=== PATIENT | female | born 1945 | race Caucasian/White ===

== ENCOUNTER 2019-08-31 10:23 | Outpatient (CLI) | payer MEDICARE, MEDICAID, SELFPAY ==
--- NOTE | ~2019-08-31 | MR_ITS ---
EXAMINATION: MR cervical spine wo con DATE: 08/31/2019 12:36 INDICATION: Spinal cord compression presenting with numbness in the legs. TECHNIQUE: Magnetic resonance imaging (MRI) of the cervical spine was performed without intravenous c ontrast. Sequences included sagittal T2-weighted FSE, sagittal T2-weighted FS FSE, sagittal T1-weight ed FSE, axial MERGE and axial T2-weighted FSE. COMPARISON: None FINDINGS: Straightening of the normal cervical lordosis. 1 mm anterolisthesis C3 on C4, 2 mm retrolisthesis C5 on C6 and 1 mm anterolisthesis T2 and T3. Partially visualized levoscoliosis in the upper thoracic sp ine. Vertebral body heights are normal. Bone marrow signal intensity is normal. Moderate disc height loss with degenerative endplate changes at C5-C6 and C6-C7. Mild disc height loss at C3-C4 and C4-C5 . Moderate to severe right-sided predominant disc height loss at T2-T3 and T3-T4. Cord signal intensi ty is normal. Cervical soft tissues are unremarkable. The following disc levels are specifically disc ussed: C2-C3: Disc is mildly bulging. There is mild right and moderate left uncovertebral joint osteoarthrit is. There is moderate right and severe left facet joint osteoarthritis. There is mild left neural for aminal stenosis. There is minimal central canal stenosis. C3-C4: Disc is bulging. There is old right and moderate left uncovertebral joint osteoarthritis. Ther e is moderate right and severe left facet joint osteoarthritis. There is moderate to severe left and mild to moderate right neural foraminal stenosis. There is mild central canal stenosis with mild flat tening of the ventral surface of the cord. C4-C5: Disc is bulging with annular fissure. There is moderate right and moderate to severe left unco vertebral joint osteoarthritis. There is moderate right facet joint osteoarthritis. There appears be fusion at the left facet joint with prominent hypertrophic changes. There is mild right and mild to m oderate left neural foraminal stenosis. There is mild central canal stenosis with mild indentation of the ventral surface of the cord. C5-C6: Disc is bulging with annular fissure and central disc extrusion with disc material extending a couple millimeters caudal to the level of the superior endplate of C6. There is moderate right and m oderate to severe left uncovertebral joint osteoarthritis. There is moderate bilateral facet joint os teoarthritis. There is mild to moderate right and moderate left neural foraminal stenosis. There is m ild central canal stenosis measuring 8 mm AP at the mid sagittal plane and with intention of the vent ral surface of the cord. C6-C7: Disc is bulging. There is moderate right and severe left uncovertebral joint osteoarthritis. T here is mild to moderate right and severe left facet joint osteoarthritis. There is moderate left and minimal rightmild neural foraminal stenosis. There is mild central canal stenosis with subtle flatte srinivasan of the ventral surface of the cord. C7-T1: Disc is mildly bulging. There is mild left uncovertebral joint osteoarthritis. There is severe left and moderate to severe right facet joint osteoarthritis. There is mild left and minimal right n eural foraminal stenosis. There is no central canal stenosis. IMPRESSION: 1. Moderate to severe cervical spondylosis. No evident cord signal changes. Reviewed, dictated and finalized at location A.
--- NOTE | ~2019-08-31 | MR_ITS ---
EXAMINATION: MR thoracic spine wo con DATE: 08/31/2019 12:37 INDICATION: Spinal cord compression. TECHNIQUE: Magnetic resonance imaging (MRI) of the thoracic spine was performed without intravenous c ontrast. Sagittal localizer T1-weighted FSE of the cervicothoracic spine was obtained. Thoracic spine sequences included sagittal T2-weighted FSE, sagittal T1-weighted SE, Sagittal T2-weighted FS FSE, a nd axial T2-weighted FSE. COMPARISON: None FINDINGS: 25 degrees lumbar levoscoliosis measured between T3 and T6. 1 mm anterolisthesis T2 and T3 and T11 an d T12. 2 mm retrolisthesis T12 on L1.Vertebral body heights are normal.T1 and T2 hyperintense hemangi lizzy at T7. Mild fibrovascular degenerative endplate changes at a few levels.Severe right-sided predom inant disc height loss at T4-T5and T5 C6.Moderate disc height loss [id number], T12-L1 and L1-L2. Mild disc height loss throughout the remaining thoracic spine. There disc bulges and disc protrusions to s ome degree at every level in the thoracic spine result in multilevel minimal to mild central canal st enosis most prominent at T8-T9, T9-T10 and T12-L1. There is normal spinal cord signal. The conus term inates below the level of the caudal margin of the field of imaging which is at the level of L1-L2. T here is moderate neural foraminal stenosis on the right at T4-T5 and on the left at T1-T2. Mild neura l foraminal stenosis at multiple additional bilateral neural foramina. Paravertebral soft tissues are unremarkable. IMPRESSION: 1. 25 degrees mid thoracic levoscoliosis. 2. Moderate to severe thoracic spondylosis including multilevel minimal to mild central canal stenosi s. Reviewed, dictated and finalized at location A. IMPRESSION: 1. 25 degrees mid thoracic levoscoliosis. 2. Moderate to severe thoracic spondylosis including multilevel minimal to mild central canal stenosis.
== END 2019-08-31 10:24 | disposition home or self-care (01) ==
PROVIDERS: PCP Family Medicine; Visit Provider Psychiatry & Neurology Neurology
DX: G95.20 Unspecified cord compression (principal); M41.84 Other forms of scoliosis, thoracic region; M47.814 Spondylosis without myelopathy or radiculopathy, thoracic region; M48.04 Spinal stenosis, thoracic region; M47.812 Spondylosis without myelopathy or radiculopathy, cervical region
CPT/HCPCS: 72141; 72146

== ENCOUNTER 2020-06-04 08:34 | Outpatient (CLI) | payer MEDICARE, MEDICAID, SELFPAY ==
--- NOTE | ~2020-06-04 | MM_ITS ---
EXAMINATION: MM screening rashmi BI w braydon HISTORY: Screening TECHNIQUE: Craniocaudal and mediolateral oblique 3-D tomosynthesis images were obtained and synthetic 2-D images were generated. CAD analysis was submitted and interpreted. COMPARISON: Comparison to multiple prior studies sequentially, with oldest reviewed study dated 04/09. BREAST PARENCHYMAL COMPOSITION: There are scattered areas of fibroglandular density. FINDINGS: Stable surgical changes in the right breast. There is no evidence of suspicious mass, calci fication, or architectural distortion to suggest malignancy in either breast. There has been no suspi cious interval change. IMPRESSION: 1. No mammographic evidence of malignancy. 2. Recommend routine screening mammography in one year. BI-RADS Category 1: Negative Reviewed, dictated and finalized at location A. 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
== END 2020-06-04 08:35 | disposition home or self-care (01) ==
PROVIDERS: PCP Family Medicine; Visit Provider Family Medicine
DX: Z12.31 Encounter for screening mammogram for malignant neoplasm of breast (principal)
CPT/HCPCS: 77063; 77067

== ENCOUNTER 2020-08-23 15:23 | Outpatient (CLI) | payer MEDICARE, MEDICAID, SELFPAY ==
--- NOTE | ~2020-08-23 | XR_ITS ---
XR chest 2V DATE: 08/23/2020 16:06 INDICATION: Left anterior chest pain TECHNIQUE: PA and lateral views COMPARISON: 04/25/2018 two-view chest FINDINGS: Normal heart size. No hilar or mediastinal enlargement. No pulmonary infiltrate or consolid ation, pleural effusion or pulmonary vascular congestion or pneumothorax. Scoliosis and degenerative change of the thoracic and lumbar spine. IMPRESSION: No active cardiopulmonary disease Reviewed, dictated and finalized at location A.
== END 2020-08-23 15:24 | disposition home or self-care (01) ==
PROVIDERS: PCP Family Medicine; Visit Provider Family Medicine
DX: R07.89 Other chest pain (principal); M47.815 Spondylosis without myelopathy or radiculopathy, thoracolumbar region; M41.9 Scoliosis, unspecified
CPT/HCPCS: 71046

== ENCOUNTER → 2021-06-17 13:27 | Outpatient (CLI) | payer MEDICARE, SELFPAY ==
--- NOTE | ~2021-06-17 | XR_ITS ---
EXAMINATION: XR ribs BI 3V w CXR 2V INDICATION: Chest pain after fall TECHNIQUE: PA and lateral views of the chest and 3 views of the bilateral ribs were obtained. COMPARISON: 08/23/2020 FINDINGS: The lungs are free of acute opacities. There is no pleural effusion or pneumothorax. The ca rdiomediastinal silhouette is normal. There is moderate thoracic spondylosis. There is levocurvature of the upper thoracic spine. No displaced rib fracture is identified. Surgical changes are noted in t he right breast. IMPRESSION: 1. No acute cardiopulmonary abnormality or evidence of displaced rib fracture. Reviewed, dictated and finalized at location F. RESSOR STATION CHIEF ENGINEER
== END ==
PROVIDERS: PCP Nurse Practitioner Family; Visit Provider Nurse Practitioner Family
DX: S29.9XXA Unspecified injury of thorax, initial encounter (principal)
CPT/HCPCS: 71046; 71110

== ENCOUNTER 2021-06-20 07:21 | Outpatient (CLI) | payer MEDICARE, MEDICAID, SELFPAY ==
--- NOTE | ~2021-06-20 | US_ITS ---
EXAMINATION: US art doppler w je VILLARREAL EXAM DATE: 06/20/2021 08:17 INDICATION: R20.9 - Unspecified disturbances of skin sensation Abnormal sensations in legs. TECHNIQUE: Segmental pressures and plethysmographic and Doppler waveforms of the brachial and lower e xtremity arteries were obtained. Comparison is made to prior examination from 10/16/2017. FINDINGS: Right and left brachial artery pressures of 108 mm Hg and 118 mm Hg, respectively, are concordant (no rmal difference <= 30 mmHg). The right and left thigh-brachial pressure indices are 1.50, could not obtain, respectively (normal > 1.2). RIGHT LEG: The ankle-brachial index (AYLA) is 1.08 (normal >= 0.9-1). The great toe-brachial index (TBI) is 0.82 (normal >= 0.65). The lower extremity ratios, segmental pressure gradients as follows; Proximal superficial femoral artery:- 1.50 (177 mmHg). Distal superficial femoral artery: ----- 1.32 (156 mmHg). Popliteal: 1.19 (141 mmHg). Dorsalis pedis: 1.04 (123 mmHg). Posterior tibial: 1.08 (128 mmHg). (Normal gradients <= 20-30 mmHg between adjacent levels on the same leg or the same levels on the two legs). Arterial waveforms are biphasic through popliteal, monophas ic below. LEFT LEG: The ankle-brachial index (AYLA) is 1.16 (normal >= 0.9-1). The great toe-brachial index (TBI) is 1.11 (normal >= 0.65). The lower extremity ratios, segmental pressure gradients as follows; Proximal superficial femoral artery:- Could not obtain ( mmHg). Distal superficial femoral artery: ----- 1.54 (182 mmHg). Popliteal: 1.14 (135 mmHg). Dorsalis pedis: 1.09 (129 mmHg). Posterior tibial: 1.16 (137 mmHg). (Normal gradients <= 20-30 mmHg between adjacent levels on the same leg or the same levels on the two legs). Arterial waveforms are biphasic through superficial femoral , monophasic below. IMPRESSION: 1. Right ankle-brachial index 1.08, normal. 2. Left ankle-brachial index 1.16, normal. 3. Segmental pressures as above. Reviewed, dictated and finalized at location A. 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
== END 2021-06-20 07:22 | disposition home or self-care (01) ==
PROVIDERS: PCP Family Medicine; Visit Provider Nurse Practitioner Family
DX: R20.9 Unspecified disturbances of skin sensation (principal); I73.9 Peripheral vascular disease, unspecified
CPT/HCPCS: 93923

== ENCOUNTER 2022-04-14 09:49 | Outpatient (CLI) | payer MEDICARE, MEDICAID, SELFPAY ==
--- NOTE | ~2022-04-14 | MM_ITS ---
EXAMINATION: MM screening rashmi BI w braydon HISTORY: Screening mammogram TECHNIQUE: Craniocaudal and mediolateral oblique 3-D tomosynthesis images were obtained and synthetic 2-D images were generated. CAD analysis was submitted and interpreted. COMPARISON: 06/04/2020, 05/13/2019, 02/11/2018 bilateral screening mammogram examinations BREAST PARENCHYMAL COMPOSITION: There are scattered areas of fibroglandular density. FINDINGS: Multiple surgical clips are noted in the posterior lower mid right breast; and ribbon biops y marker in the upper outer quadrant of the right breast; history of prior benign open biopsy and greg ign needle biopsy of right breast. There is no evidence of suspicious mass, calcification, or archite ctural distortion to suggest malignancy in either breast. There has been no suspicious interval los head IMPRESSION: 1. No mammographic evidence of malignancy. 2. Recommend routine screening mammography in one year. BI-RADS Category 2: Benign finding(s). Reviewed, dictated and finalized at location A. CT OF [employer] ESTATE
== END 2022-04-14 09:50 | disposition home or self-care (01) ==
LOC: ANHIMG 09:51
PROVIDERS: PCP Family Medicine; Visit Provider Family Medicine
DX: Z12.31 Encounter for screening mammogram for malignant neoplasm of breast (principal)
CPT/HCPCS: 77063; 77067

== ENCOUNTER → 2022-06-05 09:05 | Outpatient (CLI) | payer MEDICARE, SELFPAY ==
--- NOTE | ~2022-06-05 | XR_ITS ---
Right foot Technique: AP and lateral views were obtained. Clinical History: Pain COMPARISON: 10/23/2012 Findings: No acute fracture or dislocation is seen. Osseous alignment is anatomic. Stable degenerativ e change along the dorsal margin of TMT joints noted. Soft tissues are unremarkable. Impression: Stable midfoot degenerative change, as detailed above. No fracture or dislocation. Reviewed, dictated and finalized at location . NATOR [employer]FORMS Impression: Stable midfoot degenerative change, as detailed above. No fracture or dislocation.
== END ==
PROVIDERS: PCP Family Medicine; Visit Provider Physician Assistant Medical
DX: M79.671 Pain in right foot (principal)
CPT/HCPCS: 73620

== ENCOUNTER → 2022-06-12 08:54 | Outpatient (CLI) | payer MEDICARE, SELFPAY ==
--- NOTE | ~2022-06-12 | XR_ITS ---
AP and lateral/oblique views of the mandible CLINICAL HISTORY: Jaw pain FINDINGS: No definite fracture or dislocation seen. Temporal mandibular joints are grossly unremarkab le. Soft tissues are unremarkable. IMPRESSION: No definite abnormality seen. Reviewed, dictated and finalized at [facility]. 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
--- NOTE | ~2022-06-12 | XR_ITS ---
Cervical Spine: AP, lateral, open-mouth views Clinical History: Pain Findings: There is reversal of the normal cervical lordosis. Minimal grade 1 anterolisthesis of C2 ov er C3 is noted. Minimal grade 1 anterolisthesis of C3 over C4 noted. Minimal grade 1 anterolisthesis of C4 over C5 noted. There is moderate degenerative disc change at C5-C6 and C6-C7. The intervertebra l disc spaces are well maintained. Pre-vertebral soft tissues are unremarkable. Impression: Minimal grade I anterolisthesis of C2 over C3, of C3 over C4, and of C4 over C5. Reversal normal cervical lordosis. Degenerative disc disease at the lower cervical spine, as detailed above. Reviewed, dictated and finalized at location M. [employer] Impression: Minimal grade I anterolisthesis of C2 over C3, of C3 over C4, and of C4 over C5 . Reversal normal cervical lordosis. Degenerative disc disease at the lower cervical spine, as detailed above.
== END ==
PROVIDERS: PCP Family Medicine; Visit Provider Nurse Practitioner Family
DX: M43.02 Spondylolysis, cervical region (principal); M43.12 Spondylolisthesis, cervical region; M53.82 Other specified dorsopathies, cervical region; M50.30 Other cervical disc degeneration, unspecified cervical region
CPT/HCPCS: 70110; 72040

== ENCOUNTER 2022-08-01 11:00 | Outpatient (RCR) | payer MEDICARE, MEDICAID, SELFPAY | END 2022-10-15 12:42 | disposition home or self-care (01) | LOC: ANHPT 11:00 | PROVIDERS: PCP Family Medicine; Visit Provider Nurse Practitioner Family | DX: M54.2 Cervicalgia (principal) | CPT/HCPCS: 99199 ==

== ENCOUNTER 2022-11-06 08:19 | Observation (INO) | payer MEDICARE, MEDICAID, SELFPAY ==
[2022-11-06] VITALS (54 sets, daily range): BP systolic 96–165; BP diastolic 52–97; PULSE 53–136; RESP 11–30; TEMP 36.4–37; O2SAT 94–100
--- NOTE | 2022-11-06 | ECHO_ITS ---
Patient Info Name: Laurie Nava Age: 77 years : 1945 Gender: Female Ht: 66 in Wt: 198 lbs BSA: 2.08 m2 HR: 117 bpm BP: 146 / 70 mmHg Technical Quality: Fair Exam Date: 11/06/2022 3:49 PM Exam Location: [facility] Pulmonary Exam Room: [place] [id number] Patient Status: Inpatient Admit Date: 11/06/2022 Staff Ordering Physician: Audrey Cain NP Leather Goods I Assembler: Jody Reeves RDCS Attending Provider: Anselmo Montgomery MD Referring Physician: Cody Bonilla MD; Exam Type: CA echo doppler color flow Study Info Indications - CHEST PAIN Complete two-dimensional, color flow and Doppler transthoracic echocardiogram is performed. Summary 1. Complete two-dimensional, color flow and Doppler transthoracic echocardiogram is performed. 2. Left ventricular chamber dimension is normal. 3. Left ventricular systolic function is normal, estimated at 60-65%. 4. The left ventricular diastolic function is grade I diastolic dysfunction. 5. E/e' 11 is mildly elevated. 6. There is mild tricuspid valve regurgitation. 7. No pulmonary hypertension, estimated pulmonary arterial systolic pressure is 32 mmHg. 8. There is trivial pericardial effusion. Left Ventricle E/e' 11 is mildly elevated. Left ventricular chamber dimension is normal. Left ventricular systolic function is normal, estimated at 60-65%. The left ventricular diastolic function is grade I diastolic dysfunction. Right Ventricle Right ventricular chamber dimension is normal. Right ventricular systolic function is normal. Left Atria Left atrial chamber dimension is normal. Right Atria Right atrial chamber dimension is normal. Aortic Valve The aortic valve is trileaflet. There is no aortic valve stenosis. There is no aortic valve regurgitation. Pulmonic Valve There is no pulmonic regurgitation. Mitral Valve There is no mitral valve stenosis. There is no mitral valve regurgitation. Tricuspid Valve There is mild tricuspid valve regurgitation. No pulmonary hypertension, estimated pulmonary arterial systolic pressure is 32 mmHg. Pericardium/Pleural There is trivial pericardial effusion. Inferior Vena Cava Normal inferior vena cava with >50% collapse upon inspiration consistent with normal right atrial pressure, 5 mmHg. Aorta The aortic root size at the sinus of Valsalva is normal. Left Ventricular Outflow Tract Name Value Normal LVOT 2D LVOT Diameter 2.0 cm LVOT Doppler LVOT Peak Gradient 4 mmHg LVOT Mean Gradient 2 mmHg LVOT VTI 24 cm LVOT VTI/AV VTI Ratio 0.9 LVOT Stroke Volume 73 ml LVOT CO 13.4 l/min LVOT CI 6.5 l/min/m2 Pulmonic Valve Name Value Normal PV Doppler PV Peak Gradient 1 mmHg Mitral Valve
--- NOTE | ~2022-11-06 | XR_ITS ---
EXAMINATION: XR chest 1V portable INDICATION: Chest pain TECHNIQUE: Portable AP chest at 0841 hours COMPARISON: 06/17/2021 FINDINGS: The lungs are free of acute opacities. No pleural effusion or pneumothorax. The cardiomedia stinal silhouette is normal. Surgical clips are noted in right breast. IMPRESSION: 1. No acute cardiopulmonary abnormality. Reviewed, dictated and finalized at location L.
--- NOTE | ~2022-11-06 | NM_ITS ---
EXAMINATION: NM heather stress w perfusion DATE: 11/07/2022 09:33 INDICATION: Chest pain. TECHNIQUE: Rest images were obtained following intravenous administration of 11 mCi Tc99m tetrofosmin (Myoview). The patient was infused intravenously with Lexiscan (regadenoson). Then, 35 mCi Tc99m tet rofosmin (Myoview) was administered intravenously, and stress images were obtained. Data was reconstr ucted into short axis and horizontal and vertical long axis SPECT images. Gated SPECT images were als o obtained. COMPARISON: Myocardial perfusion imaging 10/17/2013, CT abdomen and pelvis 04/22/2018 FINDINGS: There is a small, mild, fixed perfusion defect involving left ventricular apex consistent w ith infarct. There is no segmental wall motion abnormality. Left ventricular ejection fraction sruthi ures 61%. IMPRESSION: 1. 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 2. Normal left ventricular ejection fraction measuring 61%. Reviewed, dictated and finalized at location A.
--- NOTE | 2022-11-06 08:23 | ECG_ITS ---
Measurements Intervals [place] Rate: 56 P: 36 [place]: 199 QRS: -15 QRSD: 137 T: 28 QT: 428 QTc: 413 Interpretive Statements SINUS BRADYCARDIA WITH SINUS ARRHYTHMIA RIGHT BUNDLE BRANCH BLOCK [120+ ms QRS DURATION, UPRIGHT V1, 40+ ms S IN I/aVL/V4/V5/V6] BASELINE ARTIFACT PRESENT NO PREVIOUS ECG AVAILABLE FOR COMPARISON Electronically Signed On 11-06-2022 15:26:30 CDT by Farhat Johnson M.D.
--- NOTE | 2022-11-06 08:36 | PC.NURSE ---
EMS states pt's EKG showed a right bundle branch block which pt is unsure if she has a history.
[2022-11-06 08:56] LABS: Basophils Percent Auto 0.5 % (0.2-1.2); Eosinophils Absolute Auto 0.1 K/mm3 (0-0.3); Eosinophils Percent Auto 1.4 % (0-4.4); Hematocrit 41.7 % (37.0-47.0); Immature Granulocyte Absolute 0.02 K/mm3 (0.00-0.031); Immature Granulocyte Percent A 0.3 % (0-0.5); Lymphocytes Absolute Auto 1.61 K/mm3 (0.9-3.2); Lymphocytes Percent Auto 24.6 % (18.3-44.2); Mean Corpuscular HGB Conc 31.2 g/dl (32-36); Mean Corpuscular Hemoglobin 31.1 pg (26-34); Mean Corpuscular Volume 99.8 fl (80-100); Monocytes Absolute Auto 0.7 K/mm3 (0.1-0.6); Neutrophils Absolute Auto 4.1 K/mm3 (1.3-6.7); Neutrophils Percent Auto 62.2 % (45.5-73.1); Platelet Count Result 258 k/mm3 (150-375); Red Blood Count 4.18 M/mm3 (4.2-5.4); Red Cell Distribution Width 12.7 % (11.5-14.5); White Blood Count 6.5 K/mm3 (4.5-10.0)
[2022-11-06 09:05] LABS: Alanine Aminotransferase 18 U/L (6-35); Alkaline Phosphatase 70 U/L (38-126); Anion Gap 6 mmol/L (8-16); Aspartate Amino Transferase 26 U/L (14-36); Bilirubin,Total 0.6 mg/dL (0.2-1.3); Blood Urea Nitrogen 23 mg/dL (7-17); Calcium 9.7 mg/dL (8.4-10.2); Carbon Dioxide 22 mmol/L (22-30); Chloride 111 mmol/L (98-107); Estimated CRCL calculation 35 ml/min; Estimated Glomerular Filt Rate 37; Glucose 96 mg/dL (65-110); Lipase 154 U/L (23-300); Potassium 4.2 mmol/L (3.4-5.0); Sodium 139 mmol/L (137-145)
[2022-11-06 09:12] LABS: INR 0.9; Prothrombin Time 12.9 Seconds (11.1-14.7)
[2022-11-06 09:13] LABS: Partial Thromboplastin Time 32.1 SECONDS (22.3-36.8)
[2022-11-06 09:17] LABS: Troponin I < 0.012 ng/mL (0.000-0.034)
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
[2022-11-06 10:02] LABS: Appearance Urine Clear (Clear); Bilirubin Urine Negative (Negative); Blood Urine Negative (Negative); Color Urine Yellow (Yellow); Glucose Urine UA 3+ mg/dL (Negative); Ketones Urine Negative (Negative); Leukocyte Esterase Ur Negative LEU/UL (Negative); Nitrate Urine Negative (Negative); Protein Urine Negative (Negative); Specific Grav Ur 1.009 (1.001-1.035); Urobilinogen Urine 0.2 mg/dL (<2.0); pH Urine 6.5 (5.0-9.0)
[2022-11-06 10:32] LABS: Add Urine Microscopic? NO
[2022-11-06 11:59] LABS: Troponin I < 0.012 ng/mL (0.000-0.034)
--- NOTE | 2022-11-06 13:01 | PM.IMHP ---
H&P: HPI History of Present Illness Date/Time: 11/06/22 13:01 Chief Complaint: Chest pain Narrative: This is a 77-year-old female patient who has a history of chronic kidney disease. The patient stated that her chest pain started around 7:00 a.m. this morning. It started rather quickly in the midsternal region and radiated into the left side of her neck. She denied any nausea vomiting or diarrhea. No fever chills. The patient received around of nitro via EMS and she felt that the pain had resolved. The patient has been under a lot of stress lately. Her creatinine is 1.4 today it typically a baseline is anywhere from 1.2-1.38. EKG was read as sinus bradycardia with sinus arrhythmia. Right bundle-branch block. Chest x-ray was read as no acute cardiopulmonary abnormality. TROPONINS ARE NEGATIVE X2. The patient was given aspirin and a Tylenol for her headache. The patient is being admitted to observation status on the date of service of 11/06/2022. Review of Systems Review of Systems: All systems reviewed & are unremarkable except as noted in HPI and below Constitutional: Constitutional: Reports as per HPI and Reports no additional constitutional complaints Eyes: Eyes: Reports as per HPI and Reports no additional eye complaints ENT: Reports system reviewed and no additional complaints, except as documented and Reports Normal hearing present Cardiovascular: Cardiovascular: Reports no additional cardiovascular complaints Respiratory: Respiratory: Reports no additional respiratory complaints and Reports no additional respiratory complaints Gastrointestinal: Gastrointestinal: Reports as per HPI and Reports no additional gastrointestinal complaints Musculoskeletal: Musculoskeletal: Reports no additional musculoskeletal complaints Integumentary/Breasts: Skin/Breast: Reports system reviewed and no additional complaints, except as docu and Reports as per HPI Neurologic: Reports system reviewed and no additional complaints, except as documented, Reports as per HPI and Reports Normal hearing present Psychiatric: Psychiatric: Reports no additional psychiatric complaints and Reports as per HPI Endocrine: Endocrine: Reports no additional endocrine complaints Hematologic/Lymphatic: Hematologic/Lymphatic: Reports no additional hematologic/lymphatic complaints Allergic/Immunologic: Allergic/Immunologic: Reports no additional allergic/immunologic complaints [facility] Past Medical History Medical History (Updated 11/06/22 @ 16:42 by Audrey Cain NP) Acute bronchitis due to other specified organisms Acute follicular conjunctivitis of both eyes Acute non-recurrent maxillary sinusitis Acute pain of right knee Allergic rhinitis due to pollen Annual physical exam Arthralgia of left temporomandibular joint Arthritis of knee Atrial fibrillation Bilateral impacted cerumen Bipolar 1 disorder Bipolar 1 disorder, mixed Bloating symptom BMI 30.0-30.9,adult BMI 31.0-31.9,adult BMI 33.0-33.9,adult BMI 36.0-36.9,adult BMI greater than 30 Body mass index [BMI] 34.0-34.9, adult (11/24/17) Body mass index [BMI] 35.0-35.9, adult (10/09/17) Breast cancer screening Breast screening Candidiasis Candidiasis of skin Chest wall pain Chronic kidney disease, stage III (moderate) Colon cancer screening Conductive hearing loss of left ear with unrestricted hearing of right ear Constipation by delayed colonic transit Contusion of left foot, initial encounter Counseling for living will Dietary counseling and surveillance (12/29/17) Diverticulosis of colon (without mention of hemorrhage) Duodenal ulcer Ear pain Ear pain Elevated blood pressure reading without diagnosis of hypertension Excessive cerumen in left ear canal Extrapyramidal movement disorder Foot pain, left Gait abnormality HTN (hypertension) with goal to be determined Hypertensive kidney disease IFG (impaired fasting glucose) Insomnia disorder with non-sleep disorder mental comorbidity Li
[2022-11-06] MEDS: ACETAMINOPHEN 500 MG TABLET 1000 MG PO (13:18)
--- NOTE | 2022-11-06 13:34 | PC.NURSE ---
RN talked and gave an update to pt's son with the approval of pt.
[2022-11-06 15:01] LABS: Troponin I < 0.012 ng/mL (0.000-0.034)
--- NOTE | 2022-11-06 17:58 | PC.NURSE ---
This patient, Laurie Nava, was admitted to IMU Room 209-01. Patient/family oriented to hospital policies and general routines including ID bracelet, bed and alarms, visiting hours, pain management, procedures, bathroom and other care routines, personal items, smoking policy, room service/diet, and visiting hours. Information on how to activate the Rapid Response Team has been discussed. Patient/Family are encouraged to report perceived risks to care and to ask questions if they do not understand what they are told or what they should do.
[2022-11-06 18:34] LABS: Lithium 0.5 mmol/L (0.6-1.2)
[2022-11-06] MEDS: ACETAMINOPHEN 325 MG TABLET 650 MG PO (23:10)
[2022-11-06] MEDS: clonazePAM (*CRX) 0.5 MG TABLET PO (23:11)
[2022-11-06] MEDS: PROPRANOLOL HCL 20 MG TABLET PO (23:12)
[2022-11-06] MEDS: LITHIUM CARBONATE 150 MG CAPSULE PO (23:12)
[2022-11-07] VITALS (9 sets, daily range): BP systolic 113–130; BP diastolic 61–69; PULSE 56–80; RESP 18–20; TEMP 36.3–36.8; O2SAT 97–99
[2022-11-07 04:52] LABS: Basophils Percent Auto 0.4 % (0.2-1.2); Eosinophils Absolute Auto 0.1 K/mm3 (0-0.3); Eosinophils Percent Auto 1.3 % (0-4.4); Hematocrit 40.7 % (37.0-47.0); Hemoglobin 12.6 g/dL (12.0-15.0); Immature Granulocyte Absolute 0.01 K/mm3 (0.00-0.031); Immature Granulocyte Percent A 0.2 % (0-0.5); Lymphocytes Absolute Auto 1.44 K/mm3 (0.9-3.2); Lymphocytes Percent Auto 31.8 % (18.3-44.2); Mean Corpuscular Hemoglobin 30.5 pg (26-34); Mean Corpuscular Volume 98.5 fl (80-100); Mean Platelet Volume 9.9 fl (7.4-10.4); Monocytes Absolute Auto 0.6 K/mm3 (0.1-0.6); Neutrophils Absolute Auto 2.4 K/mm3 (1.3-6.7); Neutrophils Percent Auto 53.3 % (45.5-73.1); Platelet Count Result 221 k/mm3 (150-375); Red Blood Count 4.13 M/mm3 (4.2-5.4); Red Cell Distribution Width 12.3 % (11.5-14.5); White Blood Count 4.5 K/mm3 (4.5-10.0)
[2022-11-07 05:01] LABS: Lactic Acid Reflex 0.7 mmol/L (0.7-2.0)
[2022-11-07 05:02] LABS: Alanine Aminotransferase 16 U/L (6-35); Albumin Level 3.6 g/dL (3.5-5.1); Alkaline Phosphatase 58 U/L (38-126); Anion Gap 3 mmol/L (8-16); Aspartate Amino Transferase 25 U/L (14-36); Bilirubin,Total 0.7 mg/dL (0.2-1.3); Blood Urea Nitrogen 25 mg/dL (7-17); Calcium 9.8 mg/dL (8.4-10.2); Carbon Dioxide 28 mmol/L (22-30); Chloride 111 mmol/L (98-107); Estimated CRCL calculation 31 ml/min; Estimated Glomerular Filt Rate 31; Glucose 90 mg/dL (65-110); Magnesium 2.1 mg/dL (1.6-2.3); Potassium 4.1 mmol/L (3.4-5.0); Sodium 142 mmol/L (137-145)
[2022-11-07 05:31] LABS: Thyroid Stimulating Hormone Reflex 0.767 uIU/mL (0.465-4.68)
[2022-11-07] MEDS: PROPRANOLOL HCL 20 MG TABLET PO (07:34)
--- NOTE | 2022-11-07 07:45 | PC.NURSE ---
Pt to nuclear medicine for Lexiscan via wheelchair
--- NOTE | 2022-11-07 09:19 | PC.NURSE ---
Pt returned from nuclear medicine via wheel chair. No issues noted
[2022-11-07] MEDS: FLUTICASONE PROPIONATE 0.05% NA SPR 16 GM BTL (*BKC) 1 SPRAY NASAL (09:55)
[2022-11-07] MEDS: LITHIUM CARBONATE 150 MG CAPSULE PO (09:55)
[2022-11-07] MEDS: SERTRALINE HCL 25 MG TABLET PO (09:55)
[2022-11-07] MEDS: PANTOPRAZOLE 40 MG TABLET PO (09:55)
--- NOTE | 2022-11-07 10:39 | PHAR ---
HOME MED VERIFIED FARXIGA 10MG TABLET TAKE 1 TABLET DAILY
--- NOTE | 2022-11-07 11:41 | PM.CNCAR ---
Assessment and Plan Assessment and plan (1) Chest pain: Code(s): R07.9 - Chest pain, unspecified Status: Acute (2) Abnormal stress test: Code(s): R94.39 - Abnormal result of other cardiovascular function study Status: Acute Plan Patient has very atypical chest pain. Has substernal/neck tightness that comes on after swallowing pills, and her left anterior chest pain over her left breast is very easily reproducible. Troponins are negative. Lexiscan stress test done this morning shows small mild infarct involving LV apex. No reversible perfusion defects to suggest ischemia. No segmental wall motion abnormality. LVEF 61%. Echocardiogram done 11/06 shows LVEF 60-65%, no regional wall motion abnormalities noted, mild TR. Given this, would not pursue invasive cardiac cath at this time. Recommend medical management for symptoms of acid reflux and musculoskeletal chest pain. Recommend ASA and statin if no contraindications, continue beta umair. Patient to follow up with Cardiology as outpatient --- patient states she prefers to see a Elevators Inspector in [place] as that is where she lives. Okay for discharge from my standpoint. Recommendations/plan discussed with Hospitalist, Dr. Montgomery. History of Present Illness History of Present Illness Consult date/time: 11/07/22 11:41 Requesting physician: Anselmo Montgomery MD Consult reason: Other (Abnormal stress test) Reason For Visit: Chest Pain, EKG Changes Narrative: We are consulted for abnormal stress test. This is a 77-year-old female with CKD, tremors, bipolar disorder, GERD who presented on 11/06 for chest pain. Patient states she was sitting yesterday morning when she had sudden onset of substernal chest tightness that went into her neck. Given SL NTG with resolution of pain by EMS. Patient also reports brief sharp left anterior pain over her left breast. Echocardiogram done 11/06 shows LVEF 60-65%, no regional wall motion abnormalities noted, mild TR. EKG shows sinus bradycardia with RBBB. Lexiscan stress test done this morning shows small mild infarct involving LV apex. No reversible perfusion defects to suggest ischemia. No segmental wall motion abnormality. LVEF 61%. Patient states she got the same substernal/neck tightness this morning when she swallowed her pills. Troponins negative. Review of Systems Review of Systems: All systems reviewed & are unremarkable except as noted in HPI and below (HPI) [facility]LY [facility] Past Medical History Medical History (Updated 11/07/22 @ 11:48 by Farhat Johnson MD) Acute bronchitis due to other specified organisms Acute follicular conjunctivitis of both eyes Acute non-recurrent maxillary sinusitis Acute pain of right knee Allergic rhinitis due to pollen Annual physical exam Arthralgia of left temporomandibular joint Arthritis of knee Atrial fibrillation Bilateral impacted cerumen Bipolar 1 disorder Bipolar 1 disorder, mixed Bloating symptom BMI 30.0-30.9,adult BMI 31.0-31.9,adult BMI 33.0-33.9,adult BMI 36.0-36.9,adult BMI greater than 30 Body mass index [BMI] 34.0-34.9, adult (11/24/17) Body mass index [BMI] 35.0-35.9, adult (10/09/17) Breast cancer screening Breast screening Candidiasis Candidiasis of skin Chest wall pain Chronic kidney disease, stage III (moderate) Colon cancer screening Conductive hearing loss of left ear with unrestricted hearing of right ear Constipation by delayed colonic transit Contusion of left foot, initial encounter Counseling for living will Dietary counseling and surveillance (12/29/17) Diverticulosis of colon (without mention of hemorrhage) Duodenal ulcer Ear pain Ear pain Elevated blood pressure reading without diagnosis of hypertension Excessive cerumen in left ear canal Extrapyramidal movement disorder Foot pain, left Gait abnormality HTN (hypertension) with goal to be determined Hypertensive kidney disease IFG (impaired fasting glucose) Insomnia disorder with non-sleep disorder
--- NOTE | 2022-11-07 13:09 | EST_ITS ---
Patient Info Name: Laurie Nava Age: 77 years : 1945 Gender: Female Ht: 66 in Wt: 198 lbs BSA: 2.08 m2 HR: 53 bpm BP: 101 / 78 mmHg Heart Rhythm: Sinus Rhythm Exam Date: 11/07/2022 8:23 AM Exam Location: [facility] Stress Patient Status: Outpatient Admit Date: 11/06/2022 Staff Ordering Physician: Audrey Cain NP Attending Provider: Anselmo Montgomery MD Referring Physician: Cody Bonilla MD; Exercise Technologist: Hanna Fritz CT Exercise Physician: Eliud Cruz DO Exam Type: CA stress heather w NM Study Info Indications R07.89 - Other chest pain A regadenoson stress test was performed. Summary 1. 1. Negative lexiscan stress test for ischemic ST changes by ECG criteria. 2. 2. Stable hemodynamics throughout the test. 3. 3. Nuclear scan to follow and will be reported separately. Please correlate with it. 4. 4. Patient informed of the above results. Protocol: Lexiscan Stress ECG Details Stage: REST Duration (min): 2 min : 12 sec HR (bpm): 54 SBP (mmHg): 170 DBP (mmHg): 108 Stage: REST Duration (min): 8 min : 43 sec HR (bpm): 54 SBP (mmHg): 101 DBP (mmHg): 78 Stage: STAGE 1 Duration (min): 1 min : 0 sec HR (bpm): 72 SBP (mmHg): 122 DBP (mmHg): 63 Stage: RECOVERY Duration (min): 1 min : 0 sec HR (bpm): 81 SBP (mmHg): 122 DBP (mmHg): 63 Stage: RECOVERY Duration (min): 2 min : 0 sec HR (bpm): 73 SBP (mmHg): 122 DBP (mmHg): 63 Stage: RECOVERY Duration (min): 3 min : 0 sec HR (bpm): 70 SBP (mmHg): 122 DBP (mmHg): 63 Stage: RECOVERY Duration (min): 3 min : 33 sec HR (bpm): 70 SBP (mmHg): 123 DBP (mmHg): 91 Rest HR: 54 bpm Peak HR: 86 bpm Rest Sys BP: 101 mmHg Peak Sys BP: 123 mmHg Max Pred HR: 144 bpm % Max Pred HR: 60 % Target HR: 122 bpm Max RPP: 10,578 bpm*mmHg Termination Reason: Completed protocol Cardiac Symptoms: Shortness of breath Total Time: 1 min : 0 sec Rest Briscoe BP: 78 mmHg Peak Briscoe BP: 91 mmHg Total Dose: 0.4 mg Resting ECG Sinus rhythm, RBBB. Stress ECG No ST changes. Arrhythmias None. Report Signatures
--- NOTE | 2022-11-07 13:20 | PCCCNOTE ---
On 11/07/22, the student, [Ciera Moore], provided care and completed [facility] documentation on this patient. I have reviewed the student's documentation and agree with the findings.
--- NOTE | 2022-11-07 13:29 | PM.DS ---
DS: Admitting Diagnosis Discharge Date November 08, 2019 Admitting Diagnosis Chest pain DS: Discharge Diagnosis Discharge Diagnosis (1) Chest pain: Code(s): R07.9 - Chest pain, unspecified Status: Acute Assessment and Plan: Troponins are negative x2 so far. Patient denies any further discomfort. The patient does have a history of anxiety. I did order an echo test and nuclear med Lexiscan. The patient stated that she has had a cardiac catheterization in of stress test in the past and was found to be negative. Patient has no prior history of having any coronary artery disease. EKG was read as the followingSINUS BRADYCARDIA WITH SINUS ARRHYTHMIA RIGHT BUNDLE BRANCH BLOCK? [120+ ms QRS DURATION, UPRIGHT V1, 40+ ms S IN I/aVL/V4/V5/V6] BASELINE ARTIFACT PRESENT NO PREVIOUS ECG AVAILABLE FOR COMPARISON Electronically Signed On 11-06-2022 15:26:30 CDT by Farhat Johnson? Patient is pain-free at this time. The patient was given an aspirin in the emergency room. She will be NPO after midnight for nuclear med stress test. Her heart score is 5. (2) Essential tremor: Code(s): G25.0 - Essential tremor Status: Acute Assessment and Plan: Continue with her propanolol (3) Chronic kidney disease, stage 3b: Code(s): N18.32 - Chronic kidney disease, stage 3b Status: Acute Assessment and Plan: The patient is at her baseline. Her creatinine is 1.4 BUN is 23 her GFR is 37. Please continue to monitor. The patient is on Farxiga (4) Manic-depressive disorder: Code(s): F31.9 - Bipolar disorder, unspecified Status: Acute Assessment and Plan: She is on lithium so check her lithium levels. Continue with clonazepam (5) HTN (hypertension) with goal to be determined: Code(s): I10 - Essential (primary) hypertension Status: Acute Plan The patient is on Amiloride however this should be renally adjusted DS: Summary Hospital Course Hospital Course: Admitted for chest pain negative workup. Patient can be discharged. Follow up Cardiology as needed Time Spent with Patient Time attestation: Total time spent providing and/or coordinating discharge services: Exam Const: General: cooperative, healthy appearing, comfortable, no acute distress, well developed, awake, Physically active, average body habitus and well nourished Nutritional Appearance: average body habitus and well nourished Orientation/consciousness: oriented to person, oriented to place, oriented to time and patient oriented x3 Limitations: no limitations HENMT: Head: normal to inspection, No palpable skull fracture present, normocephalic and atraumatic Ears: hearing grossly normal bilaterally and external ears normal Face/Nose/Sinus: Normal external nose present and Normal nares present Eyes: General: appearance normal, both eyes and all related structures Alignment and Position: alignment normal Periorbital: periorbital findings normal Eyelids: eyelids normal Sclera: sclerae normal Pupils: Equal, round and reactive pupils present EOM: EOMs intact bilaterally Neck: Neck: normal visual inspection, full ROM, no lymphadenopathy, trachea midline and supple Chest: Chest palpation & inspection: normal inspection of the chest Resp: Effort & Inspection: normal respiratory effort Auscultation: clear to auscultation bilaterally Cardio: Palpation: normal PMI Rate: bradycardic Rhythm: regular rhythm Heart sounds: S1 normal heart sound present and S2 normal heart sound present Peripheral pulses: Peripheral pulses 2+ throughout GI: Inspection: normal to inspection Auscultation: normal bowel sounds Rectal Exam: deferred Back/Spine/Pelvis: Cervical Spine: cervical ROM normal Skin: General skin exam: normal color Lesions: no lesions Rashes: no rashes Trauma: no lacerations or abrasions Wounds: no wounds Hair: normal Nails: normal Neuro: General: oriented to person, oriented to place, oriented to time and
== END 2022-11-07 14:52 | disposition home or self-care (01) ==
LOC: ANHED 12:44 → ANHIMU 14:36
PROVIDERS: Emergency Medicine; Nurse Practitioner; Admitting Provider Chiropractor; Emergency Provider Physician Assistant; PCP Family Medicine; Referring Provider Hospitalist; Visit Provider Chiropractor
DX: R07.9 Chest pain, unspecified (principal); G25.0 Essential tremor; F31.9 Bipolar disorder, unspecified; I48.91 Unspecified atrial fibrillation; R14.0 Abdominal distension (gaseous); I12.9 Hypertensive chronic kidney disease with stage 1 through stage 4 chronic kidney disease, or unspecified chronic kidney disease; N18.32 Chronic kidney disease, stage 3b; R73.01 Impaired fasting glucose; G47.00 Insomnia, unspecified; E78.2 Mixed hyperlipidemia; E66.9 Obesity, unspecified; R00.1 Bradycardia, unspecified; R11.10 Vomiting, unspecified; I45.10 Unspecified right bundle-branch block; R94.39 Abnormal result of other cardiovascular function study; R94.31 Abnormal electrocardiogram [ECG] [EKG]; Z68.32 Body mass index [BMI] 32.0-32.9, adult; N32.81 Overactive bladder; Z63.79 Other stressful life events affecting family and household; Z82.49 Family history of ischemic heart disease and other diseases of the circulatory system; Z66 Do not resuscitate
CPT/HCPCS: 36415; 71045; 78452; 80053; 80178; 81003; 83605; 83690; 83735; 84443; 84484; 85025; 85610; 85730; 93005; 93017; 93306; 99285; A9270; A9502; G0378; J2785

== ENCOUNTER 2022-11-21 06:56 | Emergency (ER) | payer MEDICARE, MEDICAID, SELFPAY ==
--- NOTE | ~2022-11-21 | XR_ITS ---
EXAMINATION: XR chest 2V DATE: 11/21/2022 07:37 INDICATION: Chest pain. TECHNIQUE: Frontal and lateral views of the chest were obtained. COMPARISON: Chest single view 11/06/2022 FINDINGS: The chest demonstrates clear lungs without pneumonia, pleural effusion, or pneumothorax. Th e heart size is normal. There are surgical clips in the abdomen. IMPRESSION: 1. No acute cardiopulmonary disease. Reviewed, dictated and finalized at location A.
[2022-11-21 06:57] VITALS: BP 135/80; PULSE 72; RESP 20; TEMP 36.6; O2SAT 98
--- NOTE | 2022-11-21 07:00 | ECG_ITS ---
Measurements Intervals [place] Rate: 68 P: 53 NM: 188 QRS: -14 QRSD: 131 T: 22 QT: 396 QTc: 423 Interpretive Statements SINUS RHYTHM RIGHT BUNDLE BRANCH BLOCK ABNORMAL ECG COMPARED TO ECG 11/06/2022 08:24:17 NO SIGNIFICANT CHANGE Electronically Signed On 11-21-2022 13:28:30 CDT by Anselmo Gee M.D.
[2022-11-21 07:17] LABS: Basophils Percent Auto 0.7 % (0.2-1.2); Eosinophils Absolute Auto 0.1 K/mm3 (0-0.3); Eosinophils Percent Auto 2.3 % (0-4.4); Hemoglobin 13.1 g/dL (12.0-15.0); Immature Granulocyte Absolute 0.01 K/mm3 (0.00-0.031); Immature Granulocyte Percent A 0.2 % (0-0.5); Lymphocytes Absolute Auto 1.11 K/mm3 (0.9-3.2); Lymphocytes Percent Auto 25.2 % (18.3-44.2); Mean Corpuscular HGB Conc 31.2 g/dl (32-36); Mean Corpuscular Hemoglobin 31.3 pg (26-34); Mean Corpuscular Volume 100.2 fl (80-100); Mean Platelet Volume 9.6 fl (7.4-10.4); Monocytes Absolute Auto 0.6 K/mm3 (0.1-0.6); Monocytes Percent Auto 14.1 % (2.6-8.5); Neutrophils Absolute Auto 2.5 K/mm3 (1.3-6.7); Neutrophils Percent Auto 57.5 % (45.5-73.1); Platelet Count Result 232 k/mm3 (150-375); Red Blood Count 4.19 M/mm3 (4.2-5.4); Red Cell Distribution Width 12.7 % (11.5-14.5); White Blood Count 4.4 K/mm3 (4.5-10.0)
[2022-11-21 07:18] VITALS: BP 141/74; RESP 18; O2SAT 98
[2022-11-21 07:28] LABS: Alanine Aminotransferase 16 U/L (6-35); Albumin Level 3.8 g/dL (3.5-5.1); Alkaline Phosphatase 65 U/L (38-126); Anion Gap 4 mmol/L (8-16); Aspartate Amino Transferase 28 U/L (14-36); Bilirubin,Total 0.7 mg/dL (0.2-1.3); Blood Urea Nitrogen 25 mg/dL (7-17); Calcium 9.8 mg/dL (8.4-10.2); Carbon Dioxide 28 mmol/L (22-30); Chloride 111 mmol/L (98-107); Estimated CRCL calculation 34 ml/min; Estimated Glomerular Filt Rate 37; Glucose 92 mg/dL (65-110); Lipase 110 U/L (23-300); Potassium 4.1 mmol/L (3.4-5.0); Sodium 143 mmol/L (137-145)
[2022-11-21 07:30] LABS: INR 0.9
[2022-11-21 07:31] LABS: Partial Thromboplastin Time 29.9 SECONDS (22.3-36.8)
[2022-11-21 07:39] LABS: Troponin I < 0.012 ng/mL (0.000-0.034)
--- NOTE | 2022-11-21 08:17 | ED.GENADULT ---
HPI - General Adult General Chief complaint: Neck Pain/Injury Stated complaint: CP, neck pain Time Seen by Provider: 11/21/22 06:57 History of Present Illness HPI narrative: 77-year-old female presented the emergency department for evaluation of right-sided chest pain. Patient has no prior history of coronary disease. Patient states that this morning she had right-sided chest pain that lasted for about 1 to 5 minutes. Patient states this occurred while she was at rest. Patient states that she has been having almost daily chest pain that she indicates as epigastric. Related Data Home Medications Medication Instructions Recorded Confirmed lithium carbonate 150 mg capsule 150 mg PO BID 08/13/22 11/13/22 propranolol 20 mg tablet 20 mg PO BID 11/06/22 11/13/22 Allergies Allergy/AdvReac Type Severity Reaction Status Date / Time oxybutynin Allergy Unknown Unknown Verified 11/13/22 16:12 oxycodone Allergy Unknown RASH Verified 11/13/22 16:12 primidone Allergy Unknown Unknown Verified 11/13/22 16:12 Sulfa (Sulfonamide Allergy Unknown Unknown Verified 11/13/22 16:12 Antibiotics) Review of Systems Review of Systems: All systems reviewed & are unremarkable except as noted in HPI and below PMFSH Past Medical History Medical History (Updated 11/21/22 @ 11:14 by Arthur Layne MD) Acute bronchitis due to other specified organisms Acute follicular conjunctivitis of both eyes Acute non-recurrent maxillary sinusitis Acute pain of right knee Allergic rhinitis due to pollen Annual physical exam Arthralgia of left temporomandibular joint Arthritis of knee Atrial fibrillation Bilateral hand numbness Bilateral impacted cerumen Bipolar 1 disorder Bipolar 1 disorder, mixed Bloating symptom BMI 30.0-30.9,adult BMI 31.0-31.9,adult BMI 33.0-33.9,adult BMI 36.0-36.9,adult BMI greater than 30 Body mass index [BMI] 34.0-34.9, adult (11/24/17) Body mass index [BMI] 35.0-35.9, adult (10/09/17) Breast cancer screening Breast screening Candidiasis Candidiasis of skin Chest wall pain Chronic kidney disease, stage III (moderate) Colon cancer screening Conductive hearing loss of left ear with unrestricted hearing of right ear Constipation by delayed colonic transit Contusion of left foot, initial encounter Counseling for living will Dietary counseling and surveillance (12/29/17) Diverticulosis of colon (without mention of hemorrhage) Duodenal ulcer Ear pain Ear pain Elevated blood pressure reading without diagnosis of hypertension Excessive cerumen in left ear canal Extrapyramidal movement disorder Foot pain, left Gait abnormality HTN (hypertension) with goal to be determined Hypertensive kidney disease IFG (impaired fasting glucose) Insomnia disorder with non-sleep disorder mental comorbidity Lipid screening Long-term current use of lithium Low kidney function Mediastinal cyst Mixed hyperlipidemia Neuropathy OAB (overactive bladder) Obesity, unspecified Other obesity due to excess calories Pes planus of left foot Postmenopausal Primary osteoarthritis of left knee Ptosis Pulmonary nodule SOB (shortness of breath) Stage 2 chronic kidney disease Tremor of both hands Tremor, coarse Tremor, hereditary, benign Trochanteric bursitis of right hip Unilateral hearing loss Vaginitis, atrophic Weakness Surgical History Surgical History H/O dilation and curettage H/O foot surgery History of 2 sections History of Achilles tendon repair History of cardiac catheterization History of hand surgery History of hysterectomy History of left knee replacement History of tonsillectomy and adenoidectomy Family History Family History Mother Family history of kidney disease Patient's mother is Hypertension Family history of arthritis Father Family history of chronic obstructive pulmonary dis
[2022-11-21] MEDS: ACETAMINOPHEN 325 MG TABLET 650 MG PO (08:24)
[2022-11-21 08:26] VITALS: BP 128/62; PULSE 85; RESP 14; O2SAT 99
[2022-11-21] MEDS: CYCLOBENZAPRINE HCL 10 MG TABLET PO (08:26)
[2022-11-21 09:52] VITALS: BP 125/68; PULSE 66; RESP 14; O2SAT 96
[2022-11-21 10:50] LABS: Troponin I < 0.012 ng/mL (0.000-0.034)
[2022-11-21 11:13] VITALS: BP 135/69; PULSE 79; RESP 20; O2SAT 94
--- NOTE | 2022-11-21 11:31 | PC.NURSE ---
Spoke with Radames pt son and updated him on the pt. Radames also informed me that he will be getting
== END 2022-11-21 11:23 | disposition home or self-care (01) ==
PROVIDERS: Emergency Provider Emergency Medicine; PCP Family Medicine
DX: R07.89 Other chest pain (principal); M54.2 Cervicalgia; I48.91 Unspecified atrial fibrillation; I12.9 Hypertensive chronic kidney disease with stage 1 through stage 4 chronic kidney disease, or unspecified chronic kidney disease; N18.30 Chronic kidney disease, stage 3 unspecified; E78.2 Mixed hyperlipidemia; G62.9 Polyneuropathy, unspecified; N32.81 Overactive bladder; E66.09 Other obesity due to excess calories; Z68.32 Body mass index [BMI] 32.0-32.9, adult; M17.12 Unilateral primary osteoarthritis, left knee; F31.9 Bipolar disorder, unspecified; Z90.710 Acquired absence of both cervix and uterus; Z96.652 Presence of left artificial knee joint; I45.10 Unspecified right bundle-branch block
CPT/HCPCS: 36415; 71046; 80053; 83690; 84484; 85025; 85610; 85730; 93005; 99284; A9270

== ENCOUNTER 2022-11-25 08:56 | Outpatient (CLI) | payer MEDICARE, MEDICAID, SELFPAY ==
--- NOTE | 2022-11-25 11:00 | NEURO_ITS ---
Impression: Patient reports a history of numbness in both hands, right worse than left. # Moderate right Carpal Tunnel Syndrome. # Normal needle/EMG of the right upper extremity. # Patient declined testing of the left upper extremity. # Clinical correlation recommended. Nerve Conduction Studies Anti Sensory Summary Table Stim Site NR Peak (ms) P-T Amp (?V) Site1 Site2 Delta-P (ms) Dist (cm) Cuco (m/s) Right Median Anti Sensory (2-3nd Digit) Wrist 5.3 11.0 Wrist 2-3nd Digit 5.3 14.0 26 Wrist 5.0 21.7 Wrist 2-3nd Digit 5.3 14.0 26 Right Radial Anti Sensory (Base 1st Digit) Wrist 1.8 15.0 Wrist Base 1st Digit 1.8 0.0 Right Ulnar Anti Sensory (5th Digit) Wrist 2.7 22.7 Wrist 5th Digit 2.7 14.0 52 Motor Summary Table Stim Site NR Onset (ms) O-P Amp (mV) Site1 Site2 Delta-0 (ms) Dist (cm) Cuco (m/s) Right Median Motor (Abd Poll Brev) Wrist 5.2 3.4 Elbow Wrist 4.5 23.0 51 Elbow 9.7 3.0 Right Ulnar Motor (Abd Dig Minimi) Wrist 2.6 4.5 A Elbow Wrist 5.6 29.0 52 A Elbow 8.2 4.0 B Elbow Wrist 3.6 19.0 53 B Elbow 6.2 4.3 F Wave Studies NR F-Lat (ms) L-R F-Lat (ms) Right Median (Mrkrs) (Abd Poll Brev) 27.23 Right Ulnar (Mrkrs) (Abd Dig Min) 26.61 EMG Side Muscle Nerve Root Ins Act Fibs Amp Dur Recrt Comment Right 1stDorInt Ulnar C8-T1 Nml Nml Nml Nml Nml Right Ext Indicis Radial (Post Int) C7-8 Nml Nml Nml Nml Nml Right Ext Digitorum Radial (Post Int) C7-8 Nml Nml Nml Nml Nml Right BrachioRad Radial C5-6 Nml Nml Nml Nml Nml Right PronatorTeres Median C6-7 Nml Nml Nml Nml Nml Right Abd Poll Brev Median C8-T1 Nml Nml Nml Nml Nml MTDD
== END 2022-11-25 08:57 | disposition home or self-care (01) ==
LOC: ANHNEURO 08:58
PROVIDERS: PCP Family Medicine; Visit Provider Family Medicine
DX: G56.01 Carpal tunnel syndrome, right upper limb (principal)
CPT/HCPCS: 95886; 95909

== ENCOUNTER 2022-11-25 10:10 | Outpatient (CLI) | payer MEDICARE, MEDICAID, SELFPAY | END 2022-11-25 10:11 | disposition home or self-care (01) | LOC: ANHAUDIO 10:11 | PROVIDERS: PCP Family Medicine; Visit Provider Family Medicine | DX: H91.93 Unspecified hearing loss, bilateral (principal) | CPT/HCPCS: 92557; 92567; 95886; 95909 ==

== ENCOUNTER 2023-03-30 09:54 | Outpatient (CLI) | payer MEDICARE, MEDICAID, SELFPAY ==
--- NOTE | ~2023-03-30 | US_ITS ---
US renal BI 03/30/2023 10:45 Procedure: Realtime transabdominal ultrasound of the kidneys and bladder. Indication: Chronic kidney disease stage III B Comparison: Ultrasound dated 02/10/2015 Findings: Renal echotexture is normal bilaterally without hydronephrosis, contour deforming mass or r enal calculus. There are bilateral renal cysts, largest on the right measuring 2.6 cm and 1.8 cm on t he left. The right kidney measures 9.8 cm and left kidney measures 9.8 cm. Bladder within normal bowser its. Impression: 1: Bilateral renal cysts. Reviewed, dictated and finalized at location B. Impression: 1: Bilateral renal cysts.
== END 2023-03-30 09:55 | disposition home or self-care (01) ==
PROVIDERS: PCP Family Medicine; Visit Provider Internal Medicine Nephrology
DX: N18.32 Chronic kidney disease, stage 3b (principal); N28.1 Cyst of kidney, acquired
CPT/HCPCS: 76775

== ENCOUNTER 2023-09-17 16:09 | Emergency (ER) | payer MEDICARE, MEDICAID, SELFPAY ==
--- NOTE | ~2023-09-17 | XR_ITS ---
XR chest 2V 09/17/2023 17:02 Indication: Chest pain Procedure: 2 view chest Comparison: No prior studies for comparison. Findings: Heart size normal. No focal air space disease, pulmonary edema, pleural effusion or suspect ed pneumothorax. There are surgical changes in the right lower chest wall. There is lower thoracic an d lumbar lumbar spondylosis with accentuated kyphosis. Impression: 1: No acute cardiopulmonary disease. Reviewed, dictated and finalized at location A. Impression: 1: No acute cardiopulmonary disease.
--- NOTE | 2023-09-17 16:17 | ED.CHESTPAIN ---
HPI - Chest Pain General Chief Complaint: Chest Pain Stated Complaint: chest pain History of Present Illness HPI narrative: Patient is a 77-year-old female who presents ER with multiple complaints. First complaint is epigastric pain. Ongoing for last couple of weeks. Aching. Worse with pressing on it. Better with Mylanta. No dark black stools. No nausea or vomiting. No diarrhea. Patient also reports that was the she has been having some achy chest pain for 1 week. Thumb both sides of her chest and worse with palpation. Not describe any aggravating or alleviating factors. She has no change in the discomfort with exertion. Related Data Home Medications Medication Instructions Recorded Confirmed lithium carbonate 150 mg capsule 150 mg PO BID 08/13/22 09/17/23 Allergies Allergy/AdvReac Type Severity Reaction Status Date / Time oxybutynin Allergy Unknown Unknown Verified 09/17/23 14:02 oxycodone Allergy Unknown RASH Verified 09/17/23 14:02 primidone Allergy Unknown Unknown Verified 09/17/23 14:02 Sulfa (Sulfonamide Allergy Unknown Unknown Verified 09/17/23 14:02 Antibiotics) Review of Systems Review of Systems: All systems reviewed & are unremarkable except as noted in HPI and below Constitutional: Constitutional: Reports no additional constitutional complaints ENT: Reports system reviewed and no additional complaints, except as documented Cardiovascular: Cardiovascular: Reports chest pain, Denies rapid heart rate and Denies radiating jaw, neck or arm pain Respiratory: Respiratory: Reports no additional respiratory complaints Gastrointestinal: Gastrointestinal: Reports abdominal pain, Denies diarrhea, Denies nausea and Denies vomiting Genitourinary: Genitourinary: Reports no additional female genitourinary complaints [facility] Past Medical History Medical History (Updated 09/17/23 @ 17:59 by Vikash Krishnan MD) Abdominal pain Acute bronchitis due to other specified organisms Acute follicular conjunctivitis of both eyes Acute non-recurrent maxillary sinusitis Acute pain of right knee Allergic rhinitis due to pollen Annual physical exam Arthralgia of left temporomandibular joint Arthritis of knee Atrial fibrillation Bilateral hand numbness Bilateral impacted cerumen Bipolar 1 disorder Bipolar 1 disorder, mixed Bloating symptom BMI 30.0-30.9,adult BMI 31.0-31.9,adult BMI 33.0-33.9,adult BMI 36.0-36.9,adult BMI greater than 30 Body mass index [BMI] 34.0-34.9, adult (11/24/17) Body mass index [BMI] 35.0-35.9, adult (10/09/17) Breast cancer screening Breast screening Candidiasis Candidiasis of skin Chest pain at rest Chest wall pain Chronic kidney disease, stage III (moderate) Colon cancer screening Conductive hearing loss of left ear with unrestricted hearing of right ear Constipation by delayed colonic transit Contusion of left foot, initial encounter Counseling for living will Dietary counseling and surveillance (12/29/17) Diverticulosis of colon (without mention of hemorrhage) Dizziness Duodenal ulcer Ear pain Ear pain Elevated blood pressure reading without diagnosis of hypertension Excessive cerumen in left ear canal Extrapyramidal movement disorder Foot pain, left Gait abnormality HTN (hypertension) with goal to be determined Hypertensive kidney disease IFG (impaired fasting glucose) Insomnia disorder with non-sleep disorder mental comorbidity Lipid screening Long-term current use of lithium Low kidney function Mediastinal cyst Mixed hyperlipidemia Nausea Neuropathy OAB (overactive bladder) Obesity, unspecified Other obesity due to excess calories Pes planus of left foot Postmenopausal Primary osteoarthritis of left knee Ptosis Pulmonary nodule SOB (shortness of breath) Stage 2 chronic kidney disease Tremor of both hands Tremor, coarse Tremor, hereditary, benign Trochanteric bursitis of right hip Unilateral hearing loss Vaginitis, atrophic Weakness Surgical History Lee
[2023-09-17 16:23] VITALS: BP 149/91; PULSE 80; RESP 19; TEMP 36.6; O2SAT 99
[2023-09-17 16:52] LABS: Basophils Percent Auto 0.5 % (0.2-1.2); Eosinophils Absolute Auto 0.1 K/mm3 (0-0.3); Eosinophils Percent Auto 1.3 % (0-4.4); Hematocrit 42.9 % (37.0-47.0); Hemoglobin 13.1 g/dL (12.0-15.0); Immature Granulocyte Absolute 0.01 K/mm3 (0.00-0.031); Immature Granulocyte Percent A 0.2 % (0-0.5); Lymphocytes Absolute Auto 1.46 K/mm3 (0.9-3.2); Lymphocytes Percent Auto 23.5 % (18.3-44.2); Mean Corpuscular HGB Conc 30.5 g/dl (32-36); Mean Corpuscular Hemoglobin 30.5 pg (26-34); Mean Platelet Volume 9.9 fl (7.4-10.4); Monocytes Absolute Auto 0.7 K/mm3 (0.1-0.6); Monocytes Percent Auto 11.1 % (2.6-8.5); Neutrophils Absolute Auto 3.9 K/mm3 (1.3-6.7); Neutrophils Percent Auto 63.4 % (45.5-73.1); Platelet Count Result 232 k/mm3 (150-375); Red Blood Count 4.29 M/mm3 (4.2-5.4); Red Cell Distribution Width 12.8 % (11.5-14.5); White Blood Count 6.2 K/mm3 (4.5-10.0)
[2023-09-17 16:58] LABS: Appearance Urine Clear (Clear); Color Urine Light Yellow (Yellow)
[2023-09-17 16:59] LABS: Add Urine Microscopic? NO; Bilirubin Urine Negative (Negative); Blood Urine Negative (Negative); Glucose Urine UA 2+ mg/dL (Negative); Ketones Urine Negative (Negative); Leukocyte Esterase Ur Negative LEU/UL (Negative); Nitrate Urine Negative (Negative); Protein Urine Negative (Negative); Urobilinogen Urine 0.2 mg/dL (<2.0)
[2023-09-17 17:04] LABS: Prothrombin Time 13.3 Seconds (11.1-14.7)
[2023-09-17 17:07] LABS: Alanine Aminotransferase 13 U/L (6-35); Albumin Level 3.9 g/dL (3.5-5.1); Alkaline Phosphatase 77 U/L (38-126); Anion Gap 5 mmol/L (4-12); Aspartate Amino Transferase 23 U/L (14-36); Bilirubin,Total 0.6 mg/dL (0.2-1.3); Blood Urea Nitrogen 22 mg/dL (7-17); Calcium 9.8 mg/dL (8.4-10.2); Carbon Dioxide 26 mmol/L (22-30); Chloride 110 mmol/L (98-107); Estimated CRCL calculation 31 ml/min; Estimated Glomerular Filt Rate 34; Glucose 91 mg/dL (65-110); Lipase 141 U/L (23-300); Potassium 3.8 mmol/L (3.4-5.0); Sodium 141 mmol/L (137-145)
[2023-09-17 17:18] LABS: Troponin I < 0.012 ng/mL (0.000-0.034)
== END 2023-09-17 19:05 | disposition home or self-care (01) ==
PROVIDERS: Emergency Provider Emergency Medicine; PCP Family Medicine
DX: R10.13 Epigastric pain (principal); R07.89 Other chest pain; I48.91 Unspecified atrial fibrillation; I12.9 Hypertensive chronic kidney disease with stage 1 through stage 4 chronic kidney disease, or unspecified chronic kidney disease; N18.30 Chronic kidney disease, stage 3 unspecified; E78.2 Mixed hyperlipidemia; E66.09 Other obesity due to excess calories; Z68.28 Body mass index [BMI] 28.0-28.9, adult; N32.81 Overactive bladder; G62.9 Polyneuropathy, unspecified; M17.12 Unilateral primary osteoarthritis, left knee; Z96.652 Presence of left artificial knee joint; Z90.710 Acquired absence of both cervix and uterus
CPT/HCPCS: 36415; 71046; 80053; 81003; 83690; 84484; 85025; 85610; 85730; 99284

== ENCOUNTER 2023-11-01 11:43 | Emergency (ER) | payer MEDICARE, MEDICAID, SELFPAY ==
--- NOTE | ~2023-11-01 | XR_ITS ---
EXAMINATION: XR chest 2V DATE: 11/01/2023 12:20 INDICATION: Chest pain. Shortness of breath. TECHNIQUE: Frontal and lateral views of the chest were obtained. COMPARISON: Chest 2 views 09/17/2023 FINDINGS: There is no pneumonia, pleural effusion, or pneumothorax. The heart size is normal. There a re surgical clips in right breast. IMPRESSION: 1. No acute cardiopulmonary disease. Reviewed, dictated and finalized at location E.
[2023-11-01 11:48] VITALS: BP 153/78; PULSE 88; RESP 13; TEMP 36.6; O2SAT 99
[2023-11-01 11:54] VITALS: PULSE 82
--- NOTE | 2023-11-01 11:55 | ECG_ITS ---
SEE SCANNED COPY FOR CONFIRMED REPORT MTDD
[2023-11-01 12:03] LABS: Basophils Percent Auto 0.2 % (0.2-1.2); Eosinophils Percent Auto 0.8 % (0-4.4); Hematocrit 43.4 % (37.0-47.0); Hemoglobin 13.6 g/dL (12.0-15.0); Immature Granulocyte Absolute 0.01 K/mm3 (0.00-0.031); Immature Granulocyte Percent A 0.2 % (0-0.5); Lymphocytes Absolute Auto 1.59 K/mm3 (0.9-3.2); Lymphocytes Percent Auto 31.2 % (18.3-44.2); Mean Corpuscular HGB Conc 31.3 g/dl (32-36); Mean Corpuscular Hemoglobin 30.6 pg (26-34); Mean Corpuscular Volume 97.7 fl (80-100); Mean Platelet Volume 9.9 fl (7.4-10.4); Monocytes Absolute Auto 0.6 K/mm3 (0.1-0.6); Neutrophils Absolute Auto 2.9 K/mm3 (1.3-6.7); Neutrophils Percent Auto 56.6 % (45.5-73.1); Platelet Count Result 210 k/mm3 (150-375); Red Blood Count 4.44 M/mm3 (4.2-5.4); Red Cell Distribution Width 12.7 % (11.5-14.5); White Blood Count 5.1 K/mm3 (4.5-10.0)
[2023-11-01 12:13] LABS: Alanine Aminotransferase 13 U/L (6-35); Alkaline Phosphatase 77 U/L (38-126); Anion Gap 5 mmol/L (4-12); Aspartate Amino Transferase 29 U/L (14-36); Bilirubin,Total 0.7 mg/dL (0.2-1.3); Blood Urea Nitrogen 26 mg/dL (7-17); Carbon Dioxide 24 mmol/L (22-30); Chloride 111 mmol/L (98-107); Estimated CRCL calculation 27 ml/min; Estimated Glomerular Filt Rate 29; Glucose 89 mg/dL (65-110); Lipase 141 U/L (23-300); Potassium 4.1 mmol/L (3.4-5.0); Sodium 140 mmol/L (137-145)
[2023-11-01 12:15] LABS: INR 0.9; Partial Thromboplastin Time 33.2 Seconds (22.3-36.8); Prothrombin Time 12.8 Seconds (11.1-14.7)
[2023-11-01 12:25] LABS: Troponin I < 0.012 ng/mL (0.000-0.034)
[2023-11-01 13:53] VITALS: BP 125/85; PULSE 79; RESP 19; O2SAT 98
--- NOTE | 2023-11-01 13:58 | ED.CHESTPAIN ---
HPI - Chest Pain General Chief Complaint: Chest Pain Stated Complaint: CP Time Seen by Provider: 11/01/23 12:42 History of Present Illness HPI narrative: Patient is a 78-year-old female who presents to the emergency department this afternoon complaining of chest pain that has been ongoing for the past 3 months. Patient states that she has been seen in our facility in the past for similar symptoms. Patient denies any history of heart attacks in the past, admits to a history of a left bundle-branch block. Patient states that the pain is sometimes in the middle of her chest sometimes in the right upper side of her chest and sometimes in the left side of her chest. She is going denying any active chest pain at this time. Patient also denies any nausea or vomiting, and abdominal, any recent URI symptoms and denies any fevers or chills. No additional symptoms or concerns at this time. Related Data Home Medications Medication Instructions Recorded Confirmed calcium carbonate 800 mg PO DAILY 10/20/23 10/20/23 lithium carbonate 150 mg capsule 150 mg PO DAILY 10/20/23 10/20/23 Allergies Allergy/AdvReac Type Severity Reaction Status Date / Time oxybutynin Allergy Unknown Unknown Verified 10/20/23 13:09 oxycodone Allergy Unknown RASH Verified 10/20/23 13:09 primidone Allergy Unknown Unknown Verified 10/20/23 13:09 Sulfa (Sulfonamide Allergy Unknown Unknown Verified 10/20/23 13:09 Antibiotics) Review of Systems Review of Systems: All systems are reviewed and are negative unless stated otherwise in the HPI. [facility] Past Medical History Medical History Abdominal pain Abnormal stress test Acute bronchitis due to other specified organisms Acute follicular conjunctivitis of both eyes Acute non-recurrent maxillary sinusitis Acute pain of right knee Allergic rhinitis due to pollen Annual physical exam Arthralgia of left temporomandibular joint Arthritis of knee Atrial fibrillation Bilateral hand numbness Bilateral impacted cerumen Bipolar 1 disorder Bipolar 1 disorder, mixed Bloating symptom BMI 30.0-30.9,adult BMI 36.0-36.9,adult Body mass index [BMI] 34.0-34.9, adult (11/24/17) Body mass index [BMI] 35.0-35.9, adult (10/09/17) Breast cancer screening Breast screening Candidiasis Candidiasis of skin Chest pain at rest Chest wall pain Chronic kidney disease, stage III (moderate) Colon cancer screening Conductive hearing loss of left ear with unrestricted hearing of right ear Constipation by delayed colonic transit Contusion of left foot, initial encounter Counseling for living will Dietary counseling and surveillance (12/29/17) Diverticulosis of colon (without mention of hemorrhage) Dizziness Duodenal ulcer Ear pain Ear pain Elevated blood pressure reading without diagnosis of hypertension Excessive cerumen in left ear canal 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 Foot pain, left Gait abnormality Hearing loss HTN (hypertension) with goal to be determined Hypertensive kidney disease IFG (impaired fasting glucose) Insomnia disorder with non-sleep disorder mental comorbidity Lipid screening Long-term current use of lithium Low kidney function Mediastinal cyst Mixed hyperlipidemia Nausea Neuropathy Nonspecific abnormal electrocardiogram (ECG) OAB (overactive bladder) Obesity, unspecified Other obesity due to excess calories Pes planus of left foot Postmenopausal Primary osteoarthritis of left knee Ptosis Pulmonary nodule SOB (shortness of breath) Stage 2 chronic kidney disease Tremor of both hands Tremor, coarse Tremor, hereditary, benign Trochanteric bursitis of right hip Unilateral hearing loss Vaginitis, atrophic Weakness Surgical History Surgical History H/O dilation and curettage H/O foot surgery History of 2 sections History of Achilles tendon repair History of cardiac c
[2023-11-01 15:35] VITALS: PULSE 77; RESP 20; O2SAT 98
[2023-11-01 15:56] LABS: Troponin I < 0.012 ng/mL (0.000-0.034)
== END 2023-11-01 16:13 | disposition home or self-care (01) ==
PROVIDERS: Emergency Provider Emergency Medicine; PCP Family Medicine
DX: R07.89 Other chest pain (principal); I48.91 Unspecified atrial fibrillation; F31.9 Bipolar disorder, unspecified; I12.9 Hypertensive chronic kidney disease with stage 1 through stage 4 chronic kidney disease, or unspecified chronic kidney disease; N18.30 Chronic kidney disease, stage 3 unspecified
CPT/HCPCS: 36415; 71046; 80053; 83690; 84484; 85025; 85610; 85730; 93005; 99284

== ENCOUNTER 2024-07-29 06:04 | Observation (INO) | payer MEDICARE, SELFPAY ==
[2024-07-29] VITALS (11 sets, daily range): BP systolic 115–151; BP diastolic 59–99; PULSE 63–92; RESP 13–28; TEMP 36.2–36.7; O2SAT 95–100; BMI 25.9
--- NOTE | ~2024-07-29 | XR_ITS ---
Portable chest x-ray Comparison: 11/01/2023 Clinical History: Chest pain Findings: Lungs are clear, without focal consolidation or pleural effusion. Cardiomediastinal silho uette is stable. Bones and soft tissues are unremarkable. Impression: Clear lungs. Reviewed, dictated and finalized at [facility]. TEAM MEMBER Impression: Clear lungs.
--- NOTE | ~2024-07-29 | NM_ITS ---
EXAMINATION: NM heather stress w perfusion DATE: 07/29/2024 16:18 INDICATION: Chest pain. TECHNIQUE: Rest images were obtained following intravenous administration of 9.97 mCi Tc99m tetrofosm in (Myoview). The patient was infused intravenously with Lexiscan (regadenoson). Then, 30 mCi Tc99m t etrofosmin (Myoview) was administered intravenously, and stress images were obtained. Data was recons tructed into short axis and horizontal and vertical long axis SPECT images. Gated SPECT images were a lso obtained. COMPARISON: Myocardial perfusion imaging 11/07/22 FINDINGS: There is no definite reversible or fixed perfusion abnormality to suggest ischemia or infar ction. There is no segmental wall motion abnormality. Left ventricular ejection fraction measures > 70%. IMPRESSION: 1. No definite ischemia or infarct. 2. Normal left ventricular ejection fraction measuring >70%. Reviewed, dictated and finalized at location A. TY PERSON
--- NOTE | ~2024-07-29 | XR_ITS ---
EXAMINATION: XR_CERV2-3V_CR DATE: 07/30/2024 14:22 INDICATION: Neck pain. TECHNIQUE: 3 views of cervical spine were obtained. COMPARISON: Cervical spine radiographs 06/12/2022 FINDINGS: There is 24 degrees dextroscoliosis of cervicothoracic spine. There is mild kyphosis of cer vical spine. Vertebral body heights are normal. There is 2 mm retrolisthesis of C5 on C6. There is mo derately decreased disc height at C3-C4 and C4-C5 and severely decreased disc height at C5-C6 and C6- C7. There is multilevel facet joint osteoarthritis, severe on the left at C2-C3 and C3-C4 and C7-T1. There is mild central canal stenosis at C3-C4, C4-C5, C5-C6, and C6-C7. IMPRESSION: 1. Severe cervical spondylosis. 2. Cervical kyphosis and cervicothoracic dextroscoliosis. Reviewed, dictated and finalized at location A. QUALITY TECHNICIAN
--- NOTE | 2024-07-29 06:24 | ECG_ITS ---
Test Date: 2024-07-29 06:24:11 Measurements Intervals [place] Rate: 67 P: 63 OH: 191 QRS: 1 QRSD: 125 T: 43 QT: 385 QTc: 406 Interpretive Statements SINUS RHYTHM POSSIBLE LEFT ATRIAL ENLARGEMENT RIGHT BUNDLE BRANCH BLOCK BASELINE ARTIFACT- I, II, III, AVR, AVL, AVF, V1-V2 ABNORMAL ECG No previous ECG available for comparison Electronically Signed On 07-29-2024 08:08:15 WARP DRAWER by Eliud Cruz D.O.
[2024-07-29 06:35] LABS: Basophils Percent Auto 0.5 % (0.2-1.2); Eosinophils Absolute Auto 0.1 K/mm3 (0-0.3); Eosinophils Percent Auto 1.4 % (0-4.4); Hematocrit 39.4 % (37.0-47.0); Hemoglobin 12.2 g/dL (12.0-15.0); Immature Granulocyte Absolute 0.01 K/mm3 (0.00-0.031); Immature Granulocyte Percent A 0.2 % (0-0.5); Lymphocytes Absolute Auto 1.28 K/mm3 (0.9-3.2); Lymphocytes Percent Auto 30.9 % (18.3-44.2); Mean Corpuscular Hemoglobin 30.7 pg (26-34); Mean Corpuscular Volume 99.2 fl (80-100); Monocytes Absolute Auto 0.5 K/mm3 (0.1-0.6); Monocytes Percent Auto 12.1 % (2.6-8.5); Neutrophils Absolute Auto 2.3 K/mm3 (1.3-6.7); Neutrophils Percent Auto 54.9 % (45.5-73.1); Platelet Count Result 196 k/mm3 (150-375); Red Blood Count 3.97 M/mm3 (4.2-5.4); Red Cell Distribution Width 12.6 % (11.5-14.5); White Blood Count 4.1 K/mm3 (4.5-10.0)
[2024-07-29 06:39] LABS: Alanine Aminotransferase 14 U/L (6-35); Albumin Level 3.3 g/dL (3.5-5.1); Alkaline Phosphatase 59 U/L (38-126); Anion Gap 7 mmol/L (4-12); Aspartate Amino Transferase 24 U/L (14-36); Bilirubin,Total 0.9 mg/dL (0.2-1.3); Blood Urea Nitrogen 27 mg/dL (7-17); Calcium 9.9 mg/dL (8.4-10.2); Carbon Dioxide 25 mmol/L (22-30); Chloride 108 mmol/L (98-107); Estimated CRCL calculation 30 ml/min; Estimated Glomerular Filt Rate 38; Glucose 91 mg/dL (65-110); Lipase 153 U/L (23-300); Potassium 4.3 mmol/L (3.4-5.0); Sodium 140 mmol/L (137-145)
[2024-07-29 06:40] LABS: Prothrombin Time 13.4 Seconds (11.1-14.7)
[2024-07-29 06:51] LABS: Troponin I < 0.012 ng/mL (0.000-0.034)
--- OUTSIDE RECORDS SUMMARY | 2024-07-29 07:18 | XMS_ITS ---
Author Organization [facility] Address [address] [place] [address] Care Team Providers Care Practicing Dermatologist Name Role Phone Kathie Ruiz Primary Care Provider Social History Sex Assigned At : Social History Observation Description Sex Assigned At Female Encounters Encounter Location Date Provider Diagnosis [address] [facility] [address] 07/28/2024 Kathie Ruiz Plan Of Treatment No Information Progress Notes * Laurie SAEZDOB:1945 (78 yo F)Acc No.[id number]:07/28/2024 UNLOCKED PROGRESS NOTE Patient: Liz Laurie QUINTERO :1945 A ge:78 Y S ex:Female Address:[address], [place], [address] * * Date:
--- OUTSIDE RECORDS SUMMARY | 2024-07-29 07:19 | XMS_ITS ---
Author Organization [facility] Address [address] [place] [address] Care Team Providers Care Newspaper Clipper Name Role Phone Kathie Ruiz Primary Care Provider Results Component Value Reference Range Notes CMP 14 Comprehensive Metabol ic Panel* (Not yet reviewed by provider) Interpretation: Performing Lab:[facility] [place], [address] [facility], Phone - [phone], Director - PhDDennis Notes/Report: Glucose 82 70-99 mg/dL BUN 24 8-27 mg/dL Creatinine 1.31 0.57-1.00 mg/dL eGFR 42 >59 mL/min/1.73 BUN/Creatinine Ratio 18 12-28 Sodium 142 134-144 mmol/L Potassium 4.5 3.5-5.2 mmol/L Chloride 108 96-106 mmol/L Carbon Dioxide, Total 21 20-29 mmol/L Calcium 10.2 8.7-10.3 mg/dL Protein, Total 6.9 6.0-8.5 g/dL Albumin 4.2 3.8-4.8 g/dL Globulin, Total 2.7 1.5-4.5 g/dL Bilirubin, Total 0.3 0.0-1.2 mg/dL Alkaline Phosphatase 75 44-121 IU/L AST (SGOT) 20 0-40 IU/L ALT (SGPT) 10 0-32 IU/L [place] (Eskalith(R)), Serum (Not yet reviewed by provider) Interpretation: Performing Lab:[facility] [place], [address] [facility], [place], Phone - [phone], Director - PhDDennis Notes/Report: [place] (Eskalith(R)), Serum 0.2 0.5-1.2 mmol /L A concentration of 0.5-0.8 mmol/L is advised for long-term use; concentrations of up to 1.2 mmol/L may be necessary during acute treatment. Detection Limit = 0.1 <0.1 indicates None Detected CBC With Differential/Platel et* (Not yet reviewed by provider) Interpretation: Performing Lab:[facility] [place], [address] [facility], [place], Phone - [phone], Director - Anna Notes/Report: WBC 3.8 3.4-10.8 x10E3/uL RBC 4.22 3.77-5.28 x10E6/uL Hemoglobin 12.9 11.1-15.9 g/dL Hematocrit 38.9 34.0-46.6 % MCV 92 79-97 fL MCH 30.6 26.6-33.0 pg MCHC 33.2 31.5-35.7 g/dL RDW 11.8 11.7-15.4 % Platelets 247 150-450 x10E3/uL Neutrophils 43 Not Estab. % Lymphs 38 Not Estab. % Monocytes 13 Not Estab. % Eos 1 Not Estab. % Basos 1 Not Estab. % Neutrophils (Absolute) 1.6 1.4-7.0 x10E3/uL Lymphs (Absolute) 1.4 0.7-3.1 x10E3/uL Monocytes(Absolute) 0.5 0.1-0.9 x10E3/uL Eos (Absolute) 0.1 0.0-0.4 x10E3/uL Baso (Absolute) 0.0 0.0-0.2 x10E3/uL Immature Granulocytes 4 Not Estab. % Immature Grans (Abs) 0.2 0.0-0.1 x10E3/uL (An elevated percentage of Immature Granulocytes has not been found to be clinically significant as a sole clinical predictor of disease. Does NOT include bands or blast cells. associated physiological leukocytosis may also show increased immature granulocytes without clinical significance.) REASON FOR VISIT dosage Social History Sex Assigned At : Social History Observation Description Sex Assigned At Female Encounters Encounter Location Date Provider Diagnosis [address] [place] [address] 07/20/2024 Arif Habib Bipolar 1 disorder F31.9 Assessments Encounter Date Diagnosis (ICD Code) Assessment Notes Treatment Notes Treatment Clinical Notes Section Notes 07/20/2024 Bipolar 1 disorder (ICD-10 - F31.9) Plan Of Treatment Pending Test Test Name Order Date CBC With Differential/Platelet* 07/20/19 25 [place] (Eskalith(R)), Serum 07/20/2024 CMP 14 Comprehensive Metabolic Panel* Progress Notes * NADJALaurieDOB:1945 (78 yo F)Acc No.[id number]:07/20/2024 Patient: Laurie FLORES :1945 A ge:78 Y S ex:Female Address:[facility] [place], [address] Subjective: * Chief Complaints: * D red cliff * Medical History: * Surgical History: * Hospitalization/Major Diagno stic Procedure: * Medications: Objective: * Vitals: * Physical Examination: Assessment: * Assessment: 1. B ipolar 1 disorder - F31.9 Plan: * Treatment: * Procedure Codes: * true * Date: Generated for Caroline garner/Rama/eTyuriysmitting on: 0 07/29/2024 07:19 AM ENVELOPE STUFFER
--- OUTSIDE RECORDS SUMMARY | 2024-07-29 07:19 | XMS_ITS | Continuity of Care Document ---
Author Organization [facility] Address [address] [facility] [address] [place] [address] Insurance Providers Payer Plan Claims Address Claims Phone Policy Number Group Number Relation Employer Guarantor Name Guarantor Guarantor Address Guarantor Phone [employer] [address], [place] [address] Coverag [id number] Self Yanethreen Elijah 1945 [address] [address], [place] [id number] [employer] [address], [place] [address] [id number] Self Yanethreen Elijah [address], [place] [address] [employer] are [address], [place] [phone] Self Yanethreen Elijah 1945 [facility] [address] [place] [address] Problems Condition ICD9 code ICD10 code SNOMED code Start Date End Date S tatus Epigastric pain R10.13 Working Encounter for fitting and adjustment of hearing aid Z46.1 Working Personal history of urinary (tract) infections Z87.440 Working Pain, unspecified R52 Workin g Flat foot [pes planus] (acquired), left foot M21.42 Wor [place] Chronic kidney disease, unspecified N18.9 Working Type 2 diabetes mellitus without complications E11.9 Wor [place] Encounter for screening for lipoid disorders Z13.220 Work ing Other chronic pain G89.29 Worki ng Acute pharyngitis, unspecified J02.9 Other muscle spasm M62.838 Other bursitis of hip, unspecified hip M70.70 Generalized anxiety disorder F41.1 Results No Results Allergies, adverse reactions, alerts No known allergies and adverse reactions Medications No administered medications reported Vital Signs No vital signs reported Social History No smoking Hx information available
--- OUTSIDE RECORDS SUMMARY | 2024-07-29 07:19 | XMS_ITS ---
Author Organization [facility] Address [address] [place] [address] Care Team Providers Care Record Changer Name Role Phone Kathie Ruiz Primary Care Provider REASON FOR VISIT labs Social History Sex Assigned At : Social History Observation Description Sex Assigned At Female Encounters Encounter Location Date Provider Diagnosis [address] [place] [address] 07/28/2024 Arichelita Ruiz Plan Of Treatment No Information Progress Notes * Laurie SAEZDOB:1945 (78 yo F)Acc No.[id number]:07/28/2024 Patient: Liz Laurie QUINTERO Provider: Kristen Ruiz :1945 A ge:78 Y S ex:Female Date:07/28/2024 [facility] Subjective: * Chief Complaints: * 1 . Labs. * Medical History: Objective: * Vitals: Assessment: Plan: * Treatment: * * NEER OF SYSTEM DEVELOPMENT Sign off status: Completed true * Provider: Kristen rif Habib Date: 07/28/2024 Generated for Caroline garner/Rama/Lee Ann on: 07/29/2024 07:18 AM ENGINEER OF SYSTEM DEVELOPMENT
--- OUTSIDE RECORDS SUMMARY | 2024-07-29 07:19 | XMS_ITS | Clinical Summary ---
Author Organization [facility] Address [address] [address] Phone Care Team Providers Care Hand Ii Tube Bender Name Role Phone Jose Yen MD Primary Care Provider [phone] Allergies Active Allergy Reactions Criticality Noted Date Comments Sulfa Antibiotics Rash Low 08/28/2021 Medications Medication Sig Dispensed Refills Start Date End Date Status clonazePAM (KlonoPIN) 0.5 MG tablet TAKE 1 TABLET BY MOUTH EVERY DAY AT BEDTIME AND 1/2 TABLET BY MOUTH TWICE A DAY NEEDED 07/23/2021 Active lithium 150 MG capsule TAKE 1 CAPSULE BY MOUTH IN THE MORNING AND TAKE 2 CAPSULES AT BEDTIME 08/13/2021 Active propranolol (INDERAL) 20 MG tablet TAKE 1 TABLET BY MOUTH EVERY 12 HOURS. IF NO BENEFITS, MAY INCREASE TO 20MG 3X DAILY 08/11/2021 Active tiZANidine (ZANAFLEX) 4 MG tablet TAKE 1 TABLET BY MOUTH EVERY DAY AT BEDTIME NEEDED FOR MUSCLE SPASMS 08/08/2021 Active fluticasone (FLONASE) 50 MCG/ACT nasal spray ADMINISTER 1 SPRAY INTO EACH NOSTRIL ONCE DAILY 12/06/2021 Active sertraline (ZOLOFT) 25 MG tablet TAKE 1 TABLET BY MOUTH EVERY DAY FOR 30 DAYS 02/18/2022 Active aMILoride (MIDAMOR) 5 MG tablet Take 0.5 tablets (2.5 mg total) by mouth 1 (one) time each day 15 tablet 11 02/24/2022 Active Active Problems Problem Noted Date Diagnosed Date Bipolar I disorder 02/24/2022 Chronic kidney disease stage 3B 12/26/2021 Immunizations Name Administration Dates Next Due Influenza TIV (IM) 07/09/2021 Family History Medical History Relation Comments Kidney disease Neg Hx Social History Tobacco Use Types Packs/Day Years Used Date Smoking Tobacco: Never Smokeless Tobacco: Never Alcohol Use Standard Drinks/Week Comments Yes 0 (1 standard drink = 0.6 oz pur e alcohol) Sex and Gender Information Value Date Recorded Sex Assigned at Not on file Gender Identity Not on file Sexual Orientation Not on file Last Filed Vital Signs Vital Sign Reading Time Taken Comments Blood Pressure 122/70 08/28/2021 10:12 AM CDT Pulse 72 08/28/2021 10:12 AM CDT Temperature 36.7 C (98 F) 08/28/2021 10:12 AM CDT Respiratory Rate - - Oxygen Saturation - - Inhaled Oxygen Concentration - - Weight 87.5 kg (193 lb) 08/28/2021 10:12 AM CDT Height 170.2 cm (5' 7 ) 08/28/2021 10:12 AM CDT Body Mass Index 30.23 08/28/2021 10:12 AM CDT Plan of Treatment Health Maintenance Due Date Last Done Comments Pneumococcal PPSV23/PCV13 65 + Years / Low and Medium Risk (1 of 4 - PCV) 10/19/2011 Influenza Vaccine (#1) 2024 07/09/2021 Care Teams Hand Ii Tube Bender Relationship Specialty Start Date End Date oJse Yen MD [address] [place] [address] PCP - General Family Medicine 07/23/21
--- OUTSIDE RECORDS SUMMARY | 2024-07-29 07:20 | XMS_ITS | Patient Health Record ---
Author Organization [facility] Address [address] [place] [address] Care Team Providers Care Can Cleaner Name Role Phone SaraArtischelita Primary Care Provider Solo Bolanos Unavailable [phone] Allergies Allergen (clinical drug ingredient) Drug/Non Drug Allergy documented on EMR Reaction Allergy Type Onset Date Status lamotrigine Lamotrigine Muscle Spasms Drug Allergy Active Substance with sulfonamide structure and antibacterial mechanism of action (substance) Sulfa Antibiotics Unknown Drug Allergy Active Results Component Value Reference Range Notes CBC With Differential/Platel et* (Not yet reviewed by provider) Interpretation: Performing Lab:[facility] [place], [address] [facility], [place], Phone - [phone], Director - Anna Notes/Report: WBC 3.8 3.4-10.8 [...] show increased immature granulocytes without clinical significance.) [place] (Eskalith(R)), Serum (Not yet reviewed by provider) Interpretation: Performing Lab:[facility] [place], [address] [facility], Phone - [phone], Director - [facility] Notes/Report: [place] (Eskalith(R)), Serum 0.2 0.5-1.2 mmol /L A concentration of 0.5-0.8 mmol/L is advised for long-term use; concentrations of up to 1.2 mmol/L may be necessary during acute treatment. Detection Limit = 0.1 <0.1 indicates None Detected CMP 14 Comprehensive Metabol ic Panel* (Not yet reviewed by provider) Interpretation: Performing Lab:[facility] [place], [address] [facility], [place], Phone - [phone], [facility] Notes/Report: Glucose 82 70-99 mg/dL BUN 24 [...] 0-40 IU/L ALT (SGPT) 10 0-32 IU/L Reason For Referral No Information Medications Medication SIG (Take, Route, Frequency, Duration) Notes Start Date End Date Status [place] Carbonate 150 MG 1 capsule Orall y once a day for 30 days Active clonazePAM 0.5 MG 1 tablet Orally twic e a day for 30 days F41.9 06/17/2024 Active Escitalopram Oxalate 5 MG 1 tablet Orall y Once a day for 30 day(s) 04/05/2024 Not-Taking Pantoprazole Sodium Active Farxiga Active Sertraline HCl 25 MG 1 tablet Orally Onc e a day Not-Taking Meloxicam 7.5 MG 1 tablet Orally Once a day Not-Taking Propranolol HCl 20 MG 1 tablet Orally tw o times per day Not-Taking Social History Tobacco Use: Social History Observation Description Date Details (start date - stop date) Never Smoker NA - NA Sex Assigned At : Social History Observation Description Sex Assigned At Female Dont use, Tobacco Use/Smoking Question Answer Notes Are you a nonsmoker Tobacco Control (Standard) Question Answer Notes Tobacco use: Nonsmoker Problems Problem Type SNOMED Code ICD Code Onset Dates Problem Status W/U Status Risk Notes Problem Bipolar 1 disorder (153788782) Bipolar 1 disorder (F31.9) Active confirmed Vital Signs Heart Rate 86 /min 09/08/2023 Respiratory Rate 16 /min 09/08/2023 Blood pressure diastolic 76 mm Hg 09/08/2023 Oximetry 98 % 09/08/2023 Height 64 in 09/08/2023 Blood pressure systolic 118 mm Hg 09/08/2023 Weight 180.8 lbs 09/08/2023 BMI 31.03 kg/m2 09/08/2023 Encounters Encounter Location Date Provider Diagnosis [address] [place] [address] 08/04/2023 Arif Habib Bipolar 1 disorder F31.[address] [place] [address] 09/08/2023 Arif Habib Nutritional counseling Z71.3 and Bipolar 1 disorder F31.[address] [place] [address] 12/01/2023 Arif Habib Bipolar 1 disorder F31.[address] [place] [address] 01/01/2024 Arif Habib Bipolar 1 disorder F31.9 [facility] [address] [place] [address] 01/29/2024 Arif Habib Bipolar 1 disorder F31.9 [facility] [address] [place] [address] 04/26/2024 Arif Habib Bipolar 1 disorder F31.9 [facility] [address] [facility] [place] [address] 06/17/2024 Arif Habib Bipolar 1 disorder F31.[address] [place] [address] 07/28/2024 Arif Habib [address] [place] [address] 07/28/2024 Arif Habib [address] [place] [address] 09/14/2023 Arif Habib [address] [place] [address] 10/14/2023 Arif Habib [address] [place] [address] 12/01/2023 Arif Habib [address] [place] [address] 12/11/2023 Arif Habib [address] [place] [address] 12/14/2023 Arif Habib [address] [place] [address] 01/05/2024 Arif Habib [address] [place] [address] 01/11/2024 Arif Habib [address] [place] [address] 04/04/2024 Arif Habib [address] [place] [address] 04/15/2024 Arif Habib [address] [place] [address] 06/15/2024 Arif Habib [address] [place] [address] [facility] [address] [address] 06/17/2024 Solo Bolanos Encounter for screening mammogram for breast cancer Z12.[address] [place] [address] [facility] B[facility] 1 disorder F31.9 Assessments Encounter Date Diagnosis (ICD Code) Assessment Notes Treatment Notes Treatment Clinical Notes Section Notes 09/08/2023 Nutritional counseling (ICD-10 - Z71.3) 08/04/2023 Bipolar 1 disorder (ICD-10 - F31.9) risk & benefits discussed. Li level is 0.6 after dose was lowered. Still has low GFR & high Cr Continue [place] 150 mg BID. Li level was 0.6 in 05/2022. Continue Klonopin 0.5 mg BID which she took for many years. Li leval is 1.1 on 02/20/22. 0.8 on 12/13/21. Will consider replacing [place] which she took for probably over 30 years. Side effects discussed. She already stopped Zoloft 25 mgdue to side effects. C [place] level was 0.5 on 04/21/23 01/01/2024 Bipolar 1 disorder (ICD-10 - F31.9) risk & benefits discussed. Still has low GFR & high Cr Stop [place] 150 mg daily .Continue Klonopin 0.5 mg BID which she took for many years.Side effects discussed. increase Lamictal 25 mg twice daily. Kidney doctor checks her labs. 07/20/2024 Bipolar 1 disorder (ICD-10 - F31.9) 06/17/2024 Bipolar 1 disorder (ICD-10 - F31.9) risk & benefits discussed. She already stopped Lexapro due to shakes. Continue Klonopin 0.5 mg twice daily and [place] 150 mg daily. Side effects discussed. pt wants to continue [place] because this is the only medicine which helped. . 06/17/2024 Encounter for screening mammogram for breast cancer (ICD-10 - Z12.31) Patient Educated with: Mammogram - About this test.pdf (Mammogram - About this test.pdf) 04/26/2024 Bipolar 1 disorder (ICD-10 - F31.9) risk & benefits discussed. Stop already stopped Lexapro due to shakes. Continue Klonopin 0.5 mg twice daily and [place] 150 mg daily. Side effects discussed. pt wants to continue [place] because this is the only medicine which helped. . 01/29/2024 Bipolar 1 disorder (ICD-10 - F31.9) risk & benefits discussed. Stop already stopped Lamictal. Continue Klonopin 0.5 mg bedtime . 12/01/2023 Bipolar 1 disorder (ICD-10 - F31.9) risk & benefits discussed. Li level is 0.6 after dose was lowered. Still has low GFR & high Cr Continue [place] 150 mg daily now( she already lowered it few weeks ago). Li level was 0.6 in 05/2022. Continue Klonopin 0.5 mg BID which she took for many years. Li leval is 1.1 on 02/20/22. 0.8 on 12/13/21. Will consider replacing [place] which she took for probably over 30 years. Side effects discussed. [place] level was 0.5 on 04/21/23. Add Lamictal 25 mg daily. Will try to stop [place] to 150mg daily .Kidney doctor checks her labs. 09/08/2023 Bipolar 1 disorder (ICD-10 - F31.9) risk & benefits discussed. Li level is 0.6 after dose was lowered. Still has low GFR & high Cr Continue [place] 150 mg BID. Li level was 0.6 in 05/2022. Continue Klonopin 0.5 mg BID which she took for many years. Li leval is 1.1 on 02/20/22. 0.8 on 12/13/21. Will consider replacing [place] which she took for probably over 30 years. Side effects discussed. [place] level was 0.5 on 04/21/23. Add Lamictal 25 mg daily. Lower [place] to 150mg daily after one week if she tolerates. Kidney doctor checks her labs. Plan Of Treatment Pending Test Test Name Order Date CBC With Differential/Platelet* 07/20/19 25 [place] (Eskalith(R)), Serum 07/20/2024 CMP 14 Comprehensive Metabolic Panel* Future Test Test Name Order Date Mammogram Breast - Bilateral Screening with ABUS, diagnostic mammogram/ultrasound, and/or biopsy as clinically indicated 06/24/2024 Insurance Providers Payer Name Payer Address Payer Phone Subscriber Number Group Number Insured Name Patient Relationship to Insured Coverage Start Date Coverage End Date [employer] [address] [place] [address] [id number] Laurie Nava Self - patient is the insured 2 2 [employer] Claims Department [address] [place] [address] [id number] Laurie Nava Self - patient is the insured 3 3 Medical (General) History Medical History History ICD Code Kidney disease Bipolar disorder Surgical History Surgery Date(Month/Year) Bilateral hand surgeries for arthritis Ankle surgery Hysterectomy Caesarean section cataracts 12/2023 Hospitalization History Reason Date(Month/Year)
--- NOTE | 2024-07-29 09:08 | ECG_ITS ---
Test Date: 2024-07-29 09:18:31 Measurements Intervals [place] Rate: 62 P: 25 HI: 168 QRS: -10 QRSD: 148 T: 37 QT: 405 QTc: 414 Interpretive Statements SINUS RHYTHM RIGHT BUNDLE BRANCH BLOCK MINIMAL Q WAVES- LAT/HIGH LAT LEADS ABNORMAL ECG Compared to ECG 07/29/2024 06:24:11 NO SIGNIFICANT CHANGE Electronically Signed On 07-29-2024 09:42:11 [employer] by Eliud Cruz D.O.
[2024-07-29 09:42] LABS: Troponin I < 0.012 ng/mL (0.000-0.034)
--- NOTE | 2024-07-29 10:34 | ED_ITS ---
HPI - Chest Pain General Chief Complaint: Chest Pain Stated Complaint: chest pain for 3 months Time Seen by Provider: 07/29/24 07:06 History of Present Illness HPI narrative: Patient is a 78-year-old female who presents ER with left-sided chest pain. Intermittent over last few months. Came back last night. Sharp and aching over the left chest and is having it radiated into her neck into her head. She was short of breath last night. Unsure if he has an exertional component. She sees Dr. Johnson. No fevers or chills or sweats. Related Data Home Medications ?Medication ?Instructions ?Recorded ?Confirmed ?Last Taken ?Type clonazepam 0.5 mg tablet 0.5 mg PO QHS 03/29/24 06/17/24 Unknown History lithium carbonate 150 mg capsule mg PO 06/29/24 06/29/24 Unknown History Allergies Allergy/AdvReac Type Severity Reaction Status Date / Time oxybutynin Allergy Unknown Unknown Verified 07/29/24 06:15 oxycodone Allergy Unknown RASH Verified 07/29/24 06:15 primidone Allergy Unknown Unknown Verified 07/29/24 06:15 Sulfa (Sulfonamide Allergy Unknown Unknown Verified 07/29/24 06:15 Antibiotics) lamotrigine AdvReac Severe Shakiness Verified 07/29/24 06:15 pantoprazole AdvReac Intermediate Other Verified 07/29/24 06:15 Review of Systems 2 Review of Systems: All systems reviewed & are unremarkable except as noted in HPI and below Constitutional: Constitutional: Reports no additional constitutional complaints Cardiovascular: Cardiovascular: Reports no additional cardiovascular complaints Respiratory: Respiratory: Reports no additional respiratory complaints [facility] Past Medical History Medical History (Updated 07/29/24 @ 17:56 by Vikash Krishnan MD) HTN (hypertension) Diminished pulses in lower extremity Carpal tunnel syndrome of right wrist Sensation of feeling cold Essential tremor Spasm of cervical paraspinous muscle Hip bursitis Dermatochalasis of both eyelids TMJ (temporomandibular joint disorder) Pharyngitis Candidal intertrigo Melissa infection, oral GERD (gastroesophageal reflux disease) Screening for lipid disorders BMI 30.0-30.9,adult Dizziness Chest pain at rest Bilateral hand numbness Abnormal stress test Nonspecific abnormal electrocardiogram (ECG) Hearing loss Flat feet Breast cancer screening Allergic rhinitis due to pollen Annual physical exam Candidiasis of skin Chronic kidney disease, stage III (moderate) Colon cancer screening Conductive hearing loss of left ear with unrestricted hearing of right ear Constipation by delayed colonic transit Diverticulosis of colon (without mention of hemorrhage) Duodenal ulcer Extrapyramidal movement disorder Hypertensive kidney disease Insomnia disorder with non-sleep disorder mental comorbidity Mediastinal cyst Mixed hyperlipidemia Neuropathy OAB (overactive bladder) Pes planus of left foot Postmenopausal Primary osteoarthritis of left knee Pulmonary nodule Tremor, coarse Tremor, hereditary, benign Unilateral hearing loss Vaginitis, atrophic Ptosis Bipolar 1 disorder Gait abnormality Long-term current use of lithium Tremor of both hands Surgical History Surgical History H/O dilation and curettage History of cardiac catheterization H/O foot surgery History of hand surgery History of Achilles tendon repair History of tonsillectomy and adenoidectomy History of hysterectomy History of left knee replacement History of 2 sections Family History Family History Mother Family history of kidney disease Patient's mother is Hypertension Family history of arthritis Father Family history of chronic obstructive pulmonary disease Patient's father is Family history of tuberculosis Hypertension Family history of diabetes mellitus in first degree relative Family history of heart disease in male family member before age 55 Sibling Obesity Other Diabetes mellitus Social History Social History Social History: She lives with her son in a 1 bedroom apartment . She is . 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 She also worked at [employer] in the [employer] room. She has had 4 children and one has . code status :DNI Smoking status: Never smoker Second hand tobacco smoke exposure: Yes Alcohol intake: current Drinks per week: 1 Substance use: never Substance use type: does not use Do You Feel Safe in your Home?: Yes Lack of Transportation: No Lack of Food: Never True Current Housing: I Have Housing Concerned About Future Housing: No Difficulty Paying Gas/Electric Bills: No Difficulty Paying for Meds: No Currently Unemployed: No Education: Associate Degree Difficulty w/ Childcare or Family Care: YES Living arrangements: with family Additional living arrangements comments: son lives with her and he makes her nervous. 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 HEAD: Normocephalic, atraumatic. ENT: Mucous membranes moist. CHEST: Clear to auscultation. No respiratory distress. HEART: Regular rate and rhythm. Normal peripheral pulses. ABDOMEN: Soft, nontender, nondistended. EXTREMITIES: Normal range of motion. No edema. SKIN: Warm, dry, no rash. NEURO: Alert and oriented x3. PSYCH: Normal mood and affect. Course Course Emergency Course: Initial troponin negative but story concerning especially given that chest pain improved with nitro. Admit to hospitalist service will try to do a stress test today. Vital Signs Vital signs: Vital Signs Temperature 98.1 F 07/29/24 06:05 Pulse Rate 65 07/29/24 06:05 Respiratory Rate 13 07/29/24 06:05 Blood Pressure 136/80 07/29/24 06:05 Pulse Oximetry 100 07/29/24 06:05 Oxygen Delivery Room Air 07/29/24 06:05 Temperature 98.1 F 07/29/24 06:05 Pulse Rate 71 07/29/24 16:22 Respiratory Rate 21 H 07/29/24 16:22 Blood Pressure 142/88 H 07/29/24 16:22 Pulse Oximetry 100 07/29/24 16:22 Oxygen Delivery Room Air 07/29/24 06:16 MDM - Chest Pain Lab Data 07/29/24 06:23 07/29/24 06:23 Labs: Lab Results 07/29/24 07/29/24 Range/Units 06:23 09:13 WBC 4.1 L (4.5-10.0) K/mm3 RBC 3.97 L (4.2-5.4) M/mm3 Hgb 12.2 (12.0-15.0) g/dL Hct 39.4 (37.0-47.0) % MCV 99.2 (80-100) fl MCH 30.7 (26-34) pg MCHC 31.0 L (32-36) g/dl RDW 12.6 (11.5-14.5) % Plt Count 196 (150-375) k/mm3 MPV 10.0 (7.4-10.4) fl Immature Gran % (Auto) 0.2 (0-0.5) % Neut % (Auto) 54.9 (45.5-73.1) % Lymph % (Auto) 30.9 (18.3-44.2) % Shelby % (Auto) 12.1 H (2.6-8.5) % Eos % (Auto) 1.4 (0-4.4) % Baso % (Auto) 0.5 (0.2-1.2) % Lymph # (Auto) 1.28 (0.9-3.2) K/mm3 Shelby # (Auto) 0.5 (0.1-0.6) K/mm3 Eos # (Auto) 0.1 (0-0.3) K/mm3 Baso # (Auto) 0.0 (0.0-0.1) K/mm3 Abs Immat Gran (auto) 0.01 (0.00-0.031) K/mm3 Absolute Neuts (auto) 2.3 (1.3-6.7) K/mm3 Absolute Nucleated RBC 0.000 (0.0-0.012) K/mm3 Nucleated RBC % 0.0 (0.0-0.2) % PT 13.4 (11.1-14.7) Seconds INR 1.0 APTT 31.0 (22.3-36.8) Seconds Sodium 140 (137-145) mmol/L Potassium 4.3 (3.4-5.0) mmol/L Chloride 108 H (98-107) mmol/L Carbon Dioxide 25 (22-30) mmol/L Anion Gap 7 (4-12) mmol/L BUN 27 H (7-17) mg/dL Creatinine 1.34 H (0.7-1.0) mg/dL Estim Creat Clear Calc 30 ml/min Estimated GFR 38 L (59 - ) Glucose 91 (65-110) mg/dL Calcium 9.9 (8.4-10.2) mg/dL Total Bilirubin 0.9 (0.2-1.3) mg/dL AST 24 (14-36) U/L ALT 14 (6-35) U/L Alkaline Phosphatase 59 (38-126) U/L Troponin I < 0.012 < 0.012 (0.000-0.034) ng/mL Total Protein 7.0 (6.3-8.2) g/dL Albumin 3.3 L (3.5-5.1) g/dL Lipase 153 (23-300) U/L Imaging Data Radiologist's impression: ITS Impressions Chest X-Ray 07/29/24 06:35 Impression: Clear lungs. ECG Data EKG #1: ECG completion date: 07/29/24 ECG completion time: 09:18 EKG Interpretation: normal rate (62), sinus rhythm, non-specific ST changes, normal QRS, RBBB (incomplete) and normal QT Discharge Plan Discharge Clinical Impression: Chest pain Qualifiers: Chest pain type: unspecified Qualified Code(s): R07.9 - Chest pain, unspecified Patient Disposition: Still a Patient Condition: Stable Quality HEART score for chest pain patients History: moderately suspicious ECG: normal Age: > or = to 65 years Risk factors: 1 or 2 risk factors Troponin: < or = to 1x normal limit Heart score: 4
--- NOTE | 2024-07-29 11:58 | EST_ITS ---
Patient Info Name: Laurie Nava Age: 78 years : 1945 Gender: Female Ht: 66 in Wt: 168 lbs BSA: 1.90 m2 HR: 65 bpm BP: 206 / 91 mmHg Exam Date: 07/29/2024 3:06 PM Exam Location: Echo Lab Patient Status: Inpatient Admit Date: 07/29/2024 Staff Ordering Physician: Vikash Krishnan MD Attending Provider: Jack Regalado MD Exercise Technologist: Elsy Charles RDCS Nurse: Martha Marion APN Exam Type: CA stress heather w NM Study Info A regadenoson stress test was performed. Summary 1. No abnormal ST/T wave changes diagnostic of ischemia with Lexiscan. 2. Please correlate with nuclear medicine images, reported separately. 3. Stress test supervised by Martha Marion NP. Stress test interpreted by Farhat Johnson MD. Protocol: Lexiscan Stress ECG Details Stage: REST Duration (min): 4 min : 3 sec HR (bpm): 66 SBP (mmHg): 206 DBP (mmHg): 91 Stage: REST Duration (min): 15 min : 50 sec HR (bpm): 80 SBP (mmHg): 194 DBP (mmHg): 99 Stage: STAGE 1 Duration (min): 1 min : 0 sec HR (bpm): 101 SBP (mmHg): 227 DBP (mmHg): 85 Stage: RECOVERY Duration (min): 1 min : 0 sec HR (bpm): 104 SBP (mmHg): 227 DBP (mmHg): 85 Stage: RECOVERY Duration (min): 2 min : 0 sec HR (bpm): 100 SBP (mmHg): 227 DBP (mmHg): 85 Stage: RECOVERY Duration (min): 3 min : 0 sec HR (bpm): 102 SBP (mmHg): 227 DBP (mmHg): 85 Stage: RECOVERY Duration (min): 4 min : 0 sec HR (bpm): 100 SBP (mmHg): 123 DBP (mmHg): 82 Stage: RECOVERY Duration (min): 4 min : 11 sec HR (bpm): 104 SBP (mmHg): 123 DBP (mmHg): 82 Rest HR: 80 bpm Peak HR: 107 bpm Rest Sys BP: 194 mmHg Peak Sys BP: 227 mmHg Max Pred HR: 143 bpm % Max Pred HR: 75 % Target HR: 122 bpm Max RPP: 24,289 bpm*mmHg Total Time: 1 min : 0 sec Rest Briscoe BP: 99 mmHg Peak Briscoe BP: 85 mmHg Total Dose: 0.4 mg Resting ECG Sinus rhythm. Right bundle branch block. Stress ECG No abnormal ST/T wave changes diagnostic of ischemia with Lexiscan. Arrhythmias None. Report Signatures
[2024-07-29 12:51] LABS: Troponin I < 0.012 ng/mL (0.000-0.034)
--- NOTE | 2024-07-29 13:09 | PM.IMHP ---
H&P: HPI History of Present Illness Date/Time: 07/29/24 13:09 Chief Complaint: Chest Pain Narrative: 78 y/o F presents here with chest pain with PMH of essential tremor, hypertension, CKD, hyperlipidemia, and bipolar 1. The patient presents here from home via EMS for further evaluation of left sided chest pain. She reports the pain has been intermittent for the past month. She further describes the chest pain as dull, intermittently sharp, nonradiating, intermittent, estimates the episodes will last for around 1 minute, no aggravating or alleviating factors. Chest pain is accompanied by very mild shortness of breath. Denies nausea, vomiting, diaphoresis, or palpitations. She does report concurrent left-sided neck pain, however this began 2 months ago. She describes this pain as a deep ache, intermittent radiation to the top of her head, and progressive. Her while in route to the hospital, EMS administered 0.4 mg of sublingual nitro and 324 mg of aspirin which keep the patient temporary/complete relief. Pain did return but was less strong . The patient does not follow regularly with a survey field technician. She reports that she had a murmur as a child but no longer present. Initial VS at presentation: 98.1? F, HR 65, R 13, 136/80, and 100% on RA. ED workup showed: WBC 4.1, no anemia, normal coags, creatinine 1.34 and GFR 38 (previously 1.34 and GFR 41 on 05/28/2024), and troponin negative x3. Initial EKG showed sinus rhythm, rate 67, possible left atrial enlargement, right bundle branch block, baseline artifact. Repeat EKG showed no significant changes. CXR showed clear lungs. Review of Systems Review of Systems: All systems reviewed & are unremarkable except as noted in HPI and below [facility] Past Medical History Medical History (Updated 07/29/24 @ 17:56 by Vikash Krishnan MD) HTN (hypertension) Diminished pulses in lower extremity Carpal tunnel syndrome of right wrist Sensation of feeling cold Essential tremor Spasm of cervical paraspinous muscle Hip bursitis Dermatochalasis of both eyelids TMJ (temporomandibular joint disorder) Pharyngitis Candidal intertrigo Melissa infection, oral GERD (gastroesophageal reflux disease) Screening for lipid disorders BMI 30.0-30.9,adult Dizziness Chest pain at rest Bilateral hand numbness Abnormal stress test Nonspecific abnormal electrocardiogram (ECG) Hearing loss Flat feet Breast cancer screening Allergic rhinitis due to pollen Annual physical exam Candidiasis of skin Chronic kidney disease, stage III (moderate) Colon cancer screening Conductive hearing loss of left ear with unrestricted hearing of right ear Constipation by delayed colonic transit Diverticulosis of colon (without mention of hemorrhage) Duodenal ulcer Extrapyramidal movement disorder Hypertensive kidney disease Insomnia disorder with non-sleep disorder mental comorbidity Mediastinal cyst Mixed hyperlipidemia Neuropathy OAB (overactive bladder) Pes planus of left foot Postmenopausal Primary osteoarthritis of left knee Pulmonary nodule Tremor, coarse Tremor, hereditary, benign Unilateral hearing loss Vaginitis, atrophic Ptosis Bipolar 1 disorder Gait abnormality Long-term current use of lithium Tremor of both hands Surgical History Surgical History H/O dilation and curettage History of cardiac catheterization H/O foot surgery History of hand surgery History of Achilles tendon repair History of tonsillectomy and adenoidectomy History of hysterectomy History of left knee replacement History of 2 sections Family History Family History Mother Family history of kidney disease Patient's mother is Hypertension Family history of arthritis Father Family history of chronic obstructive pulmonary disease Patient's father is Family history of tuberculosis Hypertension Family history of diabetes mellitus in first degree relative Family history of heart disease in male family member before age 55 Sibling Obesity Other Diabetes mellitus Social History Social History Social History: She lives with her son in a 1 bedroom apartment . She is . She is retired from being an [employer] . She also worked at [email or web address] in the [employer] room. She has had 4 children and one has . code status :DNI Smoking status: Never smoker Second hand tobacco smoke exposure: Yes Alcohol intake: current Drinks per week: 1 Substance use: never Substance use type: does not use Do You Feel Safe in your Home?: Yes Lack of Transportation: No Lack of Food: Never True Current Housing: I Have Housing Concerned About Future Housing: No Difficulty Paying Gas/Electric Bills: No Difficulty Paying for Meds: No Currently Unemployed: No Education: Associate Degree Difficulty w/ Childcare or Family Care: YES Living arrangements: with family Additional living arrangements comments: son lives with her and he makes her nervous. 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 Gender identity (if verbalized by the patient): Female Sexual Orientation (if Verbalized by the Patient): Straight or Heterosexual Spiritual care concerns: No Agree to blood products: Yes Meds Home Medications and Allergies Home Medications ?Medication ?Instructions ?Recorded ?Confirmed ?Type clonazepam 0.5 mg tablet 0.5 mg PO QHS 03/29/24 07/29/24 History lithium carbonate 150 mg capsule 150 mg PO DAILY 06/29/24 07/29/24 History calcium 300 mg chewable tablet 300 mg PO DAILY 07/29/24 07/29/24 History dapagliflozin propanediol 10 mg 10 mg PO DAILY 07/29/24 07/29/24 History tablet (Farxiga) diclofenac sodium 1 % topical gel 4 g topical QID PRN muscle pain 07/29/24 07/29/24 History loperamide 2 mg capsule 2 mg PO QID PRN loose stool 07/29/24 07/29/24 History pravastatin 20 mg tablet 20 mg PO DAILY 07/29/24 07/29/24 History Allergies Allergy/AdvReac Type Severity Reaction Status Date / Time oxybutynin Allergy Unknown Unknown Verified 07/29/24 18:09 oxycodone Allergy Unknown RASH Verified 07/29/24 18:09 primidone Allergy Unknown shaking Verified 07/29/24 18:09 Sulfa (Sulfonamide Allergy Unknown Rash Verified 07/29/24 18:09 Antibiotics) lamotrigine AdvReac Severe Shakiness Verified 07/29/24 18:09 pantoprazole AdvReac Intermediate Other Verified 07/29/24 18:09 Vital Signs Vital Signs - 24 hr 07/29/24 06:05 07/29/24 06:16 Temperature 98.1 F Pulse Rate 65 Respiratory Rate 13 Blood Pressure 136/80 Pulse Oximetry 100 100 Oxygen Delivery Room Air Room Air Exam Const: General: comfortable and no acute distress Other: , female, nontoxic appearing HENMT: Face/Nose/Sinus: Normal nares present Mouth: Yes moist mucous membranes Eyes: General: appearance normal, both eyes and all related structures Sclera: sclerae normal Pupils: Equal, round and reactive pupils present EOM: EOMs intact bilaterally Neck: Other: Tenderness to the left trapezius muscle. No C-spine tenderness. Resp: Effort & Inspection: normal respiratory effort Auscultation: clear to auscultation bilaterally Cardio: Rate: regular rate Rhythm: regular rhythm Other: +faint murmur GI: Other: Abdomen soft, nondistended, nontender. Skin: General skin exam: normal color and no rashes or lesions noted Wounds: no wounds Neuro: Speech: normal speech Motor exam (neuro): 5/5 motor strength present throughout Sensory Exam: normal sensation Other: A&O x4 Extrem: General: normal to inspection Psych: Mental Status: mental status grossly normal Affect: normal affect Other: Good insight and judgment, pleasant H&P: Results Labs Labs: Short CBC 07/29/24 Range/Units 06:23 WBC 4.1 L (4.5-10.0) K/mm3 Hgb 12.2 (12.0-15.0) g/dL Hct 39.4 (37.0-47.0) % Plt Count 196 (150-375) k/mm3 BMP 07/29/24 06:23 Sodium 140 Potassium 4.3 Chloride 108 H Carbon Dioxide 25 BUN 27 H Creatinine 1.34 H Glucose 91 Calcium 9.9 Cardiac Enzymes 07/29/24 07/29/24 07/29/24 Range/Units 06:23 09:13 12:06 Troponin I < 0.012 < 0.012 < 0.012 (0.000-0.034) ng/mL Liver Function 07/29/24 Range/Units 06:23 Total Bilirubin 0.9 (0.2-1.3) mg/dL AST 24 (14-36) U/L ALT 14 (6-35) U/L Alkaline Phosphatase 59 (38-126) U/L Albumin 3.3 L (3.5-5.1) g/dL Assessment and Plan Assessment and plan (1) Chest pain: Qualifiers: Chest pain type: unspecified Qualified Code(s): R07.9 - Chest pain, unspecified Code(s): R07.9 - Chest pain, unspecified Status: Acute Assessment and Plan: - EKG, initial: Sinus rhythm, possible left atrial enlargement, right bundle branch block, baseline artifact. - EKG, repeat (1): Sinus rhythm, right bundle branch block, minimal Q-waves (lateral/high lateral). When compared to EKG done earlier today, there are no significant changes. - CXR: Clear lungs - Troponin: <0.012 x3 - ASA 324 given by EMS, SL nitro PRN - continue pravastatin - check stress test will hold on Cardiology consultation until stress test results - echo, previous (11/2022): Normal systolic function, estimated EF 60 65%, grade 1 diastolic dysfunction. No pulmonary hypertension. See report for full details. - stress test, previous (11/2022): 1. 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 2. Normal left ventricular ejection fraction measuring 61%. - telemetry monitoring (2) Chronic kidney disease, stage 3b: Code(s): N18.32 - Chronic kidney disease, stage 3b Status: Acute Assessment and Plan: - creatinine 1.34 and GFR 38, previously 1.34 and GFR 41 on 05/28/2024 - trend renal function - trend electrolytes, correct as needed (3) Bipolar 1 disorder: Code(s): F31.9 - Bipolar disorder, unspecified Status: Acute Assessment and Plan: - continue home medications: Viola 150 daily (4) HTN (hypertension): Qualifiers: Hypertension type: secondary to other renal disorders Qualified Code(s): I15.1 - Hypertension secondary to other renal disorders Code(s): I10 - Essential (primary) hypertension Status: Chronic Assessment and Plan: - chronic, currently 151/84 - not currently on home medications - monitor Plan Patient reporting 2 months of left-sided neck pain with radiation to the top of her head. Tenderness on exam to left trapezius muscle. Will order K pad. Diet: NPO -> heart healthy GI Prophylaxis: Not currently indicated DVT Prophylaxis: Lovenox SQ Lines: Peripheral Code Status: Full code Quality VTE Prophylaxis VTE prophylaxis: pharmacologic ordered Hospitalist [facility] Advance Care Plan I have confirmed that the patient's Advanced Care Plan is present, code status is documented, or surrogate decision maker is listed in patient medical record.: Yes Medication Reconciliation I have utilized all available resources to obtain, update and review the patients current medications (includes all prescriptions, OTC, herbals, cannabis, and nutritional supplements).: Yes
--- OUTSIDE RECORDS SUMMARY | 2024-07-29 14:37 | XMS_ITS | Continuity of Care Document ---
Author Organization Shivani Santamaria l - Main Address [address] [facility] [address] [place] [address] Insurance Providers Payer Plan Claims Address Claims Phone Policy Number Group Number Relation Employer Guarantor Name Guarantor Guarantor Address Guarantor Phone [employer] H[employer] [address], [place] [address] Coverag [id number] Self Yanethreen Elijah 1945 [facility] [address], [place] [id number] [employer] [address], [place] [address] [id number] Self Yanethreen Elijah 1945 [facility] [address], [place] [address] [employer] are [address], [place] [id number] Self Yanethreen Elijah 1945 [facility] [place] [place] [address] Problems Condition ICD9 code ICD10 code SNOMED code Start Date End Date S tatus Epigastric pain R10.13 Working Encounter for fitting and adjustment of hearing aid Z46.1 Working Personal history of urinary (tract) infections Z87.440 Working Pain, unspecified R52 Workin g Flat foot [pes planus] (acquired), left foot M21.42 Wor blum Chronic kidney disease, unspecified N18.9 Working Type 2 diabetes mellitus without complications E11.9 Wor blum Encounter for screening for lipoid disorders Z13.220 [...]
--- OUTSIDE RECORDS SUMMARY | 2024-07-29 14:37 | XMS_ITS | Clinical Summary ---
Author Organization [facility] Monica mercado Address [address], [place] [address] Phone Care Team Providers Care Rug Cleaner Name Role Phone Jose Yen MD Primary Care Provider [phone] Allergies Active Allergy Reactions Criticality Noted Date [...] Influenza Vaccine (#1) 2024 07/09/2021 Care Teams Rug Cleaner Relationship Specialty Start Date End Date Jose Yen MD [address] [place] [address] PCP - General Family Medicine 07/23/21
--- NOTE | 2024-07-29 14:40 | PC.NURSE ---
Patient remains off unit
--- NOTE | 2024-07-29 15:55 | PC.NURSE ---
Patient remains off unit
--- NOTE | 2024-07-29 16:19 | PC.NURSE ---
Patient returned from [place]
--- NOTE | 2024-07-29 17:00 | ADMGEN ---
This patient, Laurie Nava, was admitted to Medical Room 348-01. Patient/family oriented to hospital policies and general routines including ID bracelet, bed and alarms, visiting hours, pain management, procedures, bathroom and other care routines, personal items, smoking policy, room service/diet, and visiting hours. Information on how to activate the Rapid Response Team has been discussed. Patient/Family are encouraged to report perceived risks to care and to ask questions if they do not understand what they are told or what they should do.
[2024-07-29] MEDS: ACETAMINOPHEN 325 MG TABLET 650 MG PO (21:36)
[2024-07-29] MEDS: clonazePAM (*CRX) 0.5 MG TABLET PO (21:36)
[2024-07-30] VITALS: PULSE 87
[2024-07-30 04:00] VITALS: PULSE 56
[2024-07-30 05:06] VITALS: BP 127/76; PULSE 66; RESP 16; TEMP 36.6; O2SAT 99
[2024-07-30 06:41] LABS: Basophils Percent Auto 0.6 % (0.2-1.2); Eosinophils Absolute Auto 0.1 K/mm3 (0-0.3); Eosinophils Percent Auto 1.7 % (0-4.4); Hematocrit 40.3 % (37.0-47.0); Hemoglobin 12.6 g/dL (12.0-15.0); Immature Granulocyte Absolute 0.01 K/mm3 (0.00-0.031); Immature Granulocyte Percent A 0.3 % (0-0.5); Lymphocytes Percent Auto 30.3 % (18.3-44.2); Mean Corpuscular HGB Conc 31.3 g/dl (32-36); Mean Corpuscular Hemoglobin 30.6 pg (26-34); Mean Corpuscular Volume 97.8 fl (80-100); Mean Platelet Volume 9.5 fl (7.4-10.4); Monocytes Absolute Auto 0.4 K/mm3 (0.1-0.6); Monocytes Percent Auto 12.1 % (2.6-8.5); Platelet Count Result 189 k/mm3 (150-375); Red Blood Count 4.12 M/mm3 (4.2-5.4); Red Cell Distribution Width 12.5 % (11.5-14.5); White Blood Count 3.6 K/mm3 (4.5-10.0)
[2024-07-30 07:02] LABS: Anion Gap 6 mmol/L (4-12); Blood Urea Nitrogen 21 mg/dL (7-17); Carbon Dioxide 25 mmol/L (22-30); Chloride 109 mmol/L (98-107); Estimated CRCL calculation 31 ml/min; Estimated Glomerular Filt Rate 41; Glucose 89 mg/dL (65-110); Potassium 4.3 mmol/L (3.4-5.0); Sodium 140 mmol/L (137-145)
[2024-07-30] MEDS: ENOXAPARIN 30 MG/0.3 ML SYRINGE SUB-Q (08:56)
[2024-07-30] MEDS: LITHIUM CARBONATE 150 MG CAPSULE PO (08:56)
[2024-07-30] MEDS: CALCIUM CARBONATE (OSCAL) 250 MG TABLET PO (08:56)
[2024-07-30] MEDS: PRAVASTATIN SODIUM 20 MG TABLET PO (08:56)
[2024-07-30] MEDS: EMPAGLIFLOZIN 25 MG TABLET BY MOUTH (08:56)
[2024-07-30 09:00] VITALS: PULSE 74; O2SAT 99
[2024-07-30 12:00] VITALS: PULSE 85
--- NOTE | 2024-07-30 12:44 | P.DS_ITS ---
DS: Admitting Diagnosis Discharge Date 07/30/2024 Admitting Diagnosis Chest pain DS: Discharge Diagnosis Discharge Diagnosis (1) Chest pain: Qualifiers: Chest pain type: unspecified Qualified Code(s): R07.9 - Chest pain, unspecified Code(s): R07.9 - Chest pain, unspecified Status: Acute (2) Chronic kidney disease, stage 3b: Code(s): N18.32 - Chronic kidney disease, stage 3b Status: Acute (3) Bipolar 1 disorder: Code(s): F31.9 - Bipolar disorder, unspecified Status: Acute (4) HTN (hypertension): Qualifiers: Hypertension type: secondary to other renal disorders Qualified Code(s): I15.1 - Hypertension secondary to other renal disorders Code(s): I10 - Essential (primary) hypertension Status: Chronic DS: Summary Hospital Course Hospital Course: This is a 78-year-old female who presents to the ED with left-sided chest pain. This has been intermittent over the last few months. It has been sharp and achy over left chest and radiated to her neck. She still sore in her neck area however the chest pain has resolved. She sees Dr. Johnson as an outpatient basis. Describes the chest pain is a dull intermittently sharp nonradiating lasting about a minute no aggravating or relieving factors. Reported no shortness of breath associated. Left-sided neck pain concurrently began 2 months ago. In route to the hospital she received 0.4 mg sublingual nitro and 324 mg aspirin. In the ED her vitals were stable. ED workup showed normal WBC at 4.1 no anemia normal coags creatinine was 1.34 similar to previous levels troponin x3 was negative. EKG showed sinus rhythm with nonspecific ST-T changes. Repeat EKG showed no significant changes. Compared EKG in the past looked similar. Chest x-ray was clear. Patient ruled out of acute coronary syndrome. Stress test was performed which came back normal. Her chest pain has resolved. For her neck pain cervical x-ray was performed which showed chronic finding with cervical spondylosis. She will follow-up with her fisher trammel net as an outpatient basis for continued evaluation as an outpatient basis. Time Spent with Patient Time attestation: Total time spent providing and/or coordinating discharge services: 35 minutes Exam Narrative: GENERAL: Well-appearing, well-nourished, and in no acute distress. HEAD: Normocephalic, atraumatic. ENT: Mucous membranes moist. CHEST: Clear to auscultation. No respiratory distress. HEART: Regular rate and rhythm. Normal peripheral pulses. ABDOMEN: Soft, nontender, nondistended. EXTREMITIES: Normal range of motion. No edema. SKIN: Warm, dry, no rash. NEURO: Alert and oriented x3. PSYCH: Normal mood and affect. DS: Data Data Completed and Pending Labs on day of discharge: Labs from last 24 hours 07/30/24 07/29/24 06:34 12:06 WBC 3.6 L RBC 4.12 L Hgb 12.6 Hct 40.3 MCV 97.8 MCH 30.6 MCHC 31.3 L RDW 12.5 Plt Count 189 MPV 9.5 Immature Gran % (Auto) 0.3 Neut % (Auto) 55.0 Lymph % (Auto) 30.3 Glasscock % (Auto) 12.1 H Eos % (Auto) 1.7 Baso % (Auto) 0.6 Lymph # (Auto) 1.10 [place]cock # (Auto) 0.4 Eos # (Auto) 0.1 Baso # (Auto) 0.0 Abs Immat Gran (auto) 0.01 Absolute Neuts (auto) 2.0 Absolute Nucleated RBC 0.000 Nucleated RBC % 0.0 Sodium 140 Potassium 4.3 Chloride 109 H Carbon Dioxide 25 Anion Gap 6 BUN 21 H Creatinine 1.27 H Estim Creat Clear Calc 31 Estimated GFR 41 L Glucose 89 Calcium 10.0 Troponin I < 0.012 Imaging Radiologist's impression: ITS Impressions Chest X-Ray 07/29/24 06:35 Impression: Clear lungs. Lexiscan Stress Test 07/29/24 16:20 IMPRESSION: 1. No definite ischemia or infarct. 2. Normal left ventricular ejection fraction measuring >70%. Discharge Plan Discharge Attending physician on discharge: Be Sparks Discharging Clinician: Be Sparks Anticipated Discharge Date/Time: 07/30/24 12:50 Patient Disposition: Home, Self-Care Activity: as tolerated Diet: heart healthy Patient Instructions: Antibiotic Form Patient Language: Bruneian Stand Alone Forms: General Discharge Information Follow-up/Referrals: Farhat Johnson MD [Physician] - 2 Weeks Schueler,Jose F., MD [Primary Care Provider] - 1 Week Discharge Medications: Continued clonazepam 0.5 mg tablet 0.5 mg PO QHS Rx Instructions: administer 30 minutes before bedtime lithium carbonate 150 mg capsule 150 mg PO DAILY dapagliflozin propanediol [Farxiga] 10 mg tablet 10 mg PO DAILY calcium 300 mg tablet,chewable 300 mg PO DAILY loperamide 2 mg capsule 2 mg PO QID PRN (Reason: loose stool) pravastatin 20 mg tablet 20 mg PO DAILY diclofenac sodium 1 % gel 4 g topical QID PRN (Reason: muscle pain) Rx Instructions: apply to neck, low back and right hip Date of admission: 07/29/24 11:57 Primary Care Provider: Jose Yen Admitting Provider: Jack Regalado Attending physician on admission: Jack Regalado Condition: Stable
[2024-07-30 14:00] VITALS: BP 118/70; PULSE 83; RESP 16; TEMP 36.2; O2SAT 97
== END 2024-07-30 16:53 | disposition home or self-care (01) ==
LOC: ANHED 07:16 → ANH3MED 17:56
PROVIDERS: Emergency Medicine; Student in an Organized Health Care Education/Training Program; Admitting Provider General Practice; Emergency Provider Emergency Medicine; PCP Family Medicine; Visit Provider Internal Medicine
DX: R07.9 Chest pain, unspecified (principal); I12.9 Hypertensive chronic kidney disease with stage 1 through stage 4 chronic kidney disease, or unspecified chronic kidney disease; N18.32 Chronic kidney disease, stage 3b; I15.1 Hypertension secondary to other renal disorders; G25.0 Essential tremor; F31.9 Bipolar disorder, unspecified; E78.2 Mixed hyperlipidemia; Z66 Do not resuscitate; Z79.84 Long term (current) use of oral hypoglycemic drugs; Z79.899 Other long term (current) drug therapy
CPT/HCPCS: 36415; 71045; 72040; 78452; 80048; 80053; 83690; 84484; 85025; 85610; 85730; 93005; 93017; 96372; 99285; A9270; A9502; G0378; J1650; J2785

== ENCOUNTER 2024-10-28 13:54 | Emergency (ER) | payer MEDICARE, SELFPAY ==
--- NOTE | ~2024-10-28 | CT_ITS ---
EXAMINATION: CT brain wo con DATE: 10/28/2024 15:28 INDICATION: Fall with head injury TECHNIQUE: Computed tomography (CT) of the head was performed without intravenous contrast. Sagittal and coronal reconstructions were performed. The mA was adjusted according to patient size. Iterative reconstruction technique was employed. The dose-length product was 605.33 mGy-cm. COMPARISON: head CT dated and brain MR dated 04/21/2014 FINDINGS: No fracture. No acute intracranial hemorrhage, acute infarction or abnormal extra axial fluid collect ion. Symmetric prominence of the sulci consistent with mild age-appropriate diffuse cerebral volume l oss. Ventricles are normal and symmetric. No mass/mass effect. Changes of bilateral intraocular lens replacement. The orbits, paranasal sinuses and mastoid air cells are normal. IMPRESSION: 1. Normal aging brain. No acute intracranial process. Reviewed, dictated and finalized at location A.
--- NOTE | ~2024-10-28 | XR_ITS ---
XR chest 2V Ordering provider: Vikash Krishnan MD History: 79 years Female with . fall . Comparison: July 29, 2024 FINDINGS: MEDIASTINUM: The cardiac silhouette is not enlarged. LUNGS: No infiltrates, effusions or pneumothorax. OTHER: No free air under the diaphragm. Healing fractures in the right eighth, ninth and 10th ribs. Degenerative the spine. IMPRESSION: No acute cardiopulmonary pathology. Reviewed, dictated and finalized at location A.
[2024-10-28 14:08] VITALS: BP 113/79; PULSE 55; RESP 18; TEMP 36.8; O2SAT 99
--- OUTSIDE RECORDS SUMMARY | 2024-10-28 14:09 | XMS_ITS | CONTINUITY OF CARE DOCUMENT ---
Author Name christi, christi Address Unknown Organization [facility] Address [address] [place] [address] Phone [phone] Care Team Providers Care Conductor And Engineer Name Role Phone Josue Lafleur MD Unavailable KERVIN JOSEPH, POOL F Unavailable KERVIN JOSEPH POOL F Unavailable [phone] PROBLEMS Condition Status Date Provider Notes Cardiology examination active Herman Pink MD Chest pain-type to be determined active Zee Pink MD Abnormal nuclear stress test active Herman alejandro MD ENCOUNTERS Date Type Provider Location Encounter Diag nosis - In-person encounter Office Visit Herman Pink MD [place] [facility] Cardiology examinationChest pain-type to be determinedAbnormal nuclear stress test VITAL SIGNS Date Observation Value Provider Body Mass Index (Ratio) 31.15 kg/m2 Brittaney Pink MD blood pressure, diastolic 77 mm[Hg] Mirian kramerLogshemar blood pressure, systolic 130 mm[Hg] Bhavana Hagan blood pressure, diastolic 77 mm[Hg] St fabian De Souza blood pressure, systolic 130 mm[Hg] Faiza De Souza oxygen saturation, oximetry 97 % Teressa De Souza pulse rate 71 /min Teressa De Souza respiratory rate E&M 18 /min Teressa Coffman haritha weight E&M 193 [lb_av] Teressa De Souza height E&M 66 [in_i] Teressa De Souza ALLERGIES Allergy Name Onset Date Reaction Criticality Status SULFA High Criticality active RESULTS Date Observation Value Provider Reference Range Interpretation Location 8 prothrombin time (patient) 10.3 s [facility] 9.1-12.0 8 international normalized ratio (INR) 1.0 [facility] 0.9-1.2 8 basophil count, absolute 0.0 x10E3/uL [facility] 0.0-0.2 8 Eosinophil Absolute Count 0.1 X10E3/UL [facility] 0.0-0.4 8 monocyte count, blood, automated 0.5 X10E3/UL [facility] 0.1-0.9 8 lymphocyte count, blood, automated 1.6 X10E3/UL [facility] 0.7-3.1 8 Absolute Neutrophils 2.5 X10E3/UL [facility] 1.4-7.0 8 basophils as percent of blood leukocytes 1 % [facility] Not Estab. 8 eosinophils as percent of blood leukocytes 2 % [facility] Not Estab. 8 monocytes as percent of blood leukocytes 11 % [facility] Not Estab. 8 lymphocytes as percent of blood leukocytes 34 % [facility] Not Estab. 8 neutrophils as percent of blood leukocytes 52 % [facility] Not Estab. 8 platelet count 244 X10E3/UL [facility] 052-577 2384/09/0 8 red blood cell distribution width 11.7 % [facility] 11.7-15.4 8 mean corpuscular hemoglobin concentration, RBC 31.9 G/DL [facility] 31.5-35.7 8 mean corpuscular hemoglobin, RBC 30.4 pg [facility] 26.6-33.0 8 mean corpuscular volume, RBC 95 fL [facility] 79-97 8 hematocrit, blood 42.3 % [facility] 34.0-46.6 8 hemoglobin, blood 13.5 g/dL [facility] 11.1-15.9 8 erythrocyte (RBC) count 4.44 X10E6/UL [facility] 3.77-5.28 8 leukocyte count, blood 4.8 X10E3/UL [facility] 3.4-10.8 8 lipoprotein, beta, serum, point, quantitative, calculated 120 mg/dL [facility] 0-99 High 8 HDL cholesterol, serum 61 mg/dL [facility] >39 8 triglyceride, serum, random 106 mg/dL [facility] 0-149 8 cholesterol, serum 200 mg/dL [facility] 100-199 High 7 calcium, serum 10.3 mg/dL [facility] 8.7-10.3 7 carbon dioxide, venous blood 23 mmol/L [facility] 20-29 7 chloride, serum 110 mmol/L [facility] 96-106 High 7 potassium, serum 4.9 mmol/L [facility] 3.5-5.2 7 sodium, serum 144 mmol/L [facility] 957-531 2762/09/0 7 urea nitrogen/creatinin e ratio, serum 14 [facility] 12-28 7 creatinine, serum 1.40 mg/dL [facility] 0.57-1.00 High 7 urea nitrogen, blood 19 mg/dL [facility] 8-27 7 blood glucose, random 85 mg/dL [facility] 70-99 HISTORY OF MEDICATION USE Medication Status Instructions Dates Provider Indications Com ments Farxiga 10 mg tablet active Teressa De Souza pantoprazole 40 mg tablet,delayed release (DR/EC) active Teressa De Souza clonazepam 0.5 mg tablet active Teressa De Souza propranolol 20 mg tablet active Teressa De Souza lithium carbonate 150 mg capsule active Teressa De Souza SOCIAL HISTORY Date Observation Value Provider passive cigarette smoke exposure no Teressa De Souza chewing tobacco use Never Teressa Zabala smoking status Never smoker Teressa De Souza INSURANCE PROVIDERS Payer name Policy type / Coverage type Brenna red constitution party ID AETNA MEDICARE [facility] [id number] ADVANCE DIRECTIVES Name Date DISCUSSED - NO DECISION MADE TREATMENT PLAN Date Name Performer [id number],C,will do a car diac cath Herman Pink MD [id number],C,will do a car diac cath Herman Pink MD Cardiology:will do a cardiac cat h Herman Pink MD Cardiology:will do a cardiac cat h Herman Pink MD Date Name PROTHROMBIN TIME WIT H INR LIPID PANEL CBC (INCLUDES DIFF/P LT) BASIC METABOLIC PANE L W/EGFR HISTORY OF PROCEDURES Procedure Date Procedure Name Provider Procedure Notes S tatus EKG Herman Pink MD completed
--- OUTSIDE RECORDS SUMMARY | 2024-10-28 14:09 | XMS_ITS ---
Author Organization [facility] Address [address] [place] [address] Care Team Providers Care Senior It Project Manager Name Role Phone Michelle Cadet Primary Care Provider [phone] Kathie Ruiz Unavailable [phone] REASON FOR VISIT [facility]; discharge Social History Sex Assigned At : Social History Observation Description Sex Assigned At Female Encounters Encounter Location Date Provider Diagnosis [address] [place] [address] 2024 Kathie Ruiz Plan Of Treatment Next Appt Details Provider Name:Michelle Cadet , 11/07/2024 02:00:00 PM, [address] [place] [address], [place], [address], Progress Notes * Laurie SAEZDOB:1945 (79 yo F)Acc No.[id number] UNLOCKED PROGRESS NOTE Patient: Liz Laurie QUINTERO Provider: Kristen Ruiz :1945 A ge:79 Y S ex:Female Date:2024 [facility] Pcp:Michelle Cadet Subjective: * Chief Complaints: * 1 . [facility]; discharge. * Medical History: Objective: * Vitals: Assessment: Plan: * Treatment: * * Electronic signature of Kathie Ruiz MD, [id number] on 10/28/2024 at 02:09 PM CDT Sign off status: Pending * Provider: Kristen Ruiz Date: 0 2024 Generated for Printi ng/Faxing/Lee Ann on: 0 10/28/2024 02:09 PM CDT
--- OUTSIDE RECORDS SUMMARY | 2024-10-28 14:09 | XMS_ITS | Patient Health Record ---
Author Organization [facility] Address [address] [place] [address] Care Team Providers Care Cardiac Exercise Physiologist Name Role Phone HelioMichelle Primary Care Provider Kathie Ruiz Unavailable [phone] Solo Bolanos Unavailable [phone] Oleg Erwin Unavailable [phone] Allergies Allergen (clinical drug ingredient) Drug/Non Drug Allergy documented on EMR Reaction Allergy Type Onset Date Status lamotrigine Lamotrigine Muscle Spasms Drug Allergy Active Substance with sulfonamide structure and antibacterial mechanism of action (substance) Sulfa Antibiotics Unknown Drug Allergy Active Results Component Value Reference Range Notes CBC With Differential/Platel et* Reviewed date:07/29/2024 03:10:28 PM Interpretation: Performing Lab:[facility], [address] [facility], Phone - [phone], Director - Anna Notes/Report: WBC 3.8 3.4-10.8 [...] show increased immature granulocytes without clinical significance.) Mont Alto (Eskalith(R)), Serum Reviewed date:07/29/2024 03:09:39 PM Interpretation: Performing Lab:[facility] [address] [facility], Phone - [phone], Director - [facility] Notes/Report: [place] (Eskalith(R)), Serum 0.2 0.5-1.2 mmol /L A concentration of 0.5-0.8 mmol/L is advised for long-term use; concentrations of up to 1.2 mmol/L may be necessary during acute treatment. Detection Limit = 0.1 <0.1 indicates None Detected CMP 14 Comprehensive Metabol ic Panel* Reviewed date:07/29/2024 03:10:07 PM Interpretation: Performing Lab:[facility] [address] [facility], Phone - [phone], [facility] Notes/Report: Glucose 82 70-99 mg/dL [...] Duration) Notes Start Date End Date Status busPIRone HCl 5 MG TAKE 1 TABLET BY CECELIA TH TWICE A DAY FOR 30 DAYS for 90 Not-Taking [place] Carbonate 150 MG 1 capsule Orall y once a day for 30 days Not-Taking Primidone 50 MG 1.5 tablet Orally tw ice a day for 30 days Active Meloxicam 7.5 MG 1 tablet Orally Once a day Not-Taking LaMICtal 25 MG 2 tablet Orally twic e a day for 30 days Active Sertraline HCl 25 MG 1 tablet Orally Onc e a day Not-Taking Propranolol HCl 20 MG TAKE 1 TABLET BY M OUTH TWICE A DAY FOR 30 DAYS for 90 Not-Taking clonazePAM 0.5 MG 1 tablet Orally bedtime F41.9 Active Escitalopram Oxalate 5 MG 1 tablet Orall y Once a day for 30 day(s) 04/05/2024 Not-Taking Farxiga Active Pantoprazole Sodium Active Lexapro 10 MG 1 tablet Orally Once a day Active Social History Tobacco Use: Social History Observation [...] Status Risk Notes Problem Bipolar 1 disorder (577339833) Bipolar 1 disorder (F31.9) Active confirmed Problem MARILYN (generalized anxiety disorder) (F41.1) Active confirmed Encounters Encounter Location Date Provider Diagnosis [address] [address] 12/01/2023 Arif Habib Bipolar 1 disorder F31.[address] [address] 01/01/2024 Arif Habib Bipolar 1 disorder F31.[address] [address] 01/29/2024 Arif Habib Bipolar 1 disorder F31.[address] [place] [address] 04/26/2024 Arif Habib Bipolar 1 disorder F31.[address] [place] [address] 06/17/2024 Arif Habib Bipolar 1 disorder F31.[address] [place] [address] 07/28/2024 Arif Habib [address] [place] [address] 09/20/2024 Michelle Cadet Bipolar 1 disorder F31.9 ; MARILYN (generalized anxiety disorder) F41.1 and Tremor of both hands R25.[address] [place] [address] 2024 Michelle Cadet MARILYN (generalized anxiety disorder) F41.1 ; Bipolar 1 disorder F31.9 and Tremor of both hands R25.[address] [place] [address] 12/01/2023 Arif Habib [address] [place] [address] 12/11/2023 Arif Habib [address] [place] [address] 12/14/2023 Arif Habib [address] [place] [address] 01/05/2024 Arif Habib [address] [place] [address] 01/11/2024 Arif Habib [address] [place] [address] 04/04/2024 Arif Habib [address] [place] [address] 04/15/2024 Arif Habib [address] [place] [address] 06/15/2024 Arichelita Sebastianvelma [address] [place] [address] 06/17/2024 Arichelita Ruiz [address] [place] [address] 06/17/2024 Solo Salasner Encounter for screening mammogram for breast cancer Z12.[address] [place] [address] 07/20/2024 Kathie Ruiz Bipolar 1 disorder F31.[address] [place] [address] 07/28/2024 Artischelita Sara [facility] [address] [place] [address] 08/30/2024 Michelle Cadet [address] [address] 10/04/2024 Michelle Cadet [facility] [address] [place] [address] 10/05/2024 Michelle Cadet [address] [address] 10/24/2024 Michelle Cadet Assessments Encounter Date Diagnosis (ICD Code) Assessment Notes Treatment Notes Treatment Clinical Notes Section Notes 12/01/2023 Bipolar 1 disorder (ICD-10 - F31.9) risk & benefits discussed. Li level is 0.6 after dose was lowered. Still has low GFR & high Cr Continue Mont Alto 150 mg daily now( she already lowered it few weeks ago). Li level was 0.6 in 05/2022. Continue Klonopin 0.5 mg BID which she took for many years. Li leval is 1.1 on 02/20/22. 0.8 on 12/13/21. Will consider replacing Mont Alto which she took for probably over 30 years. Side effects discussed. Mont Alto level was 0.5 on 04/21/23. Add Lamictal 25 mg daily. Will try to stop Mont Alto to 150mg daily .Kidney doctor checks her labs. 01/01/2024 Bipolar 1 disorder (ICD-10 - F31.9) risk & benefits discussed. Still has low GFR & high Cr Stop Mont [place] 150 mg daily .Continue Klonopin 0.5 mg BID which she took for many years.Side effects discussed. increase Lamictal 25 mg twice daily. Kidney doctor checks her labs. 01/29/2024 Bipolar 1 disorder (ICD-10 - F31.9) risk & benefits discussed. Stop already stopped Lamictal. Continue Klonopin 0.5 mg bedtime . 04/26/2024 Bipolar 1 disorder (ICD-10 - F31.9) risk & benefits discussed. Stop already stopped Lexapro due to shakes. Continue Klonopin 0.5 mg twice daily and Mont Alto 150 mg daily. Side effects discussed. pt wants to continue Mont Alto because this is the only medicine which helped. . 06/17/2024 Encounter for screening mammogram for breast cancer (ICD-10 - Z12.31) Patient Educated with: Mammogram - About this test.pdf (Mammogram - About this test.pdf) 06/17/2024 Bipolar 1 disorder (ICD-10 - F31.9) risk & benefits discussed. She already stopped Lexapro due to shakes. Continue Klonopin 0.5 mg twice daily and Mont Alto 150 mg daily. Side effects discussed. pt wants to continue Mont Alto because this is the only medicine which helped. . 07/20/2024 Bipolar 1 disorder (ICD-10 - F31.9) 09/20/2024 Bipolar 1 disorder (ICD-10 - F31.9) risk & benefits discussed. Continue Klonopin 0.5 mg at bedtime and Mont [place] 150 mg daily. Side effects discussed. pt wants to continue Mont Alto because this is the only medicine which helped. Discussed starting BuSpar and Propranolol, patient agreeable. Discussed side effects and action. 09/20/2024 MARILYN (generalized anxiety disorder) (ICD-10 - F41.1) 2024 Bipolar 1 disorder (ICD-10 - F31.9) Discussed side effects and action. 2024 MARILYN (generalized anxiety disorder) (ICD-10 - F41.1) 2024 Tremor of both hands (ICD-10 - R25.1) 09/20/2024 Tremor of both hands (ICD-10 - R25.1) Plan Of Treatment Future Test Test Name Order Date Mammogram Breast - Bilateral Screening with ABUS, diagnostic mammogram/ultrasound, and/or biopsy as clinically indicated 06/24/2024 Next Appt Details Provider Name:Michelle Cadet , 11/07/2024 02:00:00 PM, [address] [facility] [address], [place], [address], Insurance Providers Payer Name Payer Address Payer Phone Subscriber Number Group Number Insured Name Patient Relationship to Insured Coverage Start Date Coverage End Date [employer] Medicare [address] [place] [address] [id number] Laurie Nava Self - patient is the insured 2 2 [facility] Claims Department [address] [place] [address] [phone] [id number] Laurie Nava Self - patient is the insured 3 3 Medical (General) History Medical History History ICD Code Kidney disease Bipolar disorder Surgical History Surgery Date(Month/Year) Bilateral hand surgeries for arthritis Ankle surgery Hysterectomy Caesarean section cataracts 12/2023 Hospitalization History Reason Date(Month/Year)
--- OUTSIDE RECORDS SUMMARY | 2024-10-28 14:09 | XMS_ITS | Clinical Summary ---
Author Organization [facility] Address [address] [place] [address] Phone Care Team Providers Care Fishing Rod Trimmer Name Role Phone Jose Yen MD Primary Care Provider [phone] Allergies Active Allergy Reactions Criticality Noted Date Comments Sulfa Antibiotics Rash Low 08/28/2021 Medications clonazePAM (KlonoPIN) 0.5 MG tablet TAKE 1 TABLET BY MOUTH EVERY DAY AT BEDTIME AND 1/2 TABLET BY MOUTH TWICE A DAY NEEDED 2 Active lithium 150 MG capsule TAKE 1 CAPSULE BY MOUTH IN THE MORNING AND TAKE 2 CAPSULES AT BEDTIME 2 Active propranolol (INDERAL) 20 MG tablet TAKE 1 TABLET BY MOUTH EVERY 12 HOURS. IF NO BENEFITS, MAY INCREASE TO 20MG 3X DAILY 2 Active tiZANidine (ZANAFLEX) 4 MG tablet TAKE 1 TABLET BY MOUTH EVERY DAY AT BEDTIME NEEDED FOR MUSCLE SPASMS 2 Active fluticasone (FLONASE) 50 MCG/ACT nasal spray ADMINISTER 1 SPRAY INTO EACH NOSTRIL ONCE DAILY 2 Active sertraline (ZOLOFT) 25 MG tablet TAKE 1 TABLET BY MOUTH EVERY DAY FOR 30 DAYS 2 Active aMILoride (MIDAMOR) 5 MG tablet Take 0.5 tablets (2.5 mg total) by mouth 1 (one) time each day 15 tablet 11 2 Active Active Problems Problem Noted Date Diagnosed Date Bipolar I disorder 02/24/2022 Chronic kidney disease stage 3B 12/26/2021 Immunizations Immunization Administration Dates Next Due Influenza TIV (IM) 07/09/2021 Family History Medical History Relation Comments Kidney disease Neg Hx Social History Tobacco Use Types Packs/Day Years Used Date Smoking Tobacco: Never Smokeless Tobacco: Never Alcohol Use Standard Drinks/Week Comments Yes 0 (1 standard drink = 0.6 oz pur e alcohol) Comments Unknown Sex and Gender Information Value Date Recorded Sex Assigned at Not on file Legal Sex Female 9:29 AM MST Gender Identity Not on file Sexual Orientation [...] Medium Risk (1 of 4 - PCV) 1996 Influenza Vaccine (Season Ended) 2025 07/09/19 22 Insurance [employer] MEDICARE ADVANTAGE Care Teams Fishing Rod Trimmer Relationship Specialty Start Date End Date Jose Yen MD [address] [place] [address] PCP - General Family Medicine 07/23/21
[2024-10-28 15:51] VITALS: BP 115/65; PULSE 55; RESP 18; O2SAT 100
[2024-10-28 15:56] LABS: Basophils Percent Auto 0.3 % (0.2-1.2); Eosinophils Percent Auto 0.5 % (0-4.4); Immature Granulocyte Absolute 0.02 K/mm3 (0.00-0.031); Immature Granulocyte Percent A 0.3 % (0-0.5); Lymphocytes Absolute Auto 1.29 K/mm3 (0.9-3.2); Lymphocytes Percent Auto 22.2 % (18.3-44.2); Mean Corpuscular HGB Conc 30.8 g/dl (32-36); Mean Corpuscular Hemoglobin 30.9 pg (26-34); Mean Corpuscular Volume 100.5 fl (80-100); Mean Platelet Volume 9.6 fl (7.4-10.4); Monocytes Absolute Auto 0.6 K/mm3 (0.1-0.6); Monocytes Percent Auto 10.5 % (2.6-8.5); Neutrophils Absolute Auto 3.8 K/mm3 (1.3-6.7); Neutrophils Percent Auto 66.2 % (45.5-73.1); Platelet Count Result 248 k/mm3 (150-375); Red Blood Count 3.88 M/mm3 (4.2-5.4); Red Cell Distribution Width 12.9 % (11.5-14.5); White Blood Count 5.8 K/mm3 (4.5-10.0)
[2024-10-28 16:06] LABS: Ethanol < 10 mg/dL (<10)
[2024-10-28 16:07] LABS: Alanine Aminotransferase 16 U/L (6-35); Albumin Level 3.7 g/dL (3.5-5.1); Alkaline Phosphatase 78 U/L (38-126); Anion Gap 4 mmol/L (4-12); Aspartate Amino Transferase 24 U/L (14-36); Bilirubin,Total 0.5 mg/dL (0.2-1.3); Blood Urea Nitrogen 16 mg/dL (7-17); Calcium 9.4 mg/dL (8.4-10.2); Carbon Dioxide 28 mmol/L (22-30); Chloride 106 mmol/L (98-107); Estimated CRCL calculation 26 ml/min; Estimated Glomerular Filt Rate 39; Glucose 87 mg/dL (65-110); Sodium 138 mmol/L (137-145)
[2024-10-28 16:21] LABS: Add Urine Microscopic? YES; Appearance Urine Clear (Clear); Bacteria Urine Rare /hpf; Bilirubin Urine Negative (Negative); Blood Urine Negative (Negative); Color Urine Yellow (Yellow); Glucose Urine UA Negative (Negative); Ketones Urine Negative (Negative); Leukocyte Esterase Ur 1+ LEU/UL (Negative); Nitrate Urine Negative (Negative); Non Pathogenic Casts 0-2; Protein Urine Negative (Negative); RBC Urine 0-2 /hpf (0-2); Specific Grav Ur 1.007 (1.001-1.035); Squamous Epithelial Cell Urine Few /hpf (Few); Urobilinogen Urine 0.2 mg/dL (<2.0); pH Urine 6.5 (5.0-9.0)
[2024-10-28 16:31] LABS: Influenza A QL RT-PCR Negative (Negative); Influenza B QL RT-PCR Negative (Negative); RSV RNA, RT-PCR Negative (Negative); SARS-CoV-2 RNA PCR Negative (Negative)
[2024-10-28 16:33] LABS: Amphetamine Screen Urine Negative (Negative); Barbiturate Screen Urine Positive (Negative); Benzodiazepines Screen Urine Negative (Negative); Cannabinoid Screen Urine Negative (Negative); Cocaine Screen Urine Negative (Negative); Methadone Screen Urine Negative (Negative); Opiate Screen Urine Negative (Negative); Phencyclidine Screen Urine Negative (Negative)
[2024-10-28 16:38] LABS: Thyroid Stimulating Hormone Reflex 0.235 uIU/mL (0.465-4.68)
[2024-10-28 17:14] LABS: Free T4 Free Thyroxine Reflex 1.42 ng/dL (0.78-2.19)
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
[2024-10-28] MEDS: hydrOXYzine pamoate 25 MG CAPSULE PO (20:23)
--- NOTE | 2024-10-28 20:28 | PC.NURSE ---
Pt ok with calling son, Anselmo, to arrange transport. Son called back to state that her granddaughter will be coming to pick her up in approx 30 min.
== END 2024-10-28 20:53 | disposition home or self-care (01) ==
PROVIDERS: Emergency Provider Emergency Medicine; PCP Family Medicine
DX: F41.9 Anxiety disorder, unspecified (principal); W18.30XA Fall on same level, unspecified, initial encounter; N18.30 Chronic kidney disease, stage 3 unspecified; I12.9 Hypertensive chronic kidney disease with stage 1 through stage 4 chronic kidney disease, or unspecified chronic kidney disease; E78.2 Mixed hyperlipidemia; F31.9 Bipolar disorder, unspecified; Z11.59 Encounter for screening for other viral diseases
CPT/HCPCS: 36415; 70450; 71046; 80053; 80307; 81001; 82077; 84439; 84443; 84480; 85025; 87086; 87637; 99284; A9270

== ENCOUNTER 2024-12-16 03:44 | Emergency (ER) | payer MEDICARE, SELFPAY ==
--- NOTE | ~2024-12-16 | XR_ITS ---
Portable chest x-ray Comparison: 10/28/2024 Clinical History: Chest pain Findings: Lungs are clear, without focal consolidation or pleural effusion. Cardiomediastinal silho uette is stable. Bones and soft tissues are unremarkable. Impression: Clear lungs. Reviewed, dictated and finalized at location . Impression: Clear lungs.
[2024-12-16 03:44] VITALS: BP 128/80; PULSE 81; RESP 22; O2SAT 99
--- NOTE | 2024-12-16 03:49 | ECG_ITS ---
Test Date: 2024-12-16 03:49:50 Measurements Intervals [place] Rate: 79 P: 71 SC: 182 QRS: 7 QRSD: 117 T: 58 QT: 372 QTc: 429 Interpretive Statements SINUS RHYTHM INCOMPLETE RIGHT BUNDLE BRANCH BLOCK [90+ ms QRS DURATION, TERMINAL R IN V1/V2, 40+ ms S IN I/aVL/V4/V5/V6] POSSIBLE LATERAL MYOCARDIAL INFARCTION , OF INDETERMINATE AGE [30 ms Q WAVE IN I/aVL/V5/V6] old inferior mi? Electronically Signed On 12-16-2024 07:07:15 CDT by Zeeshan Kimball M.D.
[2024-12-16 03:59] VITALS: PULSE 80
[2024-12-16 04:01] LABS: Hematocrit 37.8 % (37.0-47.0); Hemoglobin 11.9 g/dL (12.0-15.0); Immature Granulocyte Percent A 0.2 % (0-0.5); Lymphocytes Absolute Auto 1.45 K/mm3 (0.9-3.2); Mean Corpuscular HGB Conc 31.5 g/dl (32-36); Mean Corpuscular Hemoglobin 31.0 pg (26-34); Mean Corpuscular Volume 98.4 fl (80-100); Nucleated Red Blood Cells Absolute Auto 0.000 K/mm3 (0.0-0.012); Nucleated Red Blood Cells Perc 0.0 % (0.0-0.2); Platelet Count Result 208 k/mm3 (150-375); Red Blood Count 3.84 M/mm3 (4.2-5.4); White Blood Count 4.2 K/mm3 (4.5-10.0)
[2024-12-16 04:19] LABS: Alanine Aminotransferase 15 U/L (6-35); Albumin Level 3.6 g/dL (3.5-5.1); Alkaline Phosphatase 63 U/L (38-126); Anion Gap 4 mmol/L (4-12); Aspartate Amino Transferase 28 U/L (14-36); Bilirubin,Total 0.3 mg/dL (0.2-1.3); Blood Urea Nitrogen 17 mg/dL (7-17); Calcium 9.6 mg/dL (8.4-10.2); Carbon Dioxide 24 mmol/L (22-30); Chloride 114 mmol/L (98-107); Estimated CRCL calculation 29 ml/min; Estimated Glomerular Filt Rate 39; Glucose 100 mg/dL (65-110); INR 1.0; Lipase 107 U/L (23-300); Magnesium 2.1 mg/dL (1.6-2.3); Partial Thromboplastin Time 31.1 Seconds (22.3-36.8); Potassium 4.3 mmol/L (3.4-5.0); Prothrombin Time 13.1 Seconds (11.1-14.7); Sodium 142 mmol/L (137-145); Total Protein 6.5 g/dL (6.3-8.2)
[2024-12-16 04:26] LABS: Troponin I 0.012 ng/mL (0.000-0.034)
[2024-12-16 04:31] LABS: Add Urine Microscopic? YES; Appearance Urine Clear (Clear); Glucose Urine UA 2+ mg/dL (Negative); Leukocyte Esterase Ur Trace LEU/UL (Negative); Nitrate Urine Negative (Negative); Non Pathogenic Casts 0-2; Specific Grav Ur 1.008 (1.001-1.035)
--- OUTSIDE RECORDS SUMMARY | 2024-12-16 04:33 | XMS_ITS | Patient Health Record ---
Author Organization [facility] Address [address] [place] [address] Care Team Providers Care Water Quality Analyst Name Role Phone HelioMichelle Primary Care Provider Kathie Ruiz Unavailable [phone] Solo Bolanos Unavailable [phone] Oleg Erwin Unavailable [phone] Allergies Allergen (clinical drug ingredient) Drug/Non Drug Allergy documented on EMR Reaction Allergy Type Onset Date Status lamotrigine Lamotrigine Muscle Spasms Drug Allergy Active Substance with sulfonamide structure and antibacterial mechanism of action (substance) Sulfa Antibiotics Unknown Drug Allergy Active Results Component Value Reference Range Notes CBC With Differential/Platel et* Reviewed date:07/29/2024 03:10:28 PM Interpretation: Performing Lab:[facility], [address] [facility], Phone - [phone], Director - Anna Notes/Report: WBC 3.8 3.4-10.8 [...] show increased immature granulocytes without clinical significance.) Lindsborg (Eskalith(R)), Serum Reviewed date:07/29/2024 03:09:39 PM Interpretation: Performing Lab:[facility] [address] [facility], Phone - [phone], Director - [facility] Notes/Report: Lindsborg (Eskalith(R)), Serum 0.2 0.5-1.2 mmol /L A concentration of 0.5-0.8 mmol/L is advised for long-term use; concentrations of up to 1.2 mmol/L may be necessary during acute treatment. Detection Limit = 0.1 <0.1 indicates None Detected CMP 14 Comprehensive Metabol ic Panel* Reviewed date:07/29/2024 03:10:07 PM Interpretation: Performing Lab:[facility] [address] [facility], Phone - [phone], [facility] Notes/Report: Glucose 82 70-99 mg/dL BUN 24 [...] Duration) Notes Start Date End Date Status Carie Active Lindsborg Carbonate 150 MG 1 capsule Orall y once a day; Duration: 30 days Not-Takin g Pantoprazole Sodium Active Lexapro 10 MG 1 tablet Orally Once a day Active clonazePAM 0.5 MG 1 tablet Orally bedtime F41.9 Active Sertraline HCl 25 MG 1 tablet Orally Onc e a day Not-Taking LaMICtal 25 MG 2 tablet Orally twic e a day; Duration: 30 days Active Primidone 50 MG 1.5 tablet Orally tw ice a day; Duration: 30 days Active Propranolol HCl 20 MG TAKE 1 TABLET [...] a day; Duration: 30 day(s) 04/05/2024 Not-Taking Social History Tobacco Use: Social History [...] Status Risk Notes Problem Bipolar 1 disorder (555368409) Bipolar 1 disorder (F31.9) Active confirmed Problem MARILYN (generalized anxiety disorder) (F41.1) Active confirmed Encounters Encounter Location Date Provider Diagnosis [address] [address] 01/01/2024 Arif Habib Bipolar 1 disorder F31.[address] [place] [address] 01/29/2024 Arif Habib Bipolar 1 disorder F31.[address] [place] [address] 04/26/2024 Arif Habib Bipolar 1 disorder F31.[address] [place] [id number] 06/17/2024 Arif Habib Bipolar 1 disorder F31.[address] [place] [id number] 07/28/2024 Arif Habib [address] [place] [id number] 09/20/2024 Michelle Cadet Bipolar 1 disorder F31.9 ; MARILYN (generalized anxiety disorder) F41.1 and Tremor of both hands R25.[address] [place] [id number] 2024 Michelle Cadet MARILYN (generalized anxiety disorder) F41.1 ; Bipolar 1 disorder F31.9 and Tremor of both hands R25.[address] [address] 01/05/2024 Arif Habib [address] [place] [id number] 01/11/2024 Arif Habib [address] [place] [id number] 04/04/2024 Arif Habib [address] [place] [id number] 04/15/2024 Arif Habib [address] [place] [id number] 06/15/2024 Arif Habib [address] [place] [id number] 06/17/2024 Arif Habib [address] [place] [id number] 06/17/2024 Solo Bolanos Encounter for screening mammogram for breast cancer Z12.[address] [place] [id number] 07/20/2024 Arif Habib Bipolar 1 disorder F31.[address] [facility] [place] [address] 07/28/2024 Kathie Ruiz [facility] [address] [place] [id number] 08/30/2024 Michelle Cadet [facility] [address] [place] [address] 10/04/2024 Michelle Cadet [facility] [address] [place] [address] 10/05/2024 Michelle Cadet [facility] [address] [place] [address] 10/24/2024 Michelle Cadet [address] [place] [facility] [place] [id number] 11/07/2024 Michelle Cadet [address] [facility] [place] [address] 12/13/2024 Michelle Cadet Assessments Encounter Date Diagnosis (ICD Code) Assessment Notes Treatment Notes Treatment Clinical Notes Section Notes 04/26/2024 Bipolar 1 disorder (ICD-10 - F31.9) risk & benefits discussed. Stop already stopped Lexapro due to shakes. Continue Klonopin 0.5 mg twice daily and Lindsborg 150 mg daily. Side effects discussed. pt wants to continue Lindsborg because this is the only medicine which helped. . 09/20/2024 Bipolar 1 disorder (ICD-10 - F31.9) risk & benefits discussed. Continue Klonopin 0.5 mg at bedtime and Lindsborg 150 mg daily. Side effects discussed. pt wants to continue Lindsborg because this is the only medicine which helped. Discussed starting BuSpar and Propranolol, patient agreeable. Discussed side effects and action. 09/20/2024 MARILYN (generalized anxiety disorder) (ICD-10 - F41.1) 07/20/2024 Bipolar 1 disorder (ICD-10 - F31.9) 06/17/2024 Bipolar 1 disorder (ICD-10 - F31.9) risk & benefits discussed. She already stopped Lexapro due to shakes. Continue Klonopin 0.5 mg twice daily and Lindsborg 150 mg daily. Side effects discussed. pt wants to continue Lindsborg because this is the only medicine which helped. . 01/29/2024 Bipolar 1 disorder (ICD-10 - F31.9) risk & benefits discussed. Stop already stopped Lamictal. Continue Klonopin 0.5 mg bedtime . 01/01/2024 Bipolar 1 disorder (ICD-10 - F31.9) risk & benefits discussed. Still has low GFR & high Cr Stop Lindsborg 150 mg daily .Continue Klonopin 0.5 mg BID which she took for many years.Side effects discussed. increase Lamictal 25 mg twice daily. Kidney doctor checks her labs. 2024 Bipolar 1 disorder (ICD-10 - F31.9) Discussed side effects and action. 2024 MARILYN (generalized anxiety disorder) (ICD-10 - F41.1) 06/17/2024 Encounter for screening mammogram for breast cancer (ICD-10 - Z12.31) Patient Educated with: Mammogram - About this test.pdf (Mammogram - About this test.pdf) 2024 Tremor of both hands (ICD-10 - R25.1) 09/20/2024 Tremor of both hands (ICD-10 - R25.1) Plan Of Treatment Future Test Test Name Order Date Mammogram Breast - Bilateral Screening with ABUS, diagnostic mammogram/ultrasound, and/or biopsy as clinically indicated 06/24/2024 Next Appt Details Provider Name:Michelle Cadet , 12/26/2024 03:00:00 PM, [address] [facility], [place], [address], Insurance Providers Payer Name Payer Address Payer Phone Subscriber Number Group Number Insured Name Patient Relationship to Insured Coverage Start Date Coverage End Date [employer] Medicare [address] [place] [address] [id number] Laurie Nava Self - patient is the insured 2 2 [facility] Attn Claims Department [address] [place] [address] [id number] Laurie Nava Self - patient is the insured 3 3 MEDICAID [address] [place] [address] [id number] Laurie Nava Self - patient is the insured 4 Medical (General) History Medical History History ICD Code Kidney disease Bipolar disorder Surgical History Surgery Date(Month/Year) Bilateral hand surgeries for arthritis Ankle surgery Hysterectomy Caesarean section cataracts 12/2023 Hospitalization History Reason Date(Month/Year)
--- OUTSIDE RECORDS SUMMARY | 2024-12-16 04:33 | XMS_ITS ---
Author Organization [facility] Address [address] [place] [address] Care Team Providers Care Government Program Manager Name Role Phone Mihcelle Cadet Primary Care Provider [phone] REASON FOR VISIT Discharge [facility] Social History Sex Assigned At : Social History Observation Description Sex Assigned At Female Encounters Encounter Location Date Provider Diagnosis [address] [place] [address] 12/05/2024 Michelle Cadet Plan Of Treatment Next Appt Details Provider Name:Michelle Cadet , 12/26/2024 03:00:00 PM, [address] [place] [address], [place], [address], Progress Notes * Laurie SAEZDOB:1945 (79 yo F)Acc No.[id number]:12/05/2024 UNLOCKED PROGRESS NOTE Patient: Laurie FLORES Provider: SHER Gomez :1945 A ge:79 Y S ex:Female Date:12/05/2024 [facility] Subjective: * Chief Complaints: * 1 . Discharge [facility]. * Medical History: Objective: * Vitals: Assessment: Plan: * Treatment: * * Electronic signature of Megan Cadet on 12/16/2024 at 04:33 AM CDT Sign off status: Pending * Provider: SHER Gomez Date: 12/05/2024 Generated for Caroline garner/Rama/eTransmitting on: 12/16/2024 04:33 AM CDT
--- OUTSIDE RECORDS SUMMARY | 2024-12-16 04:33 | XMS_ITS ---
Author Organization [facility] Address [address] [place] [address] Care Team Providers Care Solar Energy System Installer Helper Name Role Phone Michelle Cadet Primary Care Provider REASON FOR VISIT hosp fu from [facility] Social History Sex Assigned At : Social History Observation Description Sex Assigned At Female Encounters Encounter Location Date Provider Diagnosis [address] [place] [address] 12/13/2024 Michelle Cadet Plan Of Treatment Next Appt Details Provider Name:Michelle Cadet , 12/26/2024 03:00:00 PM, [address] [place] [address], [place], [address], Progress Notes * Laurie SAEZDOB:1945 (79 yo F)Acc No.[id number]:12/13/2024 UNLOCKED PROGRESS NOTE Patient: Laurie FLORES Provider: SHER Gomez :1945 A ge:79 Y S ex:Female Date:12/13/2024 [facility] Subjective: * Chief Complaints: * 1 . hosp fu from [facility]. * Medical History: Objective: * Vitals: Assessment: Plan: * Treatment: * * Electronic signature of Megan Cadet on 12/16/2024 at 04:33 AM CDT Sign off status: Pending * Provider: SHER Gomez Date: 0 12/13/2024 Generated for Caroline garner/Rama/eTyuriysmitting on: 0 12/16/2024 04:33 AM CDT
--- OUTSIDE RECORDS SUMMARY | 2024-12-16 04:34 | XMS_ITS ---
Author Organization [facility] Address [address] [place] [address] Care Team Providers Care Gas Plant Operator Name Role Phone Michelle Cadet Primary Care Provider REASON FOR VISIT [facility] hospital follow up Social History Sex Assigned At : Social History Observation Description Sex Assigned At Female Encounters Encounter Location Date Provider Diagnosis [address] [facility] [place] [address] 12/12/2024 Michelle Cadet Plan Of Treatment Next Appt Details Provider Name:Michelle Cadet , 12/26/2024 03:00:00 PM, [address] [place] [address], [place], [address], Progress Notes * Laurie SAEZDOB:1945 (79 yo F)Acc No.[id number]:12/12/2024 UNLOCKED PROGRESS NOTE Patient: Laurie FLORES Provider: SHER Gomez :1945 A ge:79 Y S ex:Female Date:12/12/2024 [facility] Subjective: * Chief Complaints: * 1 . [facility] hospital follow up. * Medical History: Objective: * Vitals: Assessment: Plan: * Treatment: * * Electronic signature of Megan Cadet on 12/16/2024 at 04:33 AM CDT Sign off status: Pending * Provider: SHER Gomez Date: 0 12/12/2024 Generated for Caroline garner/Rama/eTyuriysmitting on: 12/16/2024 04:33 AM CDT
--- OUTSIDE RECORDS SUMMARY | 2024-12-16 04:34 | XMS_ITS | Referral Summary ---
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]; Stage 3a chronic kidney disease (HCC) [N18.31]; Essential tremor [G25.0]; Hyperlipidemia, unspecified hyperlipidemia type [E78.5]; Major depressive disorder, recurrent severe without psychotic features (HCC) Discharge Disposition: Discharge to home or self care 11/14/2024 9:27 AM CDT Anesthesia Event [address] [phone] Da Rosario MD 11/11/2024 8:20 AM CDT Anesthesia Event [address] [phone] Jason Crawford MD 11/09/2024 10:55 AM CDT Anesthesia Event [address] [phone] Jordyn Rodríguez MD 11/07/2024 9:03 AM CDT Anesthesia Event [facility] [address] [place] [phone] Diego Bergman MD Morrison, Lauren Michele, NP 11/04/2024 8:52 AM CDT Anesthesia Event [address] [phone] Anthony Elizalde III, MD PhD 10/05/2024 5:22 PM CDT - 10/05/2024 11:59 PM CDT Hospital Encounter [facility] [id number] [place] [id number] Emergency, Room R Discharge Disposition: Discharge to home or self care 09/30/2024 1:22 PM CDT - 10/05/2024 12:17 AM CDT Emergency [facility] [address] [place] [address] Deny Diaz MD Gutierrez, Gerardo, MD Koyejo, MD Swathi Paez, Angi Vogt, MD Aparicio, Tj Arce, DO Severe episode of recurrent major depressive disorder, without psychotic features (HCC) (Primary Dx) Discharge Disposition: Discharge to psych hospital or psych unit from Last 3 Months Allergies Active Allergy Reactions Criticality Noted Date Comments Lamotrigine Other (See comments) 11/06/2024 Muscle spasms Sulfa (Sulfonamide Antibiotics) Rash,Unknown High 08/28/2021 Medications Farxiga 10 mg tabletIndicatio ns:type 2 diabetes mellitus Take 1 tablet (10 mg total) by mouth daily 0 Active propranoloL (INDERAL) 20 mg tabletIndicatio ns:Essential Tremor Take 1 tablet (20 mg total) by mouth 2 (two) times a day 0 Active pravastatin (PRAVACHOL) 20 mg tabletIndicatio ns:hyperlipidem ia Take 1 tablet (20 mg total) by mouth daily 5 Active acetaminophen (TYLENOL) 500 mg tabletIndicatio ns:Pain Take 1 tablet (500 mg total) by mouth every 6 (six) hours as needed for pain Active fluvoxaMINE (LUVOX) 100 mg tabletIndicatio ns:depression Take 1 tablet (100 mg total) by mouth nightly 30 tablet 5 12/19/19 25 Active traZODone (DESYREL) 100 mg tabletIndicatio ns:insomnia associated with depression Take 1 tablet (100 mg total) by mouth nightly 30 tablet 5 12/19/19 25 Active haloperidoL (HALDOL) 2 mg tabletIndicatio ns:Hypomania Take 1 tablet (2 mg total) by mouth nightly 30 tablet 5 12/19/19 25 Active lithium 150 mg capsule Take 1 capsule (150 mg total) by mouth nightly 0 11/19/19 25 Discontinu ed(Stop Taking at Discharge) clonazePAM (KlonoPIN) 0.5 mg tablet Take 1 tablet (0.5 mg total) by mouth nightly 11/19/19 25 Discontinu ed(Stop Taking at Discharge) busPIRone (BUSPAR) 5 mg tablet Take 1 tablet (5 mg total) by mouth 2 (two) times a day 5 11/19/19 Discontinu ed(Stop Taking at Discharge) Active Problems Problem Noted Date Diagnosed Date Major depressive disorder, r ecurrent severe without psychotic features 11/04/2024 Constipation 11/04/2024 Assessment & Plan (11/08/2024 9:34 AM CDT): Large bowel movement /2. - Sched daily miralax - Senna daily Stage 3a chronic kidney disease 11/02/2024 Assessment & Plan (11/02/2024 3:14 AM CDT): History of CKD III. Cr 1.32 on admission. Baseline appears to be 1.3 per chart review. Plan - No acute management - Avoid nephrotoxic agents Essential tremor 11/01/2024 Assessment & Plan (11/13/2024 8:53 AM CDT): Chronic history of low frequency, high amplitude, resting tremor. Prescribed propranolol 20 mg BID at home. Currently is far worse than normal, patient reports that it has been worsening over the course of the last month likely in a relationship to her worsening anxiety. Because it is impairing her ability to feed herself, OT consulted. 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 Still refusing ECT and is working on coordinating with family about discharge. Does not meet criteria for involuntary commitment. - Fluvoxamine 100mg pm - schedule trazodone 100 mg for sleep - haldol 2 mg qhs - ECT rescheduled Mediastinal mass 02/24/2013 Resolved Problems Problem Noted Date Diagnosed Date Resolved Date Hyperthyroidism 11/02/2024 11/03/2024 Assessment & Plan (11/02/2024 10:27 AM CDT): Noted to have decreased TSH (0.28). Can be worked up in the outpatient setting. Other specified anxiety disorder 11/02/2024 11/03/2024 Assessment & Plan (11/02/2024 10:30 AM CDT): Patient had substantial anxiety, previously prescribed 0.5 mg of Klonopin each night. Patient has been taking 1 mg each night, and has been having intermittent falls and substantial confusion related to utilizing this medication. Given low dose, do not believe that patient going to discontinuation syndrome. We will discontinue at this time. -Discontinue home Klonopin Suicidal ideation 11/01/2024 11/02/2024 Routine health maintenance 11/01/2024 0 11/02/2024 Assessment & Plan (11/01/2024 9:43 PM CDT): During hospitalization, routine health labs were obtained as outlined below. Plan - F/u metabolic labs: A1c and Lipid panel - F/u public health labs: HIV, RPR, HepB, HepC Hyperlipidemia 11/01/2024 11/02/2024 Assessment & Plan (11/01/2024 9:00 PM CDT): No lipid panel in our records. Taking pravastatin 20 mg nightly at home. Plan - F/u lipid panel - Continue home pravastatin 20 mg nightly Obesity with body mass index 30 or greater 09/20/2015 11/01/2024 Adiposity 11/08/2013 11/01/2024 Overview (09/11/2016): Obesity Fatigue 11/08/2013 11/01/2024 Overview (09/11/2016): Fatigue Chest pain 11/08/2013 11/01/2024 Overview (09/11/2016): Chest pain Abnormal cardiovascular stress test 11/08/2013 11/01/2024 Overview (09/11/2016): Abnormal stress test Standard chest x-ray abnormal 02/18/2013 11/01/2024 Immunizations Immunization Administration Dates Next Due Influenza, Quadrivalent, Hig h Dose, Preservative Free, Intrr 03/16/2022,06/27/2021 Influenza, Trivalent, IM (MDV) 07/09/2021 Influenza, Unspecified 01/18/2014,03/27/2012 Pneumococcal Conjugate Pcv20 08/29/2021 ZOSTER LIVE 11/12/2017 ZOSTER Recombinant 10/29/2017,08/02/2017 Social History Tobacco Use Types Packs/Day Years Used Date Smoking Tobacco: Never Tobacco Cessation:Counseling Given: Not Answered [facility] Utilities Answer Date Recorded In the past 12 months has [employer] [place], [employer], oil, or water [employer] threatened to shut off services in your home? No 11/02/2024 Humiliation, Afraid, Rape, and Kick questionnair e Answer Date Recorded Within the last year, have y ou been afraid of your partner or ex-partner? No 11/02/2024 Within the last year, have y ou been humiliated or emotionally abused in other ways by your partner or ex-partner? No Within the last year, have y ou been kicked, hit, slapped, or otherwise physically hurt by your partner or ex-partner? No 11/02/2024 Within the last year, have y ou been raped or forced to have any kind of sexual activity by your partner or ex-partner? No 11/02/2024 Social Connection and Isolat ion Panel [NHANES] Answer Date Recorded In a typical week, how many times do you talk on the phone with family, friends, or neighbors? More than three times a week 11/02/2024 How often do you get togethe r with friends or relatives? More than three times a week 11/02/2024 How often do you attend [facility] or mormonism services? More than 4 times per year 11/02/2024 Do you belong to any clubs o r organizations such as religious groups, unions, fraternal or athletic groups, or school groups? Yes 11/02/2024 How often do you attend meet ings of the clubs or organizations you belong to? More than 4 times per year 11/02/2024 Are you , , di vorced, , never , or living with a partner? 11/02/2024 AUDIT-C Answer Date Recorded Q1: How often do you have a drink containing alcohol? Never 11/02/2024 Q2: How many drinks containi ng alcohol do you have on a typical day when you are drinking? Patient does not drink Q3: How often do you have si x or more drinks on one occasion? Never 11/02/2024 Overall Financial Resource Strain (CARDIA) Answe r Date Recorded How hard is it for you to pa y for the very basics like food, housing, medical care, and heating? Not hard at all 11/02/2024 [facility] - Occupational Stress Questionnaire Answer Date Recorded Do you feel stress - tense, restless, nervous, or anxious, or unable to sleep at night because your mind is troubled all the time - these days? Very much 11/02/2024 Exercise Vital Sign Answer Date Recorde d On average, how many days pe r week do you engage in moderate to strenuous exercise (like a brisk walk)? 2 days 11/02/2024 On average, how many minutes do you engage in exercise at this level? 20 min 11/02/2024 Hunger Vital Sign Answer Date Recorded Within the past 12 months, y ou worried that your food would run out before you got the money to buy more. Never true 11/03/19 25 Within the past 12 months, t he food you bought just didn't last and you didn't have money to get more. Never true 11/02/2024 PRAPARE - Transportation Answer Date Re corded In the past 12 months, has l ack of transportation kept you from medical appointments or from getting medications? No 10/07 In the past 12 months, has l ack of transportation kept you from meetings, work, or from getting things needed for daily living? No 11/02/2024 Housing Stability Vital Sign Answer Derek e Recorded In the last 12 months, was t here a time when you were not able to pay the mortgage or rent on time? No 11/02/2024 In the past 12 months, how m any times have you moved where you were living? 0 11/02/2024 At any time in the past 12 m [facility], were you homeless or living in a detention (including now)? No 11/02/2024 Personal Safety Answer Date Recorded Have you ever been in or are you currently in a harmful physical or emotional relationship or is someone making you feel afraid or unsafe? Denies 11/01/2024 Comments No Sex and Gender Information Value Date Recorded Sex Assigned at Not on file Legal Sex Female 12:09 AM [employer] Gender Identity Not on file Sexual Orientation Not on file Last Filed Vital Signs Vital Sign Reading Time Taken Comments Blood Pressure 118/55 11/18/2024 8:05 AM CDT Pulse 56 11/18/2024 8:20 AM CDT Temperature 36.5 C (97.7 F) 11/18/2024 8:05 AM CDT Respiratory Rate 18 11/18/2024 8:05 AM CDT Oxygen Saturation 96% 11/18/2024 8:05 AM CDT Inhaled Oxygen Concentration - - Weight 68.5 kg (151 lb 0.2 oz) 11/02/2024 10:49 AM CDT Height 167.6 cm (5' 5.98) 11/02/2024 10:49 AM C DT Body Mass Index 24.39 11/02/2024 10:49 AM CDT Plan of Treatment Not on file Procedures Procedure Name Priority Date/Time Associated Diagnosis Comments POCT GLUCOSE DEVICE Routine 11/02/2024 8 :09 PM CDT POCT GLUCOSE DEVICE Routine 11/02/2024 8 :15 AM CDT HEMOGLOBIN A1C Routine 11/01/2024 10:53 PM CDT LIPID PANEL Routine 11/01/2024 10:53 PM CDT HEPATITIS C ANTIBODY Routine 11/01/2024 10:53 PM CDT HEPATITIS B SURFACE ANTIGEN Routine 11/01/2024 10:53 PM CDT HIV 1/2 ANTIBODY PLUS P24 ANTIGEN Routine 11/01/2024 10:53 PM CDT RPR Routine 11/01/2024 10:53 PM CDT LITHIUM LEVEL STAT 11/01/2024 5:40 PM CDT URINALYSIS, MICROSCOPIC ONLY STAT 11/01/2024 3:25 PM CDT URINALYSIS AND REFLEX TO MICROSCOPIC STAT 11/01/2024 3:25 PM CDT DRUGS OF ABUSE SCREEN, URINE WITHOUT CONFIRMATION STAT 11/01/2024 3:25 PM CDT T3, FREE STAT 11/01/2024 1:26 PM CDT EGFR STAT 11/01/2024 1:26 PM CDT T4, FREE STAT 11/01/2024 1:26 PM CDT DIFFERENTIAL AUTO STAT 11/01/2024 1:2 6 PM CDT ETHANOL STAT 11/01/2024 1:26 PM CDT THYROID FUNCTION CASCADE STAT 11/01/2024 1:26 PM CDT COMPREHENSIVE METABOLIC PANEL STAT 11/01/2024 1:26 PM CDT CBC WITH AUTO DIFFERENTIAL STAT 11/01/2024 1:26 PM CDT TN CRITICAL CARE ILL/INJURED PATIENT INIT 30-74 MIN Routine 11/01/2024 1:20 PM CDT XR ABDOMEN AP 1 VIEW ED 10/03/2024 11:15 AM CDT ECG 12-LEAD Routine 10/01/2024 7:02 AM CDT URINALYSIS, MICROSCOPIC ONLY STAT 10/01/2024 3:15 AM CDT DRUGS OF ABUSE SCREEN, URINE WITHOUT CONFIRMATION STAT 10/01/2024 3:15 AM CDT URINALYSIS AND REFLEX TO MICROSCOPIC AND CULTURE STAT 10/01/2024 3:15 AM CDT ETHANOL Routine 09/30/2024 9:56 PM CDT ACETAMINOPHEN LEVEL STAT 09/30/2024 9 :56 PM CDT SALICYLATE LEVEL STAT 09/30/2024 9:56 PM CDT T4, FREE Add-On 09/30/2024 9:56 PM CDT TSH Add-On 09/30/2024 9:56 PM CDT LITHIUM LEVEL Add-On 09/30/2024 9:56 PM CDT COVID-19 CORONAVIRUS RNA STAT 09/30/2024 9:56 PM CDT TROPONIN T HIGH-SENSITIVITY 6-HOUR Timed 09/30/2024 8:40 PM CDT XR CHEST PA LATERAL 2 VIEWS ED 09/30/2024 2:54 PM CDT EGFR STAT 09/30/2024 2:42 PM CDT DIFFERENTIAL AUTO STAT 09/30/2024 2:4 2 PM CDT TROPONIN T HIGH-SENSITIVITY SERIES (BASELINE, 2HR, 4HR, 6HR) STAT 09/30/2024 2:42 PM CDT COMPREHENSIVE METABOLIC PANEL STAT 09/30/2024 2:42 PM CDT CBC WITH AUTO DIFFERENTIAL STAT 09/30/2024 2:42 PM CDT ECG 12-LEAD STAT 09/30/2024 1:40 PM CDT from Last 3 Months Results * POCT glucose (11/02/2024 8:09 PM CDT) Glucose, POC 134 70 - 199 mg/dL Blood 11/02/2024 8:09 PM CDT 11/02/2024 8:09 PM CDT us Anselmo Turner MD LAB POCT ORDERABLES - DEVIC E Final Result [facility] Department [place] [address] * POCT glucose (11/02/2024 8:15 AM CDT) Glucose, POC 91 70 - 199 mg/dL Blood 11/02/2024 8:15 AM CDT 11/02/2024 8:15 AM CDT Sarthak Todd MD LAB POCT ORDERABLES - DE VICE Final Result Performing Organization Address [facility] Co de Phone Number [facility] [place] [address] * HIV 1/2 Antibody plus p24 Antigen Blood (11/01/2024 10:53 PM CDT) Pathologist [facility] HIV 1/2 ab + p24 ag Nonreactive Nonreactive Comment:Nonreactive for HIV- 1 antigen and HIV-1/HIV-2 antibodies. No laboratory evidence of HIV infection. If acute HIV infection is suspected, consider testing for HIV-1 RNA. Current interpretive data was last revised on 22. Blood 11/01/2024 10:5 3 PM CDT 11/01/2024 11:30 PM CDT Sarthak Todd MD LAB MICROBIOLOGY - GENER AL ORDERABLES Final Result Performing Organization Address [facility] Co de Phone Number [facility] [place] [address] * Hepatitis C antibody Blood (11/01/2024 10:53 PM CDT) Pathologist [facility] Hep C Ab Nonreactive Nonreactive Comment:Antibodies to HCV no t detected. Does NOT exclude the possibility of recent exposure to HCV. Current interpretive data was last revised on 22 Blood 11/01/2024 10:5 3 PM CDT 11/01/2024 11:30 PM CDT Sarthak Todd MD LAB MICROBIOLOGY - GENER AL ORDERABLES Final Result Performing Organization Address City/[facility]/ZIP Co de Phone Number [facility] [place] [address] * RPR Blood (11/01/2024 10:53 PM CDT) Pathologist [facility] RPR Nonreactive Nonreactive Blood 11/01/2024 10:5 3 PM CDT 11/01/2024 11:30 PM CDT Sarthak Todd MD LAB MICROBIOLOGY - GENER AL ORDERABLES Final Result Performing Organization Address [facility] de Phone Number [facility] [place] [address] * Hepatitis B Surface Antigen Blood (11/01/2024 10:53 PM CDT) [facility] HepBsAg Nonreactive Nonreactive Blood 11/01/2024 10:5 3 PM CDT 11/01/2024 11:30 PM CDT Sarthak Todd MD LAB MICROBIOLOGY - GENER AL ORDERABLES Final Result Performing Organization Address [facility] de Phone Number [facility] Department [place] [address] * Hemoglobin A1c (11/01/2024 10:53 PM CDT) [facility] Hgb A1C 5.2 4.0 - 5.6 % Estimated Average Glucose 103 mg/dL [facility] Comment: The ADA recommends reporting an estimated Average Glucose (eAG) with all Hemoglobin A1c results using the equation derived from a study of 507 normal and diabetic adults. Minority populations were underrepresented and children were not included. (Diabetes Care 2020; 43(S1): S66-S76). The eAG is not equivalent to a fasting glucose. Blood 11/01/2024 10:5 3 PM CDT 11/01/2024 11:30 PM CDT Sarthak Todd MD LAB BLOOD ORDERABLES Fin al Result Performing Organization Address [facility]/ZIP Co de Phone Number [facility] [place] [address] * Lipid panel (11/01/2024 10:53 PM CDT) Cholesterol 184 30 - 199 mg/dL Comment: Interpretive Data Ages < or = 19 years Acceptable: <170 mg/dL Borderline high: 170-199 mg/dL High: >or= 200 mg/dL Ages > or = 20 years Desirable: <200 mg/dL Borderline high: 200-239 mg/dL High: >or= 240 mg/dL Literature References: 1. Expert Panel on Integrated Guidelines for Cardiovascular Health and Risk Reduction in Children and Adolescents. Pediatrics 2011;128:S213 2. NCEP Expert Panel. Circulation 2004;110:227 Current Interpretive Data was last revised on 2018. Triglycerides 88 <=149 mg/dL [facility] Comment: Interpretive Data Ages < or = 9 years Acceptable: <75 mg/dL Borderline high: 75-99 mg/dL High: >or= 100 mg/dL Ages 10 to 20 years Acceptable: <90 mg/dL Borderline high: 90-129 mg/dL High: >or= 130 mg/dL Ages > or = 20 years Desirable: <150 mg/dL Borderline high: 150-199 mg/dL High: 200-499 mg/dL Very high: >or= 499 mg/dL Literature References: 1. Expert Panel on Integrated Guidelines for Cardiovascular Health and Risk Reduction in Children and Adolescents. Pediatrics 2011;128:S213 2. NCEP Expert Panel. Circulation 2004;110:227 Current Interpretive Data was last revised on 2018. HDL 72 >=40 mg/dL [facility] Comment: Interpretive Data Ages < or = 19 years Acceptable: >45 mg/dL Borderline low: 40-45 mg/dL Low: <40 mg/dL Ages > or = 20 years Desirable: >or= 60 mg/dL Low: <40 mg/dL Literature References: 1. Expert Panel on Integrated Guidelines for Cardiovascular Health and Risk Reduction in Children and Adolescents. Pediatrics 2011;128:S213 2. NCEP Expert Panel. Circulation 2004;110:227 Current Interpretive Data was last revised on 2018. LDL, calculated 96 <=129 mg/dL [facility] Comment: Interpretive Data Ages < or = 19 years Acceptable: <110 mg/dL Borderline high: 110-129 mg/dL High: >or= 130 mg/dL Ages > or = 20 years Optimal: <100 mg/dL Near optimal: 100-129 mg/dL Borderline high: 130-159 mg/dL High: >160 mg/dL Calculated using the Alex LDL-C estimating equation. This equation was implemented on 2024. Prior to this date LDL-C was estimated using the Friedewald equation. Literature References: 1. Expert Panel on Integrated Guidelines for Cardiovascular Health and Risk Reduction in Children and Adolescents. Pediatrics 2011;128:S213 2. NCEP Expert Panel. Circulation 2004;110:227 3. Alex Herman et al. GALE Cardiol. 2020 October 06;5(5):540-548. doi: 10.1001/jamacardio.2020.0013 Current Interpretive Data was last revised on 2024. Non-HDL Cholesterol 112 mg/dL [facility] Comment: Interpretive Data Ages < or = 19 years Acceptable: <120 mg/dL Borderline high: 120-144 mg/dL High: >145 mg/dL Ages > or = 20 years When triglycerides are >200 mg/dL, Non-HDL cholesterol is a secondary target of therapy with treatment goals that are 30 mg/dL greater than the LDL cholesterol target. Literature References: 1. Expert Panel on Integrated Guidelines for Cardiovascular Health and Risk Reduction in Children and Adolescents. Pediatrics 2011;128:S213 2. NCEP Expert Panel. Circulation 2004;110:227 Current Interpretive Data was last revised on 2018. Chol/HDL ratio [address] [facility] Blood 11/01/2024 10:5 3 PM CDT 11/01/2024 11:30 PM CDT us Sarthak Todd MD LAB BLOOD ORDERABLES Fin al Result [facility] Department [place] [address] * (ABNORMAL) [place] level (11/01/2024 5:40 PM CDT) [place] <0.1(L) 0.6 - 1.2 mmol/L Blood 11/01/2024 5:40 PM CDT 11/01/2024 6:04 PM CDT us Uche Garza NP LAB BLOOD ORDERABLES Final Resul t Performing Organization Address [facility]/ZIP Co de Phone Number [facility] [place] [address] * (ABNORMAL) Urinalysis reflex to microscopic (11/01/2024 3:25 PM CDT) Color, ur Straw Yellow Clarity, ur Clear Clear [facility] Specific gravity, ur 1.007 1.003 - 1.[address] [facility] pH, urine 6.[address] [facility] Comment: Interpretive Data U rine pH is affected by diet, medications, systemic acid-base disturbances, and renal tubular function. pH may affect urinary stone formation. For example, urine pH below 6.0 may help reduce the tendency for calcium phosphate stones and pH greater than 6.0 may reduce the tendency for uric acid stone formation. Source: [facility] [employer] Current Interpretive Data was last revised on 2017 Protein, ur ql Negative Negative [facility] Glucose, ur ql Negative Negative [facility] Ketones, ur Negative Negative [facility] Bilirubin, ur Negative Negative [facility] Blood, ur Negative Negative [facility] Urobilinogen, ur <2.0 <2.0 mg/dL [facility] Nitrite, ur Negative Negative [facility] Leukocyte esterase, ur 1+(A) Negative [facility] UA reflex comment Reflex to microscopic UA will be performed. [facility] Urine 11/01/2024 3:25 PM CDT 11/01/2024 3:35 PM CDT us Sarthak Todd MD LAB URINE ORDERABLES Fin al Result [facility] Department [place] [address] * (ABNORMAL) Drugs of Abuse Screen, Urine without Confirmation (11/01/2024 3:25 PM CDT) [facility] Amphetamine, ur Not Detected CutOff 500ng/mL Comment: Interpretive Data - Amphetamines: Samples containing greater than 500 ng/mL d-methamphetamine or other cross-reacting amphetamine compounds are reported as positive. Amphetamine immunoassays are subject to significant false positive rates due to cross-reactivity of non-amphetamine drugs. Confirmatory testing required for definitive results. Current Interpretive Data was last reviewed 2023. Barbiturates, ur Screen Positive, presumptive (A) CutOff 200ng/mL [facility] Comment: Interpretive Data - Barbiturates: Samples containing greater than 200 ng/mL secobarbital or other cross-reacting barbiturate compounds are reported as positive. False positive and false negative results are possible. Confirmatory testing required for definitive results. Current Interpretive Data was last reviewed 2023. Benzodiazepines, ur Not Detected CutOff 100ng/mL [facility] Comment: Interpretive Data - Benzodiazepines: Samples containing greater than 100 ng/mL nordiazepam or other cross-reacting compounds are reported as positive. False positive and false negative results are possible. Confirmatory testing required for definitive results. Current Interpretive Data was last reviewed 2023. Cannabinoids, ur Not Detected CutOff 50 ng/mL [facility] Comment: Interpretive Data - Cannabinoids: Samples containing greater than 50 ng/mL delta-9 THC -COOH or other cross- reacting compounds are reported as positive. False positive and false negative results are possible. Confirmatory testing required for definitive results. Current Interpretive Data was last reviewed 2023. Cocaine, ur Not Detected CutOff 150ng/mL [facility] Comment: Interpretive Data - Cocaine: Samples containing greater than 150 ng/mL benzoylecgonine or other cross- reacting compounds are reported as positive. False positive and false negative results are possible. Confirmatory testing required for definitive results. Current Interpretive Data was last reviewed 2023. Fentanyl, Ur Not Detected CutOff 5 ng/mL [facility] Comment: Interpretive Data - Fentanyl: Samples containing greater than 5 ng/mL norfentanyl, fentanyl, or other cross-reacting fentanyl compounds are reported as positive. False positive and false negative results are possible. Confirmatory testing required for definitive results. Current Interpretive Data was last reviewed 2023. Methadone, ur Not Detected CutOff 300ng/mL [facility] Comment: Interpretive Data - Methadone: Samples containing greater than 300 ng/mL d,l-methadone or other cross-reacting compounds are reported as positive. False positive and false negative results are possible. Confirmatory testing required for definitive results. Current Interpretive Data was last reviewed 2023. Opiates, ur Not Detected CutOff 300ng/mL [facility] Comment: Interpretive Data - Opiates: Samples containing greater than 300 ng/mL morphine or other cross-reacting compounds are reported as positive. False positive and false negative results are possible. Confirmatory testing required for definitive results. Current Interpretive Data was last reviewed 2023. Oxycodone, ur Not Detected CutOff 100ng/mL [facility] Comment: Interpretive Data - Oxycodone: Samples containing greater than 100 ng/mL oxycodone or other cross-reacting compounds are reported as positive. False positive and false negative results are possible. Confirmatory testing required for definitive results. Current Interpretive Data was last reviewed 2023. Phencyclidine, ur Not Detected CutOff 25 ng/mL [facility] Comment: Interpretive Data - Phencyclidine: Samples containing greater than 25 ng/mL phencyclidine or other cross-reacting compounds are reported as positive. False positive and false negative results are possible. Confirmatory testing required for definitive results. Current Interpretive Data was last reviewed 2023. Urine Creatinine 35 mg/dL [facility] Comment: Interpretive Data Urine Creatinine: < 10 mg/dL is extremely dilute = or > 10 but < 20 mg/dL is dilute = or > 20 mg/dL is normal Current Interpretive Data was last revised on 2017. Urine 11/01/2024 3:25 PM CDT 11/01/2024 3:44 PM CDT Narrative [facility] - 11/01/2024 4:40 PM CDT Drug of Abuse screening is performed by immunoassay for medical purposes only. This is not to be used for Pain Management purposes. Sarthak Todd MD LAB URINE ORDERABLES Fin al Result [facility] [place] [address] * (ABNORMAL) Urinalysis, microscopic only (11/01/2024 3:25 PM CDT) WBC, ur 0-5 0 - 5 /HPF RBC, ur 0-2 0 - 2 /HPF [facility] Epithelial cells, squamous, ur 1-5 0 - 5 /HPF [facility] Bacteria, ur Trace(A) [facility] Mucous, ur Present(A) [facility] Hyaline casts, ur 1-5 0 - 10 /LPF [facility] Urine 11/01/2024 3:25 PM CDT 11/01/2024 3:35 PM CDT Sarthak Todd MD LAB URINE ORDERABLES Fin al Result Performing Organization Address [facility] de Phone Number [facility] [place] [address] * (ABNORMAL) eGFR (11/01/2024 1:26 PM CDT) eGFR 41(L) >=60 mL/min/1. 73 m2 Comment: Interpretive Data Reference Interval Normal >/= 90 mL/min/1.73m2 Mildly decreased* 60 - 89 mL/min/1.73m2 Mildly to moderately decreased 45 - 59 mL/min/1.73m2 Moderately to severely decreased 30 - 44 mL/min/1.73m2 Severely decreased 15 - 29 mL/min/1.73m2 Kidney Failure < 15 mL/min/1.73m2 *Relative to young adult level Estimated glomerular filtration rate is determined by the 2020 CKD-EPI equation recommended by the National Kid[employer] (A Unifying Approach to GFR Estimation: Recommendations of the NKF-ASK Task Force on Reassessing the Inclusion of Race in Diagnosing Kidney Disease, JASN 2020). The CKD-EPI equation should not be used for patients with unstable renal function and has not been validated in children and those over 70. Current interpretive data was last reviewed 2021. Blood 11/01/2024 1:26 PM CDT 11/01/2024 1:54 PM CDT us Sarthak Todd MD LAB BLOOD ORDERABLES Fin al Result [facility] [place] [address] * Differential, auto (11/01/2024 1:26 PM CDT) Pathologist [facility] Neutrophil abs 2.62 1.50 - 6.50 K/cumm Imm gran abs 0.02 0.00 - 0.10 K/cumm [facility] Lymphocyte abs 1.20 0.80 - 3.30 K/cumm [facility] Monocyte abs 0.70 0.20 - 0.80 K/cumm [facility] Eosinophil abs 0.02 0.00 - 0.50 K/cumm [facility] Basophil abs 0.02 0.00 - 0.10 K/cumm [facility] Neutrophil pct 57.3 % [facility] Comment: Interpretive Data Percent cell count reference ranges are not reported, since discordance with absolute values may lead to misinterpretation of CBC data. Current Interpretive Data was last revised on 2017. Imm gran pct 0.4 % [facility] Comment: Interpretive Data Percent cell count reference ranges are not reported, since discordance with absolute values may lead to misinterpretation of CBC data. Current Interpretive Data was last revised on 2017. Lymphocyte pct 26.2 % [facility] Comment: Interpretive Data Percent cell count reference ranges are not reported, since discordance with absolute values may lead to misinterpretation of CBC data. Current Interpretive Data was last revised on 2017. Monocyte pct 15.3 % [facility] Comment: Interpretive Data Percent cell count reference ranges are not reported, since discordance with absolute values may lead to misinterpretation of CBC data. Current Interpretive Data was last revised on 2017. Eosinophil pct 0.4 % [facility] Comment: Interpretive Data Percent cell count reference ranges are not reported, since discordance with absolute values may lead to misinterpretation of CBC data. Current Interpretive Data was last revised on 2017. Basophil pct 0.4 % [facility] Comment: Interpretive Data Percent cell count reference ranges are not reported, since discordance with absolute values may lead to misinterpretation of CBC data. Current Interpretive Data was last revised on 2017. Blood 11/01/2024 1:26 PM CDT 11/01/2024 1:54 PM CDT Sarthak Todd MD LAB BLOOD ORDERABLES Fin al Result Performing Organization Address [facility] de Phone Number [facility] Department [place] [address] * (ABNORMAL) Thyroid Function [place] (11/01/2024 1:26 PM CDT) [facility] TSH 0.28(L) 0.30 - 4.20 mcIUnit/mL Blood 11/01/2024 1:26 PM CDT 11/01/2024 1:54 PM CDT Sarthak Todd MD LAB BLOOD ORDERABLES Fin al Result Performing Organization Address [facility] de Phone Number [facility] Department [place] [address] * (ABNORMAL) CBC with auto differential (11/01/2024 1:26 PM CDT) [facility] WBC 4.58 3.80 - 9.90 K/cumm Hgb 12.5 11.9 - 15.5 g/dL [facility] Hct 39.2 35.6 - 45.5 % [facility] Plt 268 150 - 400 K/cumm [facility] MPV 9.8 9.1 - 12.[address] [facility] RBC 4.05 3.90 - 5.20 M/cumm [facility] MCV 96.8(H) 81.3 - 96.[address] [facility] MCH 30.9 27.1 - 33.[address] [facility] MCHC 31.9(L) 32.3 - 35.7 g/dL [facility] RDW CV 13.1 11.1 - 14.9 % [facility] RDW SD 46.6 35.7 - 48.[address] [facility] NRBC abs 0.00 0.00 - 0.01 K/cumm [facility] Blood Venous blood specimen / Unknown 11/01/2024 1:26 PM CDT 11/01/2024 1:54 PM CDT Sarthak Todd MD LAB BLOOD ORDERABLES Fin al Result [facility] [place] [address] * T3, free (11/01/2024 1:26 PM CDT) Free T3 2.2 2.0 - 4.4 pg/mL Blood 11/01/2024 1:26 PM CDT 11/01/2024 1:54 PM CDT Narrative [facility] - 11/01/2024 3:45 PM CDT This test was reflexed from a Free T4 result. Uche Garza NP LAB BLOOD ORDERABLES Final Resul t Performing Organization Address City/[facility]/ZIP Co de Phone Number [facility] [place] [employer] [place] [address] * T4, free (11/01/2024 1:26 PM CDT) Free T4 1.22 0.90 - 1.70 ng/dL Blood 11/01/2024 1:26 PM CDT 11/01/2024 1:54 PM CDT Narrative [facility] - 11/01/2024 2:57 PM CDT This test was reflexed from a TSH result. Sarthak Todd MD LAB BLOOD ORDERABLES Fin al Result Performing Organization Address [facility] Co de Phone Number [facility] [place] [address] * Ethanol (11/01/2024 1:26 PM CDT) Ethanol <10 <=10 mg/dL Comment: Interpretive Data Legal limit of intoxication > or = 80 mg/dL Levels > or = 400 mg/dL are potentially TOXIC. Current interpretive data was last revised on 2018. Blood 11/01/2024 1:26 PM CDT 11/01/2024 1:54 PM CDT Sarthak Todd MD LAB BLOOD ORDERABLES Fin al Result Performing Organization Address [facility] de Phone Number [facility] [place] [address] * (ABNORMAL) Comprehensive metabolic panel (11/01/2024 1:26 PM CDT) Pathologist [facility] Sodium 141 135 - 145 mmol/L Potassium, pl 4.4 3.3 - 4.9 mmol/L [facility] Chloride 108 97 - 110 mmol/L [facility] CO2 25 22 - 32 mmol/L [facility] Anion gap 8 2 - 15 mmol/L [facility] BUN 18 6 - 25 mg/dL [facility] Creatinine 1.32(H) 0.60 - 1.10 mg/dL [facility] Glucose 86 70 - 199 mg/dL [facility] Comment: Interpretive Data Fasting glucose >/= 126 mg/dl is diagnostic for diabetes. Fasting is defined as no caloric intake for at least 8 hours. Fasting glucose between 100 mg/dl to 125 mg/dl is diagnostic of prediabetes. In a patient with classic symptoms of hyperglycemia or hyperglycemic crisis, a random glucose >/= 200 mg/dl is diagnostic for diabetes. In the absence of unequivocal hyperglycemia, results should be confirmed by repeat testing. The classification and Diagnosis of Diabetes Diabetes Care 202; 46: S19-S40. Current interpretive data was last revised 2022. Calcium 9.8 8.5 - 10.3 mg/dL [facility] Bilirubin, total 0.2 0.1 - 1.2 mg/dL [facility] Protein, pl 6.9 6.5 - 8.5 g/dL [facility] Albumin 3.8 3.5 - 5.0 g/dL [facility] Alk phos 77 40 - 130 Units/L [facility] ALT 15 7 - 45 Units/L [facility] AST 23 10 - 45 Units/L [facility] Blood 11/01/2024 1:26 PM CDT 11/01/2024 1:54 PM CDT us Sarthak Todd MD LAB BLOOD ORDERABLES [facility] al Result [facility] [place] [address] * [place] CRITICAL CARE ILL/INJURED PATIENT INIT 30-74 MIN (11/01/2024 1:20 PM CDT) Narrative Uche Garza NP - 11/01/2024 1:20 PM CDT Uche Garza NP 11/01/2024 4:56 PM Critical Care Performed by: Uche Garza NP Authorized by: Bonifacio Hudson MD Critical care provider statement: As reflected in the history, physical exam, orders, notes, and/or MDM, I was personally present while the patient was critically ill and provided critical care services for 35 minutes, excluding time involved in separately billable procedures. Critical care was necessary to treat or prevent imminent or life-threatening deterioration of the following condition(s): suicidal/homicidal ideation Critical care was time spent by me providing the following: psychological evaluation with medical clearance I provided emergent necessary critical care medicine services to this patient. I ordered and reviewed test results and/or imaging studies. I spent time discussing the management of this critically ill patient with consultants and the medical staff. I spent time discussing the management and therapeutic options for this critically ill patient with the patient themselves or with the appropriate designated surrogate decision-maker. I spent time documenting in the medical record. us Bonifacio Hudson MD IN CLINIC/BEDSIDE ORDERABLES Final Result * XR Abdomen Ap 1 Vw (10/03/2024 11:15 AM CDT) Anatomical Region Laterality Modality Body, Abdomen N/A Computed Radiogr aphy 10/03/2024 11:2 4 AM CDT Impressions 10/03/2024 11:24 AM CDT Large stool burden consistent with constipation. Nonobstructive bowel gas pattern. 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 Mild bilateral sacroiliac joint arthrosis. Electronically signed by: Kvng Chery II, D.O. Narrative 10/03/2024 11:24 AM CDT EXAMINATION: XR ABDOMEN AP 1 VIEW DATE: 10/03/2024 11:05 AM HISTORY: Constipation. COMPARISON: 10/03/2024. Procedure Note Kvng Chery II, DO - 10/03/2024 EXAMINATION: XR ABDOMEN AP 1 VIEW DATE: 10/03/2024 11:05 AM HISTORY: Constipation. COMPARISON: 10/03/2024. IMPRESSION: Large stool burden consistent with constipation. Nonobstructive bowel gas pattern. 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 Mild bilateral sacroiliac joint arthrosis. Electronically signed by: Kvng Chery II, D.O. Deny Diaz MD IMG XR PROCEDURES Final Result * (ABNORMAL) Urinalysis reflex to microscopic and culture Urine (10/01/2024 3:15 AM CDT) Color, ur Yellow Yellow Clarity, ur Clear Clear [facility] Specific gravity, ur 1.008 1.003 - 1.030 [facility] pH, urine 6.5 [facility] Comment: Interpretive Data U rine pH is affected by diet, medications, systemic acid-base disturbances, and renal tubular function. pH may affect urinary stone formation. For example, urine pH below 6.0 may help reduce the tendency for calcium phosphate stones and pH greater than 6.0 may reduce the tendency for uric acid stone formation. Source: [employer] Current Interpretive Data was last revised on 2017 Protein, ur ql Negative Negative [facility] Glucose, ur ql Negative Negative [facility] Ketones, ur Negative Negative [facility] Bilirubin, ur Negative Negative [facility] Blood, ur Negative Negative [facility] Urobilinogen, ur 2.0(A) <2.0 mg/dL [facility] Nitrite, ur Negative Negative [facility] Leukocyte esterase, ur 3+(A) Negative [facility] UA reflex comment Reflex to microscopic UA will be performed. [facility] Urine 10/01/2024 3:15 AM CDT 10/01/2024 3:33 AM CDT us Deny Diaz MD LAB MICROBIOLOGY - GENER AL ORDERABLES Final Result [facility] [id number] [place] [address] * Drugs of Abuse Screen, Urine without Confirmation (10/01/2024 3:15 AM CDT) Amphetamine, ur Not Detected CutOff 500ng/mL Comment: Interpretive Data - Amphetamines: Samples containing greater than 500 ng/mL d-methamphetamine or other cross-reacting amphetamine compounds are reported as positive. Amphetamine immunoassays are subject to significant false positive rates due to cross-reactivity of non-amphetamine drugs. Confirmatory testing required for definitive results. Current Interpretive Data was last reviewed 2023. Barbiturates, ur Not Detected CutOff 200ng/mL [facility] Comment: Interpretive Data - Barbiturates: Samples containing greater than 200 ng/mL secobarbital or other cross-reacting barbiturate compounds are reported as positive. False positive and false negative results are possible. Confirmatory testing required for definitive results. Current Interpretive Data was last reviewed 2023. Benzodiazepines, ur Not Detected CutOff 100ng/mL [facility] Comment: Interpretive Data - Benzodiazepines: Samples containing greater than 100 ng/mL nordiazepam or other cross-reacting compounds are reported as positive. False positive and false negative results are possible. Confirmatory testing required for definitive results. Current Interpretive Data was last reviewed 2023. Cannabinoids, ur Not Detected CutOff 50 ng/mL [facility] Comment: Interpretive Data - Cannabinoids: Samples containing greater than 50 ng/mL delta-9 THC -COOH or other cross- reacting compounds are reported as positive. False positive and false negative results are possible. Confirmatory testing required for definitive results. Current Interpretive Data was last reviewed 2023. Cocaine, ur Not Detected CutOff 150ng/mL [facility] Comment: Interpretive Data - Cocaine: Samples containing greater than 150 ng/mL benzoylecgonine or other cross- reacting compounds are reported as positive. False positive and false negative results are possible. Confirmatory testing required for definitive results. Current Interpretive Data was last reviewed 2023. Fentanyl, Ur Not Detected CutOff 5 ng/mL [facility] Comment: Interpretive Data - Fentanyl: Samples containing greater than 5 ng/mL norfentanyl, fentanyl, or other cross-reacting fentanyl compounds are reported as positive. False positive and false negative results are possible. Confirmatory testing required for definitive results. Current Interpretive Data was last reviewed 2023. Methadone, ur Not Detected CutOff 300ng/mL [facility] Comment: Interpretive Data - Methadone: Samples containing greater than 300 ng/mL d,l-methadone or other cross-reacting compounds are reported as positive. False positive and false negative results are possible. Confirmatory testing required for definitive results. Current Interpretive Data was last reviewed 2023. Opiates, ur Not Detected CutOff 300ng/mL [facility] Comment: Interpretive Data - Opiates: Samples containing greater than 300 ng/mL morphine or other cross-reacting compounds are reported as positive. False positive and false negative results are possible. Confirmatory testing required for definitive results. Current Interpretive Data was last reviewed 2023. Oxycodone, ur Not Detected CutOff 100ng/mL [facility] Comment: Interpretive Data - Oxycodone: Samples containing greater than 100 ng/mL oxycodone or other cross-reacting compounds are reported as positive. False positive and false negative results are possible. Confirmatory testing required for definitive results. Current Interpretive Data was last reviewed 2023. Phencyclidine, ur Not Detected CutOff 25 ng/mL [facility] Comment: Interpretive Data - Phencyclidine: Samples containing greater than 25 ng/mL phencyclidine or other cross-reacting compounds are reported as positive. False positive and false negative results are possible. Confirmatory testing required for definitive results. Current Interpretive Data was last reviewed 2023. Urine Creatinine 43 mg/dL [facility] Comment: Interpretive Data Urine Creatinine: < 10 mg/dL is extremely dilute = or > 10 but < 20 mg/dL is dilute = or > 20 mg/dL is normal Current Interpretive Data was last revised on 2017. Urine 10/01/2024 3:15 AM CDT 10/01/2024 3:33 AM CDT Narrative [facility] - 10/01/2024 4:24 AM CDT Drug of Abuse screening is performed by immunoassay for medical purposes only. This is not to be used for Pain Management purposes. Deny Diaz MD LAB URINE ORDERABLES Fin al Result Performing Organization Address [facility] Co de Phone Number [facility] [id number] [facility] [place] [address] * Urinalysis, microscopic only (10/01/2024 3:15 AM CDT) WBC, ur 0-5 0 - 5 /HPF RBC, ur 0-2 0 - 2 /HPF [facility] Epithelial cells, squamous, ur 1-5 0 - 5 /HPF [facility] Culture Reflex Comment Reflex conditions for urine culture (WBC >10) not met. [facility] Urine 10/01/2024 3:15 AM CDT 10/01/2024 3:33 AM CDT Deny Diaz MD LAB URINE ORDERABLES Fin al Result Performing Organization Address [facility] Co de Phone Number [facility] [id number] [address] [facility] [place] [address] * COVID-19 Coronavirus RNA Nasopharyngeal (09/30/2024 9:56 PM CDT) COVID-19 RNA Negative Negative Nasopharyngeal 09/30/2024 9: 56 PM CDT 09/30/2024 10:00 PM CDT Narrative [facility] - 09/30/2024 10:45 PM CDT Is the patient experiencing any symptoms consistent with COVID (eg. Fever, cough, shortness of breath)?->No What is the reason for testing?->Screening prior to Behavioral health admission Interpretive data Testing performed by [facility]. This test is performed using the [employer] Xpert Xpress CoV-2 plus assay. This is a real-time RT-PCR test intended for the qualitative detection of nucleic acid from the SARS-CoV-2. This assay has been cleared by the [place] [employer] Food and Drug administration. The performance characteristics have been verified by the [facility]. Results must be considered in the clinical context, and a negative result does not rule out infection. Interpretive data last revised 2023. Interpretive data Testing performed by [facility]. This test is performed using the [employer] Xpert Xpress CoV-2 plus assay. This is a real-time RT-PCR test intended for the qualitative detection of nucleic acid from the SARS-CoV-2. This assay has been cleared by the [employer] [place] Food and Drug administration. The performance characteristics have been verified by the [facility]. Results must be considered in the clinical context, and a negative result does not rule out infection. Interpretive data last revised 2023. Deny Diaz MD LAB MICROBIOLOGY - GENER AL ORDERABLES Final Result Performing Organization Address [facility] Co de Phone Number [facility] [id number] [place] [address] CH * TSH (09/30/2024 9:56 PM CDT) Thyroid Stimulating Hormone 0.46 0.30 - 4.20 mcIUnit/mL Blood 09/30/2024 9:56 PM CDT 09/30/2024 10:01 PM CDT Deny Diaz MD LAB BLOOD ORDERABLES Fin al Result Performing Organization Address [facility] Co de Phone Number [facility] [address] [address] [place] [address] * T4, free (09/30/2024 9:56 PM CDT) Free T4 1.59 0.90 - 1.70 ng/dL Blood 09/30/2024 9:56 PM CDT 09/30/2024 10:01 PM CDT Deny Diaz MD LAB BLOOD ORDERABLES Fin al Result Performing Organization Address [facility] [facility] Co de Phone Number KATHRINE [id number] [facility] [place] [employer] [place] [address] * Ethanol (09/30/2024 9:56 PM CDT) Ethanol <10 <=10 mg/dL Comment: Interpretive Data Legal limit of intoxication > or = 80 mg/dL Levels > or = 400 mg/dL are potentially TOXIC. Current interpretive data was last revised on 2018. Blood 09/30/2024 9:56 PM CDT 10/01/2024 4:44 AM CDT Dillan Bell MD LAB BLOOD ORDERABLES Final Result Performing Organization Address [facility] de Phone Number KATHRINE [id number] [address] [facility] [place] [address] * Acetaminophen level (09/30/2024 9:56 PM CDT) Pathologist [facility] Acetaminophen <5 <=5 mcg/mL Comment: Interpretive Data Significant hepatic injury may occur and treatment with n-acetyl cysteine is generally recommended if the acetaminophen level exceeds: 150 mcg/mL at 4 hours after ingestion 75 mcg/mL at 8 hours after ingestion 38 mcg/mL at 12 hours after ingestion 19 mcg/mL at 16 hours after ingestion Consult toxicology or poison control ([phone]) for unknown ingestion time. Current interpretive data was last revised 2023. Blood 09/30/2024 9:56 PM CDT 09/30/2024 10:01 PM CDT Deny Diaz MD LAB BLOOD ORDERABLES Fin al Result Performing Organization Address [facility] Co de Phone Number KATHRINE LIM[place] [phone] [place] [address] * Salicylate level (09/30/2024 9:56 PM CDT) Salicylate <0.3 <=0.3 mg/dL Comment: Interpretive Data Toxic: 30 mg/dL or greater. Current interpretive data was last revised 2023. Blood 09/30/2024 9:56 PM CDT 09/30/2024 10:01 PM CDT Deny iDaz MD LAB BLOOD ORDERABLES Fin al Result Performing Organization Address [facility] Co de Phone Number KATHRINE [place] [address] [place] [address] * (ABNORMAL) [place] level (09/30/2024 9:56 PM CDT) [place] 0.4(L) 0.6 - 1.2 mmol/L Comment:Testing performed by : [facility], [address] [place]., [address] Blood 09/30/2024 9:56 PM CDT 10/01/2024 6:04 PM CDT Deny Diaz MD LAB BLOOD ORDERABLES Fin al Result Performing Organization Address [facility] Co de Phone Number KATHRINE LIM[place] [phone] [place] [address] * (ABNORMAL) Troponin T high-sensitivity 6-hour (09/30/2024 8:40 PM CDT) Trop T hs 17(H) <=14 ng/L Comment: Interpretive Data For further hscTnT resources including the diagnostic algorithm and an aid in interpretation, copy and paste this link: https://nrl.testcatalog.org/show/hsTrop Current Interpretive Data last revised 2020. Trop T hs delta -2 ng/L KATHRINE CH Trop T hs interp Insignificant KAHTRINE LIMA Blood 09/30/2024 8:40 PM CDT 09/30/2024 8:44 PM CDT Stephane Anne DIRECTOR INSURANCE LAB BLOOD ORDERABLES Kalli l Result KATHRINE [place] [address] [place] [address] * XR Chest PA Lateral 2 Views (09/30/2024 2:54 PM CDT) Anatomical Region Laterality Modality Body, Chest N/A Computed Radiogr aphy 09/30/2024 3:05 PM CDT Impressions 09/30/2024 3:05 PM CDT No pneumothorax or pleural effusion. Cardiac mediastinal silhouette within normal limits. No consolidation. No acute osseous abnormality. Postsurgical changes in the upper abdomen. Electronically signed by: Kvng Chery II, D.O. Narrative 09/30/2024 3:05 PM CDT EXAMINATION: XR CHEST PA LATERAL 2 VIEWS DATE: 09/30/2024 2:35 PM INDICATION: Chest pain COMPARISON: None. Procedure Note Kvng Chery II, DO - 09/30/2024 EXAMINATION: XR CHEST PA LATERAL 2 VIEWS DATE: 09/30/2024 2:35 PM INDICATION: Chest pain COMPARISON: None. IMPRESSION: No pneumothorax or pleural effusion. Cardiac mediastinal silhouette within normal limits. No consolidation. No acute osseous abnormality. Postsurgical changes in the upper abdomen. Electronically signed by: Kvng Chery II, D.O. Deny Diaz MD IMG XR PROCEDURES Final Result * (ABNORMAL) Troponin T high-sensitivity series (baseline, 2hr, 4hr, 6hr) (09/30/2024 2:42 PM CDT) Trop T hs 19(H) <=14 ng/L Comment: Interpretive Data For further hscTnT resources including the diagnostic algorithm and an aid in interpretation, copy and paste this link: https://nrl.testcatalog.org/show/hsTrop Current Interpretive Data last revised 2020. Blood 09/30/2024 2:42 PM CDT 09/30/2024 2:42 PM CDT Deny Diaz MD LAB BLOOD ORDERABLES Dereck cornel Result - Final Performing Organization Address City/[facility]/ZIP Co de Phone Number KATHRINE CLARENCE [address] [place] [place] [address] * (ABNORMAL) eGFR (09/30/2024 2:42 PM CDT) eGFR 42(L) >=60 mL/min/1. 73 m2 Comment: Interpretive Data Reference Interval Normal >/= 90 mL/min/1.73m2 Mildly decreased* 60 - 89 mL/min/1.73m2 Mildly to moderately decreased 45 - 59 mL/min/1.73m2 Moderately to severely decreased 30 - 44 mL/min/1.73m2 Severely decreased 15 - 29 mL/min/1.73m2 Kidney Failure < 15 mL/min/1.73m2 *Relative to young adult level Estimated glomerular filtration rate is determined by the 2020 CKD-EPI equation recommended by the National Kidney [employer] (A Unifying Approach to GFR Estimation: Recommendations of the NKF-ASK Task Force on Reassessing the Inclusion of Race in Diagnosing Kidney Disease, JASN 2020). The CKD-EPI equation should not be used for patients with unstable renal function and has not been validated in children and those over 70. Current interpretive data was last reviewed 2021. Blood 09/30/2024 2:42 PM CDT 09/30/2024 2:42 PM CDT Deny Diaz MD LAB BLOOD ORDERABLES Fin al Result Performing Organization Address City/[facility]/ZIP Co de Phone Number RAPHAELBRITNEY LIMA [address] [place] [address] * Differential, auto (09/30/2024 2:42 PM CDT) Neutrophil abs 3.08 1.50 - 6.50 K/cumm Imm gran abs 0.03 0.00 - 0.10 K/cumm CERNER [facility] Lymphocyte abs 1.34 0.80 - 3.30 K/cumm [facility] Monocyte abs 0.62 0.20 - 0.80 K/cumm [facility] Eosinophil abs 0.04 0.00 - 0.50 K/cumm [facility] Basophil abs 0.03 0.00 - 0.10 K/cumm CERNER Neutrophil pct 59.8 % [facility]ERNER CH Comment: Interpretive Data Percent cell count reference ranges are not reported, since discordance with absolute values may lead to misinterpretation of CBC data. Current Interpretive Data was last revised on 2017. Imm gran pct 0.6 % CERNER Comment: Interpretive Data Percent cell count reference ranges are not reported, since discordance with absolute values may lead to misinterpretation of CBC data. Current Interpretive Data was last revised on 2017. Lymphocyte pct 26.1 % CERNER Comment: Interpretive Data Percent cell count reference ranges are not reported, since discordance with absolute values may lead to misinterpretation of CBC data. Current Interpretive Data was last revised on 2017. Monocyte pct 12.1 % CERNER Comment: Interpretive Data Percent cell count reference ranges are not reported, since discordance with absolute values may lead to misinterpretation of CBC data. Current Interpretive Data was last revised on 2017. Eosinophil pct 0.8 % CERNER Comment: Interpretive Data Percent cell count reference ranges are not reported, since discordance with absolute values may lead to misinterpretation of CBC data. Current Interpretive Data was last revised on 2017. Basophil pct 0.6 % CERNER Comment: Interpretive Data Percent cell count reference ranges are not reported, since discordance with absolute values may lead to misinterpretation of CBC data. Current Interpretive Data was last revised on 2017. Blood 09/30/2024 2:42 PM CDT 09/30/2024 2:42 PM CDT us Deny Diaz MD LAB BLOOD ORDERABLES Fin al Result Performing Organization Address City/[facility]/ZIP Co de Phone Number KATHRINE LIM[place] [address] [place] [address] * (ABNORMAL) CBC with auto differential (09/30/2024 2:42 PM CDT) WBC 5.14 3.80 - 9.90 K/cumm Hgb 12.8 11.9 - 15.5 g/dL [facility]ER [facility] Hct 41.8 35.6 - 45.5 % [facility] Plt 268 150 - 400 K/cumm [facility] MPV 11.1 9.1 - 12.3 fL [facility]ER [facility] RBC 4.19 3.90 - 5.20 M/cumm [facility] MCV 99.8(H) 81.3 - 96.4 fL [facility] MCH 30.5 27.1 - 33.3 pg [facility] MCHC 30.6(L) 32.3 - 35.7 g/dL [facility] RDW CV 12.8 11.1 - 14.9 % [facility] RDW SD 47.3 35.7 - 48.1 fL [facility]ER [facility] NRBC abs 0.00 0.00 - 0.01 K/cumm [facility]ER [facility] Blood Venous blood specimen / Unknown 09/30/2024 2:42 PM CDT 09/30/2024 2:42 PM CDT us Deny Diaz MD LAB BLOOD ORDERABLES Fin al Result Performing Organization Address City/[facility]/ZIP Co de Phone Number KATHRINE [place] [address] Department of [employer] [place], [place] [id number] * (ABNORMAL) Comprehensive metabolic panel (09/30/2024 2:42 PM CDT) Pathologist [facility] Sodium 142 135 - 145 mmol/L Potassium, pl 4.6 3.3 - 4.9 mmol/L [facility] Chloride 110 97 - 110 mmol/L [facility] CO2 24 22 - 32 mmol/L [facility] Anion gap 8 2 - 15 mmol/L [facility] BUN 20 6 - 25 mg/dL [facility]ER [facility] Creatinine 1.31(H) 0.60 - 1.10 mg/dL [facility] Glucose 88 70 - 199 mg/dL [facility]ER CH Comment: Interpretive Data Fasting glucose >/= 126 mg/dl is diagnostic for diabetes. Fasting is defined as no caloric intake for at least 8 hours. Fasting glucose between 100 mg/dl to 125 mg/dl is diagnostic of prediabetes. In a patient with classic symptoms of hyperglycemia or hyperglycemic crisis, a random glucose >/= 200 mg/dl is diagnostic for diabetes. In the absence of unequivocal hyperglycemia, results should be confirmed by repeat testing. The classification and Diagnosis of Diabetes Diabetes Care 2021; 46: S19-S40. Current interpretive data was last revised 2022. Calcium 10.0 8.5 - 10.3 mg/dL CERNER [facility] Bilirubin, total 0.6 0.1 - 1.2 mg/dL [facility] Protein, pl 6.7 6.5 - 8.5 g/dL [facility] Albumin 3.7 3.5 - 5.0 g/dL [facility] Alk phos 64 40 - 130 Units/L [facility] ALT 10 7 - 45 Units/L [facility] AST 22 10 - 45 Units/L [facility]ER [facility] Blood 09/30/2024 2:42 PM CDT 09/30/2024 2:42 PM CDT us Deny Diaz MD LAB BLOOD ORDERABLES Fin al Result [facility] [address] [place] [address] * ECG 12 lead (09/30/2024 1:40 PM CDT) 09/30/2024 1:40 PM CDT Narrative [facility] - 09/30/2024 6:48 PM CDT Vent Rate: 57 bpm RR Interval: 1037 msec TN Interval: 170 msec QRS Duration: 129 msec QT Interval: 383 msec QTC Interval: 378 msec P-R-T [place]: 89 - -29 - 62 degrees IMPRESSION: SINUS BRADYCARDIA RIGHT BUNDLE BRANCH BLOCK [120+ ms QRS DURATION, UPRIGHT V1, 40+ ms S IN I/aVL/V4/V5/V6] PROBABLE LATERAL MYOCARDIAL INFARCTION , OF INDETERMINATE AGE [35 ms Q WAVE IN I/aVL/V5/V6] ABNORMAL ECG INTERPRETATION BASED ON A DEFAULT AGE OF 40 YEARS Electronically Signed By: Dr. Zeeshan Kimball [facility] us Deny Diaz MD ECG ORDERABLES Final Re sult [facility] from Last 3 Months Insurance [facility] MEDICARE [facility] MEDICARE [facility] [place] [address] [employer] MEDICARE GOLD Advance Directives For more information, please contact: [phone] * Full Code (Latest Code Status on File) Date Activated Date Inactivated Comments 11/16/2024 5:26 AM 11/16/2024 8:12 AM * Full Code Date Activated Date Inactivated Comments 11/14/2024 5:28 AM 11/16/2024 5:26 AM * Full Code Date Activated Date Inactivated Comments 11/11/2024 5:21 AM 11/14/2024 5:28 AM * Full Code Date Activated Date Inactivated Comments 11/09/2024 5:12 AM 11/11/2024 5:21 AM * Full Code Date Activated Date Inactivated Comments 11/07/2024 5:12 AM 11/09/2024 5:12 AM Care Teams Stock Control Clerk Relationship Specialty Start Date End Date Jose Yen MD PCP - General Family Medicine 10/15/21
--- OUTSIDE RECORDS SUMMARY | 2024-12-16 04:34 | XMS_ITS | Clinical Summary ---
Author Organization [facility] Address [address] [place] [id number] Care Team Providers Care Autism Tutor Name Role Phone Jose Yen MD Primary Care Provider Allergies Active Allergy Reactions Criticality Noted Date [...] by mouth nightly 30 tablet 5 12/19/19 Active haloperidoL (HALDOL) 2 mg tabletIndicatio ns:Hypomania Take 1 tablet (2 mg total) by mouth nightly 30 tablet 5 12/19/19 Active lithium 150 mg capsule Take 1 capsule (150 mg total) by mouth nightly 0 11/19/19 Discontinu ed(Stop Taking at Discharge) clonazePAM (KlonoPIN) 0.5 mg tablet Take 1 tablet (0.5 mg total) by mouth nightly 11/19/19 Discontinu ed(Stop Taking at Discharge) busPIRone (BUSPAR) 5 mg tablet Take 1 tablet (5 mg total) by mouth 2 (two) times a day 11/19/19 Discontinu ed(Stop Taking at Discharge) Active Problems Problem Noted Date Diagnosed Date Major depressive disorder, r ecurrent severe without psychotic features 11/04/2024 Constipation 11/04/2024 Assessment & Plan (11/08/2024 9:34 AM CDT): Large bowel movement 11/07. - Sched daily miralax - Senna daily [...] test Standard chest x-ray abnormal 02/18/2013 11/01/2024 Encounters Date Type Department Care Team Description 11/14/2024 9:27 AM CDT Anesthesia Event [address] [phone] aD Rosario MD 11/11/2024 8:20 AM CDT Anesthesia Event [address] [phone] Jason Crawford MD 11/09/2024 10:55 AM CDT Anesthesia Event [address] [address] Jordyn Rodríguez MD 11/07/2024 9:03 AM CDT Anesthesia Event [address] [phone] Diego Bergman MD Morrison, Lauren Michele, NP 11/04/2024 8:52 AM CDT Anesthesia Event [address] [address] Anthony Elizalde III, MD PhD 11/01/2024 1:06 PM CDT - 11/18/2024 1:10 PM CDT Hospital Encounter [facility] [address] [place] [address] Sarthak Todd MD Jarvis, MD Vida Ochoa, MD Keven Oakley, Michelle Brink MD Suicidal ideation (Primary Dx); Severe episode of recurrent major depressive disorder, 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]; Stage 3a chronic kidney disease (HCC) [N18.31]; Essential tremor [G25.0]; Hyperlipidemia, unspecified hyperlipidemia type [E78.5]; Major depressive disorder, recurrent severe without psychotic features (HCC) Discharge Disposition: Discharge to home or self care 10/05/2024 5:22 PM CDT - 10/05/2024 11:59 PM CDT Hospital Encounter [facility] [address] [place] [address] Emergency, Room R Discharge Disposition: Discharge to home or self care 09/30/2024 1:22 PM CDT - 10/05/2024 12:17 AM CDT Emergency [facility] Emergency Department [address] [place] [address] Deny Diaz MD Gutierrez, MD Mandy Grimaldo, MD Swathi Paez, MD Markus Peralta, Tj Arce, DO Severe episode of recurrent major depressive disorder, without psychotic features (HCC) (Primary Dx) Discharge Disposition: Discharge to psych hospital or psych unit from Last 3 Months Immunizations Immunization Administration Dates Next Due Influenza, Quadrivalent, Hig h Dose, Preservative Free, Intrr 03/16/2022,06/27/2021 Influenza, Trivalent, IM (MDV) 07/09/2021 Influenza, Unspecified 01/18/2014,03/27/2012 Pneumococcal Conjugate Pcv20 08/29/2021 ZOSTER LIVE 11/12/2017 ZOSTER Recombinant 10/29/2017,08/02/2017 Surgical History Surgery Date Site/Laterality Comments SECTION KNEE SURGERY Left HAND TENDON SURGERY Right HAND SURGERY Left FOOT TENDON SURGERY Left Medical History Medical History Date Comments Arrhythmia Heart murmur Anxiety and depression Hyperthyroidism 11/02/2024 Other specified anxiety disorder 11/02/2024 Family History Medical History Relation Name Comments Diabetes Father Diabetes Mellit us - (Added by TW Conv) Peripheral vascular disease Father Peripheral Vascular Disease - (Added by TW Conv) Alzheimer's disease Mother Alzheime r's disease; Diabetes Other Diabetes Mellit us - (Added by TW Conv) Relation Name Status Comments Father Mother Other Social History Tobacco Use Types Packs/Day Years Used Date Smoking Tobacco: Never Tobacco Cessation:Counseling Given: Not Answered [facility] Utilities Answer Date Recorded In the past 12 months has e [place], [employer], [employer], or water [email or web address] threatened to shut off services in your [...] week 11/02/2024 How often do you attend chur or yarsani services? More than 4 times per year 11/02/2024 Do you belong to any clubs o r organizations such as sikh groups, unions, fraternal or athletic groups, or [...] and heating? Not hard at all 11/02/2024 [facility] - Occupational Stress Questionnaire Answer Date Recorded [...] any time in the past 12 m [facility], were you homeless or living in a penitentiary (including now)? No 11/02/2024 Personal Safety Answer Date Recorded Have you ever been in or are you currently in a harmful physical or emotional relationship or is someone making you feel afraid or unsafe? 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 Gender Identity Not on file Sexual Orientation Not on file Obstetrics History Last Filed Vital Signs Vital Sign Reading [...] 11/02/2024 10:49 AM CDT Plan of Treatment Health Maintenance Due Date Last Done Comments Depression Screening 1945 Osteoporosis Screening-Bone Density Scan 1945 DTaP/Tdap/Td Vaccine (1 - Tdap) 1957 Hepatitis B Screening 1964 Well Visit 65+ 10/19/2011 Covid-19 Vaccine (2023-2 5 season) 2024 04/30/2021, 08/29/2020, 08/01/2020 Influenza Vaccine (#1) 2025 , 07/09/2021, 06/27/2021, Additional history exists Fall Risk Assessment 11/18/2025 11/18/2024 Zoster Vaccine Completed 11/12/2017, 10/07, 08/02/2017 Pneumococcal vaccine 65+ Completed 08/29/2021 Hepatitis C Screening Completed 11/01/2024 Procedures Procedure Name Priority Date/Time Associated Diagnosis [...] AUTO DIFFERENTIAL STAT 11/01/2024 1:26 PM CDT DE CRITICAL CARE ILL/INJURED PATIENT INIT 30-74 MIN [...] 8:09 PM CDT 11/02/2024 8:09 PM CDT Anselmo Turner MD LAB POCT ORDERABLES - DEVIC E Final Result [facility] Department [place] [address] * POCT glucose (11/02/2024 8:15 AM CDT) Glucose, POC 91 70 - 199 mg/dL Blood 11/02/2024 8:15 AM CDT 11/02/2024 8:15 AM CDT us Sarthak Todd MD LAB POCT ORDERABLES - DE VICE Final Result [facility] Department [place] [address] * HIV 1/2 Antibody plus p24 Antigen Blood (11/01/2024 10:53 PM CDT) HIV 1/2 ab + p24 ag Nonreactive [...] AL ORDERABLES Final Result Performing Organization Address City/[facility] Co de Phone Number [facility] [place] [address] * Hepatitis C antibody Blood (11/01/2024 10:53 PM CDT) Pathologist [facility] Hep C Ab Nonreactive Nonreactive Comment:Antibodies to HCV no t detected. Does NOT exclude the possibility of recent exposure to HCV. Current interpretive data was last revised on 22 Blood 11/01/2024 10:5 3 PM CDT 11/01/2024 11:30 PM CDT Sarthak Todd MD LAB MICROBIOLOGY - GENER AL ORDERABLES Final Result Performing Organization Address [facility] Co de Phone Number [facility] [place] [address] * RPR Blood (11/01/2024 10:53 PM CDT) Pathologist [facility] RPR Nonreactive Nonreactive Blood 11/01/2024 10:5 3 PM CDT 11/01/2024 11:30 PM CDT Sarthak Todd MD LAB MICROBIOLOGY - GENER AL ORDERABLES Final Result Performing Organization Address City/[facility] Co de Phone Number [facility] [place] [address] * Hepatitis B Surface Antigen Blood (11/01/2024 10:53 PM CDT) HepBsAg Nonreactive Nonreactive Blood 11/01/2024 10:5 3 PM CDT 11/01/2024 11:30 PM CDT Result [facility] Sarthak Todd MD LAB MICROBIOLOGY - GENER AL ORDERABLES Final Result Performing Organization Address [facility] [place] [address] * Hemoglobin A1c (11/01/2024 10:53 PM CDT) Pathologist [facility] Hgb A1C 5.2 4.0 - 5.6 % Estimated Average Glucose 103 mg/dL [facility] Comment: The ADA recommends reporting an estimated Average Glucose (eAG) with all Hemoglobin A1c results using the equation derived from a study of 507 normal and diabetic adults. Minority populations were underrepresented and children were not included. (Diabetes Care 2020; 43(S1): S66-S76). The eAG is not equivalent to a fasting glucose. Blood 11/01/2024 10:5 3 PM CDT 11/01/2024 11:30 PM CDT Result [facility] Sarthak Todd MD LAB BLOOD ORDERABLES Fin al Result Performing Organization Address [facility] [place] [address] * Lipid panel (11/01/2024 10:53 PM CDT) Pathologist [facility] Cholesterol 184 30 - 199 mg/dL Comment: [...] revised on 2018. Triglycerides 88 <=149 mg/dL [facility] Comment: Interpretive Data Ages < or = [...] revised on 2018. HDL 72 >=40 mg/dL [facility] Comment: Interpretive Data Ages < or = [...] LDL, calculated 96 <=129 mg/dL [facility] Comment: Interpretive Data Ages < or = [...] 2024. Non-HDL Cholesterol 112 mg/dL [facility] Comment: Interpretive Data Ages < or = [...] on 2018. Chol/HDL ratio 3 [facility] Blood 11/01/2024 10:5 3 PM CDT 11/01/2024 11:30 PM CDT Sarthak Todd MD LAB BLOOD ORDERABLES Fin al Result Performing Organization Address City/[facility]/ZIP Co de Phone Number [facility] Department [place] [address] * (ABNORMAL) Lynn level (11/01/2024 5:40 PM CDT) Lynn <0.1(L) 0.6 - 1.2 mmol/L Blood 11/01/2024 5:40 PM CDT 11/01/2024 6:04 PM CDT us Uche Garza NP LAB BLOOD ORDERABLES Final Resul t Performing Organization Address City/[facility] Co de Phone Number [facility] Department [place] [address] * (ABNORMAL) Urinalysis reflex to microscopic (11/01/2024 3:25 PM CDT) Color, ur Straw Yellow Clarity, ur Clear Clear [facility] Specific gravity, ur 1.007 1.003 - 1.030 [facility] pH, urine 6.5 [facility] Comment: Interpretive Data U rine pH is affected by diet, medications, systemic acid-base disturbances, and renal tubular function. pH may affect urinary stone formation. For example, urine pH below 6.0 may help reduce the tendency for calcium phosphate stones and pH greater than 6.0 may reduce the tendency for uric acid stone formation. Source: [facility] Current Interpretive Data was last revised on 2017 Protein, ur ql Negative Negative [facility] Glucose, ur ql Negative Negative [facility] Ketones, ur Negative Negative [facility] Bilirubin, ur Negative Negative [facility] Blood, ur Negative Negative [facility] Urobilinogen, ur <2.0 <2.0 mg/dL [facility] Nitrite, ur Negative Negative [facility] Leukocyte esterase, ur 1+(A) Negative [facility] UA reflex comment Reflex to microscopic UA will be performed. [facility] Urine 11/01/2024 3:25 PM CDT 11/01/2024 3:35 PM CDT us Sarthak Todd MD LAB URINE ORDERABLES Fin al Result [facility] Department [place] [address] * (ABNORMAL) Drugs of Abuse Screen, Urine without Confirmation (11/01/2024 3:25 PM CDT) Amphetamine, ur Not Detected CutOff 500ng/mL [...] ur Screen Positive, presumptive (A) CutOff 200ng/mL [facility] Comment: Interpretive Data - Barbiturates: Samples containing greater than 200 ng/mL secobarbital or other cross-reacting barbiturate compounds are reported as positive. False positive and false negative results are possible. Confirmatory testing required for definitive results. Current Interpretive Data was last reviewed 2023. Benzodiazepines, ur Not Detected CutOff 100ng/mL [facility] Comment: Interpretive Data - Benzodiazepines: Samples containing greater than 100 ng/mL nordiazepam or other cross-reacting compounds are reported as positive. False positive and false negative results are possible. Confirmatory testing required for definitive results. Current Interpretive Data was last reviewed 2023. Cannabinoids, ur Not Detected CutOff 50 ng/mL [facility] Comment: Interpretive Data - Cannabinoids: Samples containing greater than 50 ng/mL delta-9 THC -COOH or other cross- reacting compounds are reported as positive. False positive and false negative results are possible. Confirmatory testing required for definitive results. Current Interpretive Data was last reviewed 2023. Cocaine, ur Not Detected CutOff 150ng/mL [facility] Comment: Interpretive Data - Cocaine: Samples containing greater than 150 ng/mL benzoylecgonine or other cross- reacting compounds are reported as positive. False positive and false negative results are possible. Confirmatory testing required for definitive results. Current Interpretive Data was last reviewed 2023. Fentanyl, Ur Not Detected CutOff 5 ng/mL [facility] Comment: Interpretive Data - Fentanyl: Samples containing greater than 5 ng/mL norfentanyl, fentanyl, or other cross-reacting fentanyl compounds are reported as positive. False positive and false negative results are possible. Confirmatory testing required for definitive results. Current Interpretive Data was last reviewed 2023. Methadone, ur Not Detected CutOff 300ng/mL [facility] Comment: Interpretive Data - Methadone: Samples containing greater than 300 ng/mL d,l-methadone or other cross-reacting compounds are reported as positive. False positive and false negative results are possible. Confirmatory testing required for definitive results. Current Interpretive Data was last reviewed 2023. Opiates, ur Not Detected CutOff 300ng/mL [facility] Comment: Interpretive Data - Opiates: Samples containing greater than 300 ng/mL morphine or other cross-reacting compounds are reported as positive. False positive and false negative results are possible. Confirmatory testing required for definitive results. Current Interpretive Data was last reviewed 2023. Oxycodone, ur Not Detected CutOff 100ng/mL [facility] Comment: Interpretive Data - Oxycodone: Samples containing greater than 100 ng/mL oxycodone or other cross-reacting compounds are reported as positive. False positive and false negative results are possible. Confirmatory testing required for definitive results. Current Interpretive Data was last reviewed 2023. Phencyclidine, ur Not Detected CutOff 25 ng/mL [facility] Comment: Interpretive Data - Phencyclidine: Samples containing greater than 25 ng/mL phencyclidine or other cross-reacting compounds are reported as positive. False positive and false negative results are possible. Confirmatory testing required for definitive results. Current Interpretive Data was last reviewed 2023. Urine Creatinine 35 mg/dL [facility] Comment: Interpretive Data Urine Creatinine: < 10 mg/dL is extremely dilute = or > 10 but < 20 mg/dL is dilute = or > 20 mg/dL is normal Current Interpretive Data was last revised on 2017. Urine 11/01/2024 3:25 PM CDT 11/01/2024 3:44 PM CDT Narrative [facility] - 11/01/2024 4:40 PM CDT Drug of Abuse screening is performed by immunoassay for medical purposes only. This is not to be used for Pain Management purposes. Sarthak Todd MD LAB URINE ORDERABLES [facility] al Result [facility] Department [place] [address] * (ABNORMAL) Urinalysis, microscopic only (11/01/2024 3:25 PM CDT) WBC, ur 0-5 0 - 5 /HPF RBC, ur 0-2 0 - 2 /HPF [facility] Epithelial cells, squamous, ur 1-5 0 - 5 /HPF [facility] Bacteria, ur Trace(A) [facility] Mucous, ur Present(A) [facility] Hyaline casts, ur 1-5 0 - 10 /LPF [facility] Urine 11/01/2024 3:25 PM CDT 11/01/2024 3:35 PM CDT Sarthak Todd MD LAB URINE ORDERABLES Fin al Result Performing Organization Address [facility] de Phone Number [facility] Department [place] [address] * (ABNORMAL) eGFR (11/01/2024 1:26 PM CDT) [...] ORDERABLES Fin al Result Performing Organization Address City/[facility]/ZIP Co de Phone Number [facility] Department [place] [address] * Differential, auto (11/01/2024 1:26 PM CDT) Pathologist [facility] Neutrophil abs 2.62 1.50 - 6.50 K/cumm Imm gran abs 0.02 0.00 - 0.10 K/cumm [facility] Lymphocyte abs 1.20 0.80 - 3.30 K/cumm [facility] Monocyte abs 0.70 0.20 - 0.80 K/cumm [facility] Eosinophil abs 0.02 0.00 - 0.50 K/cumm [facility] Basophil abs 0.02 0.00 - 0.10 K/cumm [facility] Neutrophil pct 57.3 % [facility] Comment: Interpretive Data Percent cell count reference ranges are not reported, since discordance with absolute values may lead to misinterpretation of CBC data. Current Interpretive Data was last revised on 2017. Imm gran pct 0.4 % [facility] Comment: Interpretive Data Percent cell count reference ranges are not reported, since discordance with absolute values may lead to misinterpretation of CBC data. Current Interpretive Data was last revised on 2017. Lymphocyte pct 26.2 % [facility] Comment: Interpretive Data Percent cell count reference ranges are not reported, since discordance with absolute values may lead to misinterpretation of CBC data. Current Interpretive Data was last revised on 2017. Monocyte pct 15.3 % [facility] Comment: Interpretive Data Percent cell count reference ranges are not reported, since discordance with absolute values may lead to misinterpretation of CBC data. Current Interpretive Data was last revised on 2017. Eosinophil pct 0.4 % [facility] Comment: Interpretive Data Percent cell count reference ranges are not reported, since discordance with absolute values may lead to misinterpretation of CBC data. Current Interpretive Data was last revised on 2017. Basophil pct 0.4 % [facility] Comment: Interpretive Data Percent cell count reference ranges are not reported, since discordance with absolute values may lead to misinterpretation of CBC data. Current Interpretive Data was last revised on 2017. Blood 11/01/2024 1:26 PM CDT 11/01/2024 1:54 PM CDT us Sarthak Todd MD LAB BLOOD ORDERABLES Fin al Result [facility] Department [place] [address] * (ABNORMAL) Thyroid Function [place] (11/01/2024 1:26 PM CDT) [facility] TSH 0.28(L) 0.30 - 4.20 mcIUnit/mL Blood 11/01/2024 1:26 PM CDT 11/01/2024 1:54 PM CDT Sarthak Todd MD LAB BLOOD ORDERABLES Fin al Result Performing Organization Address City/[facility] Co de Phone Number [facility] Department [place] [address] * (ABNORMAL) CBC with auto differential (11/01/2024 1:26 PM CDT) [facility] WBC 4.58 3.80 - 9.90 K/cumm Hgb 12.5 11.9 - 15.5 g/dL [facility] Hct 39.2 35.6 - 45.5 % [facility] Plt 268 150 - 400 K/cumm [facility] MPV 9.8 9.1 - 12.3 fL [facility] RBC 4.05 3.90 - 5.20 M/cumm [facility] MCV 96.8(H) 81.3 - 96.4 fL [facility] MCH 30.9 27.1 - 33.3 pg [facility] MCHC 31.9(L) 32.3 - 35.7 g/dL [facility] RDW CV 13.1 11.1 - 14.9 % [facility] RDW SD 46.6 35.7 - 48.1 fL [facility] NRBC abs 0.00 0.00 - 0.01 K/cumm [facility] Blood Venous blood specimen / Unknown 11/01/2024 1:26 PM CDT 11/01/2024 1:54 PM CDT Sarthak Todd MD LAB BLOOD ORDERABLES Fin al Result Performing Organization Address City/[facility]/ZIP Co de Phone Number [facility] Department [place] [address] * T3, free (11/01/2024 1:26 PM CDT) Free T3 2.2 2.0 - 4.4 pg/mL Blood 11/01/2024 1:26 PM CDT 11/01/2024 1:54 PM CDT Narrative [facility] 11/01/2024 3:45 PM CDT This test was reflexed from a Free T4 result. Uche Garza NP LAB BLOOD ORDERABLES Final Resul t Performing Organization Address [facility]/[place] [address] * T4, free (11/01/2024 1:26 PM CDT) Pathologist [facility] Free T4 1.22 0.90 - 1.70 ng/dL Blood 11/01/2024 1:26 PM CDT 11/01/2024 1:54 PM CDT Narrative [facility] - 11/01/2024 2:57 PM CDT This test was reflexed from a TSH result. Sarthak Todd MD LAB BLOOD ORDERABLES Fin al Result Performing Organization Address [facility]/ZIP Co de Phone Number [facility] [place] [address] * Ethanol (11/01/2024 1:26 PM CDT) Ethanol <10 <=10 mg/dL Comment: Interpretive Data Legal limit of intoxication > or = 80 mg/dL Levels > or = 400 mg/dL are potentially TOXIC. Current interpretive data was last revised on 2018. Blood 11/01/2024 1:26 PM CDT 11/01/2024 1:54 PM CDT Sarthak Todd MD LAB BLOOD ORDERABLES Fin al Result Performing Organization Address City/[facility] Co de Phone Number [facility] [place] [address] * (ABNORMAL) Comprehensive metabolic panel (11/01/2024 1:26 PM CDT) Sodium 141 135 - 145 mmol/L Potassium, pl 4.4 3.3 - 4.9 mmol/L [facility] Chloride 108 97 - 110 mmol/L [facility] CO2 25 22 - 32 mmol/L [facility] Anion gap 8 2 - 15 mmol/L [facility] BUN 18 6 - 25 mg/dL [facility] Creatinine 1.32(H) 0.60 - 1.10 mg/dL [facility] Glucose 86 70 - 199 mg/dL [facility] Comment: Interpretive Data Fasting glucose >/= 126 [...] Calcium 9.8 8.5 - 10.3 mg/dL [facility] Bilirubin, total 0.2 0.1 - 1.2 mg/dL [facility] Protein, pl 6.9 6.5 - 8.5 g/dL [facility] Albumin 3.8 3.5 - 5.0 g/dL [facility] Alk phos 77 40 - 130 Units/L [facility] ALT 15 7 - 45 Units/L [facility] AST 23 10 - 45 Units/L [facility] Blood 11/01/2024 1:26 PM CDT 11/01/2024 1:54 PM CDT Sarthak Todd MD LAB BLOOD ORDERABLES Fin al Result [facility] [place] [address] * DE CRITICAL CARE ILL/INJURED PATIENT INIT 30-74 MIN [...] COMPARISON: 10/03/2024. Procedure Note Kvng Chery II, - 10/03/2024 EXAMINATION: XR ABDOMEN AP 1 VIEW DATE: 10/03/2024 11:05 AM HISTORY: Constipation. COMPARISON: 10/03/2024. IMPRESSION: Large stool burden consistent with constipation. Nonobstructive bowel gas pattern. 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 Mild bilateral sacroiliac joint arthrosis. Electronically signed by: Kvng Chery II, D.O. us Deny Diaz MD IMG XR PROCEDURES Final [...] tendency for uric acid stone formation. Source: [employer] Current Interpretive Data was last revised on [...] to microscopic UA will be performed. [facility] Urine 10/01/2024 3:15 AM CDT 10/01/2024 3:33 AM CDT us Deny Diaz MD LAB MICROBIOLOGY - GENER AL ORDERABLES Final Result KAT[facility]INE [id number] [facility] Department [place] [address] * Drugs of Abuse Screen, Urine without [...] 2023. Barbiturates, ur Not Detected CutOff 200ng/mL [facility] Comment: Interpretive Data - Barbiturates: Samples containing greater than 200 ng/mL secobarbital or other cross-reacting barbiturate compounds are reported as positive. False positive and false negative results are possible. Confirmatory testing required for definitive results. Current Interpretive Data was last reviewed 2023. Benzodiazepines, ur Not Detected CutOff 100ng/mL [facility] Comment: Interpretive Data - Benzodiazepines: Samples containing greater than 100 ng/mL nordiazepam or other cross-reacting compounds are reported as positive. False positive and false negative results are possible. Confirmatory testing required for definitive results. Current Interpretive Data was last reviewed 2023. Cannabinoids, ur Not Detected CutOff 50 ng/mL KAT[facility]INE Comment: Interpretive Data - Cannabinoids: Samples containing greater than 50 ng/mL delta-9 THC -COOH or other cross- reacting compounds are reported as positive. False positive and false negative results are possible. Confirmatory testing required for definitive results. Current Interpretive Data was last reviewed 2023. Cocaine, ur Not Detected CutOff 150ng/mL K[facility]INE Comment: Interpretive Data - Cocaine: Samples containing greater than 150 ng/mL benzoylecgonine or other cross- reacting compounds are reported as positive. False positive and false negative results are possible. Confirmatory testing required for definitive results. Current Interpretive Data was last reviewed 2023. Fentanyl, Ur Not Detected CutOff 5 ng/mL [facility] Comment: Interpretive Data - Fentanyl: Samples containing greater than 5 ng/mL norfentanyl, fentanyl, or other cross-reacting fentanyl compounds are reported as positive. False positive and false negative results are possible. Confirmatory testing required for definitive results. Current Interpretive Data was last reviewed 2023. Methadone, ur Not Detected CutOff 300ng/mL [facility] Comment: Interpretive Data - Methadone: Samples containing greater than 300 ng/mL d,l-methadone or other cross-reacting compounds are reported as positive. False positive and false negative results are possible. Confirmatory testing required for definitive results. Current Interpretive Data was last reviewed 2023. Opiates, ur Not Detected CutOff 300ng/mL [facility] Comment: Interpretive Data - Opiates: Samples containing greater than 300 ng/mL morphine or other cross-reacting compounds are reported as positive. False positive and false negative results are possible. Confirmatory testing required for definitive results. Current Interpretive Data was last reviewed 2023. Oxycodone, ur Not Detected CutOff 100ng/mL [facility] Comment: Interpretive Data - Oxycodone: Samples containing greater than 100 ng/mL oxycodone or other cross-reacting compounds are reported as positive. False positive and false negative results are possible. Confirmatory testing required for definitive results. Current Interpretive Data was last reviewed 2023. Phencyclidine, ur Not Detected CutOff 25 ng/mL [facility] Comment: Interpretive Data - Phencyclidine: Samples containing greater than 25 ng/mL phencyclidine or other cross-reacting compounds are reported as positive. False positive and false negative results are possible. Confirmatory testing required for definitive results. Current Interpretive Data was last reviewed 2023. Urine Creatinine 43 mg/dL [facility] Comment: Interpretive Data Urine Creatinine: < 10 mg/dL is extremely dilute = or > 10 but < 20 mg/dL is dilute = or > 20 mg/dL is normal Current Interpretive Data was last revised on 2017. Urine 10/01/2024 3:15 AM CDT 10/01/2024 3:33 AM CDT Narrative [facility] - 10/01/2024 4:24 AM CDT Drug of Abuse screening is performed by immunoassay for medical purposes only. This is not to be used for Pain Management purposes. Deny Diaz MD LAB URINE ORDERABLES Fin al Result Performing Organization Address [facility] Co de Phone Number [facility] [address] [place] [address] * Urinalysis, microscopic only (10/01/2024 3:15 AM CDT) WBC, ur 0-5 0 - 5 /HPF RBC, ur 0-2 0 - 2 /HPF [facility] Epithelial cells, squamous, ur 1-5 0 - 5 /HPF [facility] Culture Reflex Comment Reflex conditions for urine culture (WBC >10) not met. [facility] Urine 10/01/2024 3:15 AM CDT 10/01/2024 3:33 AM CDT Deny Diaz MD LAB URINE ORDERABLES Fin al Result Performing Organization Address [facility] de Phone Number [facility] [address] Department [place] [address] * COVID-19 Coronavirus RNA Nasopharyngeal (09/30/2024 9:56 PM CDT) COVID-19 RNA Negative Negative CH Nasopharyngeal 09/30/2024 9: 56 PM CDT 09/30/2024 10:00 PM CDT [facility]arrative [facility] 09/30/[facility] 10:45 PM CDT Is the patient experiencing any symptoms consistent with COVID (eg. Fever, cough, shortness of breath)?->No What is the reason for testing?->Screening prior to Behavioral health admission Interpretive data Testing performed by [facility]. This test is performed using the Afraxis Xpert Xpress CoV-2 plus assay. This is a real-time RT-PCR test intended for the qualitative detection of nucleic acid from the SARS-CoV-2. This assay has been cleared by the [place] Food and Drug administration. The performance characteristics have been verified by the [facility]. Results must be considered in the clinical context, and a negative result does not rule out infection. Interpretive data last revised 2023. Interpretive data Testing performed by [facility]. This test is performed using the Afraxis Xpert Xpress CoV-2 plus assay. This is a real-time RT-PCR test intended for the qualitative detection of nucleic acid from the SARS-CoV-2. This assay has been cleared by the [place] Food and Drug administration. The performance characteristics have been verified by the [facility]. Results must be considered in the clinical context, and a negative result does not rule out infection. Interpretive data last revised 2023. Deny Diaz MD LAB MICROBIOLOGY - GENER AL ORDERABLES Final Result Performing Organization Address [facility] Co de Phone Number KATHRINE [address] [place] [address] CH * TSH (09/30/2024 9:56 PM CDT) Thyroid Stimulating Hormone 0.46 0.30 - 4.20 mcIUnit/mL Blood 09/30/2024 9:56 PM CDT 09/30/2024 10:01 PM CDT Deny Diaz MD LAB BLOOD ORDERABLES Fin al Result Performing Organization Address [facility] de Phone Number KATHRINE [address] [place] [address] * T4, free (09/30/2024 9:56 PM CDT) Pathologist [facility] Free T4 1.59 0.90 - 1.70 ng/dL Blood 09/30/2024 9:56 PM CDT 09/30/2024 10:01 PM CDT Deny Diaz MD LAB BLOOD ORDERABLES Fin al Result Performing Organization Address [facility] Co de Phone Number KATHRINE [address] Department [place] [address] * Ethanol (09/30/2024 9:56 PM CDT) Ethanol <10 <=10 mg/dL Comment: Interpretive Data Legal limit of intoxication > or = 80 mg/dL Levels > or = 400 mg/dL are potentially TOXIC. Current interpretive data was last revised on 2018. Blood 09/30/2024 9:56 PM CDT 10/01/2024 4:44 AM CDT Dillan Bell MD LAB BLOOD ORDERABLES Final Result Performing Organization Address [facility] [place] [address] [address] [facility] [place] [address] * Acetaminophen level (09/30/2024 9:56 PM CDT) Acetaminophen <5 <=5 mcg/mL Comment: Interpretive Data Significant hepatic injury may occur and treatment with n-acetyl cysteine is generally recommended if the acetaminophen level exceeds: 150 mcg/mL at 4 hours after ingestion 75 mcg/mL at 8 hours after ingestion 38 mcg/mL at 12 hours after ingestion 19 mcg/mL at 16 hours after ingestion Consult toxicology or poison control ([phone]) for unknown ingestion time. Current interpretive data was last revised 2023. Blood 09/30/2024 9:56 PM CDT 09/30/2024 10:01 PM CDT Deny Diaz MD LAB BLOOD ORDERABLES Fin al Result Performing Organization Address [facility] [place] [address] [address] [facility] [place] [address] * Salicylate level (09/30/2024 9:56 PM CDT) Salicylate <0.3 <=0.3 mg/dL Comment: Interpretive Data Toxic: 30 mg/dL or greater. Current interpretive data was last revised 2023. Blood 09/30/2024 9:56 PM CDT 09/30/2024 10:01 PM CDT Deny Diaz MD LAB BLOOD ORDERABLES Fin al Result Performing Organization Address [facility]/ZIP Co de Phone Number KATHRINE [place] [address] Department [place] [address] * (ABNORMAL) Lynn level (09/30/2024 9:56 PM CDT) Lynn 0.4(L) 0.6 - 1.2 mmol/L Comment:Testing performed by : [facility], [address], [place]., [address] Blood 09/30/2024 9:56 PM CDT 10/01/2024 6:04 PM CDT us Deny Diaz MD LAB BLOOD ORDERABLES Fin al Result Performing Organization Address [facility] Co de Phone Number KATHRINE [place] [address] [address] Department [place] [address] * (ABNORMAL) Troponin T high-sensitivity 6-hour (09/30/2024 8:40 PM CDT) Trop T hs 17(H) <=14 ng/L Comment: Interpretive Data For further hscTnT resources including the diagnostic algorithm and an aid in interpretation, copy and paste this link: https://nrl.testcatalog.org/show/hsTrop Current Interpretive Data last revised 2020. Trop T hs delta -2 ng/L [facility] Trop T hs interp Insignificant [facility] Blood 09/30/2024 8:40 PM CDT 09/30/2024 8:44 PM CDT us Stephane Anne NP LAB BLOOD ORDERABLES Kalli l Result Performing Organization Address [facility]/ZIP Co de Phone Number [facility]HRINE [place] [address] Department [place] [address] * XR Chest PA Lateral 2 Views [...] BLOOD ORDERABLES Dereck cornel Result - Final KATHRINE [address] [place] [address] * (ABNORMAL) eGFR (09/30/2024 2:42 PM CDT) Pathologist [facility] eGFR 42(L) >=60 mL/min/1. 73 m2 Comment: [...] MD LAB BLOOD ORDERABLES Fin al Result [facility] [address] Department [place] [address] * Differential, auto (09/30/2024 2:42 PM CDT) Pathologist [facility] Neutrophil abs 3.08 1.50 - 6.50 K/cumm Imm gran abs 0.03 0.00 - 0.10 K/cumm [facility] Lymphocyte abs 1.34 0.80 - 3.30 K/cumm [facility] Monocyte abs 0.62 0.20 - 0.80 K/cumm [facility] Eosinophil abs 0.04 0.00 - 0.50 K/cumm [facility] Basophil abs 0.03 0.00 - 0.10 K/cumm [facility] Neutrophil pct 59.8 % [facility] Comment: Interpretive Data Percent cell count reference [...] MD LAB BLOOD ORDERABLES Fin al Result [facility] [address] Department [place] [address] * (ABNORMAL) CBC with auto differential (09/30/2024 2:42 PM CDT) WBC 5.14 3.80 - 9.90 K/cumm Hgb 12.8 11.9 - 15.5 g/dL [facility] Hct 41.8 35.6 - 45.5 % [facility] Plt 268 150 - 400 K/cumm [facility] MPV 11.1 9.1 - 12.3 fL [facility] RBC 4.19 3.90 - 5.20 M/cumm [facility] MCV 99.8(H) 81.3 - 96.4 fL [facility] MCH 30.5 27.1 - 33.3 pg [facility] MCHC 30.6(L) 32.3 - 35.7 g/dL [facility] RDW CV 12.8 11.1 - 14.9 % [facility] RDW SD 47.3 35.7 - 48.1 fL [facility] NRBC abs 0.00 0.00 - 0.01 K/cumm [facility] Blood Venous blood specimen / Unknown 09/30/2024 2:42 PM CDT 09/30/2024 2:42 PM CDT us Deny Diaz MD LAB BLOOD ORDERABLES Fin al Result [facility] [address] Department [place] [address] * (ABNORMAL) Comprehensive metabolic panel (09/30/2024 2:42 PM CDT) Sodium 142 135 - 145 mmol/L Potassium, pl 4.6 3.3 - 4.9 mmol/L [facility] Chloride 110 97 - 110 mmol/L [facility] CO2 24 22 - 32 mmol/L [facility] Anion gap 8 2 - 15 mmol/L [facility] BUN 20 6 - 25 mg/dL [facility] Creatinine 1.31(H) 0.60 - 1.10 mg/dL [facility] Glucose 88 70 - 199 mg/dL [facility] Comment: Interpretive Data Fasting glucose >/= 126 [...] ORDERABLES Fin al Result Performing Organization Address [facility] Co de Phone Number [facility] [address] Department [place] [address] * ECG 12 lead (09/30/2024 1:40 PM CDT) 09/30/2024 1:40 PM CDT Narrative [facility] - 09/30/2024 6:48 PM CDT Vent Rate: 57 bpm RR Interval: 1037 msec DE Interval: 170 msec QRS Duration: 129 msec QT Interval: 383 msec QTC Interval: 378 msec P-R-T [place]: 89 - -29 - 62 degrees IMPRESSION: SINUS BRADYCARDIA RIGHT BUNDLE BRANCH BLOCK [120+ ms QRS DURATION, UPRIGHT V1, 40+ ms S IN I/aVL/V4/V5/V6] PROBABLE LATERAL MYOCARDIAL INFARCTION , OF INDETERMINATE AGE [35 ms Q WAVE IN I/aVL/V5/V6] ABNORMAL ECG INTERPRETATION BASED ON A DEFAULT AGE OF 40 YEARS Electronically Signed By: Dr. Zeeshan Kimball [facility] Deny Diaz MD ECG ORDERABLES Final Re sult [facility] [employer]works [facility] from Last [address] [place] [address] T MEDICARE [facility] T MEDICARE [facility] MEDICARE [facility] Advance Directives For more information, please contact: [phone] * Full Code (Latest Code Status on [...] 5:12 AM 11/09/2024 5:12 AM Care Teams Autism Tutor Relationship Specialty Start Date End Date Jose Yen MD PCP - General Family Medicine 10/15/21
--- OUTSIDE RECORDS SUMMARY | 2024-12-16 04:34 | XMS_ITS | Clinical Summary ---
Author Organization [facility] Address [address] [place] [address] Phone Care Team Providers Care Machine Brusher Name Role Phone Jose Yen MD Primary Care Provider [phone] Allergies Active Allergy Reactions Criticality Noted Date [...] 10:12 AM CDT Height 170.2 cm (5' 7) 08/28/2021 10:12 AM CDT Body Mass Index 30.23 08/28/2021 10:12 AM CDT Plan of Treatment Health Maintenance Due Date Last Done Comments Pneumococcal PPSV23/PCV13 65 + Years / Low and Medium Risk (1 of 2 - PCV) 1996 Influenza Vaccine (#1) 2025 07/09/2021 Insurance [employer] MEDICARE ADVANTAGE Care Teams Machine Brusher Relationship Specialty Start Date End Date Jose Yen MD [address] [place] [address] PCP - General Family Medicine 07/23/21
--- NOTE | 2024-12-16 05:07 | ED_ITS ---
HPI - Chest Pain General Chief Complaint: Chest Pain Stated Complaint: CP/SOB X 30 MIN History of Present Illness HPI narrative: Patient is a 79-year-old female who presents to the emergency department this morning complaining chest pressure that woke her up from sleep. Patient states that throughout the night she woke up few times to go use the restroom in the last time that she woke up she felt hot and felt some pressure in her chest and some shortness of breath. Denies any sharp chest pain. EMS did administer a full dose oral chewable aspirin prior to arrival and 1 sublingual nitro. Patient states that her symptoms have significantly improved since being in the emergency department. Currently denies any active chest pain. Denies any nausea vomiting or abdominal pain, any recent illness, fevers or chills. Related Data Home Medications ?Medication ?Instructions ?Recorded ?Confirmed ?Last Taken ?Type pravastatin 20 mg tablet 20 mg PO DAILY 07/29/24 10/20/24 07/28/24 History cyanocobalamin (vitamin B-12) mcg PO 10/20/24 10/20/24 Unknown History 1,000 mcg tablet escitalopram oxalate 10 mg tablet mg PO 10/20/24 10/20/24 Unknown History lamotrigine 25 mg tablet mg PO 10/20/24 10/20/24 Unknown History lumateperone 10.5 mg capsule mg PO 10/20/24 10/20/24 Unknown History (Caplyta) primidone 50 mg tablet mg PO 10/20/24 10/20/24 Unknown History propranolol 20 mg tablet mg PO 10/20/24 10/20/24 Unknown History buspirone 5 mg tablet mg PO BID 12/05/24 Unknown History docusate sodium 100 mg capsule mg PO 12/05/24 Unknown History fluvoxamine 100 mg tablet mg PO DAILY 12/05/24 Unknown History Allergies Allergy/AdvReac Type Severity Reaction Status Date / Time oxybutynin Allergy Unknown Unknown Verified 12/16/24 03:52 oxycodone Allergy Unknown RASH Verified 12/16/24 03:52 Sulfa (Sulfonamide Allergy Unknown Rash Verified 12/16/24 03:52 Antibiotics) lamotrigine AdvReac Severe Shakiness Verified 12/16/24 03:52 pantoprazole AdvReac Intermediate Other Verified 12/16/24 03:52 primidone AdvReac Unknown shaking Verified 12/16/24 03:52 Review of Systems 2 Review of Systems: All systems are reviewed and are negative unless stated otherwise in the HPI. [facility] Past Medical History Medical History Blocked tear duct Essential tremor HTN (hypertension) Diminished pulses in lower extremity Carpal tunnel syndrome of right wrist Sensation of feeling cold Spasm of cervical paraspinous muscle Hip bursitis Dermatochalasis of both eyelids TMJ (temporomandibular joint disorder) Pharyngitis Candidal intertrigo Melissa infection, oral GERD (gastroesophageal reflux disease) Screening for lipid disorders BMI 30.0-30.9,adult Dizziness Chest pain at rest Bilateral hand numbness Abnormal stress test Nonspecific abnormal electrocardiogram (ECG) Hearing loss Flat feet Breast cancer screening Allergic rhinitis due to pollen Annual physical exam Candidiasis of skin Chronic kidney disease, stage III (moderate) Colon cancer screening Conductive hearing loss of left ear with unrestricted hearing of right ear Constipation by delayed colonic transit Diverticulosis of colon (without mention of hemorrhage) Duodenal ulcer Extrapyramidal movement disorder Hypertensive kidney disease Insomnia disorder with non-sleep disorder mental comorbidity Mediastinal cyst Mixed hyperlipidemia Neuropathy OAB (overactive bladder) Pes planus of left foot Postmenopausal Primary osteoarthritis of left knee Pulmonary nodule Tremor, coarse Tremor, hereditary, benign Unilateral hearing loss Vaginitis, atrophic Ptosis Bipolar 1 disorder Gait abnormality Long-term current use of lithium Tremor of both hands Surgical History Surgical History H/O dilation and curettage History of cardiac catheterization H/O foot surgery History of hand surgery History of Achilles tendon repair History of tonsillectomy and adenoidectomy History of hysterectomy History of left knee replacement History of 2 sections Family History Family History Mother Family history of kidney disease Patient's mother is Hypertension Family history of arthritis Father Family history of chronic obstructive pulmonary disease Patient's father is Family history of tuberculosis Hypertension Family history of diabetes mellitus in first degree relative Family history of heart disease in male family member before age 55 Sibling Obesity Other Diabetes mellitus Social History Social History Social History: She lives with her son in a 1 bedroom apartment . She is . 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 She also worked at [employer] in the [place] room. She has had 4 children and one has . code status :DNI Smoking status: Never smoker Second hand tobacco smoke exposure: Yes Alcohol intake: current Drinks per week: 1 Substance use: never Substance use type: does not use Do You Feel Safe in your Home?: Yes Lack of Transportation: No Lack of Food: Never True Current Housing: I Have Housing Concerned About Future Housing: No Difficulty Paying Gas/Electric Bills: No Difficulty Paying for Meds: No Currently Unemployed: No Education: Associate Degree Difficulty w/ Childcare or Family Care: YES Living arrangements: with family Additional living arrangements comments: son lives with her and he makes her nervous. 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 HEENT: PERRL, no rhinorrhea, no post nasal drip, oropharynx clear. Neck: Trachea midline, no JVD, no lymphadenopathy. Cardiovascular: Regular rate and rhythm, no murmurs, rubs or gallops, no peripheral edema. Respiratory: Clear to auscultation bilaterally, no tachypnea, no wheezing, no rhonchi, no rubs, no respiratory distress. Abdomen: Soft, nontender, nondistended, no rebound, no guarding, no peritoneal signs. Musculoskeletal: No joint swelling or deformity, normal muscle tone. Skin: No rashes or petechia, no signs of infection. Psychiatric: Alert and oriented, normal behavior and judgment for situation. Neurological: Alert and oriented to person, place, and time. Follows all commands. No focal deficits, speech is clear and fluent. Course Vital Signs Vital signs: Vital Signs Pulse Rate 81 12/16/24 03:44 Respiratory Rate 22 H 12/16/24 03:44 Blood Pressure 128/80 12/16/24 03:44 Pulse Oximetry 99 12/16/24 03:44 Oxygen Delivery Room Air 12/16/24 03:44 Pulse Rate 80 12/16/24 03:59 Respiratory Rate 22 H 12/16/24 03:44 Blood Pressure 128/80 12/16/24 03:44 Pulse Oximetry 99 12/16/24 03:44 Oxygen Delivery Room Air 12/16/24 03:44 MDM - Chest Pain MDM Narrative Medical decision making narrative: The patient was evaluated by myself in the emergency department. History is obtained from patient who is an independent historian and physical exam was performed. External medical records were reviewed at this time. IV was established and pertinent tests were ordered. EKG was obtained which revealed sinus rhythm rate of 79 beats per minute, no evidence of acute ischemia. EKG was independently interpreted by me and is currently pending official cardiology read. Laboratory results obtained revealing no acute process. Baseline troponin negative. Three are troponin negative. Imaging studies obtained included CXR which was independently interpreted by me revealing no acute cardiopulmonary process, which is pending final radiology interpretation. Differential diagnosis considerations include anxiety, acute stress reaction, acute coronary syndrome, infectious process such as pneumonia, acute viral syndrome, dehydration, electrolyte derangements. Comorbidities impacting this visit include history of severe anxiety. I have evaluated and discussed social determinants of health with the patient that could potentially impact subsequent diagnosis and treatment plans. On repeat assessment of the patient, reevaluation revealed that the patient is doing well and is in no acute distress. Patient symptoms have improved since she arrived to our emergency department. Repeat vital signs were all reviewed and noted to be stable. Differential diagnosis and treatment plan were discussed with the patient at bedside. Patient agrees with discussion and after shared medical decision making agrees with discharge. All questions were answered to the patient's satisfaction. Patient will follow up with her PCP in 3-5 days. Patient was provided with strict return precautions and instructed to return to the emergency department if any new or worsening symptoms develop. The patient was discharged in stable condition. Lab Data 12/16/24 03:56 12/16/24 03:56 Labs: Lab Results 12/16/24 12/16/24 12/16/24 Range/Units 03:56 04:18 06:39 WBC 4.2 L (4.5-10.0) K/mm3 RBC 3.84 L (4.2-5.4) M/mm3 Hgb 11.9 L (12.0-15.0) g/dL Hct 37.8 (37.0-47.0) % MCV 98.4 (80-100) fl MCH 31.0 (26-34) pg MCHC 31.5 L (32-36) g/dl RDW 12.5 (11.5-14.5) % Plt Count 208 (150-375) k/mm3 MPV 9.6 (7.4-10.4) fl Immature Gran % (Auto) 0.2 (0-0.5) % Neut % (Auto) 49.5 (45.5-73.1) % Lymph % (Auto) 34.6 (18.3-44.2) % [place] % (Auto) 13.6 H (2.6-8.5) % Eos % (Auto) 1.4 (0-4.4) % Baso % (Auto) 0.7 (0.2-1.2) % Lymph # (Auto) 1.45 (0.9-3.2) K/mm3 [place] # (Auto) 0.6 (0.1-0.6) K/mm3 Eos # (Auto) 0.1 (0-0.3) K/mm3 Baso # (Auto) 0.0 (0.0-0.1) K/mm3 Abs Immat Gran (auto) 0.01 (0.00-0.031) K/mm3 Absolute Neuts (auto) 2.1 (1.3-6.7) K/mm3 Absolute Nucleated RBC 0.000 (0.0-0.012) K/mm3 Nucleated RBC % 0.0 (0.0-0.2) % PT 13.1 (11.1-14.7) Seconds INR 1.0 APTT 31.1 (22.3-36.8) Seconds Sodium 142 (137-145) mmol/L Potassium 4.3 (3.4-5.0) mmol/L Chloride 114 H (98-107) mmol/L Carbon Dioxide 24 (22-30) mmol/L Anion Gap 4 (4-12) mmol/L BUN 17 (7-17) mg/dL Creatinine 1.33 H (0.7-1.0) mg/dL Estim Creat Clear Calc 29 ml/min Estimated GFR 39 L (59 - ) Glucose 100 (65-110) mg/dL Calcium 9.6 (8.4-10.2) mg/dL Magnesium 2.1 (1.6-2.3) mg/dL Total Bilirubin 0.3 (0.2-1.3) mg/dL AST 28 (14-36) U/L ALT 15 (6-35) U/L Alkaline Phosphatase 63 (38-126) U/L Troponin I 0.012 < 0.012 (0.000-0.034) ng/mL Total Protein 6.5 (6.3-8.2) g/dL Albumin 3.6 (3.5-5.1) g/dL Lipase 107 (23-300) U/L Urine Color Yellow (Yellow) Urine Appearance Clear (Clear) Urine pH 7.0 (5.0-9.0) Ur Specific [place] 1.008 (1.001-1.035) Urine Protein Negative (Negative) mg/dL Urine Glucose (UA) 2+ H (Negative) mg/dL Urine Ketones Negative (Negative) mg/dL Ur Blood (Man) Negative (Negative) Urine Nitrate Negative (Negative) Urine Bilirubin Negative (Negative) Urine Urobilinogen 0.2 (<2.0) mg/dL Leukocyte Esterase Rfl Trace H (Negative) NIGEL/UL Urine RBC 0-2 (0-2) /hpf Urine WBC 0-5 (0-3) /hpf Ur Squamous Epith Cells None seen (Few) /hpf Urine Bacteria None seen /hpf Urine Casts 0-2 Discharge Plan Discharge Clinical Impression: Chest pain Qualifiers: Chest pain type: unspecified Qualified Code(s): R07.9 - Chest pain, unspecified Patient Disposition: Still a Patient Condition: Improved Additional Instructions: Please follow-up with your family doctor within the next 3-5 days. Return to the emergency department if any new or worsening symptoms develop. Patient Language: Scottish Prescriptions: No Action fluvoxamine 100 mg tablet PO DAILY buspirone 5 mg tablet PO BID docusate sodium 100 mg capsule PO cyanocobalamin (vitamin B-12) 1,000 mcg tablet PO Caplyta 10.5 mg capsule PO propranolol 20 mg tablet PO primidone 50 mg tablet PO lamotrigine 25 mg tablet PO escitalopram oxalate 10 mg tablet PO cholecalciferol (vitamin D3) 1,250 mcg (50,000 unit) capsule 1,250 mcg PO WEEKLY Qty: 8 0RF pravastatin 20 mg tablet 20 mg PO DAILY hydroxyzine HCl 25 mg tablet 12.5 mg PO TID Qty: 10 0RF clonazepam 0.5 mg tablet 0.5 mg PO ONCE PRN (Reason: anxiety) Qty: 30 0RF Follow-up/Referrals: Jose Yen MD [Primary Care Provider] - 3 Days Time of Disposition: 07:11
--- NOTE | 2024-12-16 06:39 | ECG_ITS ---
Test Date: 2024-12-16 06:44:42 Measurements Intervals [place] Rate: 79 P: 63 [place]: 187 QRS: -17 QRSD: 137 T: 37 QT: 379 QTc: 435 Interpretive Statements SINUS RHYTHM RIGHT BUNDLE BRANCH BLOCK [120+ ms QRS DURATION, UPRIGHT V1, 40+ ms S IN I/aVL/V4/V5/V6] Electronically Signed On 12-16-2024 07:06:17 CDT by Zeeshan Kimball M.D.
[2024-12-16 07:09] LABS: Troponin I < 0.012 ng/mL (0.000-0.034)
[2024-12-16 07:48] VITALS: BP 136/75; PULSE 92; RESP 18; O2SAT 98
== END 2024-12-16 07:50 | disposition home or self-care (01) ==
PROVIDERS: Emergency Provider Emergency Medicine; PCP Family Medicine
DX: R07.89 Other chest pain (principal); I12.9 Hypertensive chronic kidney disease with stage 1 through stage 4 chronic kidney disease, or unspecified chronic kidney disease; N18.30 Chronic kidney disease, stage 3 unspecified; E78.2 Mixed hyperlipidemia; G62.9 Polyneuropathy, unspecified; N32.81 Overactive bladder; M17.12 Unilateral primary osteoarthritis, left knee; K21.9 Gastro-esophageal reflux disease without esophagitis; F31.9 Bipolar disorder, unspecified; Z90.710 Acquired absence of both cervix and uterus; Z96.652 Presence of left artificial knee joint; Z77.22 Contact with and (suspected) exposure to environmental tobacco smoke (acute) (chronic); Z79.899 Other long term (current) drug therapy; I45.10 Unspecified right bundle-branch block
CPT/HCPCS: 36415; 71045; 80053; 81001; 83690; 83735; 84484; 85025; 85610; 85730; 93005; 99284

== ENCOUNTER 2025-04-03 13:47 | Emergency (ER) | payer MEDICARE, SELFPAY ==
--- OUTSIDE RECORDS SUMMARY | 2024-10-18 06:20 | XMS_ITS ---
Author Organization [facility] Address [address] [place] [address] Care Team Providers Care Antique Furniture Reproducer Name Role Phone Michelle Cadet Primary Care Provider [phone] Kathie Ruiz Unavailable [phone] REASON FOR VISIT [facility]; discharge Social History Sex Assigned At : Social History Observation Description Sex Assigned At Female Encounters Encounter Location Date Provider Diagnosis [address] [place] [address] 2024 Kathie Ruiz Plan Of Treatment No Information Progress Notes * Laurie SAEZDOB:1945 (79 yo F)Acc No.[id number] UNLOCKED PROGRESS NOTE Patient: Yaneth FLORESpat Provider: Kristen Ruiz :1945 A ge:79 Y S ex:Female Date:2024 [facility] Pcp:Michelle Cadet Subjective: * Chief Complaints: * 1 . [facility]; discharge. * Medical History: Objective: * Vitals: Assessment: Plan: * Treatment: * * Electronic signature of Kathie Ruiz MD, [id number] on 04/03/2025 at 03:23 PM CDT Sign off status: Pending * Provider: Kristen Ruiz Date: 0 2024 Generated for Printi ng/Faxing/eTransmitting on: 1 03:23 PM CDT
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
--- OUTSIDE RECORDS SUMMARY | 2024-12-05 09:00 | XMS_ITS ---
Author Organization [facility] Address [address] [place] [address] Care Team Providers Care Roof Cement And Paint Maker Helper Name Role Phone Michelle Cadet Primary Care Provider REASON FOR VISIT Discharge [facility] Social History Sex Assigned At : Social History Observation Description Sex Assigned At Female Encounters Encounter Location Date Provider Diagnosis [address] [place] [address] 12/05/2024 Michelle Cadet Plan Of Treatment No Information Progress Notes * Laurie SAEZDOB:1945 (79 yo F)Acc No.[id number]:12/05/2024 UNLOCKED PROGRESS NOTE Patient: Yaneth FLORESpat Provider: SHER Gomez :1945 A ge:79 Y S ex:Female Date:12/05/2024 Address[facility] Subjective: * Chief Complaints: * 1 . Discharge [facility]. * Medical History: Objective: * Vitals: Assessment: Plan: * Treatment: * * Electronic signature of Megan Cadet on 04/03/2025 at 03:23 PM CDT Sign off status: Pending * Provider: SHER Gomez Date: 0 12/05/2024 Generated for Caroline garner/Rama/eTransmitting on: 1 03:23 PM CDT
--- OUTSIDE RECORDS SUMMARY | 2024-12-12 10:20 | XMS_ITS ---
Author Organization [facility] Address [address] [place] [address] Care Team Providers Care Lockstitch Pocket Setter Name Role Phone Michelle Cadet Primary Care Provider REASON FOR VISIT [facility] hospital follow up Social History Sex Assigned At : Social History Observation Description Sex Assigned At Female Encounters Encounter Location Date Provider Diagnosis [address] [place] [address] 12/12/2024 Michelle Cadet Plan Of Treatment No Information Progress Notes * Laurie SAEZDOB:1945 (79 yo F)Acc No.[id number]:12/12/2024 UNLOCKED PROGRESS NOTE Patient: Liz QUINTERO Laurie Provider: SHER Gomez :1945 A ge:79 Y S ex:Female Date:12/12/2024 [facility] Subjective: * Chief Complaints: * [address] [facility] hospital follow up. * Medical History: Objective: * Vitals: Assessment: Plan: * Treatment: * * Electronic signature of Megan Cadet on 04/03/2025 at 03:23 PM CDT Sign off status: Pending * Provider: SHER Gomez Date: 0 12/12/2024 Generated for Caroline garner/Rama/eTyuriysmitting on: 1 03:23 PM CDT
--- OUTSIDE RECORDS SUMMARY | 2024-12-13 06:20 | XMS_ITS ---
Author Organization [facility] Address [address] [place] [address] Care Team Providers Care Agate Setter Name Role Phone Michelle Cadet Primary Care Provider REASON FOR VISIT hosp fu from [facility] Social History Sex Assigned At : Social History Observation Description Sex Assigned At Female Encounters Encounter Location Date Provider Diagnosis [address] [place] [address] 12/13/2024 Michelle Cadet Plan Of Treatment No Information Progress Notes * Laurie SAEZDOB:1945 (79 yo F)Acc No.[id number]:12/13/2024 UNLOCKED PROGRESS NOTE Patient: Liz QUINTERO Laurie Provider: SHER Gomez :1945 A ge:79 Y S ex:Female Date:12/13/2024 [facility] Subjective: * Chief Complaints: * 1 . hosp fu from [facility]. * Medical History: Objective: * Vitals: Assessment: Plan: * Treatment: * * Electronic signature of Megan Cadet on 04/03/2025 at 03:24 PM CDT Sign off status: Pending * Provider: SHER Gomez Date: 0 12/13/2024 Generated for Caroline garner/Rama/eTransmitting on: 1 03:24 PM CDT
--- OUTSIDE RECORDS SUMMARY | 2025-02-07 05:20 | XMS_ITS ---
Author Organization [facility] Address [address] [place] [address] Care Team Providers Care Soils Engineer Name Role Phone Michelle Cadet Primary Care Provider REASON FOR VISIT hospital followup from [facility] Medications Medication SIG (Take, Route, Frequency, Duration) Notes Start Date End Date Status Primidone 50 MG 1.5 tablet Orally tw ice a day; Duration: 30 days Active Sertraline HCl 25 MG 1 tablet Orally Onc e a day Not-Taking clonazePAM 0.5 MG TAKE 1 TABLET BY CECELIA TH EVERY DAY AT BEDTIME DO NOT GIVE IS SBP <100 AND/OR DBP<60, NOTIFY PROVIDER FOR INSTRUCTIONS; Duration: 30 01/10/2025 Active LaMICtal 25 MG 2 tablet Orally twic e a day; Duration: 30 days Active Lexapro 10 MG 1 tablet Orally Once a day Active Meloxicam 7.5 MG 1 tablet Orally Once a day Not-Taking busPIRone HCl 5 MG TAKE 1 TABLET BY CECELIA TH TWICE A DAY FOR 30 DAYS; Duration: 90 Not-Taking Pantoprazole Sodium Active Escitalopram Oxalate 5 MG 1 tablet Orall y Once a day; Duration: 30 day(s) 04/05/2024 Not-Taking Propranolol HCl 20 MG TAKE 1 TABLET BY M OUT TWICE A DAY FOR 30 DAYS; Duration: 90 Not-Taking Farxiga Active Social History Sex Assigned At : Social History Observation Description Sex Assigned At Female Encounters Encounter Location Date Provider Diagnosis [address] [address] 02/07/2025 Michelle Cadet Plan Of Treatment No Information Progress Notes * Laurie SAEZDOB:1945 (79 yo F)Acc No.[id number]:02/07/2025 UNLOCKED PROGRESS NOTE Patient: Laurie FLORES Provider: SHER Gomez :1945 A ge:79 Y S ex:Female Date:02/07/2025 Address:[facility] [address], [facility] Subjective: * Chief Complaints: * 1 . hospital followup from [facility]. * HPI: D epression Screening: PHQ-9 L [...] otal Score?2, I nterpretation M inimal Depression. C SSRS Interpretation and Follow Up Plan: CSSRS Interpretation and Follow Up Plan C SSRS Screen documented using SF Y es, R isk Disposition from SF L ow - No Follow Up Plan Required, F ollow Up Plan N o Follow Up Plan required at this time.. * Medical History: * Medications: T aking Farxiga , Taking Pantoprazole Sodium , Taking Primidone 50 MG Tablet 1.5 tablet Orally twice a day , Taking LaMICtal 25 MG Tablet 2 tablet Orally twice a day , Taking Lexapro 10 MG Tablet 1 tablet Orally Once a day , Taking clonazePAM 0.5 MG Tablet TAKE 1 TABLET BY MOUTH EVERY DAY AT BEDTIME DO NOT GIVE IS SBP <100 AND/OR DBP<60, NOTIFY PROVIDER FOR INSTRUCTIONS , Not-Taking busPIRone HCl 5 MG Tablet [...] Pending * Provider: SHER Gomez Date: 0 02/07/2025 Generated for Caroline garner/Rama/Lee Ann on: 03:24 PM CDT History and Physical Notes * HPI (History of Present Illness) Category Sub-Category Detail Notes Category Not es Depression Screening PHQ-9 Little inte rest or [...]
[2025-04-03] VITALS (37 sets, daily range): BP systolic 110–142; BP diastolic 46–125; PULSE 55–71; RESP 12–22; TEMP 36.7; O2SAT 93–100
--- NOTE | ~2025-04-03 | CT_ITS ---
EXAMINATION: CT cervical spine wo con DATE: 04/03/2025 14:50 INDICATION: Fall TECHNIQUE: Computed tomography (CT) of the cervical spine was performed without intravenous contrast. The dose-length product was 170.14 mGy-cm. COMPARISON: None FINDINGS: Bones appear osteopenic. No compression fracture in the cervical spine. Predental space is unremarkable. No prevertebral soft tissue swelling. Fusion of the C1 and C2 vertebral bodies. Grade 1 anterolisthesis of C4 and C4 on C5 and C5 on C6. Reversal of the normal cervical lordosis. Moderate intervertebral disc space narrowing in the mid and lower cervical spine. Lateral dental intervals are within normal limits. Multilevel degenerative change in the facet joints and uncovertebral joints. Apical scarring. IMPRESSION: 1. No compression fracture in the cervical spine. 2. Fusion of the C1 and C2 vertebral bodies. 3. Grade 1 anterolisthesis of C4 and C4 on C5 and C5 on C6. 4. Reversal of the normal cervical lordosis. If symptoms persist or worsen, consider an MRI of the cervical spine for further assessment. Reviewed, dictated and finalized at location Q. IMPRESSION: 1. No compression fracture in the cervical spine. 2. Fusion of the C1 and C2 vertebral bodies. 3. Grade 1 anterolisthesis of C4 and C4 on C5 and C5 on C6. 4. Reversal of the normal cervical lordosis. If symptoms persist or worsen, consider an MRI of the cervical spine for furthe r assessment.
--- NOTE | ~2025-04-03 | CT_ITS ---
EXAMINATION: CT lumbar spine wo con COMPARISON: None HISTORY: fall TECHNIQUE: Axial images were obtained through the spine without IV contrast. Coronal, sagittal reconstruction images were obtained from the axial views. CT scan performed using dose optimization techniques including the following automated exposure control; adjustment of mA and/or kV; use of iterative reconstruction technique. Automatic exposure control was used to reduce radiation dose. Permanent radiation dose record is archived to PACS. FINDINGS: Moderate levoconvex scoliosis. Grade 1 anterolisthesis of L5 on S1 and L4 on L5 with grade 1 retrolisthesis of L1 on L2 and L2 on L3. There is grade 1 retrolisthesis L3 T12 on L1. No acute fracture is identified. There is severe loss of disc height throughout most marked at T12-L1, L1-2 L2-3 and L5-S1 with severe canal and foraminal stenosis, outpatient MRI recommended Soft tissues demonstrate simple appearing large left renal cyst 3 x 3 cm, nonspecific thickening noted of the adrenal glands. There is a large simple appearing right renal cyst measuring 4 x 4 cm. Impression: No acute abnormality. Reviewed, dictated and finalized at location P. Impression: No acute abnormality.
--- NOTE | ~2025-04-03 | XR_ITS ---
Clinical history:Fall EXAM:x-ray of the sacrum and coccyx minimum 2 views TECHNIQUE:3 images of the sacrum and coccyx were obtained Comparisons:None available FINDINGS: There is bowel gas and stool projecting over the pelvis which limits evaluation. Mild degenerative change in the hips and pubic symphysis. No fracture identified. Anterior angulation of the coccyx which may be congenital or new. Correlate for point tenderness. Grade 1/2 anterolisthesis of L4 on L5 and L5 on S1. Extensive degenerative change in the lower lumbar spine. IMPRESSION: 1. Anterior angulation of the coccyx which may be congenital or new. Correlate for point tenderness. 2. Grade 1/2 anterolisthesis of L4 on L5 and L5 on S1. 3. No fracture identified. If symptoms persist or worsen, consider a short-term follow-up study or additional imaging for further assessment. Reviewed, dictated and finalized at location Q. IMPRESSION: 1. Anterior angulation of the coccyx which may be congenital or new. Correlate for point tenderness. 2. Grade 1/2 anterolisthesis of L4 on L5 and L5 on S1. 3. No fracture identified. If symptoms persist or worsen, consider a short-term follow-up study or additio nal imaging for further assessment.
--- NOTE | ~2025-04-03 | XR_ITS ---
Clinical history:Fall EXAM:X-ray knee left 3 views TECHNIQUE:4 images of the left knee were obtained. Comparisons:12/30/2024 FINDINGS: Left total knee arthroplasty without radiographic evidence for loosening of the hardware. Soft tissue swelling about the left knee. Suprapatellar effusion. Questionable new fracture of the patella. No dislocation. Bones appear osteopenic. No radiopaque foreign body. IMPRESSION: 1. Left total knee arthroplasty without radiographic evidence for loosening of the hardware. 2. Questionable new fracture of the patella versus osteophyte or old fracture. Correlate for point tenderness. Consider a CT for further assessment if of concern. If symptoms persist or worsen, consider a short-term follow-up study or additional imaging for further assessment. Reviewed, dictated and finalized at location Q. IMPRESSION: 1. Left total knee arthroplasty without radiographic evidence for loosening of the hardware. 2. Questionable new fracture of the patella versus osteophyte or old fracture. Correlate for point tenderness. Consider a CT for further assessment if of conc manish. If symptoms persist or worsen, consider a short-term follow-up study or additio nal imaging for further assessment.
--- NOTE | ~2025-04-03 | CT_ITS ---
EXAMINATION: CT brain wo dorothy, 04/03/2025 14:40 CDT HISTORY: fall COMPARISON: No comparisons available. Technique: Axial images obtained of the brain without contrast. One or more of the following dose reduction techniques were used: automated exposure control, adjustment of the mA and/or kV according to patient size, use of iterative reconstruction technique. Findings: No acute infarct or parenchymal hemorrhage. No abnormal mass or mass effect. No midline shift. No extra-axial fluid collections. No hydrocephalus. Mastoid air cells unremarkable. Sinuses and orbits unremarkable. No acute fracture. No significant facial or scalp soft tissue swelling evident. No radiopaque foreign body is seen. Impression: 1.No acute intracranial abnormality. Reviewed, dictated and finalized at location P. Impression: 1.No acute intracranial abnormality.
--- OUTSIDE RECORDS SUMMARY | 2025-04-03 09:30 | XMS_ITS | Encounter Summary ---
Author Organization [facility] Healthcare Address [address] [place] [address] Care Team Providers Care Wastewater Project Engineer Name Role Phone Jose Yen MD Primary Care Provider [phone] Reason for Visit * Auth/Cert (Routine) Specialty Diagnoses / Procedures Referred By Contac t Referred To Contact Referral ID Status Reason Start Date Expiration Date Visits Re quested Visits Authorized [id number] 1 1 Encounter Details Date Type Department Care Team (Late st Contact Info) Description 04/03/2025 9:30 AM CDT Home Care Visit [facility] [address] [place] [address] Irene Rick, OT OT HOME VISIT Social History Tobacco Use Types Packs/Day Years Used Date Smoking Tobacco: Never Alcohol Use Standard Drinks/Week Comments Never 0 (1 standard drink = 0.6 oz pur e alcohol) OASIS D0700: Social Isolation Answer Da te Recorded Frequency of experiencing loneliness or isolatio n Never 03/27/2025 OASIS A1250: Transportation Answer Date Recorded Lack of Transportation (Medical) No 03/27/2025 Lack of Transportation (Non-Medical) No 03/27/2025 Patient Unable or Declines to Respond No 03/27/2025 OASIS B1300: Health Literacy Answer Derek e Recorded Frequency of needing help to read materials from doctor or pharmacy Sometimes 03/27/2025 Overall Financial Resource Strain (CARDIA) Answe r Date Recorded How hard is it for you to pa y for the very basics like food, housing, medical care, and heating? Not hard at all 11/02/2024 Exercise Vital Sign Answer Date Recorde d On average, how many days pe r week do you engage in moderate to strenuous exercise (like a brisk walk)? 2 days 11/02/2024 On average, how many minutes do you engage in exercise at this level? 20 min 11/02/2024 PRAPARE - Transportation Answer Date Re [...] any time in the past 12 m [facility], were you homeless or living in a [place] facility (including now)? No 11/02/2024 Humiliation, Afraid, Rape, and Kick questionnair e Answer Date Recorded Within the last year, have y ou been afraid of your partner or ex-partner? No 02/01/2025 Within the last year, have y ou been humiliated or emotionally abused in other ways by your partner or ex-partner? No Within the last year, have y ou been kicked, hit, slapped, or otherwise physically hurt by your partner or ex-partner? No 02/01/2025 Within the last year, have y ou been raped or forced to have any kind of sexual activity by your partner or ex-partner? No 02/01/2025 Social Connection and Isolation Panel Answer Date Recorded In a typical week, how many times do you talk on the phone with family, friends, or neighbors? Once a week 03/02/2025 How often do you get togethe r with friends or relatives? Once a week 03/02/2025 How often do you attend chur ch or islam services? More than 4 times per year 03/02/2025 Do you belong to any clubs o r organizations such as catholic groups, unions, fraternal or athletic groups, or school groups? Yes 03/02/2025 How often do you attend meet ings of the clubs or organizations you belong to? More than 4 times per year 03/02/2025 Are you , , di vorced, , never , or living with a partner? 03/02/2025 AUDIT-C Answer Date Recorded Q1: How often do you have a drink containing alcohol? Never 02/01/2025 Q2: How many drinks containi ng alcohol do you have on a typical day when you are drinking? Patient does not drink Q3: How often do you have si x or more drinks on one occasion? Never 02/01/2025 Overall Financial Resource Strain (CARDIA) Answe r Date Recorded How hard is it for you to pa y for the very basics like food, housing, medical care, and heating? Not hard at all 03/02/2025 [facility] - Occupational Stress Questionnaire Answer Date Recorded Do you feel stress - tense, restless, nervous, or anxious, or unable to sleep at night because your mind is troubled all the time - these days? Very much 02/01/2025 Hunger Vital Sign Answer Date Recorded Within the past 12 months, y ou worried that your food would run out before you got the money to buy more. Never true 03/02/20 Within the past 12 months, t he food you bought just didn't last and you didn't have money to get more. Never true 03/02/2025 PRAPARE - Transportation Answer Date Re corded In the past 12 months, has l ack of transportation kept you from medical appointments or from getting medications? No 02/07 In the past 12 months, has l ack of transportation kept you from meetings, work, or from getting things needed for daily living? No 03/02/2025 Housing Stability Vital Sign Answer Derek e Recorded In the last 12 months, was t here a time when you were not able to pay the mortgage or rent on time? No 03/02/2025 In the past 12 months, how m any times have you moved where you were living? 0 03/02/2025 At any time in the past 12 m [facility], were you homeless or living in a [place] (including now)? No 03/02/2025 [facility] Utilities Answer Date Recorded In the past 12 months has th e electric, gas, oil, or water company threatened to shut off services in your home? No 03/02/2025 Personal Safety Answer Date Recorded Have you ever been in or are you currently in a harmful physical or emotional relationship or is someone making you feel afraid or unsafe? 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 Gender Identity Not on file Sexual Orientation Not on file documented as of this encounter Plan of Treatment Not on file documented as of this encounter Visit Diagnoses Not on filedocumented in this encounter Home Health Visit - Care Plan Visit Details Visit Type -OT Home Visit Discipline -Occupational Therapy Problems Problem Description Start Date Status Goals Interve ntions Depression Disciplines: Skilled Disciplines Depression 02/23/2025 Active 1 goal linked to scheduled/documen cornel intervention 3 goal interventions scheduled/documen cornel in this visit Pressure Prevention Disciplines: Skilled Disciplines Pressure Prevention 02/23/2025 Active 1 goal linked to scheduled/documen cornel intervention 1 goal intervention scheduled/documen cornel in this visit Monitor patient's vital signs every home health visit Disciplines: Skilled Disciplines, SN, PT, OT, ELECTRICAL AND RADIO AIRCRAFT MECHANIC, PAROLE OFFICER Monitor patient's vital signs every home health visit. 02/23/2025 Active 1 goal linked to scheduled/documen cornel intervention 1 goal intervention scheduled/documen cornel in this visit Infection Prevention Disciplines: Skilled Disciplines Infection Prevention 02/23/2025 Active 1 goal linked to scheduled/documen cornel intervention 2 goal interventions scheduled/documen cornel in this visit Fall Precautions/Safe ty Concerns Disciplines: Skilled Disciplines Fall precautions and general safety 02/23/2025 Active 1 goal linked to scheduled/documen cornel intervention 1 goal intervention scheduled/documen cornel in this visit Goals Goal Associated Problem Outcome Goal Met? Visit Notes Demonstrate knowledge of depression Description: Patient/caregiver to demonstrate knowledge of depression as evidence by verbalization of signs and symptoms of depression and when to report to physician. Depression No Prevent development of pressure injuries Description: FCI goal: The patient will maintain intact skin and avoid the development of pressure injuries within 1 month Short term goal: The patient/caregiver will understand and adhere to pressure prevention interventions within 2 visits Pressure Prevention No Measure vital signs during every home health visit during episode of care Description: Home elevated motorman to measure vital signs during every home health visit during episode of care. Monitor patient's vital signs every home health visit No Verbalize signs of infection Description: Patient/caregiver will demonstrate knowledge of infection prevention strategies by verbalizing signs and symptoms of infection. Infection Prevention No Demonstrate fall and safety precautions Description: Patient/caregiver maintains safe home environment as evidenced by remaining free from falls, injury due to falls, demonstrating safety precautions, and identifying strategies to reduce falls by 03/27/25 Fall Precautions/Safety Concerns No Interventions Intervention Associated Problem/Goal Status Variance Visit Notes Instruct on Depression Description: Instruct patient/caregiver on signs/symptoms of depression. Problem:Depression Goal:Demonstrate knowledge of depression Scheduled Assess signs/symptoms of Depression Description: Assess signs/symptoms of depression and emotional well-being. Problem:Depression Goal:Demonstrate knowledge of depression Scheduled Assess depression Description: Assess depression. Problem:Depression Goal:Demonstrate knowledge of depression Scheduled Instruct on Pressure Prevention Description: Instruct patient/caregiver on inspecting the skin regularly for signs of impaired skin integrity, repositioning the patient on an individualized schedule according to the patient's tissue tolerance, skin condition, mobility, medical condition, and treatm ent goals. Avoid vigorous massage and emphasize the importance of increasing activity and mobility. Avoid using donut-shaped devices and foam cutouts for pressure redistribution. Determine if patient is using or needs a pressure reduction surface. Instruct patient/caregiver on using moisture barriers and absorbent pads/briefs as needed, avoiding prolonged skin contact with wet materials, and cleaning and drying skin thoroughly after incontinence episodes. If patient is malnourished instruct anna ent/caregiver on physician ordered diet, increased fluid intake if not contraindicated, and a list of possible protein sources to promote skin integrity. Problem:Pressure Prevention Goal:Prevent development of pressure injuries Scheduled Monitor Vital Signs Description: Monitor blood pressure, pulse, oxygen saturation, respirations Problem:Monitor patient's vital signs every home health visit Goal:Measure vital signs during every home health visit during episode of care Scheduled Educate Patient on Infection Prevention Description: Instruct patient on signs and symptoms of infection IE: fever, odor, change in color, increased amount of drainage, purulent drainage, warmth. Problem:Infection Prevention Goal:Verbalize signs of infection Scheduled Educate Family on Infection Prevention Description: Instructed family on signs and symptoms of infection IE: fever, odor, change in color, increased amount of drainage, purulent drainage, warmth. Problem:Infection Prevention Goal:Verbalize signs of infection Scheduled High Fall Risk Precautions Description: Instruct patient to use proper lighting in all areas, stand/sit up slowly, use appropriate footwear when walking, use proper assistive devices, and to keep pathways clear of cords and clutter to prevent falls. Remove/secure throw rugs. Educate patient on medications and disease processes that increase fall risk, using corrective lenses as prescribed, placing hard to reach items within reach, what to do in the event of a fall and to report any falls to the home health agency. Problem:Fall Precautions/Safety Concerns Goal:Demonstrate fall and safety precautions Scheduled documented in this encounter Care Teams Wastewater Project Engineer Relationship Specialty Start Date End Date Jose Yen MD PCP - General Family Medicine 10/15/21 documented as of this encounter
--- OUTSIDE RECORDS SUMMARY | 2025-04-03 09:30 | XMS_ITS | Encounter Summary ---
Author Organization [facility] Healthcare Address [address] [place] [address] Care Team Providers Care Sanitation Director Name Role Phone Jose Yen MD Primary Care Provider [phone] Reason for Visit * Auth/Cert (Routine) Specialty Diagnoses / Procedures Referred By Contac t Referred To Contact Referral ID Status Reason Start Date Expiration Date Visits Re quested Visits Authorized [id number] 1 1 Encounter Details Date Type Department Care Team (Late st Contact Info) Description 04/03/2025 9:30 AM CDT Home Care Visit [facility] [address] [place] [address] Irene Rick, OT OT HOME VISIT Social [...] time in the past 12 m [facility], were you homeless or living in a group home (including now)? No 11/02/2024 Humiliation, Afraid, Rape, [...] often do you attend chur ch or latter day services? More than 4 times per year 03/02/2025 Do you belong to any clubs o r organizations such as shinto groups, unions, fraternal or athletic groups, or [...] and heating? Not hard at all 03/02/2025 [facility] - Occupational [...] time in the past 12 m [facility], were you homeless or living in a group home (including now)? 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 Gender Identity Not on file Sexual [...] visit Disciplines: Skilled Disciplines, SN, PT, OT, ASSURANCE SERVICES MANAGER HEALTH CARE, AREA FORESTER Monitor patient's vital signs every home health [...] No Prevent development of pressure injuries Description: retirement goal: The patient will maintain intact skin and avoid the development of pressure injuries within 1 month Short term goal: The patient/caregiver will understand and adhere to pressure prevention interventions within 2 visits Pressure Prevention No Measure vital signs during every home health visit during episode of care Description: Home pulp grinder to measure vital signs during every home [...] Scheduled documented in this encounter Care Teams Sanitation Director Relationship Specialty Start Date End Date Jose Yen MD PCP - General Family Medicine 10/15/21 documented as of this encounter
--- OUTSIDE RECORDS SUMMARY | 2025-04-03 12:30 | XMS_ITS | Encounter Summary ---
Author Organization [facility] Healthcare Address [address] [place] [address] Care Team Providers Care Labor Gang Supervisor Name Role Phone Jose Yen MD Primary Care Provider [phone] Reason for Visit * Auth/Cert (Routine) Specialty Diagnoses / Procedures Referred By Contac t Referred To Contact Referral ID Status Reason Start Date Expiration Date Visits Re quested Visits Authorized [id number] 1 1 Encounter Details Date Type Department Care Team (Late st Contact Info) Description 04/03/2025 12:30 PM CDT Home Care Visit [facility] [address] [address] [address] [place] [address] Marie Villa, JOSELINE SN HOME VISIT Social History Tobacco Use Types [...] any time in the past 12 m [facility], were you homeless or living in a prison (including now)? No 11/02/2024 Humiliation, Afraid, Rape, [...] often do you attend chur ch or hinduism services? More than 4 times per year 03/02/2025 Do you belong to any clubs o r organizations such as christian groups, unions, fraternal or athletic groups, or [...] and heating? Not hard at all 03/02/2025 [facility] - Occupational [...] any time in the past 12 m [facility], were you homeless or living in a prison (including now)? 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 Gender Identity Not on file Sexual Orientation Not on file documented as of this encounter Last Filed Vital Signs Vital Sign Reading Time Taken Comments Blood Pressure 110/78 04/03/2025 12:21 PM CDT Pulse 62 04/03/2025 12:21 PM CDT Temperature 36.8 C (98.2 F) 04/03/2025 12:21 PM CDT Respiratory Rate 18 04/03/2025 12:21 PM CDT Oxygen Saturation 94% 04/03/2025 12:21 PM CDT Inhaled Oxygen Concentration - - Weight - - Height - - Body Mass Index - - documented in this encounter Plan of Treatment Not on file documented as of this encounter Visit Diagnoses Not on filedocumented in this encounter Home Health Visit - Care Plan Visit Details Visit Type -SN Home Visit Discipline -Prison Problems Problem Description Start Date Status Goals Interve ntions Depression Disciplines: Skilled Disciplines Depression 02/23/2025 Active 1 goal linked to scheduled/docume nted intervention 3 goal interventions scheduled/documen cornel in this visit Pressure Prevention Disciplines: Skilled Disciplines Pressure Prevention 02/23/2025 Active 1 goal linked to scheduled/docume nted intervention 1 goal intervention scheduled/documen cornel in this visit Medications Disciplines: Prison Management of home medications 02/23/2025 Active 1 goal linked to scheduled/docume nted intervention 2 goal interventions scheduled/documen cornel in this visit Monitor patient's vital signs every home health visit Disciplines: Skilled Disciplines, SN, PT, OT, GROUND CREWMAN MISSION SUPPORT, ORDER CONTROL CLERK BLOOD BANK Monitor patient's vital signs every home health visit. 02/23/2025 Active 1 goal linked to scheduled/docume nted intervention 1 goal intervention scheduled/documen cornel in this visit Infection Prevention Disciplines: Skilled Disciplines Infection Prevention 02/23/2025 Active 1 goal linked to scheduled/docume nted intervention 2 goal interventions scheduled/documen cornel in this visit Fall Precautions/Safe ty Concerns Disciplines: Skilled Disciplines Fall precautions and general safety 02/23/2025 Active 1 goal linked to scheduled/docume nted intervention 1 goal intervention scheduled/documen cornel in this visit Urinary incontinence Disciplines: Prison Urinary incontinence 02/23/2025 Active 1 goal linked to scheduled/docume nted intervention 3 goal interventions scheduled/documen cornel in this visit Goals Goal Associated Problem Outcome Goal Met? Visit Notes Demonstrate knowledge of depression Description: Patient/caregiver to demonstrate knowledge of depression as evidence by verbalization of signs and symptoms of depression and when to report to physician. Depression No Prevent development of pressure injuries Description: terminal gauger supervisor goal: The patient will maintain intact skin and avoid the development of pressure injuries within 1 month Short term goal: The patient/caregiver will understand and adhere to pressure prevention interventions within 2 visits Pressure Prevention No Understand and follow medication therapy Description: Patient/Caregiver will verbalize understanding of purpose, side effects, and medication regimen in 4 weeks as evidenced by taking all medications as prescribed and no medication errors. Medications No Measure vital signs during every home health visit during episode of care Description: Home research assoc to measure vital signs during every home [...] falls by 03/27/25 Fall Precautions/Safety Concerns No Patient will have stable urinary status Description: Patient/caregiver will demonstrate ability to manage their incontinence as evidenced by verbalizing incontinence management techniques and signs and symptoms of UTI to report home care agency or physician. Urinary incontinence No Interventions Intervention Associated Problem/Goal Status Variance [...] Prevention Goal:Prevent development of pressure injuries Scheduled Instruct on Medication Management Description: Assess patient/caregiver ability to demonstrate management of medications, steps to obtain new/refills of medications and identification of new or changed medications. Assess patient/caregiver ability to verbalize accurate dose/route/frequency/reason for medication, how to evaluate effectiveness of medication, ongoing lab work needed to ensure therapeutic dosing, drug/food interactions, side effects/adverse reactions, contraindications for medications and known drug allergies. Evaluate the effectiveness of current treatment regimen and notify the appropriate healthcare provider for the need for changes in the plan of care. Problem:Medications Goal:Understand and follow medication therapy Scheduled Instruct on High Risk Medications Description: Instruct patient/caregiver on oral or injectable high-risk medications, including: anticonvulsant, antiretroviral, anticoagulant, antibiotics, chemotherapeutic, hypoglycemic including insulin, immunosuppressant, antipsychotic, and opioids. Problem:Medications Goal:Understand and follow medication therapy Scheduled Monitor Vital Signs Description: Monitor blood [...] Concerns Goal:Demonstrate fall and safety precautions Scheduled Assess Status Description: Assess status and signs/symptoms of UTI including mental status changes, urgency, retention, frequency, and pain. Problem:Urinary incontinence Goal:Patient will have stable urinary status Scheduled Instruct on incontinence management techniques Description: Instruct patient/caregiver on incontinence management techniques including: daily fluid intake, type of fluid intake, bladder diary, timed voiding, quitting smoking, weight loss, Kegel exercises, limit caffeine, and modification of environment if needed. Problem:Urinary incontinence Goal:Patient will have stable urinary status Scheduled Instruct on the prevention of UTI Description: Instruct patient/caregiver on good hygiene, complete bladder emptying, and avoiding use of powders or lotions. Instruct on how to recognize symptoms of urinary tract infection including changes in mental status or confusion, frequency of urination, pain, hesitancy and urgency. Problem:Urinary incontinence Goal:Patient will have stable urinary status Scheduled documented in this encounter Care Teams Labor Gang Supervisor Relationship Specialty Start Date End Date Jose Yen MD PCP - General Family Medicine 10/15/21 documented as of this encounter
--- OUTSIDE RECORDS SUMMARY | 2025-04-03 12:30 | XMS_ITS | Encounter Summary ---
Author Organization [facility] Healthcare Address [address] [place] [address] Care Team Providers Care Spindle Carver Name Role Phone Jose Yen MD Primary Care Provider [phone] Reason for Visit * Auth/Cert (Routine) Specialty Diagnoses / Procedures Referred By Contac t Referred To Contact Referral ID Status Reason Start Date Expiration Date Visits Re quested Visits Authorized [id number] 1 1 Encounter Details Date Type Department Care Team (Late st Contact Info) Description 04/03/2025 12:30 PM CDT Home Care Visit [facility] [address] [address] [address] [place] [address] Marie Villa, JOSELINE SN HOME VISIT Social [...] any time in the past 12 m [facility], were you homeless or living in a skilled nursing (including now)? No 11/02/2024 Humiliation, Afraid, Rape, [...] often do you attend chur ch or druze services? More than 4 times per year 03/02/2025 Do you belong to any clubs o r organizations such as presybeterian groups, unions, fraternal or athletic groups, or [...] and heating? Not hard at all 03/02/2025 [facility] Occupat ional Health - Occupational Stress [...] any time in the past 12 m [facility], were you homeless or living in a skilled nursing (including now)? 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 Gender Identity Not on file Sexual Orientation [...] Details Visit Type -SN Home Visit Discipline -Alf Problems Problem Description Start Date Status Goals Interve ntions Depression Disciplines: Skilled Disciplines Depression 02/23/2025 Active 1 goal linked to scheduled/docume nted intervention 3 goal interventions scheduled/documen cornel in this visit Pressure Prevention Disciplines: Skilled Disciplines Pressure Prevention 02/23/2025 Active 1 goal linked to scheduled/docume nted intervention 1 goal intervention scheduled/documen cornel in this visit Medications Disciplines: Alf Management of home medications 02/23/2025 Active 1 goal linked to scheduled/docume nted intervention 2 goal interventions scheduled/documen cornel in this visit Monitor patient's vital signs every home health visit Disciplines: Skilled Disciplines, SN, PT, OT, PIG MACHINE OPERATOR, TEA PLANTATION WORKER Monitor patient's vital signs every home health [...] cornel in this visit Urinary incontinence Disciplines: Alf Urinary incontinence 02/23/2025 Active 1 goal linked to scheduled/docume nted intervention 3 goal interventions scheduled/documen cornel in this visit Goals Goal Associated Problem Outcome Goal Met? Visit Notes Demonstrate knowledge of depression Description: Patient/caregiver to demonstrate knowledge of depression as evidence by verbalization of signs and symptoms of depression and when to report to physician. Depression No Prevent development of pressure injuries Description: electronic assembler goal: The patient will maintain intact skin [...] visit during episode of care Description: Home wad compressor operator adjuster to measure vital signs during every home [...] Scheduled documented in this encounter Care Teams Spindle Carver Relationship Specialty Start Date End Date Jose Yen MD PCP - General Family Medicine 10/15/21 documented as of this encounter
--- NOTE | 2025-04-03 14:33 | ED_ITS ---
HPI - Head Injury General Chief complaint: Head Injury <NICK Vera - Last Filed: 04/03/25 15:24> Stated complaint: fall today. left eye lac <NICK Vera - Last Filed: 04/03/25 15:24> Time Seen by Provider: 04/03/25 15:24 <NICK Vera - Last Filed: 04/03/25 15:24> Focused HPI: Became dizzy this afternoon doing laundry and fell to the left side. No LOC. No CP prior. Now has headache, tailbone pain and left knee. No blood thinners. She just started Rexulti three to four days ago and has fallen twice ever since starting it, but does not feel that it makes her dizzy. Her family member (son) at the bedside states she seems that she is overly medicated. GENERAL: Well-appearing, well-nourished, and in no acute distress. HEAD: Normocephalic, atraumatic. With exception of small abrasion at edge of left eye. CHEST: Clear to auscultation. ?No respiratory distress. HEART: Regular rate and rhythm.? NEURO: ?Alert and oriented x3. EXTREMITIES: No edema or erythema/effusion of the left knee. FROM of the extremity. Patient screened in triage and initial orders placed.? ?Additional care and disposition to be based upon?diagnostic testing and treatment. <NICK Vera - Last Filed: 04/03/25 15:24> Source: patient and family <NICK Vera - Last Filed: 04/03/25 15:24> Mode of arrival: wheelchair <NICK Vera - Last Filed: 04/03/25 15:24> Limitations: no limitations <NICK Vera - Last Filed: 04/03/25 15:24> History of Present Illness HPI Narrative: Agree the HPI. Began new medication several days ago and has been feeling off balance since then. No weakness or numbness in arm or leg. She has had a couple falls but no loss of consciousness. She does hurt over her tailbone. < Vikash Krishnan MD - Last Filed: 04/03/25 19:56> Related Data Home medications: Home Medications ?Medication ?Instructions ?Recorded ?Confirmed ?Last Taken ?Type docusate sodium 100 mg capsule 100 mg PO DAILY 5 12/30/24 Unknown History aripiprazole 15 mg tablet mg PO DAILY 03/03/25 Unknow n History clonazepam 0.5 mg tablet mg PO BID 03/03/25 Unknown History trazodone 50 mg tablet mg PO DAILY 03/03/25 Unknow n History <NICK Vera - Last Filed: 04/03/25 15:24> Allergies/Adverse reactions: Allergies Allergy/AdvReac Type Severity Reaction Status Date / Time oxybutynin Allergy Unknown Unknown Verified 03/03/25 07:49 oxycodone Allergy Unknown RASH Verified 03/03/25 07:49 Sulfa (Sulfonamide Allergy Unknown Rash Verified 03/03/25 07:49 Antibiotics) lamotrigine AdvReac Severe Shakiness Verified 03/03/25 07:49 pantoprazole AdvReac Intermediate Other Verified 03/03/25 07:49 primidone AdvReac Unknown shaking Verified 03/03/25 07:49 <NICK Vera - Last Filed: 04/03/25 15:24> Review of Systems 2 Review of Systems: All systems reviewed & are unremarkable except as noted in HPI and below <Vikash Krishnan MD - Last Filed: 04/03/25 19:56> Constitutional: Constitutional: Reports no additional constitutional complaints <Vikash Krishnan MD - Last Filed: 04/03/25 19:56> ENT: Reports system reviewed and no additional complaints, except as documented <Vikash Krishnan MD - Last Filed: 04/03/25 19:56> Cardiovascular: Cardiovascular: Reports no additional cardiovascular complaints <Vikash Krishnan MD - Last Filed: 04/03/25 19:56> Respiratory: Respiratory: Reports no additional respiratory complaints < Vikash Krishnan MD - Last Filed: 04/03/25 19:56> Gastrointestinal: Gastrointestinal: Reports no additional gastrointestinal complaints <Vikash Krishnan MD - Last Filed: 04/03/25 19:56> Genitourinary: Genitourinary: Reports no additional female genitourinary complaints <Vikash Krishnan MD - Last Filed: 04/03/25 19:56> [facility] Past Medical History Medical History: Medical History Blocked tear duct Essential tremor HTN (hypertension) Sensation of feeling cold Spasm of cervical paraspinous muscle Hip bursitis Dermatochalasis of both eyelids TMJ (temporomandibular joint disorder) Pharyngitis Candidal intertrigo Melissa infection, oral GERD (gastroesophageal reflux disease) Dizziness Bilateral hand numbness Abnormal stress test Nonspecific abnormal electrocardiogram (ECG) Hearing loss Flat feet Allergic rhinitis due to pollen Candidiasis of skin Chronic kidney disease, stage III (moderate) Conductive hearing loss of left ear with unrestricted hearing of right ear Constipation by delayed colonic transit Diverticulosis of colon (without mention of hemorrhage) Duodenal ulcer Extrapyramidal movement disorder Hypertensive kidney disease Mediastinal cyst Mixed hyperlipidemia Neuropathy OAB (overactive bladder) Pes planus of left foot Postmenopausal Primary osteoarthritis of left knee Pulmonary nodule Tremor, coarse Tremor, hereditary, benign Unilateral hearing loss Vaginitis, atrophic Ptosis Bipolar 1 disorder Gait abnormality Tremor of both hands <NICK Vera - Last Filed: 04/03/25 15:24> Surgical History Surgical History: Surgical History H/O dilation and curettage History of cardiac catheterization H/O foot surgery History of hand surgery History of Achilles tendon repair History of tonsillectomy and adenoidectomy History of hysterectomy History of left knee replacement History of 2 sections <NICK Vera - Last Filed: 04/03/25 15:24> Family History Family History: Family History Mother Family history of kidney disease Patient's mother is Hypertension Family history of arthritis Father Family history of chronic obstructive pulmonary disease Patient's father is Family history of tuberculosis Hypertension Family history of diabetes mellitus in first degree relative Family history of heart disease in male family member before age 55 Sibling Obesity Other Diabetes mellitus <NICK Vera - Last Filed: 04/03/25 15:24> Social History Social History: Social History Social History: She lives with her son in a 1 bedroom apartment . She is . 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 She also worked at [employer] in the [employer] room. She has had 4 children and one has . code status :DNI Smoking status: Never smoker Second hand tobacco smoke exposure: Yes Alcohol intake: current Drinks per week: 1 Substance use: never Substance use type: does not use Current Housing: Decline to Answer Concerned About Future Housing: Decline to Answer Difficulty Paying Gas/Electric Bills: Decline to Answer Difficulty Paying for Meds: Decline to Answer Currently Unemployed: Decline to Answer Education: Decline to Answer Difficulty w/ Childcare or Family Care: Decline to Answer Living arrangements: with family Additional living arrangements comments: son lives with her and he makes her nervous. 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 HEAD: Normocephalic, atraumatic. EYES: PERRL and EOMI. ENT: Mucous membranes moist. Cerumen impaction bilaterally, after irrigation TMs are normal. CHEST: Clear to auscultation. No respiratory distress. HEART: Regular rate and rhythm. Normal peripheral pulses. ABDOMEN: Soft, nontender, nondistended. Back: No midline tenderness the T/L-spine. Tender palpation of her coccyx. EXTREMITIES: Normal range of motion. No edema. No tenderness of the knee bilaterally. Ambulates the steady gait using her walker. SKIN: Warm, dry, no rash. NEURO: Alert and oriented x3. PSYCH: Normal mood and affect. <Vikash Krishnan MD - Last Filed: 04/03/25 19:56> Course Course Emergency Course: Dizziness improved with ear irrigation and meclizine. She can now hear out of her right ear. Ambulates with a steady gait using her walker. Mild UTI. First dose of antibiotic here. Discharged home with oral antibiotics. Patient family feel comfortable with the discharge plan. <Vikash Krishnan MD - Last Filed: 04/03/25 19:56> Vital Signs Vital signs: Vital Signs Temperature 98.1 F 04/03/25 13:50 Pulse Rate 55 L 04/03/25 13:50 Respiratory Rate 16 04/03/25 13:50 Blood Pressure 116/74 04/03/25 13:50 Pulse Oximetry 100 04/03/25 13:50 Oxygen Delivery Room Air 04/03/25 13:50 Temperature 98.1 F 04/03/25 13:50 Pulse Rate 61 04/03/25 19:32 Respiratory Rate 13 04/03/25 19:32 Blood Pressure 120/80 04/03/25 19:32 Pulse Oximetry 100 04/03/25 19:32 Oxygen Delivery Room Air 04/03/25 17:03 <Antionette Bahena APN-C - Last Filed: 04/03/25 15:24> Vital Signs Temperature 98.1 F 04/03/25 13:50 Pulse Rate 55 L 04/03/25 13:50 Respiratory Rate 16 04/03/25 13:50 Blood Pressure 116/74 04/03/25 13:50 Pulse Oximetry 100 04/03/25 13:50 Oxygen Delivery Room Air 04/03/25 13:50 Temperature 98.1 F 04/03/25 13:50 Pulse Rate 61 04/03/25 19:32 Respiratory Rate 13 04/03/25 19:32 Blood Pressure 120/80 04/03/25 19:32 Pulse Oximetry 100 04/03/25 19:32 Oxygen Delivery Room Air 04/03/25 17:03 <Vikash Krishnan MD - Last Filed: 04/03/25 19:56> Procedures Ear Wax Removal Both Ears: Ear Wax Removal Date: 04/03/25 <Vikash Krishnan MD - Last Filed: 04/03/25 19:56> Results: Re-examined: cerumen removed completely <Vikash Krishnan MD - Last Filed: 04/03/25 19:56> TM Examination: TM(s) intact, normal appearance <Vikash Krishnan MD - Last Filed: 04/03/25 19:56> Ear Canal Exam: atraumatic <Vikash Krishnan MD - Last Filed: 04/03/25 19:56> Patient Tolerated Procedure: well <Vikash Krishnan MD - Last Filed: 04/03/25 19:56> Complications: no problems <Vikash Krishnan MD - Last Filed: 04/03/25 19:56> Technique: ear canal irrigated <Vikash Krishnan MD - Last Filed: 04/03/25 19:56> MDM - Head Injury Lab Data Attestation: I reviewed the patient's lab results. <Vikash Krishnan MD - Last Filed: 04/03/25 19:56> Result diagrams: 04/03/25 15:23 04/03/25 15:23 <NICK Vera - Last Filed: 04/03/25 15:24> Labs: Lab Results 04/03/25 04/03/25 Range/Units 15:23 16:08 WBC 5.0 (4.5-10.0) K/mm3 RBC 4.33 (4.2-5.4) M/mm3 Hgb 13.4 (12.0-15.0) g/dL Hct 43.2 (37.0-47.0) % MCV 99.8 (80-100) fl MCH 30.9 (26-34) pg MCHC 31.0 L (32-36) g/dl RDW 12.8 (11.5-14.5) % Plt Count 199 (150-375) k/mm3 MPV 9.9 (7.4-10.4) fl Immature Gran % (Auto) 0.2 (0-0.5) % Neut % (Auto) 58.3 (45.5-73.1) % Lymph % (Auto) 29.0 (18.3-44.2) % Haines % (Auto) 11.1 H (2.6-8.5) % Eos % (Auto) 1.0 (0-4.4) % Baso % (Auto) 0.4 (0.2-1.2) % Lymph # (Auto) 1.44 (0.9-3.2) K/mm3 Haines # (Auto) 0.6 (0.1-0.6) K/mm3 Eos # (Auto) 0.1 (0-0.3) K/mm3 Baso # (Auto) 0.0 (0.0-0.1) K/mm3 Abs Immat Gran (auto) 0.01 (0.00-0.031) K/mm3 Absolute Neuts (auto) 2.9 (1.3-6.7) K/mm3 Absolute Nucleated RBC 0.000 (0.0-0.012) K/mm3 Nucleated RBC % 0.0 (0.0-0.2) % Sodium 141 (137-145) mmol/L Potassium 4.0 (3.4-5.0) mmol/L Chloride 108 H (98-107) mmol/L Carbon Dioxide 30 (22-30) mmol/L Anion Gap 3 L (4-12) mmol/L BUN 23 H (7-17) mg/dL Creatinine 1.38 H (0.7-1.0) mg/dL Estim Creat Clear Calc 28 ml/min Estimated GFR 37 L (59 - ) Glucose 86 (65-110) mg/dL Calcium 9.6 (8.4-10.2) mg/dL Magnesium 2.0 (1.6-2.3) mg/dL Total Bilirubin 0.6 (0.2-1.3) mg/dL AST 28 (14-36) U/L ALT 13 (6-35) U/L Alkaline Phosphatase 71 (38-126) U/L Troponin I < 0.012 (0.000-0.034) ng/mL Total Protein 7.0 (6.3-8.2) g/dL Albumin 3.9 (3.5-5.1) g/dL Urine Color Yellow (Yellow) Urine Appearance Clear (Clear) Urine pH 6.0 (5.0-9.0) Ur Specific Sherwood 1.011 (1.001-1.035) Urine Protein Negative (Negative) mg/dL Urine Glucose (UA) Negative (Negative) mg/dL Urine Ketones Negative (Negative) mg/dL Ur Blood (Man) Negative (Negative) Urine Nitrate Negative (Negative) Urine Bilirubin Negative (Negative) Urine Urobilinogen 0.2 (<2.0) mg/dL Add Ur Microanalysis Reviewed Leukocyte Esterase Rfl 3+ H (Negative) NIGEL/UL Urine RBC 0-2 (0-2) /hpf Urine WBC 21-50 H (0-3) /hpf Ur Squamous Epith Cells Few (Few) /hpf Urine Bacteria 1+ H /hpf Urine Casts 0-2 <Antionette Bahena, QUALITY ASSURANCE MONITOR CHASSIS-C - Last Filed: 04/03/25 15:24> Lab Results 04/03/25 04/03/25 Range/Units 15:23 16:08 WBC 5.0 (4.5-10.0) K/mm3 RBC 4.33 (4.2-5.4) M/mm3 Hgb 13.4 (12.0-15.0) g/dL Hct 43.2 (37.0-47.0) % MCV 99.8 (80-100) fl MCH 30.9 (26-34) pg MCHC 31.0 L (32-36) g/dl RDW 12.8 (11.5-14.5) % Plt Count 199 (150-375) k/mm3 MPV 9.9 (7.4-10.4) fl Immature Gran % (Auto) 0.2 (0-0.5) % Neut % (Auto) 58.3 (45.5-73.1) % Lymph % (Auto) 29.0 (18.3-44.2) % Haines % (Auto) 11.1 H (2.6-8.5) % Eos % (Auto) 1.0 (0-4.4) % Baso % (Auto) 0.4 (0.2-1.2) % Lymph # (Auto) 1.44 (0.9-3.2) K/mm3 Haines # (Auto) 0.6 (0.1-0.6) K/mm3 Eos # (Auto) 0.1 (0-0.3) K/mm3 Baso # (Auto) 0.0 (0.0-0.1) K/mm3 Abs Immat Gran (auto) 0.01 (0.00-0.031) K/mm3 Absolute Neuts (auto) 2.9 (1.3-6.7) K/mm3 Absolute Nucleated RBC 0.000 (0.0-0.012) K/mm3 Nucleated RBC % 0.0 (0.0-0.2) % Sodium 141 (137-145) mmol/L Potassium 4.0 (3.4-5.0) mmol/L Chloride 108 H (98-107) mmol/L Carbon Dioxide 30 (22-30) mmol/L Anion Gap 3 L (4-12) mmol/L BUN 23 H (7-17) mg/dL Creatinine 1.38 H (0.7-1.0) mg/dL Estim Creat Clear Calc 28 ml/min Estimated GFR 37 L (59 - ) Glucose 86 (65-110) mg/dL Calcium 9.6 (8.4-10.2) mg/dL Magnesium 2.0 (1.6-2.3) mg/dL Total Bilirubin 0.6 (0.2-1.3) mg/dL AST 28 (14-36) U/L ALT 13 (6-35) U/L Alkaline Phosphatase 71 (38-126) U/L Troponin I < 0.012 (0.000-0.034) ng/mL Total Protein 7.0 (6.3-8.2) g/dL Albumin 3.9 (3.5-5.1) g/dL Urine Color Yellow (Yellow) Urine Appearance Clear (Clear) Urine pH 6.0 (5.0-9.0) Ur Specific Sherwood 1.011 (1.001-1.035) Urine Protein Negative (Negative) mg/dL Urine Glucose (UA) Negative (Negative) mg/dL Urine Ketones Negative (Negative) mg/dL Ur Blood (Man) Negative (Negative) Urine Nitrate Negative (Negative) Urine Bilirubin Negative (Negative) Urine Urobilinogen 0.2 (<2.0) mg/dL Add Ur Microanalysis Reviewed Leukocyte Esterase Rfl 3+ H (Negative) NIGEL/UL Urine RBC 0-2 (0-2) /hpf Urine WBC 21-50 H (0-3) /hpf Ur Squamous Epith Cells Few (Few) /hpf Urine Bacteria 1+ H /hpf Urine Casts 0-2 <Vikash Krishnan MD - Last Filed: 04/03/25 19:56> Imaging Data Radiologist's impression: ITS Impressions Head CT 04/03/25 14:51 Impression: 1.No acute intracranial abnormality. Lumbar Spine CT 04/03/25 15:01 Impression: No acute abnormality. Knee X-Ray 04/03/25 15:07 IMPRESSION: 1. Left total knee arthroplasty without radiographic evidence for loosening of the hardware. 2. Questionable new fracture of the patella versus osteophyte or old fracture. Correlate for point tenderness. Consider a CT for further assessment if of concern. If symptoms persist or worsen, consider a short-term follow-up study or additional imaging for further assessment. Sacrum and Coccyx X-Ray 04/03/25 15:09 IMPRESSION: 1. Anterior angulation of the coccyx which may be congenital or new. Correlate for point tenderness. 2. Grade 1/2 anterolisthesis of L4 on L5 and L5 on S1. 3. No fracture identified. If symptoms persist or worsen, consider a short-term follow-up study or additional imaging for further assessment. Cervical Spine CT 04/03/25 15:35 IMPRESSION: 1. No compression fracture in the cervical spine. 2. Fusion of the C1 and C2 vertebral bodies. 3. Grade 1 anterolisthesis of C4 and C4 on C5 and C5 on C6. 4. Reversal of the normal cervical lordosis. If symptoms persist or worsen, consider an MRI of the cervical spine for further assessment. <Vikash Krishnan MD - Last Filed: 04/03/25 19:56> Discharge Plan Discharge Clinical Impression: Bilateral impacted cerumen, Vertigo, Acute UTI <NICK Vera - Last Filed: 04/03/25 15:24> Patient Disposition: Home <NICK Vera - Last Filed: 04/03/25 15:24> Condition: Stable <NICK Vera - Last Filed: 04/03/25 15:24> Instructions: Carbamide Peroxide (Into the ear), Urinary Tract Infection in Women (ED), Vertigo (ED) <NICK Vera - Last Filed: 04/03/25 15:24> Additional Instructions: You should return to the emergency department if you develop severe nausea and vomiting and are unable to keep liquids down, if you develop severe back/flank or stomach pain, or if your symptoms are not clearly improving at home. <Antionette Bahena APN-C - Last Filed: 04/03/25 15:24> Patient Language: Thai <NICK Vera - Last Filed: 04/03/25 15:24> Prescriptions: New meclizine 12.5 mg tablet 12.5 mg PO TID PRN (Reason: dizziness) Qty: 10 0RF cefuroxime axetil 500 mg tablet 500 mg PO BID Qty: 14 0RF No Action docusate sodium 100 mg capsule 100 mg PO DAILY trazodone 50 mg tablet PO DAILY clonazepam 0.5 mg tablet PO BID aripiprazole 15 mg tablet PO DAILY pantoprazole 40 mg tablet,delayed release (DR/EC) 40 mg PO DAILY Qty: 90 0RF <NICK Vera - Last Filed: 04/03/25 15:24> Follow-up/Referrals: Jose Yen MD [Primary Care Provider, Family Practice] - 1 Week <NICK Vera - Last Filed: 04/03/25 15:24>
--- NOTE | 2025-04-03 14:37 | ECG_ITS ---
Test Date: 2025-04-03 15:30:18 Measurements Intervals [place] Rate: 56 P: 54 SD: 196 QRS: -7 QRSD: 135 T: 41 QT: 416 QTc: 405 Interpretive Statements SINUS BRADYCARDIA RIGHT BUNDLE BRANCH BLOCK MINIMAL Q WAVES- HIGH LATERAL LEADS ABNORMAL ECG Compared to ECG 12/16/2024 06:44:42 HEART RATE HAS DECREASED Electronically Signed On 04-03-2025 16:40:29 CDT by Eliud Cruz D.O.
--- OUTSIDE RECORDS SUMMARY | 2025-04-03 15:23 | XMS_ITS | Encounter Summary ---
Author Organization [facility] Address [address] [place] [address] Phone Care Team Providers Care Velocity Shooter Name Role Phone Jose Yen MD Primary Care Provider Encounter Details Date Type Department Care Team (Late st Contact Info) Description 03/03/2025 Telephone [facility] Cardiology [address] [facility] Advanced Medicine [address]th [place] [address] [place] [address] Rosario Haskins Social History Tobacco Use Types Packs/Day Years [...] any time in the past 12 m [facility], were you homeless or living in a care home (including now)? No 11/02/2024 Humiliation, Afraid, [...] week 03/02/2025 How often do you attend [facility] or confucianism services? More than 4 times per year 03/02/2025 Do you belong to any clubs o r organizations such as scientology groups, unions, fraternal or athletic groups, or [...] and heating? Not hard at all 03/02/2025 [facility] Occupat ional Health - Occupational [...] any time in the past 12 m [facility], were you homeless or living in a care home (including now)? 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 no (If yes give appropriate phone number) IS THE PATIENT CURRENTLY UNDERGOING CANCER TREATMENTS? no CALLER'S NAME: Cleopatra Moses CALLER'S PAGER: [phone] CAMPUS: [facility] PATIENT'S LOCATION: [id number] ATTENDING PHYSICIAN: Dr. Trey Todd documented in this encounter Plan of Treatment Not on file documented as of this encounter Visit Diagnoses Not on filedocumented in this encounter Care Teams Velocity Shooter Relationship Specialty Start Date End Date Jose Yen MD PCP - General Family Medicine 10/15/21 documented as of this encounter
--- OUTSIDE RECORDS SUMMARY | 2025-04-03 15:24 | XMS_ITS | Patient Health Record ---
Author Organization [facility] Address [address] [place] [address] Care Team Providers Care Bookstore Clerk Name Role Phone HelioMichelle Primary Care Provider Kathie Ruiz Unavailable [phone] Solo Bolanos Unavailable [phone] Oleg Erwin Unavailable [phone] Allergies Allergen (clinical drug ingredient) Drug/Non Drug Allergy documented on EMR Reaction Allergy Type Onset Date Status lamotrigine Lamotrigine Muscle Spasms Drug Allergy Active Substance with sulfonamide structure and antibacterial mechanism of action (substance) Sulfa Antibiotics Unknown Drug Allergy Active Results Component Value Reference Range Notes CBC With Differential/Platel et* Reviewed date:07/29/2024 03:10:28 PM Interpretation: Performing Lab:[facility] [address] [facility], Phone - [phone], Director - Anna Notes/Report: WBC 3.8 3.4-10.8 [...] show increased immature granulocytes without clinical significance.) Orick (Eskalith(R)), Serum Reviewed date:07/29/2024 03:09:39 PM Interpretation: Performing Lab[facility] [address] [facility], Phone - [phone], Director - [facility] Notes/Report: Orick (Eskalith(R)), Serum 0.2 0.5-1.2 mmol /L A concentration of 0.5-0.8 mmol/L is advised for long-term use; concentrations of up to 1.2 mmol/L may be necessary during acute treatment. Detection Limit = 0.1 <0.1 indicates None Detected CMP 14 Comprehensive Metabol ic Panel* Reviewed date:07/29/2024 03:10:07 PM Interpretation: Performing Lab[facility] [address] [facility], Phone - [phone], Director - [facility] Notes/Report: Glucose 82 70-99 mg/dL BUN 24 [...] Duration) Notes Start Date End Date Status Rexulti 0.5 MG 1 tablet Orally Once a day; Duration: 30 day(s) 03/27/2025 Active Pantoprazole Sodium 40 MG 1 tablet twice a day Active Abilify 15 MG 0.5 tablet Orally On ce a day; Duration: 30 days Active Propranolol HCl 60 MG 0.5 tablet Orally Twice a day; Duration: 30 days Active Escitalopram Oxalate 5 MG 1 tablet Orall y Once a day; Duration: 30 day(s) 04/05/2024 Not-Taking traZODone HCl 50 MG TAKE 1 TABLET BY MOUTH AT BEDTIME; Duration: 90 days As needed Active busPIRone HCl 5 MG TAKE 1 TABLET BY CECELIA TH TWICE A DAY FOR 30 DAYS; Duration: 90 Not-Taking clonazePAM 0.5 MG TAKE 1 TABLET BY CECELIA TH EVERY DAY AT BEDTIME DO NOT GIVE IS SBP <100 AND/OR DBP<60, NOTIFY PROVIDER FOR INSTRUCTIONS; Duration: 30 01/10/2025 Active Lexapro 10 MG 1 tablet Orally Once a day Not-Taking LaMICtal 25 MG 2 tablet Orally twic e a day; Duration: 30 days Not-Takin g Primidone 50 MG 1.5 tablet Orally tw ice a day; Duration: 30 days Not-Taking Farxiga Not-Taking Sertraline HCl 25 MG 1 tablet Orally Onc e a day Not-Taking Meloxicam 7.5 MG 1 tablet Orally Once a day Not-Taking Social History Tobacco Use: Social [...] Problem Status W/U Status Risk Notes Problem Insomnia (165713484) Insomnia (G47.00) Active confirmed Problem Bipolar 1 disorder (470270881) Bipolar 1 disorder (F31.9) Active confirmed Problem Generalized anxiety disorder (62086159) MARILYN (generalized anxiety disorder) (F41.1) Active confirmed Vital Signs Heart Rate 67 /min 03/27/2025 Temperature 97.8 degrees Fahrenheit 03/27/2025 Respiratory Rate 16 /min 03/27/2025 Blood pressure diastolic 70 mm Hg 03/27/2025 Oximetry 98 % 03/27/2025 Height 5ft 8in in 03/27/2025 Blood pressure systolic 118 mm Hg 03/27/2025 Weight 159lb 8oz lbs 03/27/2025 BMI 24.25 kg/m2 03/27/2025 Encounters Encounter Location Date Provider Diagnosis [address] [address] 04/26/2024 Arif Habib Bipolar 1 disorder F31.[address] [address] 06/17/2024 Arif Hab Bipolar 1 disorder F31.[address] [address] 07/28/2024 Arif Habib [address] [address] 09/20/2024 Michelle Cadet Bipolar 1 disorder F31.9 ; MARILYN (generalized anxiety disorder) F41.1 and Tremor of both hands R25.[address] [address] 2024 Michelle Cadet MARILYN (generalized anxiety disorder) F41.1 ; Bipolar 1 disorder F31.9 and Tremor of both hands R25.[address] [address] 12/26/2024 Michelle Cadet Bipolar 1 disorder F31.[address] [address] 02/23/2025 Michelle Cadet Bipolar 1 disorder F31.9 ; Insomnia G47.00 and MARILYN (generalized anxiety disorder) F41.[address] [address] 03/27/2025 Michelle Cadet Insomnia G47.00 ; MDD (major depressive disorder), recurrent episode, severe F33.2 ; Bipolar 1 disorder F31.9 and MARILYN (generalized anxiety disorder) F41.[address] [address] 04/03/2025 Michelle Cadet [address] [address] 04/04/2024 Arif Habib [address] [address] 04/15/2024 Arif Habib [address] [address] 06/15/2024 Arif [facility] [address] [address] 06/17/2024 Arif [facility] [address] [address] 06/17/2024 Solo Bolanos Encounter for screening mammogram for breast cancer Z12.[address] [place] [address] 07/20/2024 Arif Habib Bipolar 1 disorder F31.[address] [place] [address] 07/28/2024 Arif [facility] [address] [place] [address] 08/30/2024 Michelle Cadet [address] [address] 10/04/2024 Michelle Cadet [facility] [address], [place] [address] 10/05/2024 Michelle Cadet [address] [address] 10/24/2024 Michelle Cadet [address] [address] 11/07/2024 Michelle Cadet [address] [address] 12/13/2024 Michelle Cadet [address] [place] [address] 01/06/2025 Michelle Cadet MARILYN (generalized anxiety disorder) F41.[address] [place] [address] 02/07/2025 Michelle Cadet [address] [address] 03/30/2025 Michelle Cadet MARILYN (generalized anxiety disorder) F41.1 and Bipolar 1 disorder F31.9 Assessments Encounter Date Diagnosis (ICD Code) Assessment Notes Treatment Notes Treatment Clinical Notes Section Notes 04/26/2024 Bipolar 1 disorder (ICD-10 - F31.9) risk & benefits discussed. Stop already stopped Lexapro due to shakes. Continue Klonopin 0.5 mg twice daily and Orick 150 mg daily. Side effects discussed. pt wants to continue Orick because this is the only medicine which helped. . 06/17/2024 Encounter for screening mammogram for breast cancer (ICD-10 - Z12.31) Patient Educated with: Mammogram - About this test.pdf (Mammogram - About this test.pdf) 06/17/2024 Bipolar 1 disorder (ICD-10 - F31.9) risk & benefits discussed. She already stopped Lexapro due to shakes. Continue Klonopin 0.5 mg twice daily and Orick 150 mg daily. Side effects discussed. pt wants to continue Orick because this is the only medicine which helped. . 07/20/2024 Bipolar 1 disorder (ICD-10 - F31.9) 09/20/2024 Bipolar 1 disorder (ICD-10 - F31.9) risk & benefits discussed. Continue Klonopin 0.5 mg at bedtime and Orick 150 mg daily. Side effects discussed. pt wants to continue Orick because this is the only medicine which helped. Discussed starting BuSpar and Propranolol, patient agreeable. Discussed side effects and action. 09/20/2024 MARILYN (generalized anxiety disorder) (ICD-10 - F41.1) 2024 Bipolar 1 disorder (ICD-10 - F31.9) Discussed side effects and action. 2024 MARILYN (generalized anxiety disorder) (ICD-10 - F41.1) 12/26/2024 Bipolar 1 disorder (ICD-10 - F31.9) 01/06/2025 MARILYN (generalized anxiety disorder) (ICD-10 - F41.1) 02/23/2025 Insomnia (ICD-10 - G47.00) 02/23/2025 Bipolar 1 disorder (ICD-10 - F31.9) 03/27/2025 Insomnia (ICD-10 - G47.00) 03/27/2025 MDD (major depressive disorder), recurrent episode, severe (ICD-10 - F33.2) 03/30/2025 MARILYN (generalized anxiety disorder) (ICD-10 - F41.1) 03/30/2025 Bipolar 1 disorder (ICD-10 - F31.9) 03/27/2025 Bipolar 1 disorder (ICD-10 - F31.9) 02/23/2025 MARILYN (generalized anxiety disorder) (ICD-10 - F41.1) 2024 Tremor of both hands (ICD-10 - R25.1) 09/20/2024 Tremor of both hands (ICD-10 - R25.1) 03/27/2025 MARILYN (generalized anxiety disorder) (ICD-10 - F41.1) Plan Of Treatment Future Test Test Name Order Date Mammogram Breast - Bilateral Screening with ABUS, diagnostic mammogram/ultrasound, and/or biopsy as clinically indicated 06/24/2024 Insurance Providers Payer Name Payer Address Payer Phone Subscriber Number Group Number Insured Name Patient Relationship to Insured Coverage Start Date Coverage End Date [employer] Medicare [address] [place] [address] [id number] Laurie Nava Self - patient is the insured 2 2 [facility] Att[facility] Claims Department [address] [place] [address] [id number] Laurie Nava Self - patient is the insured 3 3 MEDICAID [address] [place] [address] [id number] Laurie Nava Self - patient is the insured 4 Medical (General) History Medical History History ICD Code Kidney disease Bipolar disorder Surgical History Surgery Date(Month/Year) Bilateral hand surgeries for arthritis Ankle surgery Hysterectomy Caesarean section cataracts 12/2023 Hospitalization History Reason Date(Month/Year)
--- OUTSIDE RECORDS SUMMARY | 2025-04-03 15:24 | XMS_ITS | Patient Health Record ---
Author Organization [facility] Address [address] [place] [address] Care Team Providers Care Paper Handler Name Role Phone Farshad JOSEPH, Jose Primary Care Provider Randal Cruz Unavailable [phone] Reason For Referral No Information Medications Medication SIG (Take, Route, Frequency, Duration) Notes Start Date End Date Status Propranolol HCl 20 MG Tablet Oral 03/29/2021 Active Nystatin 526361 UNIT/GM Powder External 03/29/2021 Active Amoxicillin-Pot Clavulanate 875-125 MG Tablet Oral 03/29/2021 Active Pantoprazole Sodium 40 MG Tablet Delayed Release Oral 03/29/2021 Activ e Cefdinir 300 MG Capsule Oral 03/29/2021 Active tiZANidine HCl 4 MG Tablet Oral 03/29/2021 Active Vitamin D3 Super Strength 50 MCG (1999 UT) Capsule Oral 03/29/2021 Active predniSONE 10 MG Tablet Oral 03/29/2021 Active OXcarbazepine 150 MG Tablet Oral 03/29/2021 Active clonazePAM 0.5 MG Tablet Oral 03/29/2021 Active [place] Carbonate 150 MG Capsule Oral 03/29/2021 Active Immunizations Vaccine Route Administration Date Status Comme nts Influenza, unspecified formulation Unknown 03/27/2012 A dministered Influenza, unspecified formulation Unknown 01/18/2014 A dministered Moderna Covid-19 Vaccine 1st dose Unknown 08/01/2020 Ad ministered Moderna Covid-19 Vaccine 1st dose Unknown 08/29/2020 Ad ministered Zoster Unknown 08/02/2017 Administered Zoster Unknown 10/29/2017 Administered Zoster Unknown 11/12/2017 Administered Social History Sex Assigned At : Social History Observation Description Sex Assigned At Female Social History Additional Details Category Social Info Options Details Migrated Social History Migrated Social History Alcohol Intake: None 09/19/2020,Tobacco Years: Never smoker 08/31/2020 Plan Of Treatment No Information Insurance Providers Payer Name Payer Address Payer Phone Subscriber Number Group Number Insured Name Patient Relationship to Insured Coverage Start Date Coverage End Date A[employer] o [address] [place] [address] [id number] JEN SAEZ Self - patient is the insured [facility] Plan [facility] - On Or After 2020 [address] [place] [address] [id number] JEN SAEZ Self - patient is the insured Medical (General) History Surgical History Surgery Date(Month/Year) Tonsillectomy (322104586) delivery (10575) twice Hysterectomy/revise vagina (02566)
--- OUTSIDE RECORDS SUMMARY | 2025-04-03 15:25 | XMS_ITS | Clinical Summary ---
Author Organization [facility] Address [address] [place] [address] Phone Care Team Providers Care Sap Basis Consultant Name Role Phone Jose Yen MD Primary Care Provider [phone] Allergies Active Allergy Reactions Criticality Noted Date [...] 07/09/2021 Insurance [employer] MEDICARE ADVANTAGE Care Teams Sap Basis Consultant Relationship Specialty Start Date End Date Jose Yen MD [address] [place] [address] PCP - General Family Medicine 07/23/21
--- OUTSIDE RECORDS SUMMARY | 2025-04-03 15:25 | XMS_ITS | Encounter Summary ---
Author Organization [facility] Address [address] [place] [address] Care Team Providers Care Test Designer Name Role Phone Jose Yen MD Primary Care Provider [phone] Reason for Visit * Auth/Cert (Routine) Specialty Diagnoses / Procedures Referred By Contac t Referred To Contact Referral ID Status Reason Start Date Expiration Date Visits Re quested Visits Authorized [id number] 1 1 Encounter Details Date Type Department Care Team (Late st Contact Info) Description 03/30/2025 Home Care Visit [facility] [place] [address] [address] [place] [id number] Soila Reese, PT TELEPHONE ENCOUNTER Social History Tobacco Use Types Packs/Day Years [...] any time in the past 12 m [facility], were you homeless or living in a chcf (including now)? No 11/02/2024 Humiliation, Afraid, Rape, [...] week 03/02/2025 How often do you attend [facility] or yazidism services? More than 4 times per year 03/02/2025 Do you belong to any clubs o r organizations such as zoroastrianism groups, unions, fraternal or athletic groups, or [...] and heating? Not hard at all 03/02/2025 [facility] - Occupational Stress [...] any time in the past 12 m [facility], were you homeless or living in a chcf (including now)? No 03/02/2025 [facility] Utilities Answer Date Recorded In the past [...] on file Legal Sex Female 12:09 AM [employer] Gender Identity Not on file Sexual Orientation Not on file documented as of this encounter Plan of Treatment Not on file documented as of this encounter Visit Diagnoses Not on filedocumented in this encounter Care Teams Test Designer Relationship Specialty Start Date End Date Jose Yen MD PCP - General Family Medicine 10/15/21 documented as of this encounter
--- OUTSIDE RECORDS SUMMARY | 2025-04-03 15:25 | XMS_ITS | Clinical Summary ---
Author Organization [facility] [address] [place] [id number] Care Team Providers Care Stitching Machine Setter Name Role Phone Jose Yen MD Primary Care Provider [phone] Allergies Active Allergy Reactions Criticality Noted Date Comments Lamotrigine Other (See comments) 11/06/2024 Muscle spasms Sulfa (Sulfonamide Antibiotics) Rash,Unknown High 08/28/2021 Medications Farxiga 10 mg tabletIndicati ons:Chronic Kidney Disease Take 1 tablet (10 mg total) by mouth daily 06/08/18 70 Active pravastatin (PRAVACHOL) 20 mg tabletIndicati ons:arterioscl erotic vascular disease Take 1 tablet (20 mg total) by mouth daily 09/17/19 25 Active acetaminophen (TYLENOL) 500 mg tabletIndicati ons:Pain Take 1 tablet (500 mg total) by mouth every 6 (six) hours as needed for pain Active polyethylene glycol (MIRALAX) 17 gram/dose bulk powderIndicati ons:constipati on Take 17 g by mouth daily 510 g 02/22/20 25 Active senna-docusate (PERICOLACE) 8.6-50 mgIndications: constipation Take 1 tablet by mouth daily as needed for constipation 30 tablet 02/22/20 25 Active ARIPiprazole (ABILIFY) 15 mg tabletIndicati ons:Depression Treatment Adjunct Take 0.5 tablets (7.5 mg total) by mouth nightly 15 tablet 03/18/20 25 025 Active propranoloL (INDERAL) 10 mg tabletIndicati ons:Essential Tremor Take 3 tablets (30 mg total) by mouth 2 (two) times a day 60 tablet 03/18/20 25 Active traZODone (DESYREL) 50 mg tabletIndicati ons:insomnia Take 1 tablet (50 mg total) by mouth nightly 30 tablet 03/18/20 25 025 Active traZODone (DESYREL) 50 mg tabletIndicati ons:Anxiety Take 0.5 tablets (25 mg total) by mouth 3 (three) times a day as needed (Anxiety) 30 tablet 03/18/20 25 025 Active clonazePAM (KlonoPIN) 0.5 mg tabletIndicati ons:Panic Disorder Take 0.5 mg by mouth nightly. Indications: panic disorder Active pantoprazole DR (PROTONIX) 40 mg EC tabletIndicati ons:Treatment of Non-Bleeding Gastric Disorder Take 40 mg by mouth daily. Indications: Treatment of Non-Bleeding Gastric Disorder 01/13/20 25 Active propranoloL (INDERAL) 10 mg tabletIndicati ons:Essential Tremor Take 3 tablets (30 mg total) by mouth 2 (two) times a day 60 tablet 02/22/20 25 025 Discontinued traZODone (DESYREL) 50 mg tabletIndicati ons:insomnia Take 1 tablet (50 mg total) by mouth nightly 30 tablet 02/22/20 25 025 Discontinued ARIPiprazole (ABILIFY) 15 mg tabletIndicati ons:Depression Treatment Adjunct Take 0.5 tablets (7.5 mg total) by mouth nightly 15 tablet 02/22/20 25 025 Discontinued traZODone (DESYREL) 50 mg tabletIndicati ons:Anxiety Take 0.5 tablets (25 mg total) by mouth 3 (three) times a day as needed (Anxiety) 30 tablet 02/22/20 25 025 Discontinued Active Problems Problem Noted Date Diagnosed Date Suicide ideation 03/07/2025 Unspecified neurocognitive disorder 03/02/2025 Assessment & Plan (03/05/2025 9:39 AM CDT): MOCA 03/02/2025 was 18/30. Main problems in visual/spatial and attention areas. May be playing role in presentation (poor coping skills due to neurocognitive decline). Assessment & Plan (03/03/2025 8:23 AM CDT): MOCA 03/02/2025 was 18/30. Main problems in visual/spatial and attention areas. May be playing role in presentation (poor coping skills due to neurocognitive decline). Dysuria 02/21/2025 Assessment & Plan (02/21/2025 1:07 PM CDT): Patient continues to endorse dysuria with occasional frequency. Past two urine studies have been contaminated with epithelial cells but have both been remarkable for 2+/3+ leukocyte esterase suggestive of possible urinary tract infection. Patient is afebrile and still urinating without issue. Given symptoms, will prophylactically treat. Will use ciprofloxacin 250mg BID x 3 days given low creatinine clearance. Patient MSE with low concern for low delirium (A&Ox3, able to state months backwards correctly). - Ciprofloxacin 250mg BID x 3 days Bilateral hearing loss 02/21/2025 Assessment & Plan (02/21/2025 1:18 PM CDT): Patient reports historic hearing loss, previously on hearing aids but could not place them due to bilateral tremor. Otoscope positive for cerumen bilaterally. Hearing loss likely a combination of sensorineural hearing loss due to aging process and conductive hearing loss from wax buildup. She denies ear fullness, pain, or vertigo. - Debrox ear drops bilaterally Major depressive disorder, recurrent episode Assessment & Plan (02/21/2025 1:21 PM CDT): Patient has a hx of Bipolar Disorder or MDD. Depression started in September after the of loved ones. Then depression and anxiety worsened when she lost her home health aide and no longer had help with cleaning (her son is very unhygienic). Was stable on [place] for 30 years until her OP psych decreased the dose due to concerns it was causing CKD. She then completely d/c'ed it. Since then, she's been hospitalized many times with different med titrations. In [facility] in October, ECT caused hypomania. She felt great and back to baseline after discharge on trazodone, fluvoxamine, and haldol. She was discharged from [facility] on 01.26 on just home klonopin and her depression worsened with new SI. Interval Updates: Patient notes some overnight anxiety but otherwise reports feeling good. Continues to appear euthymic often smiling during conversations with interviewers. Does not endorse thoughts of SI nor intent, and reports improvement in mood with ECT treatment. She is tolerating treatments well and denies side effects to medications. She will be returning home with family and was agreeable to this plan. Referral placed for home health. PLAN: - ECT MWF (RUL 100% s/p #5 tx) - IVF 500 mL bolus prior to treatment - Aripiprazole 7.5 mg QHS - Trazodone 50 mg QHS - Trazodone 25 mg TID PRN for anxiety - MOCA - OT/PT consult - PT now recommending long-term care, OT recommending [facility] facility - In case of agitation: - Olanzapine 10 mg Q6H PRN PO or IM Major depressive disorder, r ecurrent severe without psychotic features 11/04/2024 Stage 3b chronic kidney disease 11/02/2024 Assessment & Plan (03/15/2025 1:54 PM CDT): Hx CKD3b due to lithium use (GFR 36). Follows with nephrology (Dr. Landers). - BMP 03/08 with Cr elevated to 1.90 and CrCl newly updated to 22.8 mL/min. Due to ongoing concerns of worsening kidney function, lithium was discontinued 03/08. Cr has subsequently improved to 1.82. Assessment & Plan (03/03/2025 12:53 PM CDT): Hx CKD3b due to lithium use (GFR 36). Follows with nephrology (Dr. Landers). PLAN: - CTM kidney function with weekly BMPs (Wednesdays) as patient restarts lithium Assessment & Plan (02/18/2025 9:03 AM CDT): Patient has hx of CKD stage 3b with GFR of 36. Per 02/24/2022 note from her frame builder Dr. Landers, she most likely she has ckd from [place] use. He has educated her that continued use of lithium will probably lead to very slow loss of kidney function that could lead to dialysis. PLAN: - Appropriate PO hydration. Will pre-treat with 500 mL IVF NS prior to ECT. Assessment & Plan (11/02/2024 3:14 AM CDT): History of CKD III. Cr 1.32 on admission. Baseline appears to be 1.3 per chart review. 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 Last discharged on propranolol 30mg BID. Held in early admission d/t concerns for low BP in the ED (91/69, HR 54), restarted 03/06. 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 Last discharged on propranolol 30mg daily. 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 These tremors have worsened since she was hospitalized at [facility] in early January 2025, unclear if caused by worsening anxiety, med side-effects, etc. She now has difficulty even drinking a glass of water because she shakes so much. She has a minimal tremor at rest when hands are in her lap. The tremor worsens when her hands are outstretched and with a [id number] test. This appears consistent with essential tremor. She's been treated with propranolol for at least a couple of years. Titrated to propanolol 30mg and will continue to monitor. PLAN: - Continue home propranolol 30 mg BID (hold if SBP < 90, HR < 60) Assessment & Plan (11/13/2024 8:53 AM CDT): [...] mg BID - consider OP neuro referral Bipolar 1 disorder, depressed, severe 11/01/2024 Assessment & Plan (03/15/2025 1:55 PM CDT): Continues to endorse depression with anxiety and stress related to other patients on the unit, situation with son, and disposition with potential placement. Eating and drinking well, tolerating ECT with headaches that have been relieved by Tylenol. Due to ongoing ADALBERTO on CKD concerns, will lithium was discontinued. - Continue Abilify 15 mg daily - Continue trazodone 50 mg nightly - ECT MWF - Coordinate with SW about nursing facility placement - Agitation PRN: Olanzapine 5 mg Q8H PRN PO or IM Assessment & Plan (03/04/2025 11:04 AM CDT): Patient continues to express that she has depression and anxiety, but willing to proceed with current treatment plan. Will proceed with ECT on Thursday pending cardiology evaluation for chest pain. Will continue coordinating with SW about usp placement. No medication changes for now. Update: cotninues to require 24 hour supervision due to residual symptoms of low mood. She requires ECT and ongoing cardiac monitoring and would not be appropriate for OP care at this time or a less restrictive setting. 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 Endorses some mild tenderness on palpation to umbilicus. No exquisite tenderness or guarding and patient is still passing flatus/tolerating PO intake so low concern for acute abdominal process at this time. Will restart bowel regimen today. - Miralax daily - Restart Senna/Doc 8.6-50mg daily Assessment & Plan (11/08/2024 9:34 AM CDT): Large bowel movement 11/07. - Sched daily miralax - Senna daily Hyperthyroidism 11/02/2024 11/03/2024 Assessment & Plan (11/02/2024 [...] discontinue at this time. -Discontinue home Klonopin Routine health maintenance 11/01/2024 0 11/02/2024 Assessment [...] Fatigue 11/08/2013 11/01/2024 Overview (09/11/2016): Fatigue Chest pain, resolved 11/08/2013 025 Overview (03/03/2025): Assessment & Plan (03/07/2025 3:30 PM CDT): Patient endorses chest pain that she describes as dull pain on the R and L side of chest. Seen by cardiology who signed off given negative trops an ECG unchanged from baseline. TTE performed 03/03 showed hyperdynamic LV systolic function, EF 80%, Grade 1 diastolic function. Per cardiology, patient is stable to proceed with ECT. Assessment & Plan (03/03/2025 1:15 PM CDT): Patient endorses chest pain that she describes as dull pain on the R and L side of chest. Intermittent SOB, no palpitations or skipping beats. Has history of chest pain in the past and right bundle branch block. Will proceed with cardiology consult before restarting anesthesia and ECT. - EKG - Troponin series - Echo - Appreciate cardiology recommendations Abnormal cardiovascular stress test 11/08/2013 11/01/2024 Overview (09/11/2016): Abnormal stress test Standard chest x-ray abnormal 02/18/2013 11/01/2024 Encounters Date Type Department Care Team Description 04/03/2025 12:30 PM CDT Home Care Visit [address] [place] [address] Marie Villa, JOSELINE SN HOME VISIT 04/03/2025 9:30 AM CDT Home Care Visit [address] [place] [address] Irene Rick, OT OT HOME VISIT 04/03/2025 Home Care Visit [address] [place] [address] Soila Reese, PT TELEPHONE ENCOUNTER 03/30/2025 11:00 AM CDT Home Care Visit [address] [place] [address] Irene Rick, OT OT HOME VISIT 03/30/2025 9:00 AM CDT Home Care Visit [address] [place] [address] Marie Villa, JOSELINE SN HOME VISIT 03/30/2025 Home Care Visit [address] [place] [address] Soila Reese, PT TELEPHONE ENCOUNTER 03/29/2025 12:00 PM CDT Home Care Visit [address] [place] [address] Soila Reese, PT PT REASSESSMENT 03/29/2025 Home Care Visit [address] [place] [address] Bo Rodarte, [facility] CASE COMMUNICATION 03/28/2025 12:30 PM CDT Home Care Visit [address] [place] [address] Bo Rodarte LCSW CATERING DIRECTOR INITIAL EVAL 03/28/2025 10:30 AM CDT Home Care Visit [address] [place] [address] Irene Rick, OT OT REASSESSMENT 03/27/2025 12:30 PM CDT Home Care Visit [address] [address] [place] [address] Fernando Mcdonald, JOSELINE SN OASIS RESUMPTION OF CARE 03/27/2025 Home Care Visit [address] [address] [place] [address] Bo Rodarte LCSW CASE COMMUNICATION 03/27/2025 Plan of Care Documentation [address] [address] [address] [place] [address] 03/22/2025 Home Care Visit [address] [place] [address] Pattie Guerrier, RN TELEPHONE ENCOUNTER 03/21/2025 Home Care Visit [address] [place] [address] Pattie Guerrier, RN TELEPHONE ENCOUNTER 03/15/2025 2:33 PM CDT Anesthesia Event [address] [address] Prasad Pro MD Sillery, Sarah Lynn, CRNA 03/13/2025 9:04 AM CDT Anesthesia Event [address] [address] Naren Lozada MD PhD 03/10/2025 9:24 AM CDT Anesthesia Event [address] [address] Anthony Elizalde III, MD PhD 03/08/2025 11:13 AM CDT Anesthesia Event [address] [address] Frank Virgen MD Brake, Barbara E., NP 03/06/2025 10:08 AM CDT Anesthesia Event [address] [address] Yoli Araya MD 03/03/2025 Home Care Visit [address] [place] [address] Marie Villa, JOSELINE SN OASIS TRANSFER W/OUT DC 03/03/2025 Telephone [facility] Medicine Cardiology [address] [place] [address] [place] [address] Rosario Haskins 03/01/2025 10:58 AM CDT - 03/18/2025 11:12 AM CDT Hospital Encounter [address] [address] Michael Delgado Jr., MD de Leon, MD Marry Back, MD Peyton Richards, Lisa Chatterjee MD Suicide ideation (Primary Dx); Severe episode of recurrent major depressive disorder, without psychotic features (HCC); Chronic renal impairment, unspecified CKD stage; Bipolar 1 disorder, depressed, severe (HCC) [F31.4]; Major depressive disorder, recurrent severe without psychotic features (HCC) Discharge Disposition: Discharge to home or self care 03/01/2025 9:30 AM CDT Home Care Visit [address] [place] [address] Antionette Avila OT OT INITIAL EVALUATION 02/28/2025 Home Care Visit [address] [place] [address] Marie Villa, RN CARE CONFERENCE 02/27/2025 2:58 PM CDT - 02/28/2025 1:59 AM CDT Emergency [facility] Emergency Department [address] [place] [phone] Oscar Vela MD Depression, unspecified depression type (Primary Dx); Anxiety; Suicidal ideation Discharge Disposition: Discharge to home or self care 02/27/2025 1:30 PM CDT Home Care Visit [address] [place] [address] Zan Hester, PT PT HOME VISIT 02/27/2025 Telephone Psychiatry Roger Schmitz MD 02/24/2025 1:00 PM CDT Home Care Visit [address] [place] [address] Fernando Dowling, PT PT INITIAL EVALUATION 02/23/2025 9:30 AM CDT Home Care Visit [address] [place] [address] Marie Villa, JOSELINE SN OASIS START OF CARE 02/23/2025 Plan of Care Documentation [address] [place] [address] 02/22/2025 10:48 AM CDT Anesthesia Event [address] [address] Atul Suh MD 02/20/2025 10:19 AM CDT Anesthesia Event [address] [address] Jason Crawford MD 02/17/2025 10:47 AM CDT Anesthesia Event [address] [address] Naren Lozada MD PhD 02/15/2025 10:24 AM CDT Anesthesia Event [address] [address] Prasad Pro MD 02/13/2025 12:12 PM CDT Anesthesia Event [facility] [address] [place] [address] Angy Saavedra MD 02/10/2025 10:06 AM CDT Anesthesia Event [facility] [address] [place] [address] Da Rosario MD 01/31/2025 11:44 AM CDT - 02/22/2025 1:30 PM CDT Hospital Encounter [address] [address] Ambrocio Mabry MD Trillo Alvarez, Ludwig, MD Richardson, Thomas F., MD Severe episode of recurrent major depressive disorder, without psychotic features (HCC) (Primary Dx); Suicidal ideation; Unspecified mood disorder; Essential tremor; Stage 3b chronic kidney disease (HCC); Major depressive disorder, recurrent severe without psychotic features (HCC) Discharge Disposition: Discharge to home or self care from Last 3 Months Immunizations Immunization Administration Dates Next Due Influenza, Quadrivalent, Hig h Dose, Preservative Free, Intrr 03/16/2022,06/27/2021 Influenza, Trivalent, IM (MDV) 07/09/2021 Influenza, Unspecified 01/18/2014,03/27/2012 Pneumococcal Conjugate Pcv20 08/29/2021 ZOSTER LIVE 11/12/2017 ZOSTER Recombinant 10/29/2017,08/02/2017 Surgical History Surgery Date Site/Laterality Comments SECTION KNEE SURGERY Left HAND TENDON SURGERY Right HAND SURGERY Left FOOT TENDON SURGERY Left DILATION AND CURETTAGE OF UTERUS x2 HYSTERECTOMY COLONOSCOPY CATARACT EXTRACTION W/ INTRAOCULAR LENS IMPLANT Bilateral REPLACEMENT TOTAL KNEE Medical History Medical History Date Comments Arrhythmia [...] Tobacco: Never Tobacco Cessation:Counseling Given: Not Answered Alcohol Use Standard Drinks/Week Comments Never 0 [...] any time in the past 12 m [facility], were you homeless or living in a [facility] (including now)? No 11/02/2024 Humiliation, Afraid, Rape, [...] 03/02/2025 How often do you attend chur or islam services? More than 4 times per year 03/02/2025 Do you belong to any clubs o r organizations such as buddhist groups, unions, fraternal or athletic groups, or [...] and heating? Not hard at all 03/02/2025 [facility] [place] of Occupat ional Health - Occupational Stress [...] any time in the past 12 m [facility], were you homeless or living in a [facility] (including now)? No 03/02/2025 [facility] Utilities Answer Date Recorded In the past 12 months has th e [employer], gas, oil, or water [employer] threatened to shut off services in your home? No 03/02/2025 Personal Safety Answer Date Recorded Have you ever been in or are you currently in a harmful physical or emotional relationship or is someone making you feel afraid or unsafe? Denies 03/01/2025 Comments No Sex and Gender Information Value Date Recorded Sex Assigned at Not on file Legal Sex Female 12:09 AM [employer] AGENT Gender Identity Not on file Sexual Orientation [...] CDT Inhaled Oxygen Concentration - - Weight 68.9 kg (152 lb) 03/01/2025 8:34 PM CDT Height 167.6 cm (5' 6) 03/01/2025 8:34 PM CDT Body Mass Index 24.53 03/01/2025 8:34 PM CDT Plan of Treatment Health Maintenance Due Date Last Done Comments Depression Screening 1945 Osteoporosis Screening-Bone Density Scan 1945 DTaP/Tdap/Td Vaccine (1 - Tdap) 1957 Hepatitis B Screening 1964 Well Visit 65+ 10/19/2011 Covid-19 Vaccine (4 - 2024-2 6 season) 2025 04/30/2021, 08/29/2020, 08/01/2020 Influenza Vaccine (#1) 2025 , 03/16/2022, 07/09/2021, Additional history exists Fall Risk Assessment 03/18/2026 03/18/2025 Zoster Vaccine Completed 11/12/2017, 10/07, 08/02/2017 Pneumococcal vaccine 65+ Completed 08/29/2021 Hepatitis C Screening Completed 11/01/2024 Procedures Procedure Name Priority Date/Time Associated Diagnosis Comments ECT SCHEDULING Routine 03/15/2025 6:52 AM CDT Major depressive disorder, recurrent severe without psychotic features (HCC) EGFR Timed 03/14/2025 9:26 PM CDT BASIC METABOLIC PANEL Timed 03/14/2025 9:26 PM CDT ELECTROCONVULSIVE THERAPY Routine 03/13/2025 6:53 AM CDT Major depressive disorder, recurrent severe without psychotic features (HCC) TROPONIN I HIGH-SENSITIVITY SERIES (BASELINE, 2HR, 4HR, 6HR) Routine 03/11/2025 3:05 PM CDT ELECTROCONVULSIVE THERAPY Routine 03/10/2025 7:06 AM CDT Major depressive disorder, recurrent severe without psychotic features (HCC) ELECTROCONVULSIVE THERAPY Routine 03/08/2025 8:05 AM CDT Major depressive disorder, recurrent severe without psychotic features (HCC) EGFR Timed 03/07/2025 9:00 PM CDT LITHIUM LEVEL Timed 03/07/2025 9:00 PM CDT BASIC METABOLIC PANEL Timed 03/07/2025 9:00 PM CDT ELECTROCONVULSIVE THERAPY Routine 03/06/2025 7:21 AM CDT Major depressive disorder, recurrent severe without psychotic features (HCC) TRANSTHORACIC ECHO (TTE) COMPLETE W DOPPLER/CF W CONTRAST Routine 03/04/2025 8:44 AM CDT TROPONIN I HIGH-SENSITIVITY 6-HOUR Timed 03/03/2025 6:02 PM CDT TROPONIN I HIGH-SENSITIVITY 4-HOUR Timed 03/03/2025 4:09 PM CDT TROPONIN I HIGH-SENSITIVITY 2-HOUR Timed 03/03/2025 1:36 PM CDT TROPONIN I HIGH-SENSITIVITY SERIES (BASELINE, 2HR, 4HR, 6HR) Routine 03/03/2025 11:49 AM CDT ECG 12-LEAD Routine 03/03/2025 11:41 AM CDT ELECTROCONVULSIVE THERAPY Routine 03/03/2025 7:08 AM CDT Major depressive disorder, recurrent severe without psychotic features (HCC) URINALYSIS, MICROSCOPIC ONLY STAT 03/01/2025 11:29 AM CDT URINALYSIS AND REFLEX TO MICROSCOPIC STAT 03/01/2025 11:29 AM CDT DRUGS OF ABUSE SCREEN, URINE WITHOUT CONFIRMATION STAT 03/01/2025 11:29 AM CDT EGFR STAT 03/01/2025 11:16 AM CDT DIFFERENTIAL AUTO STAT 03/01/2025 11: 16 AM CDT ETHANOL STAT 03/01/2025 11:16 AM CDT THYROID FUNCTION CASCADE STAT 025 11:16 AM CDT COMPREHENSIVE METABOLIC PANEL STAT 03/01/2025 11:16 AM CDT CBC WITH AUTO DIFFERENTIAL STAT 03/01/2025 11:16 AM CDT [facility] ILL/INJURED PATIENT INIT 30-74 MIN Routine 02/27/2025 11:00 PM CDT URINALYSIS, MICROSCOPIC ONLY STAT 02/27/2025 3:48 PM CDT URINALYSIS AND REFLEX TO MICROSCOPIC STAT 02/27/2025 3:48 PM CDT DRUGS OF ABUSE SCREEN, URINE WITHOUT CONFIRMATION STAT 02/27/2025 3:48 PM CDT EGFR STAT 02/27/2025 3:16 PM CDT DIFFERENTIAL AUTO STAT 02/27/2025 3:1 6 PM CDT ETHANOL STAT 02/27/2025 3:16 PM CDT THYROID FUNCTION CASCADE STAT 025 3:16 PM CDT COMPREHENSIVE METABOLIC PANEL STAT 02/27/2025 3:16 PM CDT CBC WITH AUTO DIFFERENTIAL STAT 02/27/2025 3:16 PM CDT ELECTROCONVULSIVE THERAPY Routine 02/22/2025 8:42 AM CDT Major depressive disorder, recurrent severe without psychotic features (HCC) URINALYSIS, MICROSCOPIC ONLY Routine 02/20/2025 12:58 PM CDT URINALYSIS AND REFLEX TO MICROSCOPIC AND CULTURE Routine 02/20/2025 12:58 PM CDT URINALYSIS, MICROSCOPIC ONLY Routine 02/18/2025 3:00 PM CDT URINALYSIS AND REFLEX TO MICROSCOPIC AND CULTURE Routine 02/18/2025 3:00 PM CDT POTASSIUM LEVEL Routine 02/17/2025 12:30 PM CDT TROPONIN I HIGH-SENSITIVITY SERIES (BASELINE, 2HR, 4HR, 6HR) STAT 02/06/2025 11:58 AM CDT ECG 12-LEAD Routine 02/06/2025 11:41 AM CDT XR ABDOMEN AP 1 VIEW IP Routine 02/03/2025 5:31 PM CDT URINALYSIS AND REFLEX TO MICROSCOPIC STAT 01/31/2025 1:52 PM CDT DRUGS OF ABUSE SCREEN, URINE WITHOUT CONFIRMATION STAT 01/31/2025 1:52 PM CDT [facility] ILL/INJURED PATIENT INIT 30-74 MIN Routine 01/31/2025 12:53 PM CDT XR ABDOMEN 2 VIEWS W CHEST 1 VIEW ED 01/31/2025 12:38 PM CDT EGFR STAT 01/31/2025 11:50 AM CDT DIFFERENTIAL AUTO STAT 01/31/2025 11: 50 AM CDT ETHANOL STAT 01/31/2025 11:50 AM CDT THYROID FUNCTION CASCADE STAT 025 11:50 AM CDT COMPREHENSIVE METABOLIC PANEL STAT 01/31/2025 11:50 AM CDT CBC WITH AUTO DIFFERENTIAL STAT 01/31/2025 11:50 AM CDT HEPATITIS C ANTIBODY Routine 11/01/2024 10:53 PM CDT from Last 3 Months or Most Recently Relevant to Health Maintenance Results * ECT Scheduling - (03/15/2025 6:52 AM CDT) Narrative Prateek Bojorquez MD - 03/15/2025 6:52 AM CDT Prateek Bojorquez MD 03/15/2025 9:27 PM I was present for the entire procedure. Prateek Bojorquez MD ECT Treatment Note Pre-Procedure Procedure: ECT inpatient Court Ordered : No Preprocedure Diagnosis: Major depressive disorder, 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 No records for laterality or charge. [address] [facility] hospitalization in November 2024, RUL 100%, which induced hypomania (shown in table below) Previous Treatment Summary: Treatment # Date Laterality Charge Frequency 11/04/24 RUL 5 -> 10 -> 15 -> 100%, seized at 100% 3x/wk 11/07/24 RUL 100% 3x/wk 11/09/24 RUL 100% 3x/wk 11/11/24 RUL 100% 3x/wk 11/14/24 RUL 100% 3x/wk Did not pursue ECT in outpatient setting after discharge Re-hospitalized at [facility] 02/02/25 Prior # of ECTs this course: 10 This Treatment is unilateral Unilateral # 11 Bilateral # 0 Bifrontal # 0 Current Treatment Summary: Treatment # Date Laterality Charge Frequency 1. 02/10/25 RUL 100% 3x/wk 2. 02/13/25 RUL 100% 3x/wk 3. 02/15/25 RUL 100% 3x/wk 4. 02/17/25 RUL 100% 3x/wk 5. 02/20/25 RUL 100% 3x/wk 6. 02/22/25 RUL 100% 3x/wk-->weekly (discharging, outpatient) Note: patient missed ECT 2/2 transportation issues. Had worsening depression and SI and was readmitted on 03/01/25 Note: planned ECT on 03/03/25 canceled 2/2 chest pain 7. 03/06/25 RUL 100% 3x/wk 8. 03/08/25 RUL 100% 3x/wk 9. 03/10/25 RUL 100% 3x/wk 10. 03/13/25 RUL 100% 3x/wk 11. 03/15/25 RUL 100% 3x/wk Interval History: Laurie says she is ok. She does feel her depression is better. She reports some headache with ECT. Has not had n/v recently, but had it with previous treatments. Denies SI, HI, AVH. 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 Physical Exam: Vitals: Vitals: 03/15/25 1206 BP: 132/64 Pulse: 64 Resp: 16 Temp: 36.3 C (97.3 F) SpO2: 96% Cardiac: Regular rate and rhythm. No murmurs, rubs, or gallops. Respiratory:Lungs clear to auscultation bilaterally. No wheezes, rhonchi, or rales. Abdominal: Soft, nontender, nondistended, positive bowel sounds. Extremities: No edema, pulses 2+ Other: Mental Status Exam: General: Calm, cooperative, good eye contact. No bizarre behavior. Speech: Regular rate and rhythm, normal volume, amount, latency, and tone. Flow of Thought: Logical, sequential, and goal-directed Content of Thought: No suicidal or homicidal ideation. No hallucinations or delusions. Mood: Ok Affect: Euthymic with normal range. Insight:fair Judgement: fair Sensorium: grossly alert Memory: normal based on conversation/exam LABORATORY/DIAGNOSTIC DATA REVIEW: Laboratory review: Lab results in the last 24 hours: Recent Results (from the past 24 hours) Basic metabolic panel Collection Time: 03/14/25 9:26 PM Result Value Ref Range Sodium 144 135 - 145 mmol/L Potassium, pl 4.1 3.3 - 4.9 mmol/L Chloride 110 97 - 110 mmol/L CO2 24 22 - 32 mmol/L Anion gap 10 2 - 15 mmol/L BUN 41 (H) 6 - 25 mg/dL Creatinine 1.82 (H) 0.60 - 1.10 mg/dL Glucose 138 70 - 199 mg/dL Calcium 9.4 8.5 - 10.3 mg/dL eGFR Collection Time: 03/14/25 9:26 PM Result Value Ref Range eGFR 28 (L) >=60 mL/min/1.73 m2 ASSESSMENT: QIDS-SR (02/09/25): 14 QIDS-SR (02/13/25): not completed QIDS-SR (02/15/25): 15 QIDS-SR (02/20/25): 9 QIDS-SR (02/22/25): 10 QIDS-SR (03/03/2025):Not completed QIDS-SR (03/06/2025): Not completed QIDS-SR (03/08/2025): 14 QIDS-SR (03/10/2025): Not completed QIDS-SR (03/13/2025): Not completed QIDS-SR (03/15/2025): not completed Diagnosis: MDD without psychosis Additional Attending Comments: I identified myself to the patient as the Attending performing their treatment, personally consented the patient, and answered any question they had about receiving ECT. Procedure Note TIME OUT Attestation Prior to the start of the procedure, verbal verification by the procedure participant(s) confirmed (as applicable): correct patient identity, agreement on the procedure to be done; correct patient positioning; an accurate procedure consent form, relevant images and results correctly labeled and displayed; any safety precautions based on clinical history and/or medication use have been addressed. Medication Plan: Medication: Dose: etomidate 0mg methohexital 0mg ketamine 70mg succinylcholine 40mg ondansetron 4mg ketorolac 0mg sumatriptan 0mg glycopyrrolate 0mg Pretreatment meds: -NS 500 cc bolus -Caffeine 250 mg Thymatron Treatment Parameters: Right Unilateral: Charge: 100% Pulse Width: 0.25 msec Frequency: 140 Hz Titration: [] YES Bite block placed: Yes Peripheral seizure duration: 30 sec EEG seizure duration: 79 sec Comments: Continue RUL 100% 3x/week Post Procedure: Attending Psychiatrist: Prateek Bojorquez MD Assistants: Rosario Odonnell DO and Cristian Gaxiola MD Post Procedure Diagnosis: Same Name of Procedure: Electroconvulsive Therapy (ECT) Description of the Procedure Findings: none Estimated Blood Loss: none Specimens Removed: none Complications: none Comments: Condition on leaving ECT recovery: stable us Keena Monk MD BEHAVIORAL HEALTH ORDERABLES Edited Result - Final * (ABNORMAL) eGFR (03/14/2025 9:26 PM CDT) Pathologist [facility] eGFR 28(L) >=60 mL/min/1. 73 m2 Comment: Interpretive Data [...] interpretive data was last reviewed 2021. Blood 03/14/2025 9:26 PM CDT 03/14/2025 10:35 PM CDT us Lisa Todd MD LAB BLOOD ORDERABLES [facility] al Result [facility] Department [place] [address] * (ABNORMAL) Basic metabolic panel (03/14/2025 9:26 PM CDT) Pathologist [facility] Sodium 144 135 - 145 mmol/L Potassium, pl 4.1 3.3 - 4.9 mmol/L [facility] Chloride 110 97 - 110 mmol/L [facility] CO2 24 22 - 32 mmol/L [facility] Anion gap 10 2 - 15 mmol/L [facility] BUN 41(H) 6 - 25 mg/dL [facility] Creatinine 1.82(H) 0.60 - 1.10 mg/dL [facility] Glucose 138 70 - 199 mg/dL [facility] Comment: Interpretive Data Fasting glucose [...] interpretive data was last revised 2022. Calcium 9.4 8.5 - 10.3 mg/dL [facility] Blood 03/14/2025 9:26 PM CDT 03/14/2025 10:35 PM CDT us Lisa Todd MD LAB BLOOD ORDERABLES [facility] al Result [facility] [place] [address] * Electroconvulsive therapy (03/13/2025 6:53 AM CDT) Narrative Prateek Bojorquez MD - 03/13/2025 6:53 AM CDT Prateek Bojorquez MD 03/13/2025 9:08 PM I was present for the entire procedure. 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 No records for laterality or charge. [address] [facility] hospitalization in November 2024, RUL 100%, which induced hypomania (shown in table below) Previous Treatment Summary: Treatment # Date Laterality Charge Frequency 11/04/24 RUL 5 -> 10 -> 15 -> 100%, seized at 100% 3x/wk 11/07/24 RUL 100% 3x/wk 11/09/24 RUL 100% 3x/wk 11/11/24 RUL 100% 3x/wk 11/14/24 RUL 100% 3x/wk Did not pursue ECT in outpatient setting after discharge Re-hospitalized at [facility] 02/02/25 Prior # of ECTs this course: 9 This Treatment is unilateral Unilateral # 10 Bilateral # 0 Bifrontal # 0 Current Treatment Summary: Treatment # Date Laterality Charge Frequency 1. 02/10/25 RUL 100% 3x/wk 2. 02/13/25 RUL 100% 3x/wk 3. 02/15/25 RUL 100% 3x/wk 4. 02/17/25 RUL 100% 3x/wk 5. 02/20/25 RUL 100% 3x/wk 6. 02/22/25 RUL 100% 3x/wk-->weekly (discharging, outpatient) Note: patient missed ECT 2/2 transportation issues. Had worsening depression and SI and was readmitted on 03/01/25 Note: planned ECT on 03/03/25 canceled 2/2 chest pain 7. 03/06/25 RUL 100% 3x/wk 8. 03/08/25 RUL 100% 3x/wk 9. 03/10/25 RUL 100% 3x/wk 10. 03/13/25 RUL 100% 3x/wk CHIEF COMPLAINT: I haven't been able to see my family INTERVAL HISTORY: Mood Hopeless, anxious, scared SI active without plan or intent HI denies AH denies VH denies Side effects headache, shaking, and memory loss Today Laurie says she is feeling anxious and she has not been able to see her family in a while because her family lives far away in [place]. She is bothered by her IV as she feels it is burning. PAST MEDICAL HISTORY: Past Medical History: Diagnosis Date Anxiety and depression Arrhythmia Heart murmur Hyperthyroidism 11/02/2024 Other specified anxiety disorder 11/02/2024 Past Surgical History: Procedure Laterality Date CATARACT EXTRACTION W/ INTRAOCULAR LENS IMPLANT Bilateral SECTION COLONOSCOPY DILATION AND CURETTAGE OF UTERUS x2 FOOT TENDON SURGERY Left HAND SURGERY Left HAND TENDON SURGERY Right HYSTERECTOMY KNEE SURGERY Left REPLACEMENT TOTAL KNEE ALLERGIES: Allergies Allergen Reactions Sulfa (Sulfonamide Antibiotics) Rash and Unknown Lamotrigine Other (See comments) Muscle spasms MEDICATIONS: Prior to Admission medications Medication Sig Start Date End Date Taking? Authorizing Provider acetaminophen (TYLENOL) 500 mg tablet Take 1 tablet (500 mg total) by mouth every 6 (six) hours as needed for pain ProviderNam MD ARIPiprazole (ABILIFY) 15 mg tablet Take 0.5 tablets (7.5 mg total) by mouth nightly 02/21/25 03/23/25 Taurus Munoz MD [Paused] Farxiga 10 mg tablet Take 1 tablet (10 mg total) by mouth daily Wait to take this until your doctor or other care provider tells you to start again. 06/08/1968 Nam Casey MD polyethylene glycol (MIRALAX) 17 gram/dose bulk powder Take 17 g by mouth daily 02/21/25 Taurus Munoz MD pravastatin (PRAVACHOL) 20 mg tablet Take 1 tablet (20 mg total) by mouth daily 09/16/24 Nam Casey MD propranoloL (INDERAL) 10 mg tablet Take 3 tablets (30 mg total) by mouth 2 (two) times a day 02/21/25 Taurus Munoz MD senna-docusate (PERICOLACE) 8.6-50 mg Take 1 tablet by mouth daily as needed for constipation 02/21/25 03/23/25 Taurus Munoz MD traZODone (DESYREL) 50 mg tablet Take 1 tablet (50 mg total) by mouth nightly 02/21/25 03/23/25 Taurus Munoz MD traZODone (DESYREL) 50 mg tablet Take 0.5 tablets (25 mg total) by mouth 3 (three) times a day as needed (Anxiety) 02/21/25 03/23/25 Taurus Munoz MD REVIEW OF SYSTEMS: Review of systems per HPI and otherwise all systems are negative PHYSICAL EXAM: Vitals: Vitals: 03/13/25 0500 BP: 111/95 Pulse: 75 Resp: 18 Temp: 37 C (98.6 F) SpO2: 96% Cardiac: Regular rate and rhythm. No murmurs, rubs, or gallops. Respiratory:Lungs clear to auscultation bilaterally. No wheezes, rhonchi, or rales. Abdominal: Soft, nontender, nondistended, positive bowel sounds. Extremities: No edema, pulses 2+ Other: MENTAL STATUS EXAM: General: Calm, cooperative, good eye contact. No bizarre behavior. Speech: Regular rate and rhythm, normal volume, amount, latency, and tone. Flow of Thought: Logical, sequential, and goal-directed Content of Thought: No HI or AVH. Positive for active SI without plan or intent. Mood: Hopeless, anxious, scared Affect: Dysthymic, anxious, mood congruent Insight:fair Judgement: fair Sensorium:Alert and oriented x 3. Attention intact to conversation. Memory: normal based on conversation/exam LABORATORY/DIAGNOSTIC DATA REVIEW: Laboratory review: Lab results in the last 24 hours: No results found for this or any previous visit (from the past 24 hours). 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 Procedure Note TIME OUT Attestation Prior to the start of the procedure, verbal verification by the procedure participant(s) confirmed (as applicable): correct patient identity, agreement on the procedure to be done; correct patient positioning; an accurate procedure consent form, relevant images and results correctly labeled and displayed; any safety precautions based on clinical history and/or medication use have been addressed. Medication Plan: Medication: Dose: etomidate 0mg methohexital 0mg ketamine 70mg succinylcholine 40mg ondansetron 4mg ketorolac 0mg sumatriptan 0mg glycopyrrolate 0mg Pretreatment meds: -NS 500 cc bolus -Caffeine 250 mg Thymatron Treatment Parameters: Right Unilateral: Charge: 100% Pulse Width: 0.25 msec Frequency: 140 Hz Titration: [] YES Bite block placed: Yes Peripheral seizure duration: 30 sec EEG seizure duration: 110 sec Comments: In review of recent treatments, patient has had overall poor seizure duration (at least 5 were about 10 sec or less over the last 10 treatments). As such, trying ketamine today for anesthesia to see if help with seizure duration. If still not doing well, consider going to Bilateral treatments in future and if symptoms still persist. Post Procedure: Attending Psychiatrist: Prateek Bojorquez MD Assistants: Rosario Odonnell DO and Cristian Gaxiola MD Post Procedure Diagnosis: Same Name of Procedure: Electroconvulsive Therapy (ECT) Description of the Procedure Findings: none Estimated Blood Loss: none Specimens Removed: none Complications: none Comments: Condition on leaving ECT recovery: stable us Anselmo Turner MD BEHAVIORAL HEALTH ORDERABLE S Edited Result - Final * Troponin I high-sensitivity series (baseline, 2hr, 4hr, 6hr) (03/11/2025 3:05 PM CDT) Trop I hs 5 <=17 ng/L Comment: Interpretive Data For further hscTnI resources including the diagnostic algorithm and an aid in interpretation, copy and paste this link: https://bjhlab.testcatalog.org/show/[email or web address] Current Interpretive Data last revised 2019. Blood 03/11/2025 3:05 PM CDT 03/11/2025 3:28 PM CDT us Lisa Todd MD LAB BLOOD ORDERABLES Fin al Result [facility] [place] [address] * Electroconvulsive therapy (03/10/2025 7:06 AM CDT) Narrative Keena Monk MD - 03/10/2025 7:06 AM CDT Keena Monk MD 03/10/2025 1:33 PM I have seen and examined the patient on 03/10/25. I agree with the findings and plan of care as documented in the resident's/fellow's note. 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 No records for laterality or charge. [address] [facility] hospitalization in November 2024, RUL 100%, which induced hypomania (shown in table below) Treatment # Date Laterality Charge Frequency 11/04/24 RUL 5 -> 10 -> 15 -> 100%, seized at 100% 3x/wk 11/07/24 RUL 100% 3x/wk 11/09/24 RUL 100% 3x/wk 11/11/24 RUL 100% 3x/wk 11/14/24 RUL 100% 3x/wk Did not pursue ECT in outpatient setting after discharge Re-hospitalized at [facility] 02/02/25 Prior # of ECTs this course: 8 This Treatment is RUL Unilateral # 9 Bilateral # 0 Bifrontal # 0 Treatment # Date Laterality Charge Frequency 1. 02/10/25 RUL 100% 3x/wk 2. 02/13/25 RUL 100% 3x/wk 3. 02/15/25 RUL 100% 3x/wk 4. 02/17/25 RUL 100% 3x/wk 5. 02/20/25 RUL 100% 3x/wk 6. 02/22/25 RUL 100% 3x/wk-->weekly (discharging, outpatient) Note: patient missed ECT 2/2 transportation issues. Had worsening depression and SI and was readmitted on 03/01/25 Note: planned ECT on 03/03/25 canceled 2/2 chest pain 7. 03/06/25 RUL 100% 3x/wk 8. 03/08/25 RUL 100% 3x/wk 9. 03/10/25 RUL 100% 3x/wk Interval History: Today, patient reports a worsening in her mood. There is another patient in her unit who has been very loud and obnoxious, and his presence has been stressful to her. She is also still concerned about transportation to outpatient ECT when she discharges. She has not been deriving much lola from talking to other people while admitted. Patient endorses worsening passive SI, although still without plan or intent. Denied HI/AVH. Endorsed side effects of headache, knee pain, and memory loss from ECT. 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 Physical Exam: Vitals: There were no vitals filed for this visit. Cardiac: Regular rate and rhythm. No murmurs, rubs, or gallops. Respiratory: Lungs clear to auscultation bilaterally. No wheezes, rhonchi, or rales. Abdominal: Soft, nontender, nondistended, positive bowel sounds. Extremities: No edema, pulses 2+ Other: Mental Status Exam: General: Calm, cooperative, good eye contact. No bizarre behavior. Speech: Regular rate and rhythm, normal volume, amount, latency, and tone. Flow of Thought: Logical, sequential, and goal-directed Content of Thought: Positive for passive SI without plan or intent. No evidence of HI/AVH/delusions Mood: M y mood has gone down Affect: Dysthymic with restricted range Insight: fair Judgement: fair Sensorium: Alert and oriented x 3. Attention intact to conversation. Memory: normal based on conversation/exam LABORATORY/DIAGNOSTIC DATA REVIEW: Laboratory review: Lab results in the last 24 hours: No results found for this or any previous visit (from the past 24 hours). ASSESSMENT: QIDS-SR (02/09/25): 14 QIDS-SR (02/13/25): not completed QIDS-SR (02/15/25): 15 QIDS-SR (02/20/25): 9 QIDS-SR (02/22/25): 10 QIDS-SR (03/03/2025):Not completed QIDS-SR (03/06/2025): Not completed QIDS-SR (03/08/2025): 14 QIDS-SR (03/10/2025): Not completed Additional Attending Comments: I identified myself to the patient as the Attending performing their treatment Procedure Note TIME OUT Attestation Prior to the start of the procedure, verbal verification by the procedure participant(s) confirmed (as applicable): correct patient identity, agreement on the procedure to be done; correct patient positioning; an accurate procedure consent form, relevant images and results correctly labeled and displayed; any safety precautions based on clinical history and/or medication use have been addressed. Medication Plan: Medication: Dose: etomidate 10mg methohexital 0mg ketamine 0mg succinylcholine 40mg ondansetron 4mg ketorolac 0mg sumatriptan 0mg glycopyrrolate 0mg Pretreatment meds: -NS 500 cc bolus -Caffeine 250 mg No additional medications planned Thymatron Treatment Parameters: Right Unilateral: Charge: 100% Pulse Width: 0.25 msec Frequency: 140 Hz Titration: [] YES Bite block placed: Yes Peripheral seizure duration: 15 sec EEG seizure duration: ~15 sec, poor EEG quality Comments: switch to ketamine next treatment Post Procedure: Attending Psychiatrist: Keena Monk MD Assistants: Roger Schmitz MD and Cristian Gaxiola MD Post Procedure Diagnosis: Same Name of Procedure: Electroconvulsive Therapy (ECT) Description of the Procedure Findings: none Estimated Blood Loss: none Specimens Removed: none Complications: none Comments: none Condition on leaving ECT recovery: stable Anselmo Turner MD BEHAVIORAL HEALTH ORDERABLE S Edited Result - Final * Electroconvulsive therapy (03/08/2025 8:05 AM CDT) Narrative Roger Schmitz MD - 03/08/2025 8:05 AM CDT Roger Schmitz MD 03/08/2025 5:16 PM ECT Treatment Note Pre-Procedure Procedure: ECT inpatient Court Ordered : No Preprocedure Diagnosis: Associated Problems P Problem Selected Diagnosis Major depressive disorder, 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 No records for laterality or charge. [address] [facility] hospitalization in November 2024, RUL 100%, which induced hypomania (shown in table below) Treatment # Date Laterality Charge Frequency 11/04/24 RUL 5 -> 10 -> 15 -> 100%, seized at 100% 3x/wk 11/07/24 RUL 100% 3x/wk 11/09/24 RUL 100% 3x/wk 11/11/24 RUL 100% 3x/wk 11/14/24 RUL 100% 3x/wk Did not pursue ECT in outpatient setting after discharge Re-hospitalized at [facility] 02/02/25 Prior # of ECTs this course: 7 This Treatment is RUL Unilateral # 8 Bilateral # 0 Bifrontal # 0 Treatment # Date Laterality Charge Frequency 1. 02/10/25 RUL 100% 3x/wk 2. 02/13/25 RUL 100% 3x/wk 3. 02/15/25 RUL 100% 3x/wk 4. 02/17/25 RUL 100% 3x/wk 5. 02/20/25 RUL 100% 3x/wk 6. 02/22/25 RUL 100% 3x/wk-->weekly (discharging, outpatient) Note: patient missed ECT 2/2 transportation issues. Had worsening depression and SI and was readmitted on 03/01/25 Note: planned ECT on 03/03/25 canceled 2/2 chest pain 7. 03/06/25 RUL 100% 3x/wk 8. 03/08/25 RUL 100% 3x/wk Interval History: Today, patient reported that despite being NPO since midnight, she had to get up to urinate 7 times overnight. Also endorsed dysuria. Endorsed continuing poor mood, as well as continuing to worry about her home situation and her son. Overall, she continues to have passive SI without plan or intent, however not at the current moment. Denied HI/AVH. Endorsed side effects of headache, knee pain, and memory loss from ECT. 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 Physical Exam: Vitals: There were no vitals filed for this visit. Cardiac: Regular rate and rhythm. No murmurs, rubs, or gallops. Respiratory: Lungs clear to auscultation bilaterally. No wheezes, rhonchi, or rales. Abdominal: Soft, nontender, nondistended, positive bowel sounds. Extremities: No edema, pulses 2+ Other: Mental Status Exam: General: Calm, cooperative, good eye contact. No bizarre behavior. Speech: Regular rate and rhythm, normal volume, amount, latency, and tone. Flow of Thought: Logical, sequential, and goal-directed Content of Thought: No suicidal or homicidal ideation. No hallucinations or delusions. Mood: still not very good Affect: dysthymic although with full range Insight: fair Judgement: fair Sensorium: Alert and oriented x 3. Attention intact to conversation. Memory: normal based on conversation/exam LABORATORY/DIAGNOSTIC DATA REVIEW: Laboratory review: Lab results in the last 24 hours: Recent Results (from the past 24 hours) Basic metabolic panel Collection Time: 03/07/25 9:00 PM Result Value Ref Range Sodium 140 135 - 145 mmol/L Potassium, pl 4.6 3.3 - 4.9 mmol/L Chloride 105 97 - 110 mmol/L CO2 28 22 - 32 mmol/L Anion gap 7 2 - 15 mmol/L BUN 31 (H) 6 - 25 mg/dL Creatinine 1.90 (H) 0.60 - 1.10 mg/dL Glucose 88 70 - 199 mg/dL Calcium 10.1 8.5 - 10.3 mg/dL [place] level Collection Time: 03/07/25 9:00 PM Result Value Ref Range [place] 0.2 (L) 0.6 - 1.2 mmol/L eGFR Collection Time: 03/07/25 9:00 PM Result Value Ref Range eGFR 27 (L) >=60 mL/min/1.73 m2 ASSESSMENT: QIDS-SR (02/09/25): 14 QIDS-SR (02/13/25): not completed QIDS-SR (02/15/25): 15 QIDS-SR (02/20/25): 9 QIDS-SR (02/22/25): 10 QIDS-SR (03/03/2025):Not completed QIDS-SR (03/06/2025): Not completed QIDS-SR (03/08/2025): 14 Additional Attending Comments: I identified myself to the patient as the Attending performing their treatment, personally consented the patient, and answered any question they had about receiving ECT. Procedure Note TIME OUT Attestation Prior to the start of the procedure, verbal verification by the procedure participant(s) confirmed (as applicable): correct patient identity, agreement on the procedure to be done; correct patient positioning; an accurate procedure consent form, relevant images and results correctly labeled and displayed; any safety precautions based on clinical history and/or medication use have been addressed. Medication Plan: Medication: Dose: etomidate 10mg methohexital 0mg ketamine 0mg succinylcholine 40mg ondansetron 4mg ketorolac 0mg sumatriptan 0mg glycopyrrolate 0mg Pretreatment meds: -NS 500 cc bolus -Caffeine 250 mg No additional medications planned Thymatron Treatment Parameters: Right Unilateral: Charge: 100% Pulse Width: 0.25 msec Frequency: 140 Hz Titration: [] YES Bite block placed: Yes Peripheral seizure duration: 30 sec EEG seizure duration: 32 sec Comments: none Post Procedure: Attending Psychiatrist: Keena Monk MD Assistants: Roger Schmitz MD and Cristian Gaxiola MD Post Procedure Diagnosis: Same Name of Procedure: Electroconvulsive Therapy (ECT) Description of the Procedure Findings: none Estimated Blood Loss: none Specimens Removed: none Complications: none Comments: none Condition on leaving ECT recovery: stable Anselmo Turner MD [facility] HEALTH ORDERABLE S Final Result * (ABNORMAL) eGFR (03/07/2025 9:00 PM CDT) eGFR 27(L) >=60 mL/min/1. 73 m2 Comment: Interpretive Data [...] of Race in Diagnosing Kidney Disease, JASN 202). The CKD-EPI equation should not be used for patients with unstable renal function and has not been validated in children and those over 70. Current interpretive data was last reviewed 2021. Blood 03/07/2025 9:00 PM CDT 03/07/2025 10:01 PM CDT Lisa Todd MD LAB BLOOD ORDERABLES Fin al Result Performing Organization Address [facility] Co de Phone Number [facility] [place] [address] * (ABNORMAL) [place] level (03/07/2025 9:00 PM CDT) [place] 0.2(L) 0.6 - 1.2 mmol/L Blood 03/07/2025 9:00 PM CDT 03/07/2025 10:01 PM CDT Narrative [facility] - 03/07/2025 10:31 PM CDT To be drawn at 2000 for trough level Lisa Todd MD LAB BLOOD ORDERABLES Fin al Result Performing Organization Address [facility] de Phone Number [facility] [place] [address] * (ABNORMAL) Basic metabolic panel (03/07/2025 9:00 PM CDT) Sodium 140 135 - 145 mmol/L Potassium, pl 4.6 3.3 - 4.9 mmol/L [facility] Chloride 105 97 - 110 mmol/L [facility] CO2 28 22 - 32 mmol/L [facility] Anion gap 7 2 - 15 mmol/L [facility] BUN 31(H) 6 - 25 mg/dL [facility] Creatinine 1.90(H) 0.60 - 1.10 mg/dL [facility] Glucose 88 70 - 199 mg/dL [facility] Comment: Interpretive Data Fasting glucose [...] interpretive data was last revised 2022. Calcium 10.1 8.5 - 10.3 mg/dL 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 No records for laterality or charge. [address] [facility] hospitalization in November 2024, RUL 100%, which induced hypomania (shown in table below) Treatment # Date Laterality Charge Frequency 11/04/24 RUL 5 -> 10 -> 15 -> 100%, seized at 100% 3x/wk 11/07/24 RUL 100% 3x/wk 11/09/24 RUL 100% 3x/wk 11/11/24 RUL 100% 3x/wk 11/14/24 RUL 100% 3x/wk Did not pursue ECT in outpatient setting after discharge Re-hospitalized at [facility] 02/02/25 Prior # of ECTs this course: 6 This Treatment is RUL Unilateral # 7 Bilateral # 0 Bifrontal # 0 Treatment # Date Laterality Charge Frequency 1. 02/10/25 RUL 100% 3x/wk 2. 02/13/25 RUL 100% 3x/wk 3. 02/15/25 RUL 100% 3x/wk 4. 02/17/25 RUL 100% 3x/wk 5. 9 RUL 100% 3x/wk 6. 9 RUL 100% 3x/wk-->weekly (discharging, outpatient) Note: patient missed ECT 2/2 transportation issues. Had worsening depression and SI and was readmitted on 03/01/25 Note: planned ECT on 03/03/25 canceled 2/2 chest pain 7. 03/06/25 RUL 100% 3x/wk Interval History: Per cardiology, patient is ok to proceed with ECT (CP inconsistent with angina). Today, patient reports resolution of her CP. Endorsed worsening mood over the past few days 2/2 overthinking. She is concerned about her living situation, about her son who has health problems, and about her anticipated move into a usp. She endorsed having passive SI without plan or intent. Denied HI/AVH. She is willing to continue ECT treatments Past Medical History: Diagnosis Date Anxiety and depression Arrhythmia Heart murmur Hyperthyroidism 11/02/2024 Other specified anxiety disorder 11/02/2024 Medication and Allergy List Reviewed. Physical Exam: Vitals: There were no vitals filed for this visit. Cardiac: Regular rate and rhythm. No murmurs, rubs, or gallops. Respiratory: Lungs clear to auscultation bilaterally. No wheezes, rhonchi, or rales. Abdominal: Soft, nontender, nondistended, positive bowel sounds. Extremities: No edema, pulses 2+ Other: Mental Status Exam: General: Calm, cooperative, good eye contact. No bizarre behavior. Speech: Regular rate and rhythm, normal volume, amount, latency, and tone. Flow of Thought: Logical, sequential, and goal-directed Content of Thought: Passive SI without plan or intent. No HI/AVH/delusions. Mood: worse than before Affect: dysthymic, with normal range Insight: good Judgement: good Sensorium: Alert and oriented x 3. Attention intact to conversation. Memory: normal based on conversation/exam LABORATORY/DIAGNOSTIC DATA REVIEW: Laboratory review: Lab results in the last 24 hours: No results found for this or any previous visit (from the past 24 hours). ASSESSMENT: QIDS-SR (02/09/25): 14 QIDS-SR (02/13/25): not completed QIDS-SR (02/15/25): 15 QIDS-SR (02/20/25): 9 QIDS-SR (02/22/25): 10 QIDS-SR (03/03/2025):Not completed QIDS-SR (03/06/2025): Not completed Additional Attending Comments: I identified myself to the patient as the Attending performing their treatment, personally consented the patient, and answered any question they had about receiving ECT. Procedure Note TIME OUT Attestation Prior to the start of the procedure, verbal verification by the procedure participant(s) confirmed (as applicable): correct patient identity, agreement on the procedure to be done; correct patient positioning; an accurate procedure consent form, relevant images and results correctly labeled and displayed; any safety precautions based on clinical history and/or medication use have been addressed. Medication Plan: Medication: Dose: etomidate 10mg methohexital 0mg ketamine 0mg succinylcholine 40mg ondansetron 4mg ketorolac 0mg sumatriptan 0mg glycopyrrolate 0mg Pretreatment meds: -NS 500 cc bolus -Lidocaine 40mg for raina block -Caffeine 250 mg No additional medications planned Thymatron Treatment Parameters: Right Unilateral: Charge: 100% Pulse Width: 0.25 msec Frequency: 140 Hz Titration: [] YES Bite block placed: Yes Peripheral seizure duration: 29 sec EEG seizure duration: 79 sec Comments: Patient had legal guardian listed in chart. Primary team and social work notified. Patient states she does not have a legal guardian and this was verified by the primary team. No paperwork found in chart. Attempted to contact son but no answer. As patient consents to treatment and we have verified no paperwork is present, guardianship flag was found to be a clerical error and was removed from chart. Post Procedure: Attending Psychiatrist: Keena Monk MD Assistants: Roger Schmitz MD Post Procedure Diagnosis: Same Name of Procedure: Electroconvulsive Therapy (ECT) Description of the Procedure Findings: none Estimated Blood Loss: none Specimens Removed: none Complications: none Comments: none Condition on leaving ECT recovery: stable us Anselmo Turner MD BEHAVIORAL HEALTH ORDERABLE S Final Result * TRANSTHORACIC ECHO (TTE) COMPLETE W DOPPLER/CF W CONTRAST (03/04/2025 8:44 AM CDT) EF Mod BP 80 % CONS SCIMAGE Anatomical Region Laterality Modality Ultrasound 03/04/2025 7:52 AM CDT Narrative 03/04/2025 9:[address] [facility] [place] [address] Transthoracic Echocardiographic Report Patient Name: LAURIE SAEZ L : 1945 (79y 4m) Sex: F Study Date: 03/04/2025 07:52:42 AM Ht(Inch): 66 Wt(Lb): 151.9 BSA: 1.78 [employer] Machine Operator: Peyton [facility] Location: [id number] Order Provider: LISA TODD Heart Rate: 61 BMI: 24.51 BP: 113 / 70 Ref Provider: LISA TODD PROCEDURES: Echocardiographic Report: Transthoracic complete echo with strain imaging and contrast, 2D, spectral and tissue Doppler, color flow Doppler, M-mode. Contrast: Contrast Enhancement was Employed: After initial imaging due to sub- optimal quality related to co-morbidity defined by patient's body habitus and due to suboptimal image quality with inadequate visualization of at least 2 of 16 LV wall segments in any view after initial imaging. Perflutren contrast was administered using the volume necessary to obtain adequate images. 0.8 ml Optison Administered, (2.2 ml wasted). Technically difficult study due to: Body habitus. INDICATIONS: Chest pain. CONCLUSIONS: 1. Normal left ventricular size based on volume index. Normal LV wall thickness. There is hyperdynamic left ventricular systolic function. The Ejection Fraction (Guerrier's) is measured at 80 %. Grade I diastolic dysfunction (normal LA pressure). The average global longitudinal strain is normal. 2. Normal right ventricular size. Normal right ventricular systolic function. 3. There is no significant valvular heart disease. 4. Normal pericardium without pericardial effusion. 5. Normal aortic root size when indexed. 6. IVC is normal in size. 7. The Estimated PASP is : 16mmHg+RA pressure. ATTESTATION: I have personally reviewed and interpreted this study without fellow or resident. DISCLAIMER: The study images and the final report will be retained in the patient chart by the Echo Laboratory for the legally required time period. This chart constitutes the legal record of any testing performed. FINDINGS: Left Ventricle: Normal left ventricular size based on volume index. Normal LV wall thickness. There is hyperdynamic left ventricular systolic function. The Ejection Fraction (Guerrier's) is measured at 80 %. Grade I diastolic dysfunction (normal LA pressure). The average global longitudinal strain is normal. The LV global strain is: -20.8 %. Right Ventricle: Normal right ventricular size. Normal right ventricular systolic function. Left Atrium: The left atrium is normal in size. Right Atrium: The right atrium is normal in size. Mitral Valve: Normal mitral valve structure. No mitral regurgitation. No stenosis present. Aortic Valve: Normal trileaflet aortic valve. No aortic regurgitation. No aortic valve stenosis. Tricuspid Valve: Normal tricuspid valve structure. Mild tricuspid regurgitation. No tricuspid valve stenosis. Pulmonic Valve: Normal pulmonic valve structure. Mild pulmonic regurgitation. No pulmonic valve stenosis present. Pericardium: Normal pericardium without pericardial effusion. Aorta: Normal aortic root size when indexed. IVC: IVC is normal in size. PASP: The Estimated PASP is : 16+rap mmHg. MEASUREMENTS: 2D/MM Value Range Doppler Value Range LVIDd 2D 3.89 cm [ 3.80 - 5.20 ] AV Peak Cuco 1.3 m/s [ 1.0 - 1.7 ] LVIDs 2D 2.17 cm [ 2.20 - 3.50 ] AV Peak PG 6.76 mmHg IVSd 2D 0.63 cm [ 0.60 - 0.90 ] AV Mean PG 3 mmHg LVPWd 2D 0.64 cm [ 0.60 - 0.90 ] AV VTI 28.4 cm LV Thickness Ratio 1.0 LVOT Peak Cuco 0.9 m/s [ 0.7 - 1.1 ] LV FS 2D 44.15 % [ 27.00 - 45.00 ] LVOT Peak PG 3.24 mmHg LV Mass 2D 67.82 g LVOT Mean PG 2 mmHg LV Mass Index 2D 38.11 g/m2 LVOT VTI 22.4 cm RWT 0.33 LVOT Diam 2.00 cm EDV Mod BP 105.11 ml [ 46.00 - 106.00 ] TIM VTI 2.48 cm2 LV EDV Index 59.07 ml/m2 LVOT/AV VTI 0.79 - Dimensionless index (DVI) ESV Mod BP 21.23 ml [ 14.00 - 42.00 ] MV E Peak Ucco 0.8 m/s [ 0.6 - 1.3 ] EF Mod BP 80 % [ 54 - 74 ] MV A Peak Cuco 0.9 m/s [ 1.0 - 1.2 ] LV GLS -20.8 % [ -25.0 - -18.0 ] MV E/A 0.9 ratio [ 0.8 - 1.5 ] LA Length 4C 3.92 cm MV Decel Time 206.93 msec [ 104.00 - 258.00 ] LA Length 2C 4.58 cm Med E` Cuco 4.2 cm/sec [ 8.0 - 25.0 ] LA Volume BP 20.85 ml Lat E` Cuco 7.3 cm/sec [ 10.0 - 25.0 ] LA Volume Index 11.72 ml/m2 [ 16.00 - 34.00 ] Average E/E` 13.91 RV Base Dimen 2D 3.0 cm [ 2.5 - 4.2 ] RV S` 9.74 cm/sec RA Volume 12.78 ml TR Peak Cuco 2.1 m/s [ 1.0 - 2.8 ] RA Volume Index 7.18 ml/m2 TR Peak PG 17.6 mmHg IVC Diam 0.96 cm PV Peak Cuco 1.0 m/s [ 0.4 - 0.8 ] IVC Collapse 41 % PV Peak PG 4.00 mmHg AoR Diam 2D 2.96 cm [ 2.70 - 3.70 ] Ao Root Index 1.66 cm/m2 [ 1.00 - 2.00 ] Asc Ao Diam 2D 3.36 cm Asc Ao Index 1.89 cm/m2 Electronically Signed By: Leonor Ryan MD 03/04/2025 9:23:23 AM CDT Procedure Note Leonor Ryan MD - 03/04/2025 [facility] [place] [address] Transthoracic Echocardiographic Report Patient Name: LAURIE SAEZ L : 1945 (79y 4m) Sex: F Study Date: 03/04/2025 07:52:42 AM Ht(Inch): 66 Wt(Lb): 151.9 BSA: 1.78 [employer]quette Machine Operator: Pey[facility] Location: [id number] OrderProvider: LISA TODD Heart Rate: 61 BMI: 24.51 BP: 113 / 70 Ref Provider: LISA TODD PROCEDURES: Echocardiographic Report: Transthoracic complete echo with strain imagingand contrast, 2D, spectral and tissue Doppler, color flow Doppler, M-mode. Contrast: Contrast Enhancement was Employed: After initial imaging due tosub- optimal quality related to co-morbidity defined by patient's body habitus and dueto suboptimal image quality with inadequate visualization of at least 2 of 16 LV wallsegments in any view after initial imaging. Perflutren contrast was administered using thevolume necessary to obtain adequate images. 0.8 ml Optison Administered, (2.2 mlwasted). Technically difficult study due to: Body habitus. INDICATIONS: Chest pain. CONCLUSIONS: 1. Normal left ventricular size based on volume index. Normal LV wallthickness. There is hyperdynamic left ventricular systolic function. The Ejection Fraction(Guerrier's) is measured at 80 %. Grade I diastolic dysfunction (normal LA pressure). Theaverage global longitudinal strain is normal. 2. Normal right ventricular size. Normal right ventricular systolicfunction. 3. There is no significant valvular heart disease. 4. Normal pericardium without pericardial effusion. 5. Normal aortic root size when indexed. 6. IVC is normal in size. 7. The Estimated PASP is : 16mmHg+RA pressure. ATTESTATION: I have personally reviewed and interpreted this study without fellow orresident. DISCLAIMER: The study images and the final report will be retained in the patientchart by the Echo Laboratory for the legally required time period. This chart constitutesthe legal record of any testing performed. FINDINGS: Left Ventricle: Normal left ventricular size based on volume index. NormalLV wall thickness. There is hyperdynamic left ventricular systolic function. TheEjection Fraction (Guerrier's) is measured at 80 %. Grade I diastolic dysfunction(normal LA pressure). The average global longitudinal strain is normal. The LV globalstrain is: -20.8 %. Right Ventricle: Normal right ventricular size. Normal right ventricularsystolic function. Left Atrium: The left atrium is normal in size. Right Atrium: The right atrium is normal in size. Mitral Valve: Normal mitral valve structure. No mitral regurgitation. Nostenosis present. Aortic Valve: Normal trileaflet aortic valve. No aortic regurgitation. Noaortic valve stenosis. Tricuspid Valve: Normal tricuspid valve structure. Mild tricuspidregurgitation. No tricuspid valve stenosis. Pulmonic Valve: Normal pulmonic valve structure. Mild pulmonicregurgitation. No pulmonic valve stenosis present. Pericardium: Normal pericardium without pericardial effusion. Aorta: Normal aortic root size when indexed. IVC: IVC is normal in size. PASP: The Estimated PASP is : 16+rap mmHg. MEASUREMENTS: 2D/MM Value Range DopplerValue Range LVIDd 2D 3.89 cm [ 3.80 - 5.20 ] AV Peak Vel1.3 m/s [ 1.0 - 1.7 ] LVIDs 2D 2.17 cm [ 2.20 - 3.50 ] AV Peak PG6.76 mmHg IVSd 2D 0.63 cm [ 0.60 - 0.90 ] AV Mean PG3 mmHg LVPWd 2D 0.64 cm [ 0.60 - 0.90 ] AV VTI28.4 cm LV Thickness Ratio 1.0 LVOT Peak Vel0.9 m/s [ 0.7 - 1.1 ] LV FS 2D 44.15 % [ 27.00 - 45.00 ] LVOT Peak PG3.24 mmHg LV Mass 2D 67.82 g LVOT Mean PG2 mmHg LV Mass Index 2D 38.11 g/m2 LVOT VTI22.4 cm RWT 0.33 LVOT Diam2.00 cm EDV Mod BP 105.11 ml [ 46.00 - 106.00 ] TIM VTI2.48 cm2 LV EDV Index 59.07 ml/m2 LVOT/AV VTI0.79 - Dimensionless index (DVI) ESV Mod BP 21.23 ml [ 14.00 - 42.00 ] MV E Peak Vel0.8 m/s [ 0.6 - 1.3 ] EF Mod BP 80 % [ 54 - 74 ] MV A Peak Vel0.9 m/s [ 1.0 - 1.2 ] LV GLS -20.8 % [ -25.0 - -18.0 ] MV E/A0.9 ratio [ 0.8 - 1.5 ] LA Length 4C 3.92 cm MV Decel Cxot279.93 msec [ 104.00 - 258.00 ] LA Length 2C 4.58 cm Med E` Vel4.2 cm/sec [ 8.0 - 25.0 ] LA Volume BP 20.85 ml Lat E` Vel7.3 cm/sec [ 10.0 - 25.0 ] LA Volume Index 11.72 ml/m2 [ 16.00 - 34.00 ] Average E/E`13.91 RV Base Dimen 2D 3.0 cm [ 2.5 - 4.2 ] RV S`9.74 cm/sec RA Volume 12.78 ml TR Peak Vel2.1 m/s [ 1.0 - 2.8 ] RA Volume Index 7.18 ml/m2 TR Peak PG17.6 mmHg IVC Diam 0.96 cm PV Peak Vel1.0 m/s [ 0.4 - 0.8 ] IVC Collapse 41 % PV Peak PG4.00 mmHg AoR Diam 2D 2.96 cm [ 2.70 - 3.70 ] Ao Root Index 1.66 cm/m2 [ 1.00 - 2.00 ] Asc Ao Diam 2D3.36 cm Asc Ao Index1.89 cm/m2 Electronically Signed By: Leonor Ryan MD 03/04/2025 9:23:23 AM CDT Lisa Todd MD CV ECHO PROCEDURES Final Result * Troponin I high-sensitivity 6-hour (03/03/2025 6:02 PM CDT) Trop I hs 7 <=17 ng/L Comment: Interpretive Data For further hscTnI resources including the diagnostic algorithm and an aid in interpretation, copy and paste this link: [email or web address] Current Interpretive Data last revised 2019. Trop I hs delta 1 ng/L [facility] Trop I hs interp Insignificant CERNER BJ H Blood 03/03/2025 6:02 PM CDT 03/03/2025 6:49 PM CDT Lisa Todd MD LAB BLOOD ORDERABLES Fin al Result [facility] Department [place] [address] * Troponin I high-sensitivity 4-hour (03/03/2025 4:09 PM CDT) Trop I hs 7 <=17 ng/L Comment: Interpretive Data For further hscTnI resources including the diagnostic algorithm and an aid in interpretation, copy and paste this link: [email or web address] Current Interpretive Data last revised 2019. Trop I hs delta 1 ng/L [facility] Trop I hs interp Insignificant CERNER BJ H Blood 03/03/2025 4:09 PM CDT 03/03/2025 4:49 PM CDT Lisa Todd MD LAB BLOOD ORDERABLES Fin al Result Performing Organization Address [facility] Co de Phone Number KATHRINE [facility] [place] [address] * Troponin I high-sensitivity 2-hour (03/03/2025 1:36 PM CDT) Trop I hs 6 <=17 ng/L Comment: Interpretive Data For further hscTnI resources including the diagnostic algorithm and an aid in interpretation, copy and paste this link: [email or web address] Current Interpretive Data last revised 2019. Trop I hs delta 0 ng/L [facility] Trop I hs interp Insignificant CERNER BJ Blood 03/03/2025 1:36 PM CDT 03/03/2025 2:29 PM CDT Lisa Todd MD LAB BLOOD ORDERABLES Fin al Result Performing Organization Address [facility] de Phone Number KATHRINE [facility] [place] [address] * Troponin I high-sensitivity series (baseline, 2hr, 4hr, 6hr) (03/03/2025 11:49 AM CDT) Pathologist [facility] Trop I hs 6 <=17 ng/L Comment: Interpretive Data For further hscTnI resources including the diagnostic algorithm and an aid in interpretation, copy and paste this link: [email or web address] Current Interpretive Data last revised 2019. Blood 03/03/2025 11:4 9 AM CDT 03/03/2025 12:51 PM CDT Lisa Todd MD LAB BLOOD ORDERABLES Fin al Result Performing Organization Address [facility] Co de Phone Number [facility] [place] [address] * ECG 12 lead (03/03/2025 11:41 AM CDT) Ventricular Rate EKG/Min 79 BPM [facility] Atrial Rate 79 BPM [facility] TN-Interval (MSEC) 180 ms [facility] QRS-Interval (MSEC) 124 ms [facility] QT-Interval (MSEC) 404 ms [facility] QTc 463 ms [facility] P [place] 63 degrees [facility] R [place] -11 degrees [facility] T [place] 45 degrees [facility] Diagnosis Normal sinus rhythm Right bundle branch block Abnormal ECG When compared with ECG of 06-FEB-2025 11:41, T wave inversion now evident in Anterior leads Confirmed by KAIA DIAZ M.D ([id number]) on 03/03/2025 2:18:36 PM [facility] 03/03/2025 11:4 1 AM CDT 03/03/2025 2:18 PM CDT us Lisa Todd MD ECG ORDERABLES Final Re sult [facility] * Electroconvulsive therapy (03/03/2025 7:08 AM CDT) Narrative Roger Schmitz MD - 03/03/2025 7:08 AM CDT Roger Schmitz MD 03/03/2025 11:14 AM Canceled due to chest pain Pre-Procedure Procedure: ECT inpatient Court Ordered : No Preprocedure Diagnosis: Associated Problems P Problem Selected Diagnosis Major depressive disorder, 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 No records for laterality or charge. [address] [facility] hospitalization in November 2024, RUL 100%, which induced hypomania (shown in table below) Treatment # Date Laterality Charge Frequency 11/04/24 RUL 5 -> 10 -> 15 -> 100%, seized at 100% 3x/wk 11/07/24 RUL 100% 3x/wk 11/09/24 RUL 100% 3x/wk 11/11/24 RUL 100% 3x/wk 11/14/24 RUL 100% 3x/wk Did not pursue ECT in outpatient setting after discharge Re-hospitalized at [facility] 02/02/25 Prior # of ECTs this course: 6 This Treatment is RUL Unilateral # 7 Bilateral # 0 Bifrontal # 0 Treatment # Date Laterality Charge Frequency 1. 02/10/25 RUL 100% 3x/wk 2. 02/13/25 RUL 100% 3x/wk 3. 02/15/25 RUL 100% 3x/wk 4. 02/17/25 RUL 100% 3x/wk 5. 02/20/25 RUL 100% 3x/wk 6. 02/22/25 RUL 100% 3x/wk-->weekly (discharging, outpatient) Note: patient missed ECT 2/2 transportation issues. Had worsening depression and SI and was readmitted on 03/01/25 Note: planned ECT on 03/03/25 canceled 2/2 chest pain Interval History: This morning, patient said that she had a lot of anxiety about being back in her apartment with her son (it is such a mess ), and that she was not able to cope. This led her to spiral and then re-present to the ED. Reports feeling like a failure, and that her sister and friends are all better than her. Endorses willingness to discharge to a usp after this admission. Endorsed continuing passive SI without plan or intent. Denied HI/AVH. Endorsed 1 day of nausea and headache, as well as memory loss from last ECT treatment. Later in the ECT suite, patient reported having chest pain. This has been intermittent for a couple of days now. It is mostly on the left or right side of her chest, rather than in the center. The location fluctuates as the pain comes and goes. It is dull in quality. Patient endorses some intermittent SOB as well. Denies palpitations or subjective feelings of her heart skipping a beat. Anesthesia team discussed that prior to continuing with ECT treatments, they would like for primary team to order an EKG, serial troponins, and a Cards consult. 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 Physical Exam: Vitals: Vitals: 03/03/25 0540 BP: 138/72 Pulse: 73 Resp: 16 Temp: 37.2 C (98.9 F) SpO2: 95% Cardiac: Regular rate and rhythm. No murmurs, rubs, or gallops. Respiratory:Lungs clear to auscultation bilaterally. No wheezes, rhonchi, or rales. Abdominal: Soft, nontender, nondistended, positive bowel sounds. Extremities: No edema, pulses 2+ Other: Mental Status Exam: General: Calm, cooperative, good eye contact. No bizarre behavior. Speech: Regular rate and rhythm, normal volume, amount, latency. Somber tone. Flow of Thought: Logical, sequential, and goal-directed Content of Thought: Positive for passive SI without plan or intent. Negative for HI, AVH, delusions. Mood: I don't know... anxious Affect: Dysthymic with restricted range Insight:fair Judgement: fair Sensorium:Alert and oriented x 3. Attention intact to conversation. Memory: normal based on conversation/exam LABORATORY/DIAGNOSTIC DATA REVIEW: Laboratory review: Lab results in the last 24 hours: No results found for this or any previous visit (from the past 24 hours). ASSESSMENT: QIDS-SR (02/09/25): 14 QIDS-SR (02/13/25): not completed QIDS-SR (02/15/25): 15 QIDS-SR (02/20/25): 9 QIDS-SR (02/22/25): 10 QIDS-SR (03/03/2025):Not completed Additional Attending Comments: I identified myself to the patient as the Attending performing their treatment, personally consented the patient, and answered any question they had about receiving ECT. Procedure Note TIME OUT Attestation Prior to the start of the procedure, verbal verification by the procedure participant(s) confirmed (as applicable): correct patient identity, agreement on the procedure to be done; correct patient positioning; an accurate procedure consent form, relevant images and results correctly labeled and displayed; any safety precautions based on clinical history and/or medication use have been addressed. Medication Plan: Medication: Dose: etomidate 10mg methohexital 0mg ketamine 0mg succinylcholine 40mg ondansetron 4mg ketorolac 0mg sumatriptan 0mg glycopyrrolate 0mg Pretreatment meds: -500 cc NS bolus -Lidocaine 40mg for raina block -Caffeine 250 mg No additional medications planned Thymatron Treatment Parameters: Right Unilateral: Charge: 100% Pulse Width: 0.25 msec Frequency: 140 Hz Titration: [] YES Bite block placed: Yes Peripheral seizure duration: N/A, procedure canceled 2/2 chest pain EEG seizure duration: N/A, procedure canceled 2/2 chest pain Comments: Post Procedure: Attending Psychiatrist: Keena Monk MD Assistants: Roger Schmitz MD Post Procedure Diagnosis: Same Name of Procedure: Electroconvulsive Therapy (ECT) Description of the Procedure Findings: N/A, procedure canceled 2/2 chest pain Estimated Blood Loss: N/A, procedure canceled 2/2 chest pain Specimens Removed: N/A, procedure canceled 2/2 chest pain Complications: N/A, procedure canceled 2/2 chest pain Comments: Condition on leaving ECT recovery: N/A, procedure canceled 2/2 chest pain Anselmo Turner MD BEHAVIORAL HEALTH ORDERABLE S Final Result * (ABNORMAL) Urinalysis reflex to microscopic (03/01/2025 11:29 AM CDT) Color, ur Straw Yellow Clarity, ur Clear Clear [facility] Specific gravity, ur 1.009 1.003 - 1.030 [facility] pH, urine 6.0 [facility] Comment: Interpretive Data U rine pH is affected by diet, medications, systemic acid-base disturbances, and renal tubular function. pH may affect urinary stone formation. For example, urine pH below 6.0 may help reduce the tendency for calcium phosphate stones and pH greater than 6.0 may reduce the tendency for uric acid stone formation. Source: [employer] Current Interpretive Data was last revised on 2017 Protein, ur ql Negative Negative [facility] Glucose, ur ql Negative Negative [facility] Ketones, ur Negative Negative [facility] Bilirubin, ur Negative Negative [facility] Blood, ur Negative Negative [facility] Urobilinogen, ur <2.0 <2.0 mg/dL [facility] Nitrite, ur Negative Negative [facility] Leukocyte esterase, ur 1+(A) Negative [facility] UA reflex comment Reflex to microscopic UA will be performed. [facility] Urine 03/01/2025 11:2 9 AM CDT 03/01/2025 11:38 AM CDT us Michael Delgado Jr., MD LAB URINE ORDERABLES F inal Result [facility] [place] [address] * Drugs of Abuse Screen, Urine without Confirmation (03/01/2025 11:29 AM CDT) Amphetamine, ur Not Detected CutOff 500ng/mL Comment: Interpretive Data - Amphetamines: Samples containing greater than 500 ng/mL d-methamphetamine or other cross-reacting amphetamine compounds are reported as positive. Amphetamine immunoassays are subject to significant false positive rates due to cross-reactivity of non-amphetamine drugs. Confirmatory testing required for definitive results. Current Interpretive Data was last reviewed 2023. Barbiturates, ur Not Detected CutOff 200ng/mL [facility] Comment: Interpretive Data - Barbiturates: Samples containing greater than 200 ng/mL secobarbital or other cross-reacting barbiturate compounds are reported as positive. False positive and false negative results are possible. Confirmatory testing required for definitive results. Current Interpretive Data was last reviewed 2023. Benzodiazepines, ur Not Detected CutOff 100ng/mL [facility] Comment: Interpretive Data - Benzodiazepines: Samples containing greater than 100 ng/mL nordiazepam or other cross-reacting compounds are reported as positive. False positive and false negative results are possible. Confirmatory testing required for definitive results. Current Interpretive Data was last reviewed 2023. Cannabinoids, ur Not Detected CutOff 50 ng/mL [facility] Comment: Interpretive Data - Cannabinoids: Samples containing greater than 50 ng/mL delta-9 THC -COOH or other cross- reacting compounds are reported as positive. False positive and false negative results are possible. Confirmatory testing required for definitive results. Current Interpretive Data was last reviewed 2023. Cocaine, ur Not Detected CutOff 150ng/mL [facility] Comment: Interpretive Data - Cocaine: Samples containing greater than 150 ng/mL benzoylecgonine or other cross- reacting compounds are reported as positive. False positive and false negative results are possible. Confirmatory testing required for definitive results. Current Interpretive Data was last reviewed 2023. Fentanyl, Ur Not Detected CutOff 5 ng/mL [facility] Comment: Interpretive Data - Fentanyl: Samples containing greater than 5 ng/mL norfentanyl, fentanyl, or other cross-reacting fentanyl compounds are reported as positive. False positive and false negative results are possible. Confirmatory testing required for definitive results. Current Interpretive Data was last reviewed 2023. Methadone, ur Not Detected CutOff 300ng/mL [facility] Comment: Interpretive Data - Methadone: Samples containing greater than 300 ng/mL d,l-methadone or other cross-reacting compounds are reported as positive. False positive and false negative results are possible. Confirmatory testing required for definitive results. Current Interpretive Data was last reviewed 2023. Opiates, ur Not Detected CutOff 300ng/mL [facility] Comment: Interpretive Data - Opiates: Samples containing greater than 300 ng/mL morphine or other cross-reacting compounds are reported as positive. False positive and false negative results are possible. Confirmatory testing required for definitive results. Current Interpretive Data was last reviewed 2023. Oxycodone, ur Not Detected CutOff 100ng/mL [facility] Comment: Interpretive Data - Oxycodone: Samples containing greater than 100 ng/mL oxycodone or other cross-reacting compounds are reported as positive. False positive and false negative results are possible. Confirmatory testing required for definitive results. Current Interpretive Data was last reviewed 2023. Phencyclidine, ur Not Detected CutOff 25 ng/mL [facility] Comment: Interpretive Data - Phencyclidine: Samples containing greater than 25 ng/mL phencyclidine or other cross-reacting compounds are reported as positive. False positive and false negative results are possible. Confirmatory testing required for definitive results. Current Interpretive Data was last reviewed 2023. Urine Creatinine 48 mg/dL [facility] Comment: Interpretive Data Urine Creatinine: < 10 mg/dL is extremely dilute = or > 10 but < 20 mg/dL is dilute = or > 20 mg/dL is normal Current Interpretive Data was last revised on 2017. Urine 03/01/2025 11:2 9 AM CDT 03/01/2025 11:38 AM CDT Narrative KATHRINE CHEUNG - 03/01/2025 12:15 PM CDT Drug of Abuse screening is performed by immunoassay for medical purposes only. This is not to be used for Pain Management purposes. Michael Delgado Jr., MD LAB URINE ORDERABLES F inal Result Performing Organization Address City/[facility] Co de Phone Number [facility] [place] [address] * (ABNORMAL) Urinalysis, microscopic only (03/01/2025 11:29 AM CDT) WBC, ur 0-5 0 - 5 /HPF RBC, ur 0-2 0 - 2 /HPF [facility] Epithelial cells, squamous, ur 1-5 0 - 5 /HPF [facility] Bacteria, ur 1+(A) [facility] Urine 03/01/2025 11:2 9 AM CDT 03/01/2025 11:38 AM CDT Michael Delgado Jr., MD LAB URINE ORDERABLES F inal Result Performing Organization Address [facility] Co de Phone Number [facility] [place] [address] * (ABNORMAL) eGFR (03/01/2025 11:16 AM CDT) eGFR 34(L) >=60 mL/min/1. 73 m2 Comment: Interpretive Data [...] of Race in Diagnosing Kidney Disease, JASN 202). The CKD-EPI equation should not be used for patients with unstable renal function and has not been validated in children and those over 70. Current interpretive data was last reviewed 2021. Blood 03/01/2025 11:1 6 AM CDT 03/01/2025 11:24 AM CDT us Michael Delgado Jr., MD LAB BLOOD ORDERABLES F inal Result [facility] [place] [address] * Differential, auto (03/01/2025 11:16 AM CDT) Pathologist [facility] Neutrophil abs 3.41 1.50 - 6.50 K/cumm Imm gran abs 0.01 0.00 - 0.10 K/cumm [facility] Lymphocyte abs 1.08 0.80 - 3.30 K/cumm [facility] Monocyte abs 0.48 0.20 - 0.80 K/cumm [facility] Eosinophil abs 0.04 0.00 - 0.50 K/cumm [facility] Basophil abs 0.02 0.00 - 0.10 K/cumm [facility] Neutrophil pct 67.7 % [facility] Comment: Interpretive Data Percent cell count reference ranges are not reported, since discordance with absolute values may lead to misinterpretation of CBC data. Current Interpretive Data was last revised on 2017. Imm gran pct 0.2 % [facility] Comment: Interpretive Data Percent cell count reference ranges are not reported, since discordance with absolute values may lead to misinterpretation of CBC data. Current Interpretive Data was last revised on 2017. Lymphocyte pct 21.4 % [facility] Comment: Interpretive Data Percent cell count reference ranges are not reported, since discordance with absolute values may lead to misinterpretation of CBC data. Current Interpretive Data was last revised on 2017. Monocyte pct 9.5 % [facility] Comment: Interpretive Data Percent cell count reference ranges are not reported, since discordance with absolute values may lead to misinterpretation of CBC data. Current Interpretive Data was last revised on 2017. Eosinophil pct 0.8 % [facility] Comment: Interpretive Data Percent cell count reference ranges are not reported, since discordance with absolute values may lead to misinterpretation of CBC data. Current Interpretive Data was last revised on 2017. Basophil pct 0.4 % [facility] Comment: Interpretive Data Percent cell count reference ranges are not reported, since discordance with absolute values may lead to misinterpretation of CBC data. Current Interpretive Data was last revised on 2017. Blood 03/01/2025 11:1 6 AM CDT 03/01/2025 11:24 AM CDT us Michael Delgado Jr., MD LAB BLOOD ORDERABLES F inal Result Performing Organization Address City/[facility] Co de Phone Number [facility] [place] [address] * Thyroid Function [place] (03/01/2025 11:16 AM CDT) Pathologist [facility] TSH 0.45 0.30 - 4.20 mcIUnit/mL Blood 03/01/2025 11:1 6 AM CDT 03/01/2025 11:24 AM CDT Michael Delgado Jr., MD LAB BLOOD ORDERABLES F inal Result Performing Organization Address City/State/[facility] Co de Phone Number [facility] [place] [address] * (ABNORMAL) CBC with auto differential (03/01/2025 11:16 AM CDT) Pathologist [facility] WBC 5.04 3.80 - 9.90 K/cumm Hgb 12.6 11.9 - 15.5 g/dL [facility] Hct 39.2 35.6 - 45.5 % [facility] Plt 233 150 - 400 K/cumm [facility] MPV 10.1 9.1 - 12.3 fL [facility] RBC 4.05 3.90 - 5.20 M/cumm [facility] MCV 96.8(H) 81.3 - 96.4 fL [facility] MCH 31.1 27.1 - 33.3 pg [facility] MCHC 32.1(L) 32.3 - 35.7 g/dL [facility] RDW CV 13.2 11.1 - 14.9 % [facility] RDW SD 46.6 35.7 - 48.1 fL [facility] NRBC abs 0.00 0.00 - 0.01 K/cumm [facility] Blood Venous blood specimen / Unknown 03/01/2025 11:16 AM CDT 03/01/2025 11:24 AM CDT us Michael Delgado Jr., MD LAB BLOOD ORDERABLES F inal Result Performing Organization Address [facility] de Phone Number [facility] Department [place] [address] * Ethanol (03/01/2025 11:16 AM CDT) [facility] Ethanol <10 <=10 mg/dL Comment: Interpretive Data Legal limit of intoxication > or = 80 mg/dL Levels > or = 400 mg/dL are potentially TOXIC. Current interpretive data was last revised on 2018. Blood 03/01/2025 11:1 6 AM CDT 03/01/2025 11:24 AM CDT Michael Delgado Jr., MD LAB BLOOD ORDERABLES F inal Result Performing Organization Address [facility] Co de Phone Number [facility] Department [place] [address] * (ABNORMAL) Comprehensive metabolic panel (03/01/2025 11:16 AM CDT) Sodium 143 135 - 145 mmol/L Potassium, pl 4.5 3.3 - 4.9 mmol/L [facility] Chloride 110 97 - 110 mmol/L [facility] CO2 26 22 - 32 mmol/L [facility] Anion gap 7 2 - 15 mmol/L [facility] BUN 22 6 - 25 mg/dL [facility] Creatinine 1.55(H) 0.60 - 1.10 mg/dL [facility] Glucose 94 70 - 199 mg/dL [facility] Comment: Interpretive Data Fasting glucose [...] interpretive data was last revised 2022. Calcium 9.9 8.5 - 10.3 mg/dL [facility] Bilirubin, total 0.5 0.1 - 1.2 mg/dL [facility] Protein, pl 7.0 6.5 - 8.5 g/dL [facility] Albumin 3.9 3.5 - 5.0 g/dL [facility] Alk phos 77 40 - 130 Units/L [facility] ALT 10 7 - 45 Units/L [facility] AST 20 10 - 45 Units/L [facility] Blood 03/01/2025 11:1 6 AM CDT 03/01/2025 11:24 AM CDT us Michael Delgado Jr., MD LAB BLOOD ORDERABLES F inal Result [facility] [place] [address] * [place] CRITICAL CARE ILL/INJURED PATIENT INIT 30-74 MIN (02/27/2025 11:00 PM CDT) Narrative Rosario Kong PA - 02/27/2025 11:00 PM CDT Rosario Kong PA 03/01/2025 8:52 PM Critical Care Performed by: Rosario Kong PA Authorized by: Rosario Kong PA Critical care provider statement: As reflected in [...] time spent by me providing the following: serial bedside patient exams psychological evaluation with medical clearance I provided emergent necessary critical care medicine services to this patient. I ordered and reviewed test results and/or imaging studies. I spent time discussing the management and therapeutic options for this critically ill patient with the patient themselves or with the appropriate designated surrogate decision-maker. I spent time documenting in the medical record. I spent time discussing the management of this critically ill patient with consultants and the medical staff. us Rosario [facility] IN CL[facility]/BEDSIDE CLAU HUIZAR Final Result * (ABNORMAL) Urinalysis reflex to microscopic (02/27/2025 3:48 PM CDT) Color, ur Straw Yellow Clarity, ur Clear Clear [facility] Specific gravity, ur 1.010 1.003 - 1.[address] [facility] pH, urine 6.0 [facility] Comment: Interpretive Data U rine pH is affected by diet, medications, systemic acid-base disturbances, and renal tubular function. pH may affect urinary stone formation. For example, urine pH below 6.0 may help reduce the tendency for calcium phosphate stones and pH greater than 6.0 may reduce the tendency for uric acid stone formation. Source: [facility] [place] Current Interpretive Data was last revised on 2017 Protein, ur ql Negative Negative [facility] Glucose, ur ql Negative Negative [facility] Ketones, ur Negative Negative [facility] Bilirubin, ur Negative Negative [facility] Blood, ur Negative Negative [facility] Urobilinogen, ur <2.0 <2.0 mg/dL [facility] Nitrite, ur Negative Negative [facility] Leukocyte esterase, ur 2+(A) Negative [facility] UA reflex comment Reflex to microscopic UA will be performed. [facility] Urine 02/27/2025 3:48 PM CDT 02/27/2025 3:53 PM CDT us Oscar Vela MD LAB URINE ORDERABLES Final Resul t [facility] [place] [address] * Drugs of Abuse Screen, Urine without Confirmation (02/27/2025 3:48 PM CDT) Amphetamine, ur Not Detected CutOff 500ng/mL Comment: Interpretive Data - Amphetamines: Samples containing greater than 500 ng/mL d-methamphetamine or other cross-reacting amphetamine compounds are reported as positive. Amphetamine immunoassays are subject to significant false positive rates due to cross-reactivity of non-amphetamine drugs. Confirmatory testing required for definitive results. Current Interpretive Data was last reviewed 2023. Barbiturates, ur Not Detected CutOff 200ng/mL [facility] Comment: Interpretive Data - Barbiturates: Samples containing greater than 200 ng/mL secobarbital or other cross-reacting barbiturate compounds are reported as positive. False positive and false negative results are possible. Confirmatory testing required for definitive results. Current Interpretive Data was last reviewed 2023. Benzodiazepines, ur Not Detected CutOff 100ng/mL [facility] Comment: Interpretive Data - Benzodiazepines: Samples containing greater than 100 ng/mL nordiazepam or other cross-reacting compounds are reported as positive. False positive and false negative results are possible. Confirmatory testing required for definitive results. Current Interpretive Data was last reviewed 2023. Cannabinoids, ur Not Detected CutOff 50 ng/mL [facility] Comment: Interpretive Data - Cannabinoids: Samples containing greater than 50 ng/mL delta-9 THC -COOH or other cross- reacting compounds are reported as positive. False positive and false negative results are possible. Confirmatory testing required for definitive results. Current Interpretive Data was last reviewed 2023. Cocaine, ur Not Detected CutOff 150ng/mL [facility] Comment: Interpretive Data - Cocaine: Samples [...] Methadone, ur Not Detected CutOff 300ng/mL [facility] Comment: Interpretive Data - Methadone: Samples [...] Phencyclidine, ur Not Detected CutOff 25 ng/mL [facility] Comment: Interpretive Data - Phencyclidine: Samples containing greater than 25 ng/mL phencyclidine or other cross-reacting compounds are reported as positive. False positive and false negative results are possible. Confirmatory testing required for definitive results. Current Interpretive Data was last reviewed 2023. Urine Creatinine 54 mg/dL [facility] Comment: Interpretive Data Urine Creatinine: < 10 mg/dL is extremely dilute = or > 10 but < 20 mg/dL is dilute = or > 20 mg/dL is normal Current Interpretive Data was last revised on 2017. Urine 02/27/2025 3:48 PM CDT 02/27/2025 3:53 PM CDT Narrative [facility] - 02/27/2025 4:30 PM CDT Drug of Abuse screening is performed by immunoassay for medical purposes only. This is not to be used for Pain Management purposes. Oscar Vela MD LAB URINE ORDERABLES Final Resul t Performing Organization Address [facility] de Phone Number [facility] [place] [address] * (ABNORMAL) Urinalysis, microscopic only (02/27/2025 3:48 PM CDT) WBC, ur 0-5 0 - 5 /HPF RBC, ur 0-2 0 - 2 /HPF [facility] Epithelial cells, squamous, ur 11-20(A) 0 - 5 /HPF [facility] Comment:Suggestive of contam ination. Consider recollection by clean catch. Epithelial cells, renal, ur 1-5(A) 0 - 0 /HPF [facility] Bacteria, ur 2+(A) [facility] Mucous, ur Present(A ) [facility] Urine 02/27/2025 3:48 PM CDT 02/27/2025 3:53 PM CDT Oscar Vela MD LAB URINE ORDERABLES Final Resul t Performing Organization Address [facility] de Phone Number [facility] [place] [address] * (ABNORMAL) eGFR (02/27/2025 3:16 PM CDT) eGFR 39(L) >=60 mL/min/1. 73 m2 Comment: Interpretive Data [...] interpretive data was last reviewed 2021. Blood 02/27/2025 3:16 PM CDT 02/27/2025 3:32 PM CDT us Oscar Vela MD LAB BLOOD ORDERABLES Final Resul t [facility] [place] [address] * Differential, auto (02/27/2025 3:16 PM CDT) Neutrophil abs 2.86 1.50 - 6.50 K/cumm Imm gran abs 0.02 0.00 - 0.10 K/cumm [facility] Lymphocyte abs 1.14 0.80 - 3.30 K/cumm [facility] Monocyte abs 0.59 0.20 - 0.80 K/cumm [facility] Eosinophil abs 0.08 0.00 - 0.50 K/cumm [facility] Basophil abs 0.02 0.00 - 0.10 K/cumm [facility] Neutrophil pct 60.8 % [facility] Comment: Interpretive Data Percent cell count reference ranges are not reported, since discordance with absolute values may lead to misinterpretation of CBC data. Current Interpretive Data was last revised on 2017. Imm gran pct 0.4 % [facility] Comment: Interpretive Data Percent cell count reference ranges are not reported, since discordance with absolute values may lead to misinterpretation of CBC data. Current Interpretive Data was last revised on 2017. Lymphocyte pct 24.2 % [facility] Comment: Interpretive Data Percent cell count reference ranges are not reported, since discordance with absolute values may lead to misinterpretation of CBC data. Current Interpretive Data was last revised on 2017. Monocyte pct 12.5 % [facility] Comment: Interpretive Data Percent cell count reference ranges are not reported, since discordance with absolute values may lead to misinterpretation of CBC data. Current Interpretive Data was last revised on 2017. Eosinophil pct 1.7 % [facility] Comment: Interpretive Data Percent cell count reference ranges are not reported, since discordance with absolute values may lead to misinterpretation of CBC data. Current Interpretive Data was last revised on 2017. Basophil pct 0.4 % [facility] Comment: Interpretive Data Percent cell count reference ranges are not reported, since discordance with absolute values may lead to misinterpretation of CBC data. Current Interpretive Data was last revised on 2017. Blood 02/27/2025 3:16 PM CDT 02/27/2025 3:32 PM CDT Oscar Vela MD LAB BLOOD ORDERABLES Final Resul t Performing Organization Address [facility] Co de Phone Number [facility] [place] [address] * Thyroid Function [place] (02/27/2025 3:16 PM CDT) TSH 0.40 0.30 - 4.20 mcIUnit/mL Blood 02/27/2025 3:16 PM CDT 02/27/2025 3:32 PM CDT Oscar Vela MD LAB BLOOD ORDERABLES Final Resul t Performing Organization Address [facility] Co de Phone Number [facility] [place] [address] * (ABNORMAL) CBC with auto differential (02/27/2025 3:16 PM CDT) [facility] WBC 4.71 3.80 - 9.90 K/cumm Hgb 12.2 11.9 - 15.5 g/dL [facility] Hct 38.5 35.6 - 45.5 % [facility] Plt 231 150 - 400 K/cumm [facility] MPV 10.3 9.1 - 12.3 fL [facility] RBC 3.98 3.90 - 5.20 M/cumm [facility] MCV 96.7(H) 81.3 - 96.4 fL [facility] MCH 30.7 27.1 - 33.3 pg [facility] MCHC 31.7(L) 32.3 - 35.7 g/dL [facility] RDW CV 12.9 11.1 - 14.9 % [facility] RDW SD 46.0 35.7 - 48.1 fL [facility] NRBC abs 0.00 0.00 - 0.01 K/cumm [facility] Blood Venous blood specimen / Unknown 02/27/2025 3:16 PM CDT 02/27/2025 3:32 PM CDT Oscar Vela MD LAB BLOOD ORDERABLES Final Resul t [facility] [place] [address] * Ethanol (02/27/2025 3:16 PM CDT) [facility] Ethanol <10 <=10 mg/dL Comment: Interpretive Data Legal limit of intoxication > or = 80 mg/dL Levels > or = 400 mg/dL are potentially TOXIC. Current interpretive data was last revised on 2018. Blood 02/27/2025 3:16 PM CDT 02/27/2025 3:32 PM CDT us Oscar Vela MD LAB BLOOD ORDERABLES Final Resul t [facility] [place] [address] * (ABNORMAL) Comprehensive metabolic panel (02/27/2025 3:16 PM CDT) Sodium 144 135 - 145 mmol/L Potassium, pl 4.1 3.3 - 4.9 mmol/L [facility] Chloride 110 97 - 110 mmol/L [facility] CO2 27 22 - 32 mmol/L [facility] Anion gap 7 2 - 15 mmol/L [facility] BUN 22 6 - 25 mg/dL [facility] Creatinine 1.40(H) 0.60 - 1.10 mg/dL [facility] Glucose 102 70 - 199 mg/dL [facility] Comment: Interpretive Data Fasting glucose [...] interpretive data was last revised 2022. Calcium 9.2 8.5 - 10.3 mg/dL [facility] Bilirubin, total 0.3 0.1 - 1.2 mg/dL [facility] Protein, pl 6.6 6.5 - 8.5 g/dL [facility] Albumin 3.6 3.5 - 5.0 g/dL [facility] Alk phos 77 40 - 130 Units/L [facility] ALT 13 7 - 45 Units/L [facility] AST 19 10 - 45 Units/L [facility] Blood 02/27/2025 3:16 PM CDT 02/27/2025 3:32 PM CDT us Oscar Vela MD LAB BLOOD ORDERABLES Final Resul t 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 No records for laterality or charge. [address] [facility] hospitalization in November 2024, RUL 100%, which induced hypomania (shown in table below) Treatment # Date Laterality Charge Frequency 11/04/24 RUL 5 -> 10 -> 15 -> 100%, seized at 100% 3x/wk 11/07/24 RUL 100% 3x/wk 11/09/24 RUL 100% 3x/wk 11/11/24 RUL 100% 3x/wk 11/14/24 RUL 100% 3x/wk Did not pursue ECT in outpatient setting after discharge Re-hospitalized at [facility] 02/02/25 Prior # of ECTs this course: 5 This Treatment is RUL Unilateral # 6 Bilateral # 0 Bifrontal # 0 Treatment # Date Laterality Charge Frequency 1. 02/10/25 RUL 100% 3x/wk 2. 02/13/25 RUL 100% 3x/wk 3. 02/15/25 RUL 100% 3x/wk 4. 02/17/25 RUL 100% 3x/wk 5. 02/20/25 RUL 100% 3x/wk 6. 02/22/25 RUL 100% 3x/wk-->weekly (discharging, outpatient) Interval History: Patient reports feeling good and ready to leave the hospital today. She is looking forward to hanging out with friends and neighbors and thinks she might have tea and crumpets with them. She is glad to have continued with ECT as it has been very helpful for her mood. She endorsed having an intermittent GIFFORD and a few minutes of word finding difficulty after he last ECT session but denied other side effects. Denied SI/HI/AVH. 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 Physical Exam: Vitals: There were no vitals filed for this visit. Cardiac: Regular rate and rhythm. No murmurs, rubs, or gallops. Respiratory: Lungs clear to auscultation bilaterally. No wheezes, rhonchi, or rales. Abdominal: Soft, nontender, nondistended, positive bowel sounds. Extremities: No edema, pulses 2+ Other: Mental Status Exam: General: Calm, cooperative, good eye contact. No bizarre behavior. Speech: Regular rate and rhythm, normal volume, amount, latency, and tone. Flow of Thought: Logical, sequential, and goal-directed Content of Thought: No suicidal or homicidal ideation. No hallucinations or delusions. Mood: good Affect: Upbeat, Euthymic with normal range. Insight: good Judgement: good Sensorium: Alert and oriented x 3. Attention intact to conversation. Memory: normal based on conversation/exam LABORATORY/DIAGNOSTIC DATA REVIEW: Laboratory review: Lab results in the last 24 hours: No results found for this or any previous visit (from the past 24 hours). ASSESSMENT: QIDS-SR (02/09/25): 14 QIDS-SR (02/13/25): not completed QIDS-SR (02/15/25): 15 QIDS-SR (02/20/25): 9 QIDS-SR (02/22/25): 10 Additional Attending Comments: I identified myself to the patient as the Attending performing their treatment. Procedure Note TIME OUT Attestation Prior to the start of the procedure, verbal verification by the procedure participant(s) confirmed (as applicable): correct patient identity, agreement on the procedure to be done; correct patient positioning; an accurate procedure consent form, relevant images and results correctly labeled and displayed; any safety precautions based on clinical history and/or medication use have been addressed. Medication Plan: Medication: Dose: etomidate 10mg methohexital 0mg ketamine 0mg succinylcholine 40mg ondansetron 4mg ketorolac 0mg sumatriptan 0mg glycopyrrolate 0mg Lidocaine 40mg for raina block Caffeine 250 mg No additional medications planned Thymatron Treatment Parameters: Right Unilateral: Charge: 100% Pulse Width: 0.25 msec Frequency: 140 Hz Titration: [] YES Bite block placed: Yes Peripheral seizure duration: 12 sec EEG seizure duration: 12 sec Comments: give fluid bolus next treatment for seizure duration (now ordered in therapy plan) Post Procedure: Attending Psychiatrist: Lisa Todd MD Assistants: Roger Schmitz MD Post Procedure Diagnosis: Same Name of Procedure: Electroconvulsive Therapy (ECT) Description of the Procedure Findings: none Estimated Blood Loss: none Specimens Removed: none Complications: none Comments: none Condition on leaving ECT recovery: stable Anselmo Turner MD BEHAVIORAL HEALTH ORDERABLE S Final Result * (ABNORMAL) Urinalysis reflex to microscopic and culture Urine (02/20/2025 12:58 PM CDT) Color, ur Straw Yellow Clarity, ur Clear Clear [facility] Specific gravity, ur 1.014 1.003 - 1.[address] [facility] pH, urine 6.5 [facility] Comment: Interpretive Data U rine pH is affected by diet, medications, systemic acid-base disturbances, and renal tubular function. pH may affect urinary stone formation. For example, urine pH below 6.0 may help reduce the tendency for calcium phosphate stones and pH greater than 6.0 may reduce the tendency for uric acid stone formation. Source: [facility] Current Interpretive Data was last revised on 2017 Protein, ur ql Negative Negative [facility] Glucose, ur ql Negative Negative [facility] Ketones, ur Negative Negative [facility] Bilirubin, ur Negative Negative [facility] Blood, ur Negative Negative [facility] Urobilinogen, ur <2.0 <2.0 mg/dL [facility] Nitrite, ur Negative Negative [facility] Leukocyte esterase, ur 3+(A) Negative [facility] UA reflex comment Reflex to microscopic UA will be performed. [facility] Urine 02/20/2025 12:5 8 PM CDT 02/20/2025 5:51 PM CDT Bj Martinez MD LAB MICROBIOLOGY - GENER AL ORDERABLES Final Result Performing Organization Address [facility]/ZIP Co de Phone Number KATHRINE [facility] [place] [address] * (ABNORMAL) Urinalysis, microscopic only (02/20/2025 12:58 PM CDT) WBC, ur 6-10(A) 0 - 5 /HPF RBC, ur 0-2 0 - 2 /HPF [facility] Epithelial cells, squamous, ur 11-20(A) 0 - 5 /HPF [facility] Comment:Suggestive of contam ination. Consider recollection by clean catch. Epithelial cells, renal, ur 1-5(A) 0 - 0 /HPF [facility] Epithelial cells, transitional, ur 1-5 0 - 0 /HPF [facility] Bacteria, ur 3+(A) [facility] Mucous, ur Present(A) [facility] Culture Reflex Comment Reflex conditions for urine culture (WBC >10) not met. [facility] Urine 02/20/2025 12:5 8 PM CDT 02/20/2025 5:51 PM CDT Bj Martinez MD LAB URINE ORDERABLES Fin al Result Performing Organization Address [facility] de Phone Number [facility] [place] [address] * (ABNORMAL) Urinalysis reflex to microscopic and culture Urine (02/18/2025 3:00 PM CDT) Color, ur Straw Yellow Clarity, ur Clear Clear [facility] Specific gravity, ur 1.016 1.003 - 1.030 [facility] pH, urine 5.5 [facility] Comment: Interpretive Data U rine pH is affected by diet, medications, systemic acid-base disturbances, and renal tubular function. pH may affect urinary stone formation. For example, urine pH below 6.0 may help reduce the tendency for calcium phosphate stones and pH greater than 6.0 may reduce the tendency for uric acid stone formation. Source: [facility] Current Interpretive Data was last revised on 2017 Protein, ur ql Negative Negative [facility] Glucose, ur ql Negative Negative [facility] Ketones, ur Negative Negative [facility] Bilirubin, ur Negative Negative [facility] Blood, ur Negative Negative [facility] Urobilinogen, ur <2.0 <2.0 mg/dL [facility] Nitrite, ur Negative Negative [facility] Leukocyte esterase, ur 2+(A) Negative [facility] UA reflex comment Reflex to microscopic UA will be performed. [facility] Urine 02/18/2025 3:00 PM CDT 02/18/2025 3:33 PM CDT Bj Martinez MD LAB MICROBIOLOGY - GENER AL ORDERABLES Final Result Performing Organization Address [facility] de Phone Number [facility] [place] [address] * (ABNORMAL) Urinalysis, microscopic only (02/18/2025 3:00 PM CDT) WBC, ur 6-10(A) 0 - 5 /HPF RBC, ur 0-2 0 - 2 /HPF [facility] Epithelial cells, squamous, ur 6-10(A) 0 - 5 /HPF [facility] Comment:Suggestive of contam ination. Consider recollection by clean catch. Epithelial cells, renal, ur 1-5(A) 0 - 0 /HPF [facility] Bacteria, ur 1+(A) [facility] Mucous, ur Present(A) [facility] Culture Reflex Comment Reflex conditions for urine culture (WBC >10) not met. [facility] Urine 02/18/2025 3:00 PM CDT 02/18/2025 3:33 PM CDT Bj Martinez MD LAB URINE ORDERABLES Fin al Result Performing Organization Address [facility] Co de Phone Number [facility] [place] [address] * (ABNORMAL) Potassium (02/17/2025 12:30 PM CDT) [facility] Potassium, pl 5.0(H) 3.3 - 4.9 mmol/L Comment:Hemolyzed; Potassium value may be falsely elevated by as much as 1.1-1.6 mmol/L. Suggest redraw and reanalysis. Blood 02/17/2025 12:3 0 PM CDT 02/17/2025 1:36 PM CDT us Bj Martinez MD LAB BLOOD ORDERABLES Fin al Result Performing Organization Address [facility] Co de Phone Number [facility] [place] [address] * Troponin I high-sensitivity series (baseline, 2hr, 4hr, 6hr) (02/06/2025 11:58 AM CDT) [facility] Trop I hs 5 <=17 ng/L Comment: Interpretive Data For further hscTnI resources including the diagnostic algorithm and an aid in interpretation, copy and paste this link: [email or web address]/[email or web address] Current Interpretive Data last revised 2019. Blood 02/06/2025 11:5 8 AM CDT 02/06/2025 12:29 PM CDT us Noe Madison MD LAB BLOOD ORDERABLES Fi nal Result [facility] [place] [address] * ECG 12 lead (02/06/2025 11:41 AM CDT) [facility] Ventricular Rate EKG/Min 61 BPM [facility] Atrial Rate 61 BPM [facility] TN-Interval (MSEC) 180 ms [facility] QRS-Interval (MSEC) 132 ms [facility] QT-Interval (MSEC) 406 ms [facility] QTc 408 ms [facility] P [place] 52 degrees [facility] R [place] 7 degrees [facility] T [place] 54 degrees [facility] Diagnosis Normal sinus rhythm Right bundle branch block Abnormal ECG No previous ECGs available Confirmed by KAIA DIAZ M.D ([id number]) on 02/16/2025 5:35:18 PM [facility] 02/06/2025 11:4 1 AM CDT 02/16/2025 5:35 PM CDT Noe Madison MD ECG ORDERABLES Final R esult [facility] * XR Abdomen Ap 1 Vw (02/03/2025 5:31 PM CDT) Anatomical Region Laterality Modality Body, Abdomen N/A Computed Radiogr aphy 02/04/2025 10:0 0 AM CDT Impressions 02/04/2025 10:00 AM CDT Bowel gas pattern within normal limits with moderate to large volume stool throughout the colon. The radiology attending physician has personally reviewed this study, and had reviewed and/or edited this written report and agrees with it. Electronically signed by: Christiano Garcia M.D. Narrative 02/04/2025 10:00 AM CDT EXAMINATION: Abdomen, one view. HISTORY: Abdominal pain. COMPARISON: 01/31/2025. Procedure Note Christiano Garcia MD - 02/04/2025 EXAMINATION: Abdomen, one view. HISTORY: Abdominal pain. COMPARISON: 01/31/2025. IMPRESSION: Bowel gas pattern within normal limits with moderate to large volume stool throughout the colon. The radiology attending physician has personally reviewed this study, and had reviewed and/or edited this written report and agrees with it. Electronically signed by: Christiano Garcia M.D. Noe Madison MD IMG XR PROCEDURES Final Result * Urinalysis reflex to microscopic (01/31/2025 1:52 PM CDT) Color, ur Straw Yellow Clarity, ur Clear Clear [facility] Specific gravity, ur 1.009 1.003 - 1.030 [facility] pH, urine 6.5 [facility] Comment: Interpretive Data U rine pH is affected by diet, medications, systemic acid-base disturbances, and renal tubular function. pH may affect urinary stone formation. For example, urine pH below 6.0 may help reduce the tendency for calcium phosphate stones and pH greater than 6.0 may reduce the tendency for uric acid stone formation. Source: [facility] Current Interpretive Data was last revised on 2017 Protein, ur ql Negative Negative [facility] Glucose, ur ql Negative Negative [facility] Ketones, ur Negative Negative [facility] Bilirubin, ur Negative Negative [facility] Blood, ur Negative Negative [facility] Urobilinogen, ur <2.0 <2.0 mg/dL [facility] Nitrite, ur Negative Negative [facility] Leukocyte esterase, ur Negative Negative [facility] UA reflex comment Reflex conditions for microscopic UA not met. [facility] Urine 01/31/2025 1:52 PM CDT 01/31/2025 1:56 PM CDT Ambrocio Mabry MD LAB URINE ORDERABLES Final Result [facility] [place] [address] * Drugs of Abuse Screen, Urine without Confirmation (01/31/2025 1:52 PM CDT) Amphetamine, ur Not Detected CutOff 500ng/mL Comment: Interpretive Data - Amphetamines: Samples containing greater than 500 ng/mL d-methamphetamine or other cross-reacting amphetamine compounds are reported as positive. Amphetamine immunoassays are subject to significant false positive rates due to cross-reactivity of non-amphetamine drugs. Confirmatory testing required for definitive results. Current Interpretive Data was last reviewed 2023. Barbiturates, ur Not Detected CutOff 200ng/mL [facility] Comment: Interpretive Data - Barbiturates: Samples containing greater than 200 ng/mL secobarbital or other cross-reacting barbiturate compounds are reported as positive. False positive and false negative results are possible. Confirmatory testing required for definitive results. Current Interpretive Data was last reviewed 2023. Benzodiazepines, ur Not Detected CutOff 100ng/mL [facility] Comment: Interpretive Data - Benzodiazepines: Samples containing greater than 100 ng/mL nordiazepam or other cross-reacting compounds are reported as positive. False positive and false negative results are possible. Confirmatory testing required for definitive results. Current Interpretive Data was last reviewed 2023. Cannabinoids, ur Not Detected CutOff 50 ng/mL [facility] Comment: Interpretive Data - Cannabinoids: Samples containing greater than 50 ng/mL delta-9 THC -COOH or other cross- reacting compounds are reported as positive. False positive and false negative results are possible. Confirmatory testing required for definitive results. Current Interpretive Data was last reviewed 2023. Cocaine, ur Not Detected CutOff 150ng/mL [facility] Comment: Interpretive Data - Cocaine: Samples containing greater than 150 ng/mL benzoylecgonine or other cross- reacting compounds are reported as positive. False positive and false negative results are possible. Confirmatory testing required for definitive results. Current Interpretive Data was last reviewed 2023. Fentanyl, Ur Not Detected CutOff 5 ng/mL [facility] Comment: Interpretive Data - Fentanyl: Samples containing greater than 5 ng/mL norfentanyl, fentanyl, or other cross-reacting fentanyl compounds are reported as positive. False positive and false negative results are possible. Confirmatory testing required for definitive results. Current Interpretive Data was last reviewed 2023. Methadone, ur Not Detected CutOff 300ng/mL [facility] Comment: Interpretive Data - Methadone: Samples containing greater than 300 ng/mL d,l-methadone or other cross-reacting compounds are reported as positive. False positive and false negative results are possible. Confirmatory testing required for definitive results. Current Interpretive Data was last reviewed 2023. Opiates, ur Not Detected CutOff 300ng/mL [facility] Comment: Interpretive Data - Opiates: Samples containing greater than 300 ng/mL morphine or other cross-reacting compounds are reported as positive. False positive and false negative results are possible. Confirmatory testing required for definitive results. Current Interpretive Data was last reviewed 2023. Oxycodone, ur Not Detected CutOff 100ng/mL [facility] Comment: Interpretive Data - Oxycodone: Samples containing greater than 100 ng/mL oxycodone or other cross-reacting compounds are reported as positive. False positive and false negative results are possible. Confirmatory testing required for definitive results. Current Interpretive Data was last reviewed 2023. Phencyclidine, ur Not Detected CutOff 25 ng/mL [facility] Comment: Interpretive Data - Phencyclidine: Samples containing greater than 25 ng/mL phencyclidine or other cross-reacting compounds are reported as positive. False positive and false negative results are possible. Confirmatory testing required for definitive results. Current Interpretive Data was last reviewed 2023. Urine Creatinine 41 mg/dL [facility] Comment: Interpretive Data Urine Creatinine: < 10 mg/dL is extremely dilute = or > 10 but < 20 mg/dL is dilute = or > 20 mg/dL is normal Current Interpretive Data was last revised on 2017. Urine 01/31/2025 1:52 PM CDT 01/31/2025 2:10 PM CDT Narrative [facility] - 01/31/2025 2:46 PM CDT Drug of Abuse screening is performed by immunoassay for medical purposes only. This is not to be used for Pain Management purposes. Ambrocio Mabry MD LAB URINE ORDERABLES Final Result [facility] Department [place] [address] * [place] CRITICAL CARE ILL/INJURED PATIENT INIT 30-74 MIN (01/31/2025 12:53 PM CDT) Narrative Argentina Chaudhary NP - 01/31/2025 12:53 PM CDT Argentina Chaudhary NP 01/31/2025 12:55 PM Critical Care Performed by: Argentina Chaudhary NP Authorized by: Chas Busby MD Critical care provider statement: As reflected in the history, physical exam, orders, notes, and/or MDM, I was personally present while the patient was critically ill and provided critical care services for 30 minutes, excluding time involved in separately billable [...] time documenting in the medical record. us Chas Busby MD IN CLINIC/BEDSIDE ORDERAB LES Final Result * XR Abdomen 2 Views W Chest 1 View (01/31/2025 12:38 PM CDT) Anatomical Region Laterality Modality Body, Abdomen N/A Computed Radiogr aphy 01/31/2025 12:4 9 PM CDT Impressions 01/31/2025 12:49 PM CDT There is mild bibasilar atelectasis. No focal pneumonic consolidation, effusion, or pneumothorax. There is a nonobstructive bowel gas pattern with stool seen throughout the colon. There is multilevel degenerative disc disease. Electronically signed by: Leo Cuevas M.D. Narrative 01/31/2025 12:49 PM CDT EXAMINATION: XR ABDOMEN 2 VIEWS W CHEST 1 VIEW HISTORY: Constipation COMPARISON: 10/04/2023 Procedure Note Leo Cuevas MD - 01/31/2025 EXAMINATION: XR ABDOMEN 2 VIEWS W CHEST 1 VIEW HISTORY: Constipation COMPARISON: 10/04/2023 IMPRESSION: There is mild bibasilar atelectasis. No focal pneumonic consolidation, effusion, or pneumothorax. There is a nonobstructive bowel gas pattern with stool seen throughout the colon. There is multilevel degenerative disc disease. Electronically signed by: Leo Cuevas M.D. us [place] Sanam Neena CATHODIC PROTECTION TECHNICIAN IMG XR PROCEDURES Final R esult * (ABNORMAL) eGFR (01/31/2025 11:50 AM CDT) [facility] eGFR 36(L) >=60 mL/min/1. 73 m2 Comment: Interpretive Data [...] interpretive data was last reviewed 2021. Blood 01/31/2025 11:5 0 AM CDT 01/31/2025 12:07 PM CDT us Ambrocio Mabry MD LAB BLOOD ORDERABLES Final Result [facility] [place] [address] * Differential, auto (01/31/2025 11:50 AM CDT) Pathologist [facility] Neutrophil abs 3.08 1.50 - 6.50 K/cumm Imm gran abs 0.02 0.00 - 0.10 K/cumm [facility] Lymphocyte abs 1.24 0.80 - 3.30 K/cumm [facility] Monocyte abs 0.65 0.20 - 0.80 K/cumm [facility] Eosinophil abs 0.08 0.00 - 0.50 K/cumm [facility] Basophil abs 0.03 0.00 - 0.10 K/cumm [facility] Neutrophil pct 60.4 % [facility] Comment: Interpretive Data Percent cell count reference ranges are not reported, since discordance with absolute values may lead to misinterpretation of CBC data. Current Interpretive Data was last revised on 2017. Imm gran pct 0.4 % [facility] Comment: Interpretive Data Percent cell count reference ranges are not reported, since discordance with absolute values may lead to misinterpretation of CBC data. Current Interpretive Data was last revised on 2017. Lymphocyte pct 24.3 % [facility] Comment: Interpretive Data Percent cell count reference ranges are not reported, since discordance with absolute values may lead to misinterpretation of CBC data. Current Interpretive Data was last revised on 2017. Monocyte pct 12.7 % [facility] Comment: Interpretive Data Percent cell count reference ranges are not reported, since discordance with absolute values may lead to misinterpretation of CBC data. Current Interpretive Data was last revised on 2017. Eosinophil pct 1.6 % [facility] Comment: Interpretive Data Percent cell count reference ranges are not reported, since discordance with absolute values may lead to misinterpretation of CBC data. Current Interpretive Data was last revised on 2017. Basophil pct 0.6 % [facility] Comment: Interpretive Data Percent cell count reference ranges are not reported, since discordance with absolute values may lead to misinterpretation of CBC data. Current Interpretive Data was last revised on 2017. Blood 01/31/2025 11:5 0 AM CDT 01/31/2025 12:07 PM CDT us Ambrocio Mabry MD LAB BLOOD ORDERABLES Final Result [facility] [place] [address] * Thyroid Function [place] (01/31/2025 11:50 AM CDT) TSH 0.33 0.30 - 4.20 mcIUnit/mL Blood 01/31/2025 11:5 0 AM CDT 01/31/2025 12:07 PM CDT Ambrocio Mabry MD LAB BLOOD ORDERABLES Final Result [facility] Department [place] [address] * (ABNORMAL) CBC with auto differential (01/31/2025 11:50 AM CDT) [facility] WBC 5.10 3.80 - 9.90 K/cumm Hgb 13.4 11.9 - 15.5 g/dL [facility] Hct 41.9 35.6 - 45.5 % [facility] Plt 265 150 - 400 K/cumm [facility] MPV 10.5 9.1 - 12.3 fL [facility] RBC 4.43 3.90 - 5.20 M/cumm [facility] MCV 94.6 81.3 - 96.4 fL [facility] MCH 30.2 27.1 - 33.3 pg [facility] MCHC 32.0(L) 32.3 - 35.7 g/dL [facility] RDW CV 12.6 11.1 - 14.9 % [facility] RDW SD 44.2 35.7 - 48.1 fL [facility] NRBC abs 0.00 0.00 - 0.01 K/cumm [facility] Blood Venous blood specimen / Unknown 01/31/2025 11:50 AM CDT 01/31/2025 12:07 PM CDT us Ambrocio Mabry MD LAB BLOOD ORDERABLES Final Result [facility] [place] [address] * Ethanol (01/31/2025 11:50 AM CDT) [facility] Ethanol <10 <=10 mg/dL Comment: Interpretive Data Legal limit of intoxication > or = 80 mg/dL Levels > or = 400 mg/dL are potentially TOXIC. Current interpretive data was last revised on 2018. Blood 01/31/2025 11:5 0 AM CDT 01/31/2025 12:07 PM CDT Ambrocio Mabry MD LAB BLOOD ORDERABLES Final Result [facility] [place] [address] * (ABNORMAL) Comprehensive metabolic panel (01/31/2025 11:50 AM CDT) Sodium 142 135 - 145 mmol/L Potassium, pl 4.4 3.3 - 4.9 mmol/L [facility] Comment:Hemolyzed; Potassium value may be falsely elevated by as much as 0.3-0.5 mmol/L. Suggest redraw and reanalysis. Chloride 109 97 - 110 mmol/L [facility] CO2 26 22 - 32 mmol/L [facility] Anion gap 7 2 - 15 mmol/L [facility] BUN 23 6 - 25 mg/dL [facility] Creatinine 1.48(H) 0.60 - 1.10 mg/dL [facility] Glucose 90 70 - 199 mg/dL [facility] Comment: Interpretive Data Fasting glucose [...] 2022. Calcium 10.0 8.5 - 10.3 mg/dL [facility] Bilirubin, total 0.5 0.1 - 1.2 mg/dL [facility] Protein, pl 7.0 6.5 - 8.5 g/dL [facility] Albumin 3.7 3.5 - 5.0 g/dL [facility] Alk phos 78 40 - 130 Units/L [facility] ALT 12 7 - 45 Units/L [facility] AST 22 10 - 45 Units/L [facility] Comment:Hemolyzed; result ma y be falsely elevated Blood 01/31/2025 11:5 0 AM CDT 01/31/2025 12:07 PM CDT us Ambrocio Mabry MD LAB BLOOD ORDERABLES Final Result Performing Organization Address City/[facility] Co de Phone Number [facility] [place] [address] * Hepatitis C antibody Blood (11/01/2024 10:53 PM CDT) Hep C Ab Nonreactive Nonreactive Comment:Antibodies to HCV no t detected. Does NOT exclude the possibility of recent exposure to HCV. Current interpretive data was last revised on 22 Blood 11/01/2024 10:5 3 PM CDT 11/01/2024 11:30 PM CDT us Lisa Todd MD LAB MICROBIOLOGY - GENER AL ORDERABLES Final Result Performing Organization Address [facility] Co de Phone Number [facility] [place] [address] from Last 3 Months or Most Recently Relevant to Health [place] [address] [employer] [address] [place] [address] T MEDICARE [facility] IDPA Advance Directives For more information, please contact: [phone] * Full Code (Latest Code Status on File) Date Activated Date Inactivated Comments 03/15/2025 6:46 AM 03/18/2025 3:40 PM * Full Code Date Activated Date Inactivated Comments 03/13/2025 6:27 AM 03/15/2025 6:46 AM * Full Code Date Activated Date Inactivated Comments 03/10/2025 6:19 AM 03/13/2025 6:27 AM * Full Code Date Activated Date Inactivated Comments 03/08/2025 6:37 AM 03/10/2025 6:19 AM * Full Code Date Activated Date Inactivated Comments 03/06/2025 6:44 AM 03/08/2025 6:37 AM 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
--- OUTSIDE RECORDS SUMMARY | 2025-04-03 15:25 | XMS_ITS | Encounter Summary ---
Author Organization [facility] Address [address] [place] [address] Care Team Providers Care Bar Steward Name Role Phone Jose Yen MD Primary Care Provider [phone] Reason for Visit * Auth/Cert (Routine) Specialty Diagnoses / Procedures Referred By Contac t Referred To Contact Referral ID Status Reason Start Date Expiration Date Visits Re quested Visits Authorized [id number] 1 1 Encounter Details Date Type Department Care Team (Late st Contact Info) Description 04/03/2025 Home Care Visit [facility] [place] [address] [address] [place] [id number] Soila Reese, PT TELEPHONE ENCOUNTER Social History [...] any time in the past [address] [facility], were you homeless or living in a senior living (including now)? No 11/02/2024 Humiliation, Afraid, Rape, [...] week 03/02/2025 How often do you attend [facility] or scientologist services? More than 4 times per year 03/02/2025 Do you belong to any clubs o r organizations such as christianity groups, unions, fraternal or athletic groups, or [...] and heating? Not hard at all 03/02/2025 [facility] - Occupational [...] any time in the past [address] [facility], were you homeless or living in a senior living (including now)? 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
[2025-04-03 15:33] LABS: Hematocrit 43.2 % (37.0-47.0); Hemoglobin 13.4 g/dL (12.0-15.0); Immature Granulocyte Percent A 0.2 % (0-0.5); Lymphocytes Absolute Auto 1.44 K/mm3 (0.9-3.2); Mean Corpuscular HGB Conc 31.0 g/dl (32-36); Mean Corpuscular Hemoglobin 30.9 pg (26-34); Mean Corpuscular Volume 99.8 fl (80-100); Nucleated Red Blood Cells Absolute Auto 0.000 K/mm3 (0.0-0.012); Nucleated Red Blood Cells Perc 0.0 % (0.0-0.2); Platelet Count Result 199 k/mm3 (150-375); Red Blood Count 4.33 M/mm3 (4.2-5.4); White Blood Count 5.0 K/mm3 (4.5-10.0)
[2025-04-03 15:44] LABS: Alanine Aminotransferase 13 U/L (6-35); Albumin Level 3.9 g/dL (3.5-5.1); Alkaline Phosphatase 71 U/L (38-126); Anion Gap 3 mmol/L (4-12); Aspartate Amino Transferase 28 U/L (14-36); Bilirubin,Total 0.6 mg/dL (0.2-1.3); Blood Urea Nitrogen 23 mg/dL (7-17); Calcium 9.6 mg/dL (8.4-10.2); Carbon Dioxide 30 mmol/L (22-30); Chloride 108 mmol/L (98-107); Estimated CRCL calculation 28 ml/min; Estimated Glomerular Filt Rate 37; Glucose 86 mg/dL (65-110); Magnesium 2.0 mg/dL (1.6-2.3); Potassium 4.0 mmol/L (3.4-5.0); Sodium 141 mmol/L (137-145); Total Protein 7.0 g/dL (6.3-8.2)
[2025-04-03 15:57] LABS: Troponin I < 0.012 ng/mL (0.000-0.034)
[2025-04-03 16:40] LABS: Add Urine Microscopic? YES; Appearance Urine Clear (Clear); Glucose Urine UA Negative (Negative); Leukocyte Esterase Ur 3+ LEU/UL (Negative); Need Manual Microscopic Reviewed; Nitrate Urine Negative (Negative); Non Pathogenic Casts 0-2; Specific Grav Ur 1.011 (1.001-1.035)
--- OUTSIDE RECORDS SUMMARY | 2025-04-03 16:55 | XMS_ITS | Clinical Summary ---
Author Organization [facility] Address [address] [place] [phone] Care Team Providers Care Youth Director Name Role Phone Jose Yen MD Primary Care Provider [phone] Allergies Active Allergy Reactions Criticality Noted Date [...] son is very unhygienic). Was stable on [place] for 30 years until her OP psych decreased the dose due to concerns it was causing CKD. She then completely d/c'ed it. Since then, she's been hospitalized many times with different med titrations. In [facility] in October, ECT caused hypomania. She felt great and back to baseline after discharge on trazodone, fluvoxamine, and haldol. She was discharged from [facility] on 01.26 on just home klonopin and [...] PT now recommending long-term care, OT recommending assisted facility - In case of agitation: - [...] of 37. Per 02/24/2022 note from her diabetes territory manager Dr. Landers, she most likely she has ckd from [place] use. He has educated her that continued [...] have worsened since she was hospitalized at [facility] in early January 2025, unclear if caused by worsening anxiety, med side-effects, etc. She now has difficulty even drinking a glass of water because she shakes so much. She has a minimal tremor at rest when hands are in her lap. The tremor worsens when her hands are outstretched and with a [id number] test. This appears consistent with essential tremor. [...] pain. Will continue coordinating with SW about custodial placement. No medication changes for now. Update: [...] 04/03/2025 12:30 PM CDT Home Care Visit [address] [place] [address] Marie Villa, JOSELINE SN HOME VISIT 04/03/2025 9:30 AM CDT Home Care Visit [address] [place] [address] Irene Rick, OT OT HOME VISIT 04/03/2025 Home Care Visit [address] [place] [address] Soila Reese, PT TELEPHONE ENCOUNTER 03/30/2025 11:00 AM CDT Home Care Visit [address] [place] [address] Irene Rick, OT OT HOME VISIT 03/30/2025 9:00 AM CDT Home Care Visit [address] [place] [address] Marie Villa, JOSELINE SN HOME VISIT 03/30/2025 Home Care Visit [address] [place] [address] Soila Reese, PT TELEPHONE ENCOUNTER 03/29/2025 12:00 PM CDT Home Care Visit [address] [place] [address] Soila Reese, PT PT REASSESSMENT 03/29/2025 Home Care Visit [address] [place] [address] Bo Rodarte, [facility] CASE COMMUNICATION 03/28/2025 12:30 PM CDT Home Care Visit [address] [place] [address] Bo Rodarte LCSW [facility] INITIAL EVAL 03/28/2025 10:30 AM CDT Home Care Visit [address] [place] [address] Irene Rick, OT OT REASSESSMENT 03/27/2025 12:30 PM CDT Home Care Visit [address] [place] [address] Fernando Mcdonald, JOSELINE SN OASIS RESUMPTION OF CARE 03/27/2025 Home Care Visit [address] [place] [address] Bo Rodarte LCSW CASE COMMUNICATION 03/27/2025 Plan of Care Documentation [address] [place] [address] 03/22/2025 Home Care Visit [address] [place] [address] Pattie Guerrier, RN TELEPHONE ENCOUNTER 03/21/2025 Home Care Visit [address] [place] [address] Pattie Guerrier, RN TELEPHONE ENCOUNTER 03/15/2025 2:33 PM CDT Anesthesia Event [address] [address] Prasad Pro MD Sillery, Sarah Lynn, CRNA 03/13/2025 9:04 AM CDT Anesthesia Event [address] [address] Naren Lozada MD PhD 03/10/2025 9:24 AM CDT Anesthesia Event [address] [address] Anthony Elizalde III, MD PhD 03/08/2025 11:13 AM CDT Anesthesia Event [address] [address] Frank Virgen MD Brake, Barbara E., NP 03/06/2025 10:08 AM CDT Anesthesia Event [address] [address] Yoli Araya MD 03/03/2025 Home Care Visit [address] [place] [address] Marie Villa, JOSELINE SN OASIS TRANSFER W/OUT DC 03/03/2025 Telephone [facility] Medicine Cardiology [address] [facility] 8th [place] [address] [place] [address] Rosario Haskins 03/01/2025 10:58 AM CDT - 03/18/2025 11:12 AM CDT Hospital Encounter [address] [address] Michael Delgado Jr., MD de Leon, MD [...] 03/01/2025 9:30 AM CDT Home Care Visit [address] [place] [address] Antionette Avila OT OT INITIAL EVALUATION 02/28/2025 Home Care Visit [address] [place] [address] Marie Villa, RN CARE CONFERENCE 02/27/2025 2:58 PM CDT - 02/28/2025 1:59 AM CDT Emergency [facility] Emergency Department [address] [place] [phone] Oscar Vela MD Depression, unspecified depression type (Primary Dx); Anxiety; Suicidal ideation Discharge Disposition: Discharge to home or self care 02/27/2025 1:30 PM CDT Home Care Visit [address] [place] [address] Zan Hester, PT PT HOME VISIT 02/27/2025 Telephone Psychiatry Roger Schmitz MD 02/24/2025 1:00 PM CDT Home Care Visit [address] [place] [address] Fernando Dowling, PT PT INITIAL EVALUATION 02/23/2025 9:30 AM CDT Home Care Visit [address] [place] [address] Marie Villa, JOSELINE SN OASIS START OF CARE 02/23/2025 Plan of Care Documentation [address] [place] [address] 02/22/2025 10:48 AM CDT Anesthesia Event [address] [address] Atul Suh MD 02/20/2025 10:19 AM CDT Anesthesia Event [address] [address] Jason Crawford MD 02/17/2025 10:47 AM CDT Anesthesia Event [address] [address] Naren Lozada MD PhD 02/15/2025 10:24 AM CDT Anesthesia Event [address] [address] Prasad Pro MD 02/13/2025 12:12 PM CDT Anesthesia Event [facility] [address] [place] [address] Angy Saavedra MD 02/10/2025 10:06 AM CDT Anesthesia Event [facility] [address] [place] [address] Da Rosario MD 01/31/2025 11:44 AM CDT - 02/22/2025 1:30 PM CDT Hospital Encounter [address] [address] Ambrocio Mabry MD Trillo Alvarez, Ludwig, MD [...] any time in the past 12 m [facility], were you homeless or living in a half-way (including now)? No 11/02/2024 Humiliation, Afraid, Rape, [...] How often do you attend chur or yarsanism services? More than 4 times per year 03/02/2025 Do you belong to any clubs o r organizations such as jain groups, unions, fraternal or athletic groups, or [...] and heating? Not hard at all 03/02/2025 [facility] [place] of Occupat ional Health - Occupational Stress [...] any time in the past 12 m [facility], were you homeless or living in a half-way (including now)? No 03/02/2025 [facility] Utilities Answer Date Recorded In the past 12 months has th e [employer], gas, oil, or water [employer] threatened to shut off services in your home? No 03/02/2025 Personal Safety Answer Date Recorded Have you ever been in or are you currently in a harmful physical or emotional relationship or is someone making you feel afraid or unsafe? Denies 03/01/2025 Comments No Sex and Gender Information Value Date Recorded Sex Assigned at Not on file Legal Sex Female 12:09 AM [employer] Gender Identity Not on file Sexual [...] AUTO DIFFERENTIAL STAT 03/01/2025 11:16 AM CDT [facility] CRIT[facility] CARE ILL/INJURED PATIENT INIT 30-74 MIN [...] WITHOUT CONFIRMATION STAT 01/31/2025 1:52 PM CDT [facility] CRITICAL CARE ILL/INJURED PATIENT INIT 30-74 MIN [...] or charge. 5 sessions of ECT during [facility] hospitalization in November 2024, RUL 100%, which induced hypomania (shown in table below) Previous Treatment Summary: Treatment # Date Laterality Charge Frequency 11/04/24 RUL 5 -> 10 -> 15 -> 100%, seized at 100% 3x/wk 11/07/24 RUL 100% 3x/wk 11/09/24 RUL 100% 3x/wk 11/11/24 RUL 100% 3x/wk 11/14/24 RUL 100% 3x/wk Did not pursue ECT in outpatient setting after discharge Re-hospitalized at [facility] 02/02/25 Prior # of ECTs this [...] (ABNORMAL) eGFR (03/14/2025 9:26 PM CDT) Pathologist [facility] eGFR 28(L) >=60 mL/min/1. 73 m2 Comment: [...] us Lisa Todd MD LAB BLOOD ORDERABLES [facility] al Result [facility] Department [place] [address] * (ABNORMAL) Basic metabolic panel (03/14/2025 9:26 PM CDT) Pathologist [facility] Sodium 144 135 - 145 mmol/L Potassium, pl 4.1 3.3 - 4.9 mmol/L [facility] Chloride 110 97 - 110 mmol/L [facility] CO2 24 22 - 32 mmol/L [facility] Anion gap 10 2 - 15 mmol/L [facility] BUN 41(H) 6 - 25 mg/dL [facility] Creatinine 1.82(H) 0.60 - 1.10 mg/dL [facility] Glucose 138 70 - 199 mg/dL [facility] Comment: Interpretive Data Fasting glucose >/= [...] 2022. Calcium 9.4 8.5 - 10.3 mg/dL [facility] Blood 03/14/2025 9:26 PM CDT 03/14/2025 10:35 PM CDT us Lisa Todd MD LAB BLOOD ORDERABLES [facility] al Result [facility] Department [place] [address] * Electroconvulsive therapy (03/13/2025 6:53 AM CDT) [...] or charge. 5 sessions of ECT during [facility] hospitalization in November 2024, RUL 100%, which induced hypomania (shown in table below) Previous Treatment Summary: Treatment # Date Laterality Charge Frequency 11/04/24 RUL 5 -> 10 -> 15 -> 100%, seized at 100% 3x/wk 11/07/24 RUL 100% 3x/wk 11/09/24 RUL 100% 3x/wk 11/11/24 RUL 100% 3x/wk 11/14/24 RUL 100% 3x/wk Did not pursue ECT in outpatient setting after discharge Re-hospitalized at [facility] 02/02/25 Prior # of ECTs this [...] because her family lives far away in [place]. 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 No records for laterality or charge. 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 No records for laterality or charge. 5 sessions of ECT during [facility] hospitalization in November 2024, RUL 100%, which induced hypomania (shown in table below) Treatment # Date Laterality Charge Frequency 11/04/24 RUL 5 -> 10 -> 15 -> 100%, seized at 100% 3x/wk 11/07/24 RUL 100% 3x/wk 11/09/24 RUL 100% 3x/wk 11/11/24 RUL 100% 3x/wk 11/14/24 RUL 100% 3x/wk Did not pursue ECT in outpatient setting after discharge Re-hospitalized at [facility] 02/02/25 Prior # of ECTs this [...] mg/dL Calcium 10.1 8.5 - 10.3 mg/dL [place] level Collection Time: 03/07/25 9:00 PM Result Value Ref Range [place] 0.2 (L) 0.6 - 1.2 mmol/L eGFR [...] leaving ECT recovery: stable Anselmo Turner MD [facility] HEALTH ORDERABLE S Final Result * (ABNORMAL) [...] ORDERABLES Fin al Result Performing Organization Address [facility] Co de Phone Number [facility] [address] * (ABNORMAL) [place] level (03/07/2025 9:00 PM CDT) [place] 0.2(L) 0.6 - 1.2 mmol/L Blood 03/07/2025 9:00 PM CDT 03/07/2025 10:01 PM CDT Narrative [facility] - 03/07/2025 10:31 PM CDT To be drawn at 2000 for trough level Lisa Todd MD LAB BLOOD ORDERABLES Fin al Result Performing Organization Address [facility] de Phone Number [facility] [place] [address] * (ABNORMAL) Basic metabolic panel (03/07/2025 9:00 PM CDT) Sodium 140 135 - 145 mmol/L Potassium, pl 4.6 3.3 - 4.9 mmol/L [facility] Chloride 105 97 - 110 mmol/L [facility] CO2 28 22 - 32 mmol/L [facility] Anion gap 7 2 - 15 mmol/L [facility] BUN 31(H) 6 - 25 mg/dL [facility] Creatinine 1.90(H) 0.60 - 1.10 mg/dL [facility] Glucose 88 70 - 199 mg/dL [facility] Comment: Interpretive Data Fasting glucose >/= [...] Calcium 10.1 8.5 - 10.3 mg/dL [facility] Blood 03/07/2025 9:00 PM CDT 03/07/2025 10:01 PM CDT us Lisa Todd MD LAB BLOOD ORDERABLES Fin al Result [facility] Department [place] [address] * Electroconvulsive therapy (03/06/2025 7:21 AM CDT) Narrative Roger Schmitz MD - 03/06/2025 7:21 AM CDT Roger Schmitz MD 03/06/2025 12:44 PM ECT Treatment Note Pre-Procedure Procedure: ECT inpatient Court Ordered : No Preprocedure Diagnosis: Associated Problems P Problem Selected Diagnosis Major depressive disorder, 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 No records for laterality or charge. 5 sessions of ECT during [facility] hospitalization in November 2024, RUL 100%, which induced hypomania (shown in table below) Treatment # Date Laterality Charge Frequency 11/04/24 RUL 5 -> 10 -> 15 -> 100%, seized at 100% 3x/wk 11/07/24 RUL 100% 3x/wk 11/09/24 RUL 100% 3x/wk 11/11/24 RUL 100% 3x/wk 11/14/24 RUL 100% 3x/wk Did not pursue ECT in outpatient setting after discharge Re-hospitalized at [facility] 02/02/25 Prior # of ECTs this [...] and about her anticipated move into a custodial. She endorsed having passive SI without plan [...] AM CDT Narrative 03/04/2025 9:24 AM CDT [facility] [place]iac [place] [address] Transthoracic Echocardiographic Report Patient Name: LAURIE SAEZ L : 1945 (79y 4m) Sex: F Study Date: 03/04/2025 07:52:42 AM Ht(Inch): 66 Wt(Lb): 151.9 BSA: 1.78 Agriculture Specialist: Peyton Marie [facility] Location: [id number] Order Provider: LISA TODD Heart Rate: 61 [...] 14.00 - 42.00 ] MV E Peak Cuco 0.8 m/s [ 0.6 - 1.3 ] [...] Procedure Note Leonor Ryan MD - 03/04/2025 [facility] [place] [address] Transthoracic Echocardiographic Report Patient Name: LAURIE SAEZ L : 1945 (79y 4m) Sex: F Study Date: 03/04/2025 07:52:42 AM Ht(Inch): 66 Wt(Lb): 151.9 BSA: 1.78 Agriculture Specialist: Peyton Marie [facility] Location: [id number] OrderProvider: LISA TODD Heart Rate: 61 BMI: [...] LA Length 4C 3.92 cm MV Decel [id number] msec [ 104.00 - 258.00 ] LA [...] in interpretation, copy and paste this link: https://[employer]SHIFT.org/show/hsTrop-1 Current Interpretive Data last revised 2019. Trop I hs delta 1 ng/L [facility] Trop I hs interp Insignificant CERNER BJ H Blood 03/03/2025 6:02 PM CDT 03/03/2025 6:49 PM CDT Lisa Todd MD LAB BLOOD ORDERABLES Fin al Result [facility] Department [place] [address] * Troponin I high-sensitivity 4-hour (03/03/2025 4:09 PM CDT) Trop I hs 7 <=17 ng/L Comment: Interpretive Data For further hscTnI resources including the diagnostic algorithm and an aid in interpretation, copy and paste this link: https://[employer]SHIFT.org/show/hsTrop-1 Current Interpretive Data last revised 2019. Trop I hs delta 1 ng/L [facility] Trop I hs interp Insignificant CERNER BJ H Blood 03/03/2025 4:09 PM CDT 03/03/2025 4:49 PM CDT Lisa Todd MD LAB BLOOD ORDERABLES Fin al Result Performing Organization Address [facility] Co de Phone Number [facility] [place] [address] * Troponin I high-sensitivity 2-hour (03/03/2025 1:36 PM CDT) Trop I hs 6 <=17 ng/L Comment: Interpretive Data For further hscTnI resources including the diagnostic algorithm and an aid in interpretation, copy and paste this link: https://[employer]SHIFT.org/show/hsTrop-1 Current Interpretive Data last revised 2019. Trop I hs delta 0 ng/L CERNER [facility] Trop I hs interp Insignificant CERNER BJ Blood 03/03/2025 1:36 PM CDT 03/03/2025 2:29 PM CDT Lisa Todd MD LAB BLOOD ORDERABLES Fin al Result Performing Organization Address [facility] de Phone Number [facility] [place] [address] * Troponin I high-sensitivity series (baseline, 2hr, 4hr, 6hr) (03/03/2025 11:49 AM CDT) Pathologist [facility] Trop I hs 6 <=17 ng/L Comment: Interpretive Data For further hscTnI resources including the diagnostic algorithm and an aid in interpretation, copy and paste this link: https://[employer]SHIFT.org/show/hsTrop-1 Current Interpretive Data last revised 2019. Blood 03/03/2025 11:4 9 AM CDT 03/03/2025 12:51 PM CDT Lisa Todd MD LAB BLOOD ORDERABLES Fin al Result Performing Organization Address City/[facility] Co de Phone Number [facility] Department [place] [address] * ECG 12 lead (03/03/2025 11:41 AM CDT) Ventricular Rate EKG/Min 79 BPM [facility] Atrial Rate 79 BPM [facility] NH-Interval (MSEC) 180 ms [facility] QRS-Interval (MSEC) 124 ms [facility] QT-Interval (MSEC) 404 ms [facility] QTc 463 ms [facility] P [place] 63 degrees [facility] R [place] -11 degrees [facility] T [place] 45 degrees [facility] Diagnosis Normal sinus rhythm Right bundle branch block Abnormal ECG When compared with ECG of 06-FEB-2025 11:41, T wave inversion now evident in Anterior leads Confirmed by KAIA DIAZ M.D ([id number]) on 03/03/2025 2:18:36 PM [facility] 03/03/2025 11:4 1 AM CDT 03/03/2025 2:18 PM CDT us Lisa Todd MD ECG ORDERABLES Final Re sult [facility] * Electroconvulsive therapy (03/03/2025 7:08 AM CDT) Narrative Roger Schmitz MD - 03/03/2025 7:08 AM CDT Roger Schmitz MD 03/03/2025 11:14 AM Canceled due to chest pain Pre-Procedure Procedure: ECT inpatient Court Ordered : No Preprocedure Diagnosis: Associated Problems P Problem Selected Diagnosis Major depressive disorder, 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 No records for laterality or charge. 5 sessions of ECT during [facility] hospitalization in November 2024, RUL 100%, which induced hypomania (shown in table below) Treatment # Date Laterality Charge Frequency 11/04/24 RUL 5 -> 10 -> 15 -> 100%, seized at 100% 3x/wk 11/07/24 RUL 100% 3x/wk 11/09/24 RUL 100% 3x/wk 11/11/24 RUL 100% 3x/wk 11/14/24 RUL 100% 3x/wk Did not pursue ECT in outpatient setting after discharge Re-hospitalized at [facility] 02/02/25 Prior # of ECTs this [...] her. Endorses willingness to discharge to a custodial after this admission. Endorsed continuing passive SI [...] ur Straw Yellow Clarity, ur Clear Clear [facility] Specific gravity, ur 1.009 1.003 - 1.030 [facility] pH, urine 6.0 [facility] Comment: Interpretive Data U rine pH is affected by diet, medications, systemic acid-base disturbances, and renal tubular function. pH may affect urinary stone formation. For example, urine pH below 6.0 may help reduce the tendency for calcium phosphate stones and pH greater than 6.0 may reduce the tendency for uric acid stone formation. Source: [employer] Current Interpretive Data was last revised on 2017 Protein, ur ql Negative Negative [facility] Glucose, ur ql Negative Negative [facility] Ketones, ur Negative Negative [facility] Bilirubin, ur Negative Negative [facility] Blood, ur Negative Negative [facility] Urobilinogen, ur <2.0 <2.0 mg/dL [facility] Nitrite, ur Negative Negative [facility] Leukocyte esterase, ur 1+(A) Negative [facility] UA reflex comment Reflex to microscopic UA will be performed. [facility] Urine 03/01/2025 11:2 9 AM CDT 03/01/2025 11:38 AM CDT us Michael Delgado Jr., MD LAB URINE ORDERABLES F inal Result [facility] [place] [address] * Drugs of Abuse Screen, Urine without [...] 2023. Barbiturates, ur Not Detected CutOff 200ng/mL [facility] Comment: Interpretive Data - Barbiturates: Samples containing greater than 200 ng/mL secobarbital or other cross-reacting barbiturate compounds are reported as positive. False positive and false negative results are possible. Confirmatory testing required for definitive results. Current Interpretive Data was last reviewed 2023. Benzodiazepines, ur Not Detected CutOff 100ng/mL [facility] Comment: Interpretive Data - Benzodiazepines: Samples containing greater than 100 ng/mL nordiazepam or other cross-reacting compounds are reported as positive. False positive and false negative results are possible. Confirmatory testing required for definitive results. Current Interpretive Data was last reviewed 2023. Cannabinoids, ur Not Detected CutOff 50 ng/mL [facility] Comment: Interpretive Data - Cannabinoids: Samples containing greater than 50 ng/mL delta-9 THC -COOH or other cross- reacting compounds are reported as positive. False positive and false negative results are possible. Confirmatory testing required for definitive results. Current Interpretive Data was last reviewed 2023. Cocaine, ur Not Detected CutOff 150ng/mL [facility] Comment: Interpretive Data - Cocaine: Samples containing greater than 150 ng/mL benzoylecgonine or other cross- reacting compounds are reported as positive. False positive and false negative results are possible. Confirmatory testing required for definitive results. Current Interpretive Data was last reviewed 2023. Fentanyl, Ur Not Detected CutOff 5 ng/mL [facility] Comment: Interpretive Data - Fentanyl: Samples containing greater than 5 ng/mL norfentanyl, fentanyl, or other cross-reacting fentanyl compounds are reported as positive. False positive and false negative results are possible. Confirmatory testing required for definitive results. Current Interpretive Data was last reviewed 2023. Methadone, ur Not Detected CutOff 300ng/mL [facility] Comment: Interpretive Data - Methadone: Samples containing greater than 300 ng/mL d,l-methadone or other cross-reacting compounds are reported as positive. False positive and false negative results are possible. Confirmatory testing required for definitive results. Current Interpretive Data was last reviewed 2023. Opiates, ur Not Detected CutOff 300ng/mL [facility] Comment: Interpretive Data - Opiates: Samples containing greater than 300 ng/mL morphine or other cross-reacting compounds are reported as positive. False positive and false negative results are possible. Confirmatory testing required for definitive results. Current Interpretive Data was last reviewed 2023. Oxycodone, ur Not Detected CutOff 100ng/mL [facility] Comment: Interpretive Data - Oxycodone: Samples containing greater than 100 ng/mL oxycodone or other cross-reacting compounds are reported as positive. False positive and false negative results are possible. Confirmatory testing required for definitive results. Current Interpretive Data was last reviewed 2023. Phencyclidine, ur Not Detected CutOff 25 ng/mL [facility] Comment: Interpretive Data - Phencyclidine: Samples containing greater than 25 ng/mL phencyclidine or other cross-reacting compounds are reported as positive. False positive and false negative results are possible. Confirmatory testing required for definitive results. Current Interpretive Data was last reviewed 2023. Urine Creatinine 48 mg/dL [facility] Comment: Interpretive Data Urine Creatinine: < [...] ORDERABLES F inal Result Performing Organization Address City/[facility] Co de Phone Number [facility] [place] [address] * (ABNORMAL) Urinalysis, microscopic only (03/01/2025 11:29 AM CDT) WBC, ur 0-5 0 - 5 /HPF RBC, ur 0-2 0 - 2 /HPF [facility] Epithelial cells, squamous, ur 1-5 0 - 5 /HPF [facility] Bacteria, ur 1+(A) [facility] Urine 03/01/2025 11:2 9 AM CDT 03/01/2025 11:38 AM CDT Michael Delgado Jr., MD LAB URINE ORDERABLES F inal Result Performing Organization Address [facility] Co de Phone Number [facility] [place] [address] * (ABNORMAL) eGFR (03/01/2025 11:16 AM CDT) [...] MD LAB BLOOD ORDERABLES F inal Result [facility] [place] [address] * Differential, auto (03/01/2025 11:16 AM CDT) Pathologist [facility] Neutrophil abs 3.41 1.50 - 6.50 K/cumm Imm gran abs 0.01 0.00 - 0.10 K/cumm [facility] Lymphocyte abs 1.08 0.80 - 3.30 K/cumm [facility] Monocyte abs 0.48 0.20 - 0.80 K/cumm [facility] Eosinophil abs 0.04 0.00 - 0.50 K/cumm [facility] Basophil abs 0.02 0.00 - 0.10 K/cumm [facility] Neutrophil pct 67.7 % [facility] Comment: Interpretive Data Percent cell count reference ranges are not reported, since discordance with absolute values may lead to misinterpretation of CBC data. Current Interpretive Data was last revised on 2017. Imm gran pct 0.2 % [facility] Comment: Interpretive Data Percent cell count reference ranges are not reported, since discordance with absolute values may lead to misinterpretation of CBC data. Current Interpretive Data was last revised on 2017. Lymphocyte pct 21.4 % [facility] Comment: Interpretive Data Percent cell count reference ranges are not reported, since discordance with absolute values may lead to misinterpretation of CBC data. Current Interpretive Data was last revised on 2017. Monocyte pct 9.5 % [facility] Comment: Interpretive Data Percent cell count reference ranges are not reported, since discordance with absolute values may lead to misinterpretation of CBC data. Current Interpretive Data was last revised on 2017. Eosinophil pct 0.8 % [facility] Comment: Interpretive Data Percent cell count reference ranges are not reported, since discordance with absolute values may lead to misinterpretation of CBC data. Current Interpretive Data was last revised on 2017. Basophil pct 0.4 % [facility] Comment: Interpretive Data Percent cell count reference ranges are not reported, since discordance with absolute values may lead to misinterpretation of CBC data. Current Interpretive Data was last revised on 2017. Blood 03/01/2025 11:1 6 AM CDT 03/01/2025 11:24 AM CDT us Michael Delgado Jr., MD LAB BLOOD ORDERABLES F inal Result Performing Organization Address City/[facility] Co de Phone Number [facility] [place] [address] * Thyroid Function [place] (03/01/2025 11:16 AM CDT) Pathologist [facility] TSH 0.45 0.30 - 4.20 mcIUnit/mL Blood 03/01/2025 11:1 6 AM CDT 03/01/2025 11:24 AM CDT Michael Delgado Jr., MD LAB BLOOD ORDERABLES F inal Result Performing Organization Address City/State/[facility] Co de Phone Number [facility] [place] [address] * (ABNORMAL) CBC with auto differential (03/01/2025 11:16 AM CDT) Pathologist [facility] WBC 5.04 3.80 - 9.90 K/cumm Hgb 12.6 11.9 - 15.5 g/dL [facility] Hct 39.2 35.6 - 45.5 % [facility] Plt 233 150 - 400 K/cumm [facility] MPV 10.1 9.1 - 12.3 fL [facility] RBC 4.05 3.90 - 5.20 M/cumm [facility] MCV 96.8(H) 81.3 - 96.4 fL [facility] MCH 31.1 27.1 - 33.3 pg [facility] MCHC 32.1(L) 32.3 - 35.7 g/dL [facility] RDW CV 13.2 11.1 - 14.9 % [facility] RDW SD 46.6 35.7 - 48.1 fL [facility] NRBC abs 0.00 0.00 - 0.01 K/cumm [facility] Blood Venous blood specimen / Unknown 03/01/2025 11:16 AM CDT 03/01/2025 11:24 AM CDT us Michael Delgado Jr., MD LAB BLOOD ORDERABLES F inal Result Performing Organization Address [facility] de Phone Number [facility] Department [place] [address] * Ethanol (03/01/2025 11:16 AM CDT) [facility] Ethanol <10 <=10 mg/dL Comment: Interpretive Data Legal limit of intoxication > or = 80 mg/dL Levels > or = 400 mg/dL are potentially TOXIC. Current interpretive data was last revised on 2018. Blood 03/01/2025 11:1 6 AM CDT 03/01/2025 11:24 AM CDT Michael Delgado Jr., MD LAB BLOOD ORDERABLES F inal Result Performing Organization Address [facility] Co de Phone Number [facility] [place] [address] * (ABNORMAL) Comprehensive metabolic panel (03/01/2025 11:16 AM CDT) Sodium 143 135 - 145 mmol/L Potassium, pl 4.5 3.3 - 4.9 mmol/L [facility] Chloride 110 97 - 110 mmol/L [facility] CO2 26 22 - 32 mmol/L [facility] Anion gap 7 2 - 15 mmol/L [facility] BUN 22 6 - 25 mg/dL [facility] Creatinine 1.55(H) 0.60 - 1.10 mg/dL [facility] Glucose 94 70 - 199 mg/dL [facility] Comment: Interpretive Data Fasting glucose >/= [...] 2022. Calcium 9.9 8.5 - 10.3 mg/dL [facility] Bilirubin, total 0.5 0.1 - 1.2 mg/dL [facility] Protein, pl 7.0 6.5 - 8.5 g/dL [facility] Albumin 3.9 3.5 - 5.0 g/dL [facility] Alk phos 77 40 - 130 Units/L [facility] ALT 10 7 - 45 Units/L [facility] AST 20 10 - 45 Units/L [facility] Blood 03/01/2025 11:1 6 AM CDT 03/01/2025 11:24 AM CDT us Michael Delgado Jr., MD LAB BLOOD ORDERABLES F inal Result [facility] [place] [address] * [place] CRITICAL CARE ILL/INJURED PATIENT INIT 30-74 MIN [...] Straw Yellow Clarity, ur Clear Clear [facility] Specific gravity, ur 1.010 1.003 - 1.030 [facility] pH, urine 6.0 [facility] Comment: Interpretive Data U rine pH is affected by diet, medications, systemic acid-base disturbances, and renal tubular function. pH may affect urinary stone formation. For example, urine pH below 6.0 may help reduce the tendency for calcium phosphate stones and pH greater than 6.0 may reduce the tendency for uric acid stone formation. Source: [facility] Current Interpretive Data was last revised on 2017 Protein, ur ql Negative Negative [facility] Glucose, ur ql Negative Negative [facility] Ketones, ur Negative Negative [facility] Bilirubin, ur Negative Negative [facility] Blood, ur Negative Negative [facility] Urobilinogen, ur <2.0 <2.0 mg/dL [facility] Nitrite, ur Negative Negative [facility] Leukocyte esterase, ur 2+(A) Negative [facility] UA reflex comment Reflex to microscopic UA will be performed. [facility] Urine 02/27/2025 3:48 PM CDT 02/27/2025 3:53 PM CDT us Oscar Vela MD LAB URINE ORDERABLES Final Resul t [facility] [place] [address] * Drugs of Abuse Screen, Urine without [...] 2023. Barbiturates, ur Not Detected CutOff 200ng/mL [facility] Comment: Interpretive Data - Barbiturates: Samples containing greater than 200 ng/mL secobarbital or other cross-reacting barbiturate compounds are reported as positive. False positive and false negative results are possible. Confirmatory testing required for definitive results. Current Interpretive Data was last reviewed 2023. Benzodiazepines, ur Not Detected CutOff 100ng/mL [facility] Comment: Interpretive Data - Benzodiazepines: Samples containing greater than 100 ng/mL nordiazepam or other cross-reacting compounds are reported as positive. False positive and false negative results are possible. Confirmatory testing required for definitive results. Current Interpretive Data was last reviewed 2023. Cannabinoids, ur Not Detected CutOff 50 ng/mL [facility] Comment: Interpretive Data - Cannabinoids: Samples containing greater than 50 ng/mL delta-9 THC -COOH or other cross- reacting compounds are reported as positive. False positive and false negative results are possible. Confirmatory testing required for definitive results. Current Interpretive Data was last reviewed 2023. Cocaine, ur Not Detected CutOff 150ng/mL [facility] Comment: Interpretive Data - Cocaine: Samples [...] Methadone, ur Not Detected CutOff 300ng/mL [facility] Comment: Interpretive Data - Methadone: Samples [...] last reviewed 2023. Urine Creatinine 54 mg/dL [facility] Comment: Interpretive Data Urine Creatinine: < 10 mg/dL is extremely dilute = or > 10 but < 20 mg/dL is dilute = or > 20 mg/dL is normal Current Interpretive Data was last revised on 2017. Urine 02/27/2025 3:48 PM CDT 02/27/2025 3:53 PM CDT Narrative [facility] - 02/27/2025 4:30 PM CDT Drug of Abuse screening is performed by immunoassay for medical purposes only. This is not to be used for Pain Management purposes. Oscar Vela MD LAB URINE ORDERABLES Final Resul t Performing Organization Address [facility] de Phone Number [facility] [place] [address] * (ABNORMAL) Urinalysis, microscopic only (02/27/2025 3:48 PM CDT) WBC, ur 0-5 0 - 5 /HPF RBC, ur 0-2 0 - 2 /HPF [facility] Epithelial cells, squamous, ur 11-20(A) 0 - 5 /HPF [facility] Comment:Suggestive of contam ination. Consider recollection by clean catch. Epithelial cells, renal, ur 1-5(A) 0 - 0 /HPF [facility] Bacteria, ur 2+(A) [facility] Mucous, ur Present(A ) [facility] Urine 02/27/2025 3:48 PM CDT 02/27/2025 3:53 PM CDT Oscar Vela MD LAB URINE ORDERABLES Final Resul t Performing Organization Address [facility] de Phone Number [facility] [place] [address] * (ABNORMAL) eGFR (02/27/2025 3:16 PM CDT) [...] MD LAB BLOOD ORDERABLES Final Resul t [facility] [place] [address] * Differential, auto (02/27/2025 3:16 PM CDT) Neutrophil abs 2.86 1.50 - 6.50 K/cumm Imm gran abs 0.02 0.00 - 0.10 K/cumm [facility] Lymphocyte abs 1.14 0.80 - 3.30 K/cumm [facility] Monocyte abs 0.59 0.20 - 0.80 K/cumm [facility] Eosinophil abs 0.08 0.00 - 0.50 K/cumm [facility] Basophil abs 0.02 0.00 - 0.10 K/cumm [facility] Neutrophil pct 60.8 % [facility] Comment: Interpretive Data Percent cell count reference ranges are not reported, since discordance with absolute values may lead to misinterpretation of CBC data. Current Interpretive Data was last revised on 2017. Imm gran pct 0.4 % [facility] Comment: Interpretive Data Percent cell count reference ranges are not reported, since discordance with absolute values may lead to misinterpretation of CBC data. Current Interpretive Data was last revised on 2017. Lymphocyte pct 24.2 % [facility] Comment: Interpretive Data Percent cell count reference ranges are not reported, since discordance with absolute values may lead to misinterpretation of CBC data. Current Interpretive Data was last revised on 2017. Monocyte pct 12.5 % [facility] Comment: Interpretive Data Percent cell count reference ranges are not reported, since discordance with absolute values may lead to misinterpretation of CBC data. Current Interpretive Data was last revised on 2017. Eosinophil pct 1.7 % [facility] Comment: Interpretive Data Percent cell count reference ranges are not reported, since discordance with absolute values may lead to misinterpretation of CBC data. Current Interpretive Data was last revised on 2017. Basophil pct 0.4 % [facility] Comment: Interpretive Data Percent cell count reference ranges are not reported, since discordance with absolute values may lead to misinterpretation of CBC data. Current Interpretive Data was last revised on 2017. Blood 02/27/2025 3:16 PM CDT 02/27/2025 3:32 PM CDT Oscar Vela MD LAB BLOOD ORDERABLES Final Resul t Performing Organization Address [facility] Co de Phone Number [facility] [place] [address] * Thyroid Function [place] (02/27/2025 3:16 PM CDT) TSH 0.40 0.30 - 4.20 mcIUnit/mL Blood 02/27/2025 3:16 PM CDT 02/27/2025 3:32 PM CDT Oscar Vela MD LAB BLOOD ORDERABLES Final Resul t Performing Organization Address [facility] Co de Phone Number [facility] [place] [address] * (ABNORMAL) CBC with auto differential (02/27/2025 3:16 PM CDT) [facility] WBC 4.71 3.80 - 9.90 K/cumm Hgb 12.2 11.9 - 15.5 g/dL [facility] Hct 38.5 35.6 - 45.5 % [facility] Plt 231 150 - 400 K/cumm [facility] MPV 10.3 9.1 - 12.3 fL [facility] RBC 3.98 3.90 - 5.20 M/cumm [facility] MCV 96.7(H) 81.3 - 96.4 fL [facility] MCH 30.7 27.1 - 33.3 pg [facility] MCHC 31.7(L) 32.3 - 35.7 g/dL [facility] RDW CV 12.9 11.1 - 14.9 % [facility] RDW SD 46.0 35.7 - 48.1 fL [facility] NRBC abs 0.00 0.00 - 0.01 K/cumm [facility] Blood Venous blood specimen / Unknown 02/27/2025 3:16 PM CDT 02/27/2025 3:32 PM CDT Oscar Vela MD LAB BLOOD ORDERABLES Final Resul t [facility] [place] [address] * Ethanol (02/27/2025 3:16 PM CDT) [facility] Ethanol <10 <=10 mg/dL Comment: Interpretive Data Legal limit of intoxication > or = 80 mg/dL Levels > or = 400 mg/dL are potentially TOXIC. Current interpretive data was last revised on 2018. Blood 02/27/2025 3:16 PM CDT 02/27/2025 3:32 PM CDT us Oscar Vela MD LAB BLOOD ORDERABLES Final Resul t [facility] [place] [address] * (ABNORMAL) Comprehensive metabolic panel (02/27/2025 3:16 PM CDT) Sodium 144 135 - 145 mmol/L Potassium, pl 4.1 3.3 - 4.9 mmol/L [facility] Chloride 110 97 - 110 mmol/L [facility] CO2 27 22 - 32 mmol/L [facility] Anion gap 7 2 - 15 mmol/L [facility] BUN 22 6 - 25 mg/dL [facility] Creatinine 1.40(H) 0.60 - 1.10 mg/dL [facility] Glucose 102 70 - 199 mg/dL [facility] Comment: Interpretive Data Fasting glucose >/= [...] 2022. Calcium 9.2 8.5 - 10.3 mg/dL [facility] Bilirubin, total 0.3 0.1 - 1.2 mg/dL [facility] Protein, pl 6.6 6.5 - 8.5 g/dL [facility] Albumin 3.6 3.5 - 5.0 g/dL [facility] Alk phos 77 40 - 130 Units/L [facility] ALT 13 7 - 45 Units/L [facility] AST 19 10 - 45 Units/L [facility] Blood 02/27/2025 3:16 PM CDT 02/27/2025 3:32 PM CDT us Oscar Vela MD LAB BLOOD ORDERABLES Final Resul t [facility] [place] [address] * Electroconvulsive therapy (02/22/2025 8:42 AM CDT) Narrative Roger Schmitz MD - 02/22/2025 8:42 AM CDT Roger Schmitz MD 02/22/2025 12:16 PM ECT Treatment Note Pre-Procedure Procedure: ECT inpatient Court Ordered : No Preprocedure Diagnosis: Associated Problems P Problem Selected Diagnosis Major depressive disorder, 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 No records for laterality or charge. 5 sessions of ECT during [facility] hospitalization in November 2024, RUL 100%, which induced hypomania (shown in table below) Treatment # Date Laterality Charge Frequency 11/04/24 RUL 5 -> 10 -> 15 -> 100%, seized at 100% 3x/wk 11/07/24 RUL 100% 3x/wk 11/09/24 RUL 100% 3x/wk 11/11/24 RUL 100% 3x/wk 11/14/24 RUL 100% 3x/wk Did not pursue ECT in outpatient setting after discharge Re-hospitalized at [facility] 02/02/25 Prior # of ECTs this [...] ur Straw Yellow Clarity, ur Clear Clear [facility] Specific gravity, ur 1.014 1.003 - 1.030 [facility] pH, urine 6.5 [facility] Comment: Interpretive Data U rine pH is affected by diet, medications, systemic acid-base disturbances, and renal tubular function. pH may affect urinary stone formation. For example, urine pH below 6.0 may help reduce the tendency for calcium phosphate stones and pH greater than 6.0 may reduce the tendency for uric acid stone formation. Source: [facility] Current Interpretive Data was last revised on 2017 Protein, ur ql Negative Negative [facility] Glucose, ur ql Negative Negative [facility] Ketones, ur Negative Negative [facility] Bilirubin, ur Negative Negative [facility] Blood, ur Negative Negative [facility] Urobilinogen, ur <2.0 <2.0 mg/dL [facility] Nitrite, ur Negative Negative [facility] Leukocyte esterase, ur 3+(A) Negative [facility] UA reflex comment Reflex to microscopic UA will be performed. [facility] Urine 02/20/2025 12:5 8 PM CDT 02/20/2025 5:51 PM CDT Bj Martinez MD LAB MICROBIOLOGY - GENER AL ORDERABLES Final Result Performing Organization Address [facility]/ZIP Co de Phone Number [facility] [place] [address] * (ABNORMAL) Urinalysis, microscopic only (02/20/2025 12:58 PM CDT) WBC, ur 6-10(A) 0 - 5 /HPF RBC, ur 0-2 0 - 2 /HPF [facility] Epithelial cells, squamous, ur 11-20(A) 0 - 5 /HPF [facility] Comment:Suggestive of contam ination. Consider recollection by clean catch. Epithelial cells, renal, ur 1-5(A) 0 - 0 /HPF [facility] Epithelial cells, transitional, ur 1-5 0 - 0 /HPF [facility] Bacteria, ur 3+(A) [facility] Mucous, ur Present(A) [facility] Culture Reflex Comment Reflex conditions for urine culture (WBC >10) not met. [facility] Urine 02/20/2025 12:5 8 PM CDT 02/20/2025 5:51 PM CDT Bj Martinez MD LAB URINE ORDERABLES Fin al Result Performing Organization Address [facility] de Phone Number [facility] [place] [address] * (ABNORMAL) Urinalysis reflex to microscopic and culture Urine (02/18/2025 3:00 PM CDT) Color, ur Straw Yellow Clarity, ur Clear Clear [facility] Specific gravity, ur 1.016 1.003 - 1.030 [facility] pH, urine 5.5 [facility] Comment: Interpretive Data U rine pH is affected by diet, medications, systemic acid-base disturbances, and renal tubular function. pH may affect urinary stone formation. For example, urine pH below 6.0 may help reduce the tendency for calcium phosphate stones and pH greater than 6.0 may reduce the tendency for uric acid stone formation. Source: [facility] Current Interpretive Data was last revised on 2017 Protein, ur ql Negative Negative [facility] Glucose, ur ql Negative Negative [facility] Ketones, ur Negative Negative [facility] Bilirubin, ur Negative Negative [facility] [facility] Blood, [facility] Negative Negative [facility] Urobilinogen, ur <2.0 <2.0 mg/dL [facility] Nitrite, ur Negative Negative [facility] Leukocyte esterase, ur 2+(A) Negative [facility] UA reflex comment Reflex to microscopic UA will be performed. [facility] Urine 02/18/2025 3:00 PM CDT 02/18/2025 3:33 PM CDT Bj Martinez MD LAB MICROBIOLOGY - GENER AL ORDERABLES Final Result Performing Organization Address [facility] de Phone Number [facility] [place] [address] * (ABNORMAL) Urinalysis, microscopic only (02/18/2025 3:00 PM CDT) WBC, ur 6-10(A) 0 - 5 /HPF RBC, ur 0-2 0 - 2 /HPF [facility] Epithelial cells, squamous, ur 6-10(A) 0 - 5 /HPF [facility] Comment:Suggestive of contam ination. Consider recollection by clean catch. Epithelial cells, renal, ur 1-5(A) 0 - 0 /HPF [facility] Bacteria, ur 1+(A) [facility] Mucous, ur Present(A) [facility] Culture Reflex Comment Reflex conditions for urine culture (WBC >10) not met. [facility] Urine 02/18/2025 3:00 PM CDT 02/18/2025 3:33 PM CDT Bj Martinez MD LAB URINE ORDERABLES Fin al Result Performing Organization Address [facility] Co de Phone Number [facility] [address] * (ABNORMAL) Potassium (02/17/2025 12:30 PM CDT) [facility] Potassium, pl 5.0(H) 3.3 - 4.9 mmol/L Comment:Hemolyzed; Potassium value may be falsely elevated by as much as 1.1-1.6 mmol/L. Suggest redraw and reanalysis. Blood 02/17/2025 12:3 0 PM CDT 02/17/2025 1:36 PM CDT us Bj Martinez MD LAB BLOOD ORDERABLES Fin al Result Performing Organization Address [facility] Co de Phone Number [facility] [place] [address] * Troponin I high-sensitivity series (baseline, 2hr, 4hr, 6hr) (02/06/2025 11:58 AM CDT) [facility] Trop I hs 5 <=17 ng/L Comment: Interpretive Data For further hscTnI resources including the diagnostic algorithm and an aid in interpretation, copy and paste this link: https://bjhlab.testcatalog.org/show/[email or web address] Current Interpretive Data last revised 2019. Blood 02/06/2025 11:5 8 AM CDT 02/06/2025 12:29 PM CDT us Noe Madison MD LAB BLOOD ORDERABLES Fi nal Result [facility] [place] [address] * ECG 12 lead (02/06/2025 11:41 AM CDT) [facility] Ventricular Rate EKG/Min 61 BPM [facility] Atrial Rate 61 BPM [facility] [place]-Interval (MSEC) 180 ms [facility] QRS-Interval (MSEC) 132 ms [facility] QT-Interval (MSEC) 406 ms [facility] QTc 408 ms [facility] P [place] 52 degrees [facility] R [place] 7 degrees [facility] T [place] 54 degrees [facility] Diagnosis Normal sinus rhythm Right bundle branch block Abnormal ECG No previous ECGs available Confirmed by KAIA DIAZ M.D ([id number]) on 02/16/2025 5:35:18 PM [facility] 02/06/2025 11:4 1 AM CDT 02/16/2025 5:35 PM CDT Noe Madison MD ECG ORDERABLES Final R esult [facility] * XR Abdomen Ap 1 Vw (02/03/2025 [...] ur Straw Yellow Clarity, ur Clear Clear [facility] Specific gravity, ur 1.009 1.003 - 1.030 [facility] pH, urine 6.5 [facility] Comment: Interpretive Data U rine pH is affected by diet, medications, systemic acid-base disturbances, and renal tubular function. pH may affect urinary stone formation. For example, urine pH below 6.0 may help reduce the tendency for calcium phosphate stones and pH greater than 6.0 may reduce the tendency for uric acid stone formation. Source: [facility] Current Interpretive Data was last revised on 2017 Protein, ur ql Negative Negative [facility] Glucose, ur ql Negative Negative [facility] Ketones, ur Negative Negative [facility] Bilirubin, ur Negative Negative [facility] Blood, ur Negative Negative [facility] Urobilinogen, ur <2.0 <2.0 mg/dL [facility] Nitrite, ur Negative Negative [facility] Leukocyte esterase, ur Negative Negative [facility] UA reflex comment Reflex conditions for microscopic UA not met. [facility] Urine 01/31/2025 1:52 PM CDT 01/31/2025 1:56 PM CDT Ambrocio Mabry MD LAB URINE ORDERABLES Final Result [facility] [place] [address] * Drugs of Abuse Screen, Urine without [...] 2023. Barbiturates, ur Not Detected CutOff 200ng/mL [facility] Comment: Interpretive Data - Barbiturates: Samples containing greater than 200 ng/mL secobarbital or other cross-reacting barbiturate compounds are reported as positive. False positive and false negative results are possible. Confirmatory testing required for definitive results. Current Interpretive Data was last reviewed 2023. Benzodiazepines, ur Not Detected CutOff 100ng/mL [facility] Comment: Interpretive Data - Benzodiazepines: Samples containing greater than 100 ng/mL nordiazepam or other cross-reacting compounds are reported as positive. False positive and false negative results are possible. Confirmatory testing required for definitive results. Current Interpretive Data was last reviewed 2023. Cannabinoids, ur Not Detected CutOff 50 ng/mL [facility] Comment: Interpretive Data - Cannabinoids: Samples containing greater than 50 ng/mL delta-9 THC -COOH or other cross- reacting compounds are reported as positive. False positive and false negative results are possible. Confirmatory testing required for definitive results. Current Interpretive Data was last reviewed 2023. Cocaine, ur Not Detected CutOff 150ng/mL [facility] Comment: Interpretive Data - Cocaine: Samples containing greater than 150 ng/mL benzoylecgonine or other cross- reacting compounds are reported as positive. False positive and false negative results are possible. Confirmatory testing required for definitive results. Current Interpretive Data was last reviewed 2023. Fentanyl, Ur Not Detected CutOff 5 ng/mL [facility] Comment: Interpretive Data - Fentanyl: Samples containing greater than 5 ng/mL norfentanyl, fentanyl, or other cross-reacting fentanyl compounds are reported as positive. False positive and false negative results are possible. Confirmatory testing required for definitive results. Current Interpretive Data was last reviewed 2023. Methadone, ur Not Detected CutOff 300ng/mL [facility] Comment: Interpretive Data - Methadone: Samples containing greater than 300 ng/mL d,l-methadone or other cross-reacting compounds are reported as positive. False positive and false negative results are possible. Confirmatory testing required for definitive results. Current Interpretive Data was last reviewed 2023. Opiates, ur Not Detected CutOff 300ng/mL [facility] Comment: Interpretive Data - Opiates: Samples containing greater than 300 ng/mL morphine or other cross-reacting compounds are reported as positive. False positive and false negative results are possible. Confirmatory testing required for definitive results. Current Interpretive Data was last reviewed 2023. Oxycodone, ur Not Detected CutOff 100ng/mL [facility] Comment: Interpretive Data - Oxycodone: Samples containing greater than 100 ng/mL oxycodone or other cross-reacting compounds are reported as positive. False positive and false negative results are possible. Confirmatory testing required for definitive results. Current Interpretive Data was last reviewed 2023. Phencyclidine, ur Not Detected CutOff 25 ng/mL [facility] Comment: Interpretive Data - Phencyclidine: Samples containing greater than 25 ng/mL phencyclidine or other cross-reacting compounds are reported as positive. False positive and false negative results are possible. Confirmatory testing required for definitive results. Current Interpretive Data was last reviewed 2023. Urine Creatinine 41 mg/dL [facility] Comment: Interpretive Data Urine Creatinine: < 10 mg/dL is extremely dilute = or > 10 but < 20 mg/dL is dilute = or > 20 mg/dL is normal Current Interpretive Data was last revised on 2017. Urine 01/31/2025 1:52 PM CDT 01/31/2025 2:10 PM CDT Narrative [facility] - 01/31/2025 2:46 PM CDT Drug of Abuse screening is performed by immunoassay for medical purposes only. This is not to be used for Pain Management purposes. Ambrocio Mabry MD LAB URINE ORDERABLES Final Result [facility] [place] [address] * [place] CRITICAL CARE ILL/INJURED PATIENT INIT 30-74 MIN [...] documenting in the medical record. us Chas Bubsy MD IN CLINIC/BEDSIDE ORDERAB LES Final Result [...] Leo Cuevas M.D. us [place] Sanam Neena STATION ENGINEER IMG XR PROCEDURES Final R esult * (ABNORMAL) eGFR (01/31/2025 11:50 AM CDT) [facility] eGFR 36(L) >=60 mL/min/1. 73 m2 Comment: [...] Mabry MD LAB BLOOD ORDERABLES Final Result [facility] [place] [address] * Differential, auto (01/31/2025 11:50 AM CDT) Pathologist [facility] Neutrophil abs 3.08 1.50 - 6.50 K/cumm Imm gran abs 0.02 0.00 - 0.10 K/cumm [facility] Lymphocyte abs 1.24 0.80 - 3.30 K/cumm [facility] Monocyte abs 0.65 0.20 - 0.80 K/cumm [facility] Eosinophil abs 0.08 0.00 - 0.50 K/cumm [facility] Basophil abs 0.03 0.00 - 0.10 K/cumm [facility] Neutrophil pct 60.4 % [facility] Comment: Interpretive Data Percent cell count reference ranges are not reported, since discordance with absolute values may lead to misinterpretation of CBC data. Current Interpretive Data was last revised on 2017. Imm gran pct 0.4 % [facility] Comment: Interpretive Data Percent cell count reference ranges are not reported, since discordance with absolute values may lead to misinterpretation of CBC data. Current Interpretive Data was last revised on 2017. Lymphocyte pct 24.3 % [facility] Comment: Interpretive Data Percent cell count reference ranges are not reported, since discordance with absolute values may lead to misinterpretation of CBC data. Current Interpretive Data was last revised on 2017. Monocyte pct 12.7 % [facility] Comment: Interpretive Data Percent cell count reference ranges are not reported, since discordance with absolute values may lead to misinterpretation of CBC data. Current Interpretive Data was last revised on 2017. Eosinophil pct 1.6 % [facility] Comment: Interpretive Data Percent cell count reference ranges are not reported, since discordance with absolute values may lead to misinterpretation of CBC data. Current Interpretive Data was last revised on 2017. Basophil pct 0.6 % [facility] Comment: Interpretive Data Percent cell count reference ranges are not reported, since discordance with absolute values may lead to misinterpretation of CBC data. Current Interpretive Data was last revised on 2017. Blood 01/31/2025 11:5 0 AM CDT 01/31/2025 12:07 PM CDT us Ambrocio Mabry MD LAB BLOOD ORDERABLES Final Result [facility] [place] [address] * Thyroid Function [place] (01/31/2025 11:50 AM CDT) TSH 0.33 0.30 - 4.20 mcIUnit/mL Blood 01/31/2025 11:5 0 AM CDT 01/31/2025 12:07 PM CDT Ambrocio Mabry MD LAB BLOOD ORDERABLES Final Result [facility] [place] [address] * (ABNORMAL) CBC with auto differential (01/31/2025 11:50 AM CDT) [facility] WBC 5.10 3.80 - 9.90 K/cumm Hgb 13.4 11.9 - 15.5 g/dL [facility] Hct 41.9 35.6 - 45.5 % [facility] Plt 265 150 - 400 K/cumm [facility] MPV 10.5 9.1 - 12.3 fL [facility] RBC 4.43 3.90 - 5.20 M/cumm [facility] MCV 94.6 81.3 - 96.4 fL [facility] MCH 30.2 27.1 - 33.3 pg [facility] MCHC 32.0(L) 32.3 - 35.7 g/dL [facility] RDW CV 12.6 11.1 - 14.9 % [facility] RDW SD 44.2 35.7 - 48.1 fL [facility] NRBC abs 0.00 0.00 - 0.01 K/cumm [facility] Blood Venous blood specimen / Unknown 01/31/2025 11:50 AM CDT 01/31/2025 12:07 PM CDT us Ambrocio Mabry MD LAB BLOOD ORDERABLES Final Result [facility] [place] [address] * Ethanol (01/31/2025 11:50 AM CDT) [facility] Ethanol <10 <=10 mg/dL Comment: Interpretive Data Legal limit of intoxication > or = 80 mg/dL Levels > or = 400 mg/dL are potentially TOXIC. Current interpretive data was last revised on 2018. Blood 01/31/2025 11:5 0 AM CDT 01/31/2025 12:07 PM CDT Ambrocio Mabry MD LAB BLOOD ORDERABLES Final Result [facility] [place] [address] * (ABNORMAL) Comprehensive metabolic panel (01/31/2025 11:50 AM CDT) Sodium 142 135 - 145 mmol/L Potassium, pl 4.4 3.3 - 4.9 mmol/L [facility] Comment:Hemolyzed; Potassium value may be falsely elevated by as much as 0.3-0.5 mmol/L. Suggest redraw and reanalysis. Chloride 109 97 - 110 mmol/L [facility] CO2 26 22 - 32 mmol/L [facility] Anion gap 7 2 - 15 mmol/L [facility] BUN 23 6 - 25 mg/dL [facility] Creatinine 1.48(H) 0.60 - 1.10 mg/dL [facility] Glucose 90 70 - 199 mg/dL [facility] Comment: Interpretive Data Fasting glucose >/= [...] 2022. Calcium 10.0 8.5 - 10.3 mg/dL [facility] Bilirubin, total 0.5 0.1 - 1.2 mg/dL [facility] Protein, pl 7.0 6.5 - 8.5 g/dL [facility] Albumin 3.7 3.5 - 5.0 g/dL [facility] Alk phos 78 40 - 130 Units/L [facility] ALT 12 7 - 45 Units/L [facility] AST 22 10 - 45 Units/L [facility] Comment:Hemolyzed; result ma y be falsely elevated Blood 01/31/2025 11:5 0 AM CDT 01/31/2025 12:07 PM CDT us Ambrocio Mabry MD LAB BLOOD ORDERABLES Final Result Performing Organization Address City/[facility] Co de Phone Number [facility] [place] [address] * Hepatitis C antibody Blood (11/01/2024 10:53 PM CDT) Hep C Ab Nonreactive Nonreactive Comment:Antibodies to HCV no t detected. Does NOT exclude the possibility of recent exposure to HCV. Current interpretive data was last revised on 22 Blood 11/01/2024 10:5 3 PM CDT 11/01/2024 11:30 PM CDT us Lisa Todd MD LAB MICROBIOLOGY - GENER AL ORDERABLES Final Result Performing Organization Address [facility] [place]/[facility] Co de Phone Number [facility] [place] [address] from Last 3 Months or Most Recently Relevant to Health [place] [address] [employer] [place] [address] [place] [address] T MEDICARE [facility] IDPA Advance Directives For more information, please contact: [phone] * Full Code (Latest Code Status on [...] 6:44 AM 03/08/2025 6:37 AM Care Teams Youth Director Relationship Specialty Start Date End Date Jose Yen MD PCP - General Family Medicine 10/15/21
--- OUTSIDE RECORDS SUMMARY | 2025-04-03 16:55 | XMS_ITS | Encounter Summary ---
Author Organization [facility] Address [address] [place] [address] Phone Care Team Providers Care Call Or Contact Centre Coach Name Role Phone Jose Yen MD Primary Care Provider Encounter Details Date Type Department Care Team (Late st Contact Info) Description 03/03/2025 Telephone [facility] Cardiology [address] [facility] Advanced Medicine 8th [place] [address] [place] [address] Rosario Haskins Social History Tobacco [...] in the past 12 m [facility], were you homeless or living in a long-term (including now)? No 11/02/2024 Humiliation, Afraid, Rape, [...] week 03/02/2025 How often do you attend [facility] or methodist services? More than 4 times per year 03/02/2025 Do you belong to any clubs o r organizations such as rastafarian groups, unions, fraternal or athletic groups, or [...] and heating? Not hard at all 03/02/2025 [facility] of Occupat ional Health - Occupational [...] in the past 12 m [facility], were you homeless or living in a long-term (including now)? 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 Trey Todd documented in this encounter Plan of Treatment Not on file documented as of this encounter Visit Diagnoses Not on filedocumented in this encounter Care Teams Call Or Contact Centre Coach Relationship Specialty Start Date End Date Jose Yen MD PCP - General Family Medicine 10/15/21 documented as of this encounter
--- OUTSIDE RECORDS SUMMARY | 2025-04-03 16:55 | XMS_ITS | Encounter Summary ---
Author Organization [facility] Healthcare Address [address] [place] [address] Care Team Providers Care Freelance Court Reporter Name Role Phone Jose Yen MD Primary Care Provider [phone] Reason for Visit * Auth/Cert (Routine) Specialty Diagnoses / Procedures Referred By Contac t Referred To Contact Referral ID Status Reason Start Date Expiration Date Visits Re quested Visits Authorized [id number] 1 1 Encounter Details Date Type Department Care Team (Late st Contact Info) Description 03/30/2025 Home Care Visit [facility] Health [place] [address] [address] [place] [id number] Soila Reese, PT TELEPHONE ENCOUNTER Social History [...] any time in the past 12 m [facility], were you homeless or living in a custodial (including now)? No 11/02/2024 Humiliation, Afraid, Rape, [...] week 03/02/2025 How often do you attend [facility] or shinto services? More than 4 times per year 03/02/2025 Do you belong to any clubs o r organizations such as moravian groups, unions, fraternal or athletic groups, or [...] and heating? Not hard at all 03/02/2025 [facility] of Occupat ional Health - Occupational Stress [...] any time in the past 12 m [facility], were you homeless or living in a custodial (including now)? No 03/02/2025 [facility] Utilities Answer Date Recorded In the past [...] on file Legal Sex Female 12:09 AM GUIDE CHANGER Gender Identity Not on file Sexual Orientation Not on file documented as of this encounter Plan of Treatment Not on file documented as of this encounter Visit Diagnoses Not on filedocumented in this encounter Care Teams Freelance Court Reporter Relationship Specialty Start Date End Date Jose Yen MD PCP - General Family Medicine 10/15/21 documented as of this encounter
--- OUTSIDE RECORDS SUMMARY | 2025-04-03 16:55 | XMS_ITS | Encounter Summary ---
Author Organization [facility] Healthcare Address [address] [place] [address] Care Team Providers Care Violin Repairer Name Role Phone Jose Yen MD Primary Care Provider [phone] Reason for Visit * Auth/Cert (Routine) Specialty Diagnoses / Procedures Referred By Contac t Referred To Contact Referral ID Status Reason Start Date Expiration Date Visits Re quested Visits Authorized [id number] 1 1 Encounter Details Date Type Department Care Team (Late st Contact Info) Description 04/03/2025 Home Care Visit [facility] Health [place] [address] [address] [place] [id number] Soila Reese, PT TELEPHONE ENCOUNTER Social History [...] any time in the past 12 m [facility], were you homeless or living in [...] week 03/02/2025 How often do you attend [facility] or bahai services? More than 4 times per year 03/02/2025 Do you belong to any clubs o r organizations such as yarsanism groups, unions, fraternal or athletic groups, or [...] and heating? Not hard at all 03/02/2025 [facility] of Occupat ional Health - Occupational Stress [...] any time in the past 12 m [facility], were you homeless or living in a group home (including now)? No 03/02/2025 [facility] Utilities Answer Date Recorded In the [...] on file Legal Sex Female 12:09 AM INSEAMER Gender Identity Not on file Sexual Orientation Not on file documented as of this encounter Plan of Treatment Not on file documented as of this encounter Visit Diagnoses Not on filedocumented in this encounter Care Teams Violin Repairer Relationship Specialty Start Date End Date Jose Yen MD PCP - General Family Medicine 10/15/21 documented as of this encounter
--- OUTSIDE RECORDS SUMMARY | 2025-04-03 16:55 | XMS_ITS | Clinical Summary ---
Author Organization [facility] Address [address] [place] [address] Phone Care Team Providers Care Orchardist Name Role Phone Jose Yen MD Primary Care Provider [phone] Allergies Active Allergy Reactions Criticality Noted Date [...] 07/09/2021 Insurance [employer] MED[employer]ARE ADVANTAGE Care Teams Orchardist Relationship Specialty Start Date End Date Jose Yen MD [address] [place] [address] PCP - General Family Medicine 07/23/21
[2025-04-03] MEDS: SODIUM CHLORIDE 0.9% IV 1,000 ML 999 ML IV CONT (17:10)
[2025-04-03] MEDS: MECLIZINE HCL 12.5 MG TABLET PO (17:10)
[2025-04-03] MEDS: HYDROGEN PEROXIDE 3% SOLN(*SP) 473 ML BOTTLE (19:23)
--- NOTE | 2025-04-03 19:44 | PC.NURSE ---
Patient ambulating with walker, steady gate, no assistance with walker. Patient states no dizziness while walking.
== END 2025-04-03 20:28 | disposition home or self-care (01) ==
PROVIDERS: Nurse Practitioner Adult Health; Emergency Provider Emergency Medicine; PCP Family Medicine
DX: H61.23 Impacted cerumen, bilateral (principal); R42 Dizziness and giddiness; N39.0 Urinary tract infection, site not specified; R94.31 Abnormal electrocardiogram [ECG] [EKG]; K21.9 Gastro-esophageal reflux disease without esophagitis; I12.9 Hypertensive chronic kidney disease with stage 1 through stage 4 chronic kidney disease, or unspecified chronic kidney disease; N18.30 Chronic kidney disease, stage 3 unspecified; K57.90 Diverticulosis of intestine, part unspecified, without perforation or abscess without bleeding; E78.5 Hyperlipidemia, unspecified; F31.9 Bipolar disorder, unspecified
CPT/HCPCS: 36415; 69209; 70450; 72125; 72131; 72220; 73562; 80053; 81001; 83735; 84484; 85025; 87086; 93005; 96360; 99284; A9270; J7030

== ENCOUNTER 2025-05-22 13:51 | Emergency (ER) | payer MEDICARE, SELFPAY ==
--- NOTE | ~2025-05-22 | CT_ITS ---
EXAMINATION: CT cervical spine wo con COMPARISON: None HISTORY: fall TECHNIQUE: Axial images were obtained through the spine without IV contrast. Coronal, sagittal reconstruction images were obtained from the axial views. CT scan performed using dose optimization techniques including the following automated exposure control; adjustment of mA and/or kV; use of iterative reconstruction technique. Automatic exposure control was used to reduce radiation dose. Permanent radiation dose record is archived to PACS. FINDINGS: Dextroconvex scoliosis noted of the cervical spine. Moderate loss of vertebral height throughout. No acute fracture or subluxation. Grade 1 anterolisthesis of C3 on C4 and C4-C5, no fracture is identified. Moderate to severe loss of disc height at C4-5 C5-C6 and C6-7 with moderate to severe canal and foraminal stenosis. Soft tissues unremarkable. Impression: No acute abnormality. Reviewed, dictated and finalized at location P. AT TANKER DRIVER Impression: No acute abnormality.
--- NOTE | ~2025-05-22 | XR_ITS ---
EXAMINATION: XR hip RT 2V w AP pelvis, 05/22/2025 14:15 ORACLE OBIEE DEVELOPER HISTORY: fall- deformity COMPARISON: No comparisons available. Findings: No acute fracture or malalignment. Moderate degenerative changes. Soft tissues unremarkable. Impression: No acute fracture or malalignment. Reviewed, dictated and finalized at location P. LE OBIEE DEVELOPER Impression: No acute fracture or malalignment.
--- NOTE | ~2025-05-22 | CT_ITS ---
EXAMINATION: CT brain wo con, 05/22/2025 14:20 YARN EXAMINER HISTORY: fall COMPARISON: No comparisons available. Technique: Axial images obtained of the brain without contrast. One or more of the following dose reduction techniques were used: automated exposure control, adjustment of the mA and/or kV according to patient size, use of iterative reconstruction technique. Findings: No acute infarct or parenchymal hemorrhage. No abnormal mass or mass effect. No midline shift. No extra-axial fluid collections. No hydrocephalus. Mastoid air cells unremarkable. Sinuses and orbits unremarkable. No acute fracture. No significant facial or scalp soft tissue swelling evident. No radiopaque foreign body is seen. Impression: 1.No acute intracranial abnormality. Reviewed, dictated and finalized at location P. EXAMINER Impression: 1.No acute intracranial abnormality.
--- NOTE | ~2025-05-22 | XR_ITS ---
EXAMINATION: XR chest 1V, 05/22/2025 14:15 DIAMOND MOUNTER HISTORY: hip defomity COMPARISON: No comparisons available. Technique: Single view. Findings: The lungs are clear, no effusion. No pneumothorax. Heart is normal size. Mediastinal and hilar contours are within normal limits. Bony thorax no acute abnormality. Impression: No acute cardiopulmonary abnormality. Reviewed, dictated and finalized at location P. OND MOUNTER Impression: No acute cardiopulmonary abnormality.
[2025-05-22 13:50] VITALS: BP 115/65; PULSE 86; RESP 16; TEMP 36.4; O2SAT 100
--- NOTE | 2025-05-22 14:04 | ECG_ITS ---
Test Date: 2025-05-22 14:47:49 Measurements Intervals [place] Rate: 81 P: 72 HI: 177 QRS: -41 QRSD: 142 T: 69 QT: 384 QTc: 447 Interpretive Statements SINUS RHYTHM LEFT AXIS DEVIATION RIGHT BUNDLE BRANCH BLOCK BASELINE ARTIFACT- I, V1-V2 ABNORMAL ECG Compared to ECG 04/03/2025 15:30:18 HEART RATE HAS INCREASED Electronically Signed On 05-22-2025 14:57:05 AIRLINE STEWARDESS by Eliud Cruz D.O.
[2025-05-22 14:43] LABS: Hematocrit 40.3 % (37.0-47.0); Hemoglobin 12.9 g/dL (12.0-15.0); Immature Granulocyte Percent A 0.2 % (0-0.5); Lymphocytes Absolute Auto 1.31 K/mm3 (0.9-3.2); Mean Corpuscular HGB Conc 32.0 g/dl (32-36); Mean Corpuscular Hemoglobin 30.9 pg (26-34); Mean Corpuscular Volume 96.4 fl (80-100); Nucleated Red Blood Cells Absolute Auto 0.000 K/mm3 (0.0-0.012); Nucleated Red Blood Cells Perc 0.0 % (0.0-0.2); Platelet Count Result 221 k/mm3 (150-375); Red Blood Count 4.18 M/mm3 (4.2-5.4); White Blood Count 5.0 K/mm3 (4.5-10.0)
[2025-05-22 14:52] VITALS: BP 101/60; PULSE 81; RESP 16; O2SAT 100
[2025-05-22 14:54] LABS: INR 0.9; Prothrombin Time 12.8 Seconds (11.1-14.7)
[2025-05-22 14:55] LABS: Partial Thromboplastin Time 28.8 Seconds (22.3-36.8)
--- NOTE | 2025-05-22 15:05 | ED.LOWEXIN ---
HPI - Extremity Injury (Lower) General Chief Complaint: Extremity Injury, Lower Stated Complaint: fall, hip injury Time Seen by Provider: 05/22/25 14:04 Source: patient and EMS Mode of arrival: EMS Limitations: no limitations History of Present Illness HPI Narrative: This is a 79-year-old female with history of tremors, hyperlipidemia, hypertension, bipolar disorder who presents to the ED for a fall and right hip injury. Patient states that she was trying to use the toilet when she tripped over her walker and fell into the bathtub. She states that she hit her head and her right hip. Denies loss consciousness. She reports some mild hip pain and neck pain at this time. She is not on any blood thinners. Denies chest pain, shortness of breath Related Data Home Medications ?Medication ?Instructions ?Recorded ?Confirmed ?Last Taken ?Type trazodone 50 mg tablet mg PO DAILY 03/03/25 04/05/25 Unknown History Allergies Allergy/AdvReac Type Severity Reaction Status Date / Time oxybutynin Allergy Unknown Unknown Verified 05/22/25 14:06 oxycodone Allergy Unknown RASH Verified 05/22/25 14:06 Sulfa (Sulfonamide Allergy Unknown Rash Verified 05/22/25 14:06 Antibiotics) lamotrigine AdvReac Severe Shakiness Verified 05/22/25 14:06 pantoprazole AdvReac Intermediate Other Verified 05/22/25 14:06 primidone AdvReac Unknown shaking Verified 05/22/25 14:06 Review of Systems Review of Systems: Gen.: Denies fevers or chills Eyes: Denies eye pain or visual change ENT: Denies congestion Respiratory: Denies shortness of breath or cough CV: Denies chest pain or palpitations GI: Denies abdominal pain nausea, emesis or diarrhea denies burning, urgency, frequency or hematuria Musculoskeletal: As per HPI Neuro: Denies numbness, tingling, weakness or focal weakness Skin: Denies rash Except as documented, all other systems reviewed and negative [facility] Past Medical History Medical History Unable to care for self Tremor Bradycardia Blocked tear duct Essential tremor HTN (hypertension) Sensation of feeling cold Spasm of cervical paraspinous muscle Hip bursitis Dermatochalasis of both eyelids TMJ (temporomandibular joint disorder) Pharyngitis Candidal intertrigo Melissa infection, oral GERD (gastroesophageal reflux disease) Dizziness Bilateral hand numbness Abnormal stress test Nonspecific abnormal electrocardiogram (ECG) Hearing loss Flat feet Allergic rhinitis due to pollen Candidiasis of skin Chronic kidney disease, stage III (moderate) Conductive hearing loss of left ear with unrestricted hearing of right ear Constipation by delayed colonic transit Diverticulosis of colon (without mention of hemorrhage) Duodenal ulcer Extrapyramidal movement disorder Hypertensive kidney disease Mediastinal cyst Mixed hyperlipidemia Neuropathy OAB (overactive bladder) Pes planus of left foot Postmenopausal Primary osteoarthritis of left knee Pulmonary nodule Tremor, coarse Tremor, hereditary, benign Unilateral hearing loss Vaginitis, atrophic Ptosis Bipolar 1 disorder Gait abnormality Tremor of both hands Surgical History Surgical History H/O dilation and curettage History of cardiac catheterization H/O foot surgery History of hand surgery History of Achilles tendon repair History of tonsillectomy and adenoidectomy History of hysterectomy History of left knee replacement History of 2 sections Family History Family History Mother Family history of kidney disease Patient's mother is Hypertension Family history of arthritis Father Family history of chronic obstructive pulmonary disease Patient's father is Family history of tuberculosis Hypertension Family history of diabetes mellitus in first degree relative Family history of heart disease in male family member before age 55 Sibling Obesity Other Diabetes mellitus Social History Social History Social History: She lives with her son in a 1 bedroom apartment . She is . She is retired from being an [employer] . 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 She has had 4 children and one has . code status :DNI Smoking status: Never smoker Second hand tobacco smoke exposure: Yes Alcohol intake: current Drinks per week: 1 Substance use: never Substance use type: does not use Current Housing: Decline to Answer Concerned About Future Housing: Decline to Answer Difficulty Paying Gas/Electric Bills: Decline to Answer Difficulty Paying for Meds: Decline to Answer Currently Unemployed: Decline to Answer Education: Decline to Answer Difficulty w/ Childcare or Family Care: Decline to Answer Living arrangements: with family Additional living arrangements comments: son lives with her and he makes her nervous. 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 C-collar in place with mild lower cervical tenderness to palpation without step-offs or deformities RESPIRATORY: No respiratory distress Clear to auscultation bilaterally with no rhonchi wheezing or rales. CARDIOVASCULAR: Regular rate and rhythm without murmurs rubs or gallops. ABDOMINAL: Soft, nontender, nondistended, no rebound or guarding MUSCULOSKELETAl: Moves all extremities. No clubbing, cyanosis or edema. No ttp over the right hip, full ROM to right hip. Ecchymosis over the right shoulder with no ttp, full ROM NEURO: Awake and alert. Following commands, speech normal, no focal deficits SKIN:: Warm, dry. No rashes lesions or abrasions PSYCHIATRIC: Normal affect/mood, Course Vital Signs Vital signs: Vital Signs Temperature 97.6 F 05/22/25 13:50 Pulse Rate 86 05/22/25 13:50 Respiratory Rate 16 05/22/25 13:50 Blood Pressure 115/65 05/22/25 13:50 Pulse Oximetry 100 05/22/25 13:50 Oxygen Delivery Room Air 05/22/25 13:50 Temperature 97.6 F 05/22/25 13:50 Pulse Rate 81 05/22/25 14:52 Respiratory Rate 16 05/22/25 14:52 Blood Pressure 101/60 05/22/25 14:52 Pulse Oximetry 100 05/22/25 14:52 Oxygen Delivery Room Air 05/22/25 13:50 [facility] MDM Narrative Medical decision making narrative: 79-year-old female Presenting for a fall and right hip pain. On initial evaluation patient was in no acute distress afebrile, hemodynamic stable. Differentials include but are not limited to: Fracture, sprain, strain, intracranial hemorrhage, subdural, spinal injury Notable exam findings: Mild tenderness over the right hip but full range of motion. Tenderness over the mid cervical spine without step-offs or deformities. I personally reviewed the patient's lab result. Notable lab findings: CBC without significant abnormalities. Mildly elevated creatinine at 1.31 with mildly elevated LFTs. I personally reviewed the patient's images and interpret as follows: Chest x-ray: Normal cardiac silhouette, no consolidations, no pleural effusions, no pulmonary vascular congestion X-ray right hip showed no acute fractures. CT head and C-spine showed no acute abnormalities I personally reviewed the patient's EKGs: Normal sinus rhythm rate of 81, left axis deviation, right bundle-branch block, no acute ST or T-wave changes Patient did have full range of motion of her right hip. She was able to ambulate throughout the department. C-spine was cleared. Patient was deemed appropriate for discharge back to detention at this time. She was advised follow-up with PCP in the next week for re-evaluation. Patient was agreeable to this plan. Given strict return precautions. Differential Diagnosis Differential Diagnosis: Fracture, sprain, strain, intracranial hemorrhage, subdural, spinal injury Lab Data MDM Lab Attestation statement: I personally reviewed the patient's lab results. 05/22/25 14:38 05/22/25 14:38 Labs: Lab Results 05/22/25 Range/Units 14:38 WBC 5.0 (4.5-10.0) K/mm3 RBC 4.18 L (4.2-5.4) M/mm3 Hgb 12.9 (12.0-15.0) g/dL Hct 40.3 (37.0-47.0) % MCV 96.4 (80-100) fl MCH 30.9 (26-34) pg MCHC 32.0 (32-36) g/dl RDW 12.3 (11.5-14.5) % Plt Count 221 (150-375) k/mm3 MPV 9.4 (7.4-10.4) fl Immature Gran % (Auto) 0.2 (0-0.5) % Neut % (Auto) 57.3 (45.5-73.1) % Lymph % (Auto) 26.4 (18.3-44.2) % [place] % (Auto) 14.5 H (2.6-8.5) % Eos % (Auto) 1.0 (0-4.4) % Baso % (Auto) 0.6 (0.2-1.2) % Lymph # (Auto) 1.31 (0.9-3.2) K/mm3 [place] # (Auto) 0.7 H (0.1-0.6) K/mm3 Eos # (Auto) 0.1 (0-0.3) K/mm3 Baso # (Auto) 0.0 (0.0-0.1) K/mm3 Abs Immat Gran (auto) 0.01 (0.00-0.031) K/mm3 Absolute Neuts (auto) 2.8 (1.3-6.7) K/mm3 Absolute Nucleated RBC 0.000 (0.0-0.012) K/mm3 Nucleated RBC % 0.0 (0.0-0.2) % PT 12.8 (11.1-14.7) Seconds INR 0.9 APTT 28.8 (22.3-36.8) Seconds Sodium 137 (137-145) mmol/L Potassium 4.0 (3.4-5.0) mmol/L Chloride 107 (98-107) mmol/L Carbon Dioxide 30 (22-30) mmol/L Anion Gap 0 L (4-12) mmol/L BUN 17 (7-17) mg/dL Creatinine 1.31 H (0.7-1.0) mg/dL Estim Creat Clear Calc 30 ml/min Estimated GFR 39 L (59 - ) Glucose 112 H (65-110) mg/dL Calcium 9.7 (8.4-10.2) mg/dL Total Bilirubin 0.4 (0.2-1.3) mg/dL AST 68 H (14-36) U/L ALT 97 H (6-35) U/L Alkaline Phosphatase 73 (38-126) U/L Total Protein 6.2 L (6.3-8.2) g/dL Albumin 3.4 L (3.5-5.1) g/dL Imaging Data Radiologist's impression: ITS Impressions Chest X-Ray 05/22/25 14:29 Impression: No acute cardiopulmonary abnormality. Hip/Pelvis X-Ray 05/22/25 14:29 Impression: No acute fracture or malalignment. Head CT 05/22/25 14:38 Impression: 1.No acute intracranial abnormality. Cervical Spine CT 05/22/25 14:52 Impression: No acute abnormality. Discharge Plan Discharge Clinical Impression: Contusion of right shoulder, initial encounter, Essential tremor Fall Qualifiers: Encounter type: initial encounter Qualified Code(s): W19.XXXA - Unspecified fall, initial encounter Contusion of hip Qualifiers: Encounter type: initial encounter Laterality: right Qualified Code(s): S70.01XA - Contusion of right hip, initial encounter Patient Disposition: Home Condition: Stable Instructions: Antibiotic Form, Contusion in Adults (ED), Fall Prevention (ED) Additional Instructions: X-rays and CTs were reassuring. Follow-up with your PCP in the next week for re-evaluation. Return to the ED for any new or worsening symptoms. Patient Language: Algerian Prescriptions: No Action trazodone 50 mg tablet PO DAILY aripiprazole 15 mg tablet 15 mg PO DAILY Qty: 30 3RF pantoprazole 40 mg tablet,delayed release (DR/EC) 40 mg PO DAILY Qty: 90 0RF primidone 250 mg tablet 250 mg PO QHS Qty: 30 2RF docusate sodium 100 mg capsule 100 mg PO DAILY Qty: 30 1RF clonazepam 0.5 mg tablet 0.5 mg PO BID PRN (Reason: anxiety) Qty: 30 0RF acetaminophen [Tylenol] 325 mg tablet 650 mg PO Q6H PRN (Reason: pain) Qty: 60 0RF polyethylene glycol 3350 [Miralax] 17 gram/dose powder 17 g PO DAILY MDD 17 grams Qty: 510 0RF Follow-up/Referrals: Jose Yen MD [Primary Care Provider, Family Practice]
[2025-05-22 15:07] LABS: Alanine Aminotransferase 97 U/L (6-35); Albumin Level 3.4 g/dL (3.5-5.1); Alkaline Phosphatase 73 U/L (38-126); Anion Gap 0 mmol/L (4-12); Aspartate Amino Transferase 68 U/L (14-36); Bilirubin,Total 0.4 mg/dL (0.2-1.3); Blood Urea Nitrogen 17 mg/dL (7-17); Calcium 9.7 mg/dL (8.4-10.2); Carbon Dioxide 30 mmol/L (22-30); Chloride 107 mmol/L (98-107); Estimated CRCL calculation 30 ml/min; Estimated Glomerular Filt Rate 39; Glucose 112 mg/dL (65-110); Potassium 4.0 mmol/L (3.4-5.0); Sodium 137 mmol/L (137-145); Total Protein 6.2 g/dL (6.3-8.2)
--- NOTE | 2025-05-22 16:11 | PC.NURSE ---
PATIENT AMBULATED IN THE AGRAWAL WITH WALKER
--- NOTE | 2025-05-22 16:27 | PC.NURSE ---
PATIENT'S SISTER NORMA WAS CONTACTED AND UPDATED TO THE PATIENT'S CONDITION; STATED THAT SHE WILL HAVE OZ ESTRADA - THE PATIENT'S SON COME PICK THE PATIENT UP AND TAKE HER BACK TO THE [facility]. OZ ESTRADA [phone]
== END 2025-05-22 17:50 ==
PROVIDERS: Emergency Medicine; Emergency Provider Student in an Organized Health Care Education/Training Program; PCP Family Medicine
DX: S70.01XA Contusion of right hip, initial encounter (principal); R94.31 Abnormal electrocardiogram [ECG] [EKG]; K21.9 Gastro-esophageal reflux disease without esophagitis; I12.9 Hypertensive chronic kidney disease with stage 1 through stage 4 chronic kidney disease, or unspecified chronic kidney disease; N18.30 Chronic kidney disease, stage 3 unspecified; F31.9 Bipolar disorder, unspecified; W01.0XXA Fall on same level from slipping, tripping and stumbling without subsequent striking against object, initial encounter
CPT/HCPCS: 36415; 70450; 71045; 72125; 73502; 80053; 85025; 85610; 85730; 93005; 99284

== ENCOUNTER 2025-05-23 15:38 | Emergency (ER) | payer MEDICARE, SELFPAY ==
--- OUTSIDE RECORDS SUMMARY | 2024-11-07 14:00 | XMS_ITS ---
Author Organization [facility] Address [address] [place] [address] Phone [phone] Care Team Providers Care Grounds And Nursery Specialist Name Role Phone Michelle Cadet Primary Care Provider REASON FOR VISIT 2 week FU/ 40 mins appt Medications Medication SIG (Take, Route, Frequency, Duration) Notes Start Date End Date Diagnosis (ICD Code) Status Lexapro 10 MG Tablet 1 tablet Orally Once a day Bipolar 1 disorder (ICD_10 - F31.9) Active clonazePAM 0.5 MG Tablet 1 tablet Orally bedtime F41.9 MARILYN (generalized anxiety disorder) (ICD_10 - F41.1) Active Sertraline HCl 25 MG Tablet 1 tablet Orally Once a day Not-Taking LaMICtal 25 MG Tablet 2 tablet Orally twice a day; Duration: 30 days Bipolar 1 disorder (ICD_10 - F31.9) Active Primidone 50 MG Tablet 1.5 tablet Orally twice a day; Duration: 30 days Tremor of both hands (ICD_10 - R25.1) Active [place] Carbonate 150 MG Capsule 1 capsule Orally once a day; Duration: 30 days Bipolar 1 disorder (ICD_10 - F31.9) Not-Taking Propranolol HCl 20 MG Tablet TAKE 1 TABLET BY MOUTH TWICE A DAY FOR 30 DAYS; Duration: 90 MARILYN (generalized anxiety disorder) (ICD_10 - F41.1) Not-Taking busPIRone HCl 5 MG Tablet TAKE 1 TABLET BY MOUTH TWICE A DAY FOR 30 DAYS; Duration: 90 MARILYN (generalized anxiety disorder) (ICD_10 - F41.1) Not-Taking Meloxicam 7.5 MG Tablet 1 tablet Orally Once a day Not-Taking Escitalopram Oxalate 5 MG Tablet 1 tablet Orally Once a day; Duration: 30 day(s) 04/05/2024 Not-Taking Farxiga Active Pantoprazole Sodium Active Social History Sex Observation Social History Observation Description Sex Observation Female Sexual Orientation Social History Observation Description Sexual Orientation Straight or heterose xual Gender Identity Social History Observation Description Gender Identity Female Encounters Date Time Type Facility Location Provider Diagnosis 11/07/2024 02:00 PM Office Visit [address] [place] [address] Michelle Cadet Plan Of Treatment No Information Medical (General) History Medical History History ICD Code Kidney disease Bipolar disorder Surgical History Surgery Date(Month/Year) Bilateral hand surgeries for arthritis Ankle surgery Hysterectomy Caesarean section cataracts 12/2023 Hospitalization History Reason Date(Month/Year) Progress Notes * Laurie SAEZDOB:1945 (79 yo F)Acc No.[id number]:11/07/2024 UNLOCKED PROGRESS NOTE Patient: Yaneth FLORESpat Provider: SHER Gomez :1945 A ge:79 Y S ex:Female Date:11/07/2024 Phone: Address:[address] [place] [address] [address], [address], [place], [place] Subjective: * Chief Complaints: * 1 . [...] SF Y es, R isk Disposition from L ow - No Follow Up Plan Required, F ollow Up Plan N o Follow Up Plan required at this time.. * Screening: * * Medical History: * Medications: Fitz Singletarysaadia , Taking Pantoprazole Sodium , Taking clonazePAM 0.5 MG Tablet 1 tablet Orally bedtime , Notes to Pharmacist: F41.9, Taking Primidone 50 MG Tablet 1.5 tablet Orally twice a day , Taking LaMICtal 25 MG Tablet 2 tablet Orally twice a day , Taking Lexapro 10 MG Tablet 1 tablet Orally Once a day , Not-Taking [place] Carbonate 150 MG Capsule 1 capsule Orally [...] * Electronic signature of Megan Cadet on 05/23/2025 at 05:50 PM MATERIALS MANAGEMENT CLERK Sign off status: Pending * Provider: SHER Gomez Date: 0 11/07/2024 Generated for Caroline garner/Rama/Lee Ann on: 1 07/24/2024 05:50 PM MATERIALS MANAGEMENT CLERK History and Physical Notes * HPI (History of Present Illness) Category c/o Denies Symptom Duration Details Notes Catego ry Notes Interim History 79 year old female client presents via telephone reporting thatabdirahman is doing terrible, was in the hospital [...] Slept good otherwise. Had racing thoughts this am.Sleeping wellAppetite not great but does eatDepression Ratin/10Anxiety: 5-6/10.Passive thoughts of suicide, no intent. States just doesn't want to go on when anxiety high.Motivation is low.Energy level: lowConcentration: not as good as usual. Depression Screening PHQ-9 Little interest or pleasure in doing things: Not at [...]
--- OUTSIDE RECORDS SUMMARY | 2024-12-05 14:00 | XMS_ITS ---
Author Organization [facility] Address [address] [place] [address] Phone [phone] Care Team Providers Care Packaging Clerk Name Role Phone Michelle Cadet Primary Care Provider REASON FOR VISIT Discharge [facility] Social History Sex Observation Social History Observation Description Sex Observation Female Sexual Orientation Social History Observation Description Sexual Orientation Straight or heterose xual Gender Identity Social History Observation Description Gender Identity Female Encounters Date Time Type Facility Location Provider Diagnosis 12/05/2024 02:00 PM Office Visit [address] [address] Michlele Cadet Plan Of Treatment No Information Medical (General) History Medical History History ICD Code Kidney disease Bipolar disorder Surgical History Surgery Date(Month/Year) Bilateral hand surgeries for arthritis Ankle surgery Hysterectomy Caesarean section cataracts 12/2023 Hospitalization History Reason Date(Month/Year) Progress Notes * Laurie SAEZDOB:1945 (79 yo F)Acc No.[id number]:12/05/2024 UNLOCKED PROGRESS NOTE Patient: Liz YOUNGFARRUKH Laurie Provider: SHER Gomez :1945 A ge:79 Y S ex:Female Date:12/05/2024 Phone: Address:[address] [place] [address] [address], [address], [place], [place] Subjective: * Chief Complaints: * 1 . Discharge [facility]. * Screening: * * Medical History: Objective: * Vitals: Assessment: Plan: * Treatment: * * Electronic signature of Megan Cadet on 05/23/2025 at 05:50 PM PLASTER MACHINE TENDER Sign off status: Pending * Provider: SHER Gomez Date: 0 12/05/2024 Generated for Caroline garner/Rama/Lee Ann on: 1 07/24/2024 05:50 PM PLASTER MACHINE TENDER
--- OUTSIDE RECORDS SUMMARY | 2024-12-12 15:20 | XMS_ITS ---
Author Organization [facility] Address [address] [place] [address] Phone [phone] Care Team Providers Care Kosher Sealer Name Role Phone Michelle Cadet Primary Care Provider [phone] REASON FOR VISIT [facility] hospital follow up Social History Sex Observation Social History Observation Description Sex Observation Female Sexual Orientation Social History Observation Description Sexual Orientation Straight or heterose xual Gender Identity Social History Observation Description Gender Identity Female Encounters Date Time Type Facility Location Provider Diagnosis 12/12/2024 03:20 PM Office Visit [address] [address] Michelle Cadet Plan Of Treatment No Information Medical (General) History Medical History History ICD Code Kidney disease Bipolar disorder Surgical History Surgery Date(Month/Year) Bilateral hand surgeries for arthritis Ankle surgery Hysterectomy Caesarean section cataracts 12/2023 Hospitalization History Reason Date(Month/Year) Progress Notes * Laurie SAEZDOB:1945 (79 yo F)Acc No.[id number]:12/12/2024 UNLOCKED PROGRESS NOTE Patient: Liz YOUNGFARRUKH Laurie Provider: SHER Gomez :1945 A ge:79 Y S ex:Female Date:12/12/2024 Phone: Address:[address] [place] [address] [address], [address], [place], [place] Subjective: * Chief Complaints: * 1 . [facility] hospital follow up. * Screening: * * Medical History: Objective: * Vitals: Assessment: Plan: * Treatment: * * Electronic signature of Megan Cadet on 05/23/2025 at 05:50 PM OUTSIDE MACHINIST APPRENTICE Sign off status: Pending * Provider: SHER Gomez Date: 0 12/12/2024 Generated for Caroline garner/Rama/Lee Ann on: 1 07/24/2024 05:50 PM OUTSIDE MACHINIST APPRENTICE
--- OUTSIDE RECORDS SUMMARY | 2024-12-13 11:20 | XMS_ITS ---
Author Organization [facility] Address [address] [place] [address] Phone [phone] Care Team Providers Care Framing Mechanic Name Role Phone Michelle Cadet Primary Care Provider [phone] REASON FOR VISIT hosp fu from [facility] Social History Sex Observation Social History Observation Description Sex Observation Female Sexual Orientation Social History Observation Description Sexual Orientation Straight or heterose xual Gender Identity Social History Observation Description Gender Identity Female Encounters Date Time Type Facility Location Provider Diagnosis 12/13/2024 11:20 AM Office Visit [address] [address] Michelle Cadet Plan Of Treatment No Information Medical (General) History Medical History History ICD Code Kidney disease Bipolar disorder Surgical History Surgery Date(Month/Year) Bilateral hand surgeries for arthritis Ankle surgery Hysterectomy Caesarean section cataracts 12/2023 Hospitalization History Reason Date(Month/Year) Progress Notes * Laurie SAEZDOB:1945 (79 yo F)Acc No.[id number]:12/13/2024 UNLOCKED PROGRESS NOTE Patient: Liz YOUNGFARRUKH Laurie Provider: SHER Gomez :1945 A ge:79 Y S ex:Female Date:12/13/2024 Phone: Address:[address] [place] [address] [address], [address], [place], [place] Subjective: * Chief Complaints: * 1 . hosp fu from [facility]. * Screening: * * Medical History: Objective: * Vitals: Assessment: Plan: * Treatment: * * Electronic signature of Megan Cadet on 05/23/2025 at 05:50 PM STICKER ON Sign off status: Pending * Provider: SHER Gomez Date: 0 12/13/2024 Generated for Caroline garnre/Rama/Lee Ann on: 1 07/24/2024 05:50 PM STICKER ON
--- OUTSIDE RECORDS SUMMARY | 2025-02-07 10:20 | XMS_ITS ---
Author Organization [facility] Address [address] [place] [address] Phone [phone] Care Team Providers Care Shank Threader Name Role Phone Michelle Cadet Primary Care Provider REASON FOR VISIT hospital followup from [facility] Medications Medication SIG (Take, Route, Frequency, Duration) Notes Start Date End Date Diagnosis (ICD Code) Status Primidone 50 MG Tablet 1.5 tablet Orally twice a day; Duration: 30 days Tremor of both hands (ICD_10 - R25.1) Active Sertraline HCl 25 MG Tablet 1 tablet Orally Once a day Not-Taking clonazePAM 0.5 MG Tablet TAKE 1 TABLET BY MOUTH EVERY DAY AT BEDTIME DO NOT GIVE IS SBP <100 AND/OR DBP<60, NOTIFY PROVIDER FOR INSTRUCTIONS; Duration: 30 01/10/2025 MARILYN (generalized anxiety disorder) (ICD_10 - F41.1) Active LaMICtal 25 MG Tablet 2 tablet Orally twice a day; Duration: 30 days Bipolar 1 disorder (ICD_10 - F31.9) Active Lexapro 10 MG Tablet 1 tablet Orally Once a day Bipolar 1 disorder (ICD_10 - F31.9) Active Meloxicam 7.5 MG Tablet 1 tablet Orally Once a day Not-Taking busPIRone HCl 5 MG Tablet TAKE 1 TABLET BY MOUTH TWICE A DAY FOR 30 DAYS; Duration: 90 MARILYN (generalized anxiety disorder) (ICD_10 - F41.1) Not-Taking Pantoprazole Sodium Active Escitalopram Oxalate 5 MG Tablet 1 tablet Orally Once a day; Duration: 30 day(s) 04/05/2024 Not-Taking Propranolol HCl 20 MG Tablet TAKE 1 TABLET BY MOUTH TWICE A DAY FOR 30 DAYS; Duration: 90 MARILYN (generalized anxiety disorder) (ICD_10 - F41.1) Not-Taking Farxiga Active Social History Sex Observation Social History Observation Description Sex Observation Female Sexual Orientation Social History Observation Description Sexual Orientation Straight or heterose xual Gender Identity Social History Observation Description Gender Identity Female Encounters Date Time Type Facility Location Provider Diagnosis 02/07/2025 10:20 AM Office Visit [address] [place] [address] Michelle Cadet Plan Of Treatment No Information Medical (General) History Medical History History ICD Code Kidney disease Bipolar disorder Surgical History Surgery Date(Month/Year) Bilateral hand surgeries for arthritis Ankle surgery Hysterectomy Caesarean section cataracts 12/2023 Hospitalization History Reason Date(Month/Year) Progress Notes * Laurie SAEZDOB:1945 (79 yo F)Acc No.[id number]:02/07/2025 UNLOCKED PROGRESS NOTE Patient: Liz YOUNGLaurie HERNÁNDEZ Provider: SHER Gomez :1945 A ge:79 Y S ex:Female Date:02/07/2025 Phone: Address:[address] [place] [address] [address], [address], [place], [id number] Subjective: * Chief Complaints: * 1 . hospital followup from [facility]. * HPI: D epression Screening: PHQ-9 L [...] Screening: * * Medical History: * Medications: T aking [...] Megan Cadet on 05/23/2025 at 05:50 PM STONE [employer]ISHER Sign off status: Pending * Provider: Ángel Cadet, SHER Date: 0 02/07/2025 Generated for Caroline garner/Rama/Lee Ann on: 07/24/2024 05:50 PM STONE [employer]ISHER History and Physical Notes * HPI (History of Present Illness) Category c/o Denies Symptom Duration Details Notes Catego ry Notes Depression Screening PHQ-9 Little interest or pleasure [...]
--- OUTSIDE RECORDS SUMMARY | 2025-05-15 15:40 | XMS_ITS ---
Author Organization Count includes the [facility] Address [address] [place] [address] Phone [phone] Care Team Providers Care Painting Contractor Name Role Phone Michelle Cadet Primary Care Provider REASON FOR VISIT 4 week F/U Social History Sex Observation Social History Observation Description Sex Observation Female Sexual Orientation Social History Observation Description Sexual Orientation Straight or heterose xual Gender Identity Social History Observation Description Gender Identity Female Encounters Date Time Type Facility Location Provider Diagnosis 05/15/2025 03:40 PM Office Visit [address] [address] Michelle Cadet Plan Of Treatment No Information Medical (General) History Medical History History ICD Code Kidney disease Bipolar disorder Surgical History Surgery Date(Month/Year) Bilateral hand surgeries for arthritis Ankle surgery Hysterectomy Caesarean section cataracts 12/2023 Hospitalization History Reason Date(Month/Year) Progress Notes * Laurie SAEZDOB:1945 (79 yo F)Acc No.[id number]:05/15/2025 UNLOCKED PROGRESS NOTE Patient: Liz YOUNGLaurie CHADWICK Provider: SHER Gomez :1945 A ge:79 Y S ex:Female Date:05/15/2025 Phone: Address:[address] [place] [address] [address], [address], [place], [place] Subjective: * Chief Complaints: * 1 . 4 week F/U. * Screening: * * Medical History: Objective: * Vitals: Assessment: Plan: * Treatment: * * Electronic signature of Megan Cadet on 05/23/2025 at 05:49 PM DEPUTY DIRECTOR OF PUBLIC WORKS Sign off status: Pending * Provider: SHER Gomez Date: 07/16/2024 Generated for Caroline garner/Mykel on: 07/24/2024 05:49 PM DEPUTY DIRECTOR OF PUBLIC WORKS
--- OUTSIDE RECORDS SUMMARY | 2025-05-22 10:30 | XMS_ITS | Encounter Summary ---
Author Organization [facility] Healthcare Address [address] [place] [address] Care Team Providers Care Licensed Nuclear Control Room Operator Name Role Phone Jose Yen MD Primary Care Provider [phone] Reason for Visit * Auth/Cert (Routine) Specialty Diagnoses / Procedures Referred By Contac t Referred To Contact Referral ID Status Reason Start Date Expiration Date Visits Re quested Visits Authorized [id number] 1 1 Encounter Details Date Type Department Care Team (Late st Contact Info) Description 05/22/2025 10:30 AM [facility] Home Care Visit [facility] [address] [place] [address] Irene Rick, TOMER OT HOME VISIT Social History Tobacco Use Types Packs/Day Years Used Date Smoking Tobacco: Never Alcohol Use Standard Drinks/Week Comments Never 0 (1 standard drink = 0.6 oz pur e alcohol) OASIS D0700: Social Isolation Answer Da te Recorded Frequency of experiencing loneliness or isolatio n Rarely 04/20/2025 OASIS A1250: Transportation Answer Date Recorded Lack [...] any time in the past 12 m [facility], were you homeless or living in [...] often do you attend chur ch or roman catholic services? More than 4 times per year 03/02/2025 Do you belong to any clubs o r organizations such as jehovah's witness groups, unions, fraternal or athletic groups, or [...] any time in the past 12 m [facility], were you homeless or living in a group home (including now)? No 03/02/2025 [facility] Utilities Answer Date Recorded In the past 12 months has [employer] electric, gas, oil, or water company threatened [...] on file Legal Sex Female 12:09 AM [facility] Gender Identity Not on file Sexual Orientation Not on file documented as of this encounter Last Filed Vital Signs Vital Sign Reading Time Taken Comments Blood Pressure 142/76 05/22/2025 11:10 AM [facility] Pulse 86 05/22/2025 11:10 AM [facility] Temperature 35.9 C (96.7 F) 05/22/2025 11:10 AM [facility] Respiratory Rate 16 05/22/2025 11:10 AM [facility] Oxygen Saturation 96% 05/22/2025 11:10 AM [facility] Inhaled Oxygen Concentration - - Weight - - Height - - Body Mass Index - - documented in this encounter Functional Status * BP Location Answer Date of Assessment Author Left arm 05/22/2025 11:10 AM [facility] Irene Rick OT * BP Location Answer Date of Assessment Author Left arm 05/22/2025 11:10 AM [facility] Irene Rick OT documented as of this encounter Miscellaneous Notes * Case Communication - Irene Rick OT - 05/22/2025 4:36 PM CSTUpon arrival for OT visit, pt stated she was very anxious today, she has not had a BM for 8 days, she is having increased tremors in her hands, she had another client living at the [facility] feeding her breakfast, and she was having increased difficulty with her memory. OTR called PCP and spoke with Luciading the concerns. STAFF EDUCATION PROVIDED to JULIUS Banerjee in apt upon arrival and Lavonne to report to team meeting today at 2PM: * Laurie has increased tremors due to missing medication over the weekend, per doctor, and should decrease in the next few days since she is now taking. * She should eat finger foods in her apt until tremors are decreased, to reduce anxiety from tremors and spilling food in front of others. * Please assist with placement of weighted glove to right hand. She has a plate and bowl in cabinetto use with a non-slip bottom. *Remind Laurie it is okay to take Miralax for constipation per Dr Yen. OT also spoke with patients granddaughter, Richelle, and she will bring a water cup with lid and strawand a TV tray table, for pt to eat meals in her apt until tremors are reduced. OS * Home Health Plan for Next Visit - Irene Rick OT - 05/22/2025 12:07 PM CST Reason for today's visit review of tremors, anxiety, and constipation via call with Dr Estes office and OTR spoke with Serena. Pt and REHAB SERVICES AIDE present, Lavonne, instructed in modifications to assist ptat mealtimes, and to reduce constipation: STAFF EDUCATION PROVIDED to Lavonne, who will report updates at team meeting today at 2 PM. OT also left a voicemail to discuss with Tracy GALICIA. * Laurie has increased tremors due to missing medication over the weekend, per doctor, and should decrease in the next few days since she is now taking. * She should eat finger foods in her apt until tremors are decreased, to reduce anxiety from tremors and spilling food in front of others. * Please assist with placement of weighted glove to right hand. She has a plate and bowl in cabinetto use with a non-slip bottom. * Remind Laurie it is okay to take Miralax for constipation per Dr Yen. Discuss plan of care pt and TRANSFUSION NURSE student, Partha Puckett, present during session Discharge planning when OT goals are met Plan for next visit review of use of AE for mealtimes, review relaxation techniques, and activity schedule in DOT OS documented in this encounter Plan of Treatment [...] goal intervention scheduled/documen cornel in this visit Pressure Prevention Disciplines: Skilled Disciplines Pressure Prevention 02/23/2025 Active 1 goal linked to scheduled/docume nted intervention 1 goal intervention scheduled/documen cornel in this visit Monitor patient's vital signs every home health visit Disciplines: Skilled Disciplines, SN, PT, OT, SENIOR CONSUMER INSIGHTS CONSULTANT, MANAGER MATH Monitor patient's vital signs every home health visit. 02/23/2025 Active 1 goal linked to scheduled/docume nted intervention 1 goal intervention scheduled/documen cornel in this visit Infection Prevention Disciplines: Skilled Disciplines Infection Prevention 02/23/2025 Active 1 goal linked to scheduled/docume nted intervention 1 goal intervention scheduled/documen cornel in this visit Fall Precautions/Safe ty Concerns Disciplines: Skilled Disciplines Fall precautions and general safety 02/23/2025 Active 1 goal linked to scheduled/docume nted intervention 1 goal intervention scheduled/documen cornel in this visit OT Alteration in Coping Disciplines: Occupational Therapy Impaired ability to cope with current stressors 03/02/2025 Active - 1 problem intervention scheduled/documen cornel in this visit OT Alteration in Cognitive Abilities Disciplines: Occupational Therapy Impaired cognitive ability impacting performance with activities of daily living. 03/28/2025 Active - 1 problem intervention scheduled/documen cornel in this visit OT Impaired ADLs Disciplines: Occupational Therapy Impaired independence in self-care, ADLs. 03/27/2025 Active - 1 problem intervention scheduled/documen cornel in this visit Goals Goal Associated Problem Outcome Goal Met? Visit Notes Demonstrate knowledge of depression Description: Patient/caregiver to demonstrate knowledge of depression as evidence by verbalization of signs and symptoms of depression and when to report to physician. Depression No Prevent development of pressure injuries Description: long term care social worker goal: The patient will maintain intact skin and avoid the development of pressure injuries within 1 month Short term goal: The patient/caregiver will understand and adhere to pressure prevention interventions within 2 visits Pressure Prevention No Measure vital signs during every home health visit during episode of care Description: Home english as a second language teacher to measure vital signs during every home [...] Intervention Associated Problem/Goal Status Variance Visit Notes Assess signs/symptoms of Depression Description: Assess signs/symptoms of depression and emotional well-being. Problem:Depression Goal:Demonstrate knowledge of depression Performed see relaxation techniques intervention Instruct on Pressure Prevention Description: Instruct patient/caregiver [...] Problem:Pressure Prevention Goal:Prevent development of pressure injuries Performed Instruct patient/caregiver on inspecting the skin regularly for signs of impaired skin integrity, repositioning the patient on an individualized schedule according to the patient's tissue tolerance, skin condition, mobility, medical condition, and treatm ent goals. Avoid vigorous massage and emphasize the importance of increasing activity and mobility. Monitor Vital Signs Description: Monitor blood pressure, pulse, oxygen saturation, respirations Problem:Monitor patient's vital signs every home health visit Goal:Measure vital signs during every home health visit during episode of care Performed Monitor blood pressure, pulse, oxygen saturation, respirations Educate Patient on Infection Prevention Description: Instruct patient on signs and symptoms of infection IE: fever, odor, change in color, increased amount of drainage, purulent drainage, warmth. Problem:Infection Prevention Goal:Verbalize signs of infection Performed Instruct patient on signs and symptoms of infection IE: fever, odor, change in color, increased amount of drainage, purulent drainage, warmth. High Fall Risk Precautions Description: Instruct patient [...] Precautions/Safety Concerns Goal:Demonstrate fall and safety precautions Performed Instruct patient to use proper lighting in [...] any falls to the home health agency. Instruct in relaxation strategies Description: Instruct patient/caregiver in relaxation strategies. Problem:OT Alteration in Coping Performed pt educated and instructed on relaxation strategies for anxiety/depression. pt performed deep breathing meditation and listening to music. pt demon good understanding. pt stated, feeling relaxed and calmer. Tremors were calmed down and was able to p erform task more independently this date. Instruct on aids, memory intervention Description: Instruct patient/caregiver on aids, memory intervention. Problem:OT Alteration in Cognitive Abilities Performed Pt instructed in use of calendar to manage her daily tasks. Pt understands and tolerates education provided. Adaptive Equipment/DME Education Description: Recommend and assist with obtaining assistive devices/DME. Problem:OT Impaired ADLs Performed Pt instructed in use of a weighted glove, built up utensils and suction cup bowls and plates to increase (I) with self feeding due to increased hand tremors noted this visit. CG present and educated to assist pt with hand under hand techniques. Pt inst ructed in stabilizing hand and positioning techniques during self feeding task including use of left hand to hold onto right wrist while bringing hand to mouth with utensil. Pt also instructed in relaxation techniques to reduce stress related anxiety. Pt and CG understands and tolerates education provided. documented in this encounter Care Teams Licensed Nuclear Control Room Operator Relationship Specialty Start Date End Date Jose Yen MD PCP - General Family Medicine 10/15/21 documented as of this encounter
--- OUTSIDE RECORDS SUMMARY | 2025-05-22 10:30 | XMS_ITS | Encounter Summary ---
Author Organization [facility] Healthcare Address [address] [place] [address] Care Team Providers Care Infrastructure Director Name Role Phone Jose Yen MD Primary Care Provider [phone] Reason for Visit * Auth/Cert (Routine) Specialty Diagnoses / Procedures Referred By Contac t Referred To Contact Referral ID Status Reason Start Date Expiration Date Visits Re quested Visits Authorized [id number] 1 1 Encounter Details Date Type Department Care Team (Late st Contact Info) Description 05/22/2025 10:30 AM SUPERVISOR FITTING Home Care Visit [facility] [address] [place] [address] Irene Rick, TOMER OT HOME VISIT Social [...] any time in the past 12 m [facility], were you homeless or living in a jail (including now)? No 11/02/2024 Humiliation, Afraid, Rape, [...] often do you attend chur ch or lutheran services? More than 4 times per year 03/02/2025 Do you belong to any clubs o r organizations such as gnosticism groups, unions, fraternal or athletic groups, or [...] and heating? Not hard at all 03/02/2025 [facility] - [...] any time in the past 12 m [facility], were you homeless or living in a jail (including now)? No 03/02/2025 [facility] Utilities Answer Date Recorded In the past 12 months has [employer] electric, gas, oil, or water company threatened [...] on file Legal Sex Female 12:09 AM SUPERVISOR FITTING Gender Identity Not on file Sexual Orientation Not on file documented as of this encounter Last Filed Vital Signs Vital Sign Reading Time Taken Comments Blood Pressure 142/76 05/22/2025 11:10 AM SUPERVISOR FITTING Pulse 86 05/22/2025 11:10 AM SUPERVISOR FITTING Temperature 35.9 C (96.7 F) 05/22/2025 11:10 AM SUPERVISOR FITTING Respiratory Rate 16 05/22/2025 11:10 AM SUPERVISOR FITTING Oxygen Saturation 96% 05/22/2025 11:10 AM SUPERVISOR FITTING Inhaled Oxygen Concentration - - Weight - - Height - - Body Mass Index - - documented in this encounter Functional Status * BP Location Answer Date of Assessment Author Left arm 05/22/2025 11:10 AM SUPERVISOR FITTING Irene Rick OT * BP Location Answer Date of Assessment Author Left arm 05/22/2025 11:10 AM SUPERVISOR FITTING Irene Rick OT documented as of this encounter Miscellaneous Notes * Case Communication - Irene Rick OT - 05/22/2025 4:36 PM CSTUpon arrival for OT visit, pt stated she was very anxious today, she has not had a BM for 8 days, she is having increased tremors in her hands, she had another client living at the [facility] feeding her breakfast, and she was [...] in her apt until tremors are reduced. RVISOR FITTING * Home Health Plan for Next Visit - Irene Rick OT - 05/22/2025 12:07 PM CST Reason for today's visit review of tremors, anxiety, and constipation via call with Dr Estes office and OTR spoke with Serena. Pt and SEALER OPERATOR present, Lavonne, instructed in modifications to assist [...] Yen. Discuss plan of care pt and KELP OR SEAGRASS GATHERER student, Partha Puckett, present during session Discharge planning when OT goals are met Plan for next visit review of use of AE for mealtimes, review relaxation techniques, and activity schedule in DOT RVISOR FITTING documented in this encounter Plan of Treatment [...] visit Disciplines: Skilled Disciplines, SN, PT, OT, AUTOMOTIVE GLASS TECHNICIAN, PLANT PHYSIOLOGIST Monitor patient's vital signs every home health [...] No Prevent development of pressure injuries Description: ocean transportation intermediary goal: The patient will maintain intact skin and avoid the development of pressure injuries within 1 month Short term goal: The patient/caregiver will understand and adhere to pressure prevention interventions within 2 visits Pressure Prevention No Measure vital signs during every home health visit during episode of care Description: Home fish hatchery supervisor to measure vital signs during every home [...] provided. documented in this encounter Care Teams Infrastructure Director Relationship Specialty Start Date End Date Jose Yen MD PCP - General Family Medicine 10/15/21 documented as of this encounter
--- OUTSIDE RECORDS SUMMARY | 2025-05-22 14:00 | XMS_ITS ---
Author Organization [facility] Address [address] [place] [address] Phone [phone] Care Team Providers Care Air Transport Professionals Name Role Phone Michelle Cadet Primary Care Provider REASON FOR VISIT 4 week F/U past due Social History Sex Observation Social History Observation Description Sex Observation Female Sexual Orientation Social History Observation Description Sexual Orientation Straight or heterose xual Gender Identity Social History Observation Description Gender Identity Female Encounters Date Time Type Facility Location Provider Diagnosis 05/22/2025 02:00 PM Office Visit [address] [id number] Michelle Cadet Plan Of Treatment No Information Medical (General) History Medical History History ICD Code Kidney disease Bipolar disorder Surgical History Surgery Date(Month/Year) Bilateral hand surgeries for arthritis Ankle surgery Hysterectomy Caesarean section cataracts 12/2023 Hospitalization History Reason Date(Month/Year) Progress Notes * Laurie SAEZDOB:1945 (79 yo F)Acc No.[id number]:05/22/2025 UNLOCKED PROGRESS NOTE Patient: Liz YOUNGFARRUKH Laurie Provider: SHER Gomez :1945 A ge:79 Y S ex:Female Date:05/22/2025 Phone: Address:[address] [place] [address] [address], [address], [place], [place] Subjective: * Chief Complaints: * 1 . 4 week F/U past due. * Screening: * * Medical History: Objective: * Vitals: Assessment: Plan: * Treatment: * * Electronic signature of Megan Cadet on 05/23/2025 at 05:50 PM MINE ENGINEERING MANAGER Sign off status: Pending * Provider: SHER Gomez Date: 1 07/23/2024 Generated for Caroline Moran on: 07/24/2024 05:50 PM MINE ENGINEERING MANAGER
--- NOTE | ~2025-05-23 | CT_ITS ---
CT abdomen pelvis w con INDICATION:abdominal pain . COMPARISON: None. TECHNIQUE: Axial images of the abdomen and pelvis were obtained following infusion of 100 mL Isovue 300. Dose optimization technique was utilized. FINDINGS: The lung bases are clear. The liver parenchyma is unremarkable. No intrahepatic mass or ductal dilatation is evident. The gallbladder is unremarkable. The pancreas and spleen are normal in appearance. The adrenal glands are symmetric in size. The kidneys demonstrate symmetric uptake of contrast. 3.1 cm right renal cyst is noted. Left renal cyst measures 2.7 cm. There is no solid mass. There is no hydronephrosis. Evaluation of the stomach and bowel loops are limited due to lack of oral contrast. Moderate retained stool throughout the colon consistent with constipation. The bladder and rectum are normal. No free intraperitoneal fluid or air is evident. There is no significant retroperitoneal lymphadenopathy. The aorta, visceral vessels and renal arteries demonstrate normal caliber and patency. The lower thoracic and lumbar vertebrae are in normal alignment. IMPRESSION: No acute abnormality is noted in the abdomen and pelvis. Constipation. All CT scans at this facility are performed using low dose modulation techniques as appropriate to perform exam including the following: automated exposure control; use of iterative reconstruction technique; adjustment of the mA and/or kV according to patient size (this includes techniques or standardized protocols for targeted exams where dose is matched to indication/reason for exam). Reviewed, dictated and finalized at location S. ME AUDITOR IMPRESSION: No acute abnormality is noted in the abdomen and pelvis. Constipation. All CT scans at this facility are performed using low dose modulation techniqu es as appropriate to perform exam including the following: automated exposure c ontrol; use of iterative reconstruction technique; adjustment of the mA and/or kV according to patient size (this includes techniques or standardized protocol s for targeted exams where dose is matched to indication/reason for exam).
--- NOTE | ~2025-05-23 | XR_ITS ---
EXAMINATION: XR abdomen/kub 1V, 05/23/2025 17:05 AERIAL SPRAYER HISTORY: constipation COMPARISON: No comparisons available. Technique: 3 view. Findings: Moderate fecal content, no dilated bowel loops No free air. No abnormal calcifications No acute osseous abnormality. Impression: 1. No acute abnormality. Reviewed, dictated and finalized at location P. AL SPRAYER Impression: 1. No acute abnormality.
--- OUTSIDE RECORDS SUMMARY | 2025-05-23 15:00 | XMS_ITS | Encounter Summary ---
Author Organization [facility] Healthcare Address [address] [place] [address] Care Team Providers Care Crutching Contractor Name Role Phone Jose Yen MD Primary Care Provider [phone] Reason for Visit * Auth/Cert (Routine) Specialty Diagnoses / Procedures Referred By Contac t Referred To Contact Referral ID Status Reason Start Date Expiration Date Visits Re quested Visits Authorized [id number] 1 1 Encounter Details Date Type Department Care Team (Late st Contact Info) Description 05/23/2025 3:00 PM SET O TYPE OPERATOR Home Care Visit [facility] [address] [address] [address] [place] [address] Marie Villa, JOSELINE SN HOME VISIT Social [...] time in the past 12 m [facility], were you homeless or living in a longterm (including now)? No 11/02/2024 Humiliation, Afraid, Rape, [...] week 03/02/2025 How often do you attend [facility] or church services? More than 4 times per year 03/02/2025 Do you belong to any clubs o r organizations such as mormonism groups, unions, fraternal or athletic groups, or [...] and heating? Not hard at all 03/02/2025 [facility] - Occupational [...] time in the past 12 m [facility], were you homeless or living in a longterm (including now)? No 03/02/2025 [facility] Utilities Answer Date Recorded In the [...] on file Legal Sex Female 12:09 AM SET O TYPE OPERATOR Gender Identity Not on file Sexual Orientation Not on file documented as of this encounter Plan of Treatment Not on file documented as of this encounter Visit Diagnoses Not on filedocumented in this encounter Home Health Visit - Care Plan Visit Details Visit Type -SN Home Visit Discipline -Penitentiary Problems Problem Description Start Date Status Goals Interve ntions Depression Disciplines: Skilled Disciplines Depression 02/23/2025 Active 1 goal linked to scheduled/docume nted intervention 1 goal intervention scheduled/documen cornel in this visit Pressure Prevention Disciplines: Skilled Disciplines Pressure Prevention 02/23/2025 Active 1 goal linked to scheduled/docume nted intervention 1 goal intervention scheduled/documen cornel in this visit Medications Disciplines: Penitentiary Management of home medications 02/23/2025 Active 1 goal linked to scheduled/docume nted intervention 2 goal interventions scheduled/documen cornel in this visit Monitor patient's vital signs every home health visit Disciplines: Skilled Disciplines, SN, PT, OT, BLOW MOLD OPERATOR, CONSTRUCTION IRONWORKER Monitor patient's vital signs every home health [...] cornel in this visit Urinary incontinence Disciplines: Penitentiary Urinary incontinence 02/23/2025 Active 1 goal linked to scheduled/docume nted intervention 3 goal interventions scheduled/documen cornel in this visit Goals Goal Associated Problem Outcome Goal Met? Visit Notes Demonstrate knowledge of depression Description: Patient/caregiver to demonstrate knowledge of depression as evidence by verbalization of signs and symptoms of depression and when to report to physician. Depression No Prevent development of pressure injuries Description: nursing home goal: The patient will maintain intact skin [...] visit during episode of care Description: Home prefinish operator to measure vital signs during every home [...] well-being. Problem:Depression Goal:Demonstrate knowledge of depression Scheduled Instruct [...] Scheduled documented in this encounter Care Teams Crutching Contractor Relationship Specialty Start Date End Date Jose Yen MD PCP - General Family Medicine 10/15/21 documented as of this encounter
--- OUTSIDE RECORDS SUMMARY | 2025-05-23 15:00 | XMS_ITS | Encounter Summary ---
Author Organization [facility] Healthcare Address [address] [place] [address] Care Team Providers Care Tallow Maker Name Role Phone Jose Yen MD Primary Care Provider [phone] Reason for Visit * Auth/Cert (Routine) Specialty Diagnoses / Procedures Referred By Contac t Referred To Contact Referral ID Status Reason Start Date Expiration Date Visits Re quested Visits Authorized [id number] 1 1 Encounter Details Date Type Department Care Team (Late st Contact Info) Description 05/23/2025 3:00 PM MEDICAL PHYSICS PROFESSOR Home Care Visit [facility] [address] [address] [address] [place] [address] Marie Villa, JOSELINE SN HOME VISIT Social [...] any time in the past 12 m [facility], were you homeless or living in [...] How often do you attend [facility] or hoahaoism services? More than 4 times per year 03/02/2025 Do you belong to any clubs o r organizations such as yarsani groups, unions, fraternal or athletic groups, or [...] any time in the past 12 m [facility], were you homeless or living in a [place] [facility] facility (including now)? No 03/02/2025 [facility] Utilities Answer Date Recorded In the [...] file Legal Sex Female 12:09 AM MEDICAL PHYSICS PROFESSOR Gender Identity Not on file Sexual Orientation Not on file documented as of this encounter Plan of Treatment Not on file documented as of this encounter Visit Diagnoses Not on filedocumented in this encounter Home Health Visit - Care Plan Visit Details Visit Type -SN Home Visit Discipline -Usp Problems Problem Description Start Date Status Goals Interve ntions Depression Disciplines: Skilled Disciplines Depression 02/23/2025 Active 1 goal linked to scheduled/docume nted intervention 1 goal intervention scheduled/documen cornel in this visit Pressure Prevention Disciplines: Skilled Disciplines Pressure Prevention 02/23/2025 Active 1 goal linked to scheduled/docume nted intervention 1 goal intervention scheduled/documen cornel in this visit Medications Disciplines: Usp Management of home medications 02/23/2025 Active 1 goal linked to scheduled/docume nted intervention 2 goal interventions scheduled/documen cornel in this visit Monitor patient's vital signs every home health visit Disciplines: Skilled Disciplines, SN, PT, OT, IT SYSTEMS ANALYST, OLD COIN DEALER Monitor patient's vital signs every home health [...] cornel in this visit Urinary incontinence Disciplines: Usp Urinary incontinence 02/23/2025 Active 1 goal linked to scheduled/docume nted intervention 3 goal interventions scheduled/documen cornel in this visit Goals Goal Associated Problem Outcome Goal Met? Visit Notes Demonstrate knowledge of depression Description: Patient/caregiver to demonstrate knowledge of depression as evidence by verbalization of signs and symptoms of depression and when to report to physician. Depression No Prevent development of pressure injuries Description: skilled nursing goal: The patient will maintain intact skin [...] visit during episode of care Description: Home saloon keeper to measure vital signs during every home [...] Scheduled documented in this encounter Care Teams Tallow Maker Relationship Specialty Start Date End Date Jose Yen MD PCP - General Family Medicine 10/15/21 documented as of this encounter
[2025-05-23 15:39] VITALS: PULSE 89; RESP 16; TEMP 36.4; O2SAT 97
--- NOTE | 2025-05-23 17:03 | ED.ABDPAIN ---
HPI - Abdominal Pain General Chief Complaint: Abdominal Pain <Rosario Atwood PA-C - Last Filed: 05/25/25 09:17> Stated Complaint: BM problems <Rosario Atwood PA-C - Last Filed: 05/25/25 09:17> Time Seen by Provider: 05/23/25 17:03 <Rosario Atwood PA-C - Last Filed: 05/25/25 09:17> Focused HPI: This is a 79 year old female that presents to the ER for constipation. Reports she has not had a BM in 8 days. She has been trying Miralax and prune juice with little relief. GENERAL: Well-appearing, well-nourished, and in no acute distress. HEAD: Normocephalic, atraumatic. CHEST: No respiratory distress. HEART: Regular rate NEURO: ?Alert and oriented x3. Patient screened in triage and initial orders placed.? ?Additional care and disposition to be based upon?diagnostic testing and treatment. <Rosario Atwood PA-C - Last Filed: 05/25/25 09:17> History of Present Illness HPI narrative: Agree with above HPI. Patient adds that she is still able to pass flatus. She only has mild abdominal pain. Denies fevers/chills, chest pain/shortness of breath, vomiting, or urinary concerns. <ELSIE Walker Last Filed: 05/24/25 02:50> Related Data Home Medications: Home Medications ?Medication ?Instructions ?Recorded ?Confirmed ?Last Taken ?Type trazodone 50 mg tablet mg PO DAILY 03/03/25 04/05/25 Unknown History <Rosario Atwood PA-C - Last Filed: 05/25/25 09:17> Allergies/Adverse Reactions: Allergies Allergy/AdvReac Type Severity Reaction Status Date / Time oxybutynin Allergy Unknown Unknown Verified 05/22/25 14:06 oxycodone Allergy Unknown RASH Verified 05/22/25 14:06 Sulfa (Sulfonamide Allergy Unknown Rash Verified 05/22/25 14:06 Antibiotics) lamotrigine AdvReac Severe Shakiness Verified 05/22/25 14:06 pantoprazole AdvReac Intermediate Other Verified 05/22/25 14:06 primidone AdvReac Unknown shaking Verified 05/22/25 14:06 <Rosario Atwood PA-C - Last Filed: 05/25/25 09:17> Review of Systems Review of Systems: All systems reviewed & are unremarkable except as noted in HPI and below <ELSIE Walker - Last Filed: 05/24/25 02:50> [facility] Past Medical History Medical History: Medical History Unable to care for self Tremor Bradycardia Blocked tear duct Essential tremor HTN (hypertension) Sensation of feeling cold Spasm of cervical paraspinous muscle Hip bursitis Dermatochalasis of both eyelids TMJ (temporomandibular joint disorder) Pharyngitis Candidal intertrigo Melissa infection, oral GERD (gastroesophageal reflux disease) Dizziness Bilateral hand numbness Abnormal stress test Nonspecific abnormal electrocardiogram (ECG) Hearing loss Flat feet Allergic rhinitis due to pollen Candidiasis of skin Chronic kidney disease, stage III (moderate) Conductive hearing loss of left ear with unrestricted hearing of right ear Constipation by delayed colonic transit Diverticulosis of colon (without mention of hemorrhage) Duodenal ulcer Extrapyramidal movement disorder Hypertensive kidney disease Mediastinal cyst Mixed hyperlipidemia Neuropathy OAB (overactive bladder) Pes planus of left foot Postmenopausal Primary osteoarthritis of left knee Pulmonary nodule Tremor, coarse Tremor, hereditary, benign Unilateral hearing loss Vaginitis, atrophic Ptosis Bipolar 1 disorder Gait abnormality Tremor of both hands <Rosario Atwood PA-C - Last Filed: 05/25/25 09:17> Surgical History Surgical History: Surgical History H/O dilation and curettage History of cardiac catheterization H/O foot surgery History of hand surgery History of Achilles tendon repair History of tonsillectomy and adenoidectomy History of hysterectomy History of left knee replacement History of 2 sections <Rosario Atwood PA-C - Last Filed: 05/25/25 09:17> Family History Family History: Family History Mother Family history of kidney disease Patient's mother is Hypertension Family history of arthritis Father Family history of chronic obstructive pulmonary disease Patient's father is Family history of tuberculosis Hypertension Family history of diabetes mellitus in first degree relative Family history of heart disease in male family member before age 55 Sibling Obesity Other Diabetes mellitus <Rosario Atwood PA-C - Last Filed: 05/25/25 09:17> Social History Social History: Social History Social History: She lives with her son in a 1 bedroom apartment . She is . 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 She also worked at [employer] in the [employer] room. She has had 4 children and one has . code status :DNI Smoking status: Never smoker Second hand tobacco smoke exposure: Yes Alcohol intake: current Drinks per week: 1 Substance use: never Substance use type: does not use Current Housing: Decline to Answer Concerned About Future Housing: Decline to Answer Difficulty Paying Gas/Electric Bills: Decline to Answer Difficulty Paying for Meds: Decline to Answer Currently Unemployed: Decline to Answer Education: Decline to Answer Difficulty w/ Childcare or Family Care: Decline to Answer Living arrangements: with family Additional living arrangements comments: son lives with her and he makes her nervous. 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 HEAD: Normocephalic, atraumatic. EYES: PERRLA and EOMI. ENT: Nares clear, no rhinorrhea or epistaxis. Mucous membranes moist. Oropharynx without tonsillar hypertrophy exudate or other lesions. Bilateral TMs pearly fox non-bulging NECK: Supple. No adenopathy or masses. No carotid bruits or JVD CHEST: Clear to auscultation. No respiratory distress. No wheezes rales or rhonchi HEART: Regular rate and rhythm. No murmur heard. Normal peripheral pulses. ABDOMEN: Soft, nontender, nondistended, normal active bowel sounds. EXTREMITIES: Normal range of motion. No edema. SKIN: Warm, dry, no rash. NEURO: No focal deficits. Alert and oriented x3. PSYCH: Normal mood and affect <ELSIE Walker - Last Filed: 05/24/25 02:50> Course Vital Signs Vital signs: Vital Signs Temperature 97.6 F 05/23/25 15:39 Pulse Rate 89 05/23/25 15:39 Respiratory Rate 16 05/23/25 15:39 Pulse Oximetry 97 05/23/25 15:39 Temperature 97.7 F 05/23/25 17:35 Pulse Rate 85 05/23/25 17:35 Respiratory Rate 16 05/23/25 17:35 Blood Pressure 130/73 05/23/25 17:35 Pulse Oximetry 99 05/23/25 17:35 <Rosario Atwood PA-C - Last Filed: 05/25/25 09:17> Vital Signs Temperature 97.6 F 05/23/25 15:39 Pulse Rate 89 05/23/25 15:39 Respiratory Rate 16 05/23/25 15:39 Pulse Oximetry 97 05/23/25 15:39 Temperature 97.7 F 05/23/25 17:35 Pulse Rate 85 05/23/25 17:35 Respiratory Rate 16 05/23/25 17:35 Blood Pressure 130/73 05/23/25 17:35 Pulse Oximetry 99 05/23/25 17:35 <ELSIE Walker Last Filed: 05/24/25 02:50> [facility] MDM Narrative Medical decision making narrative: This is a 79 year old female that presents to the ER for constipation. Reports she has not had a BM in 8 days. She has been trying Miralax and prune juice with little relief. Patient is still able to pass flatus. She only has mild abdominal pain. Denies fevers/chills, chest pain/shortness of breath, vomiting, or urinary concerns. Patient's abdomen is soft without significant pain or signs of surgical abdomen on serial exams. Lab and CT evaluations are reviewed and patient is felt to be a reasonable candidate for outpatient management. Administered an enema with good effect. Administered fluids due to mild signs of dehydration. Patient was instructed as to limitations of CT and laboratory evaluation and encouraged to follow with PCP for further evaluation. Given reasons to return to the ED. <ELSIE Walker Last Filed: 05/24/25 02:50> Differential Diagnosis Differential Diagnosis: Differential diagnostic considerations for acute abdominal pain include surgical abdominal etiology, ischemic bowel, inflammatory bowel disease, gastritis, PUD, gastroenteritis, cardiac etiology, appendicitis, diverticulitis, bowel obstruction, kidney stone, pyelonephritis, abdominal aortic aneurysm, pancreatitis, constipation, endometriosis. <ELSIE Walker - Last Filed: 05/24/25 02:50> Medical Records I have reviewed the following patient records and this information was taken into consideration when formulating the assessment and plan.: previous labs and previous ER visits <ELSIE Walker - Last Filed: 05/24/25 02:50> Lab Data MDM Lab Attestation statement: I personally reviewed the patient's lab results. <ELSIE Walker - Last Filed: 05/24/25 02:50> Result diagrams: 05/23/25 18:36 05/23/25 18:36 <Rosario Atwood PA-C - Last Filed: 05/25/25 09:17> Labs: Lab Results 05/23/25 05/23/25 Range/Units 18:36 20:00 WBC 4.7 (4.5-10.0) K/mm3 RBC 4.60 (4.2-5.4) M/mm3 Hgb 14.4 (12.0-15.0) g/dL Hct 44.2 (37.0-47.0) % MCV 96.1 (80-100) fl MCH 31.3 (26-34) pg MCHC 32.6 (32-36) g/dl RDW 12.4 (11.5-14.5) % Plt Count 249 (150-375) k/mm3 MPV 9.5 (7.4-10.4) fl Immature Gran % (Auto) 0.2 (0-0.5) % Neut % (Auto) 49.4 (45.5-73.1) % Lymph % (Auto) 35.7 (18.3-44.2) % [facility] % (Auto) 13.4 H (2.6-8.5) % Eos % (Auto) 0.9 (0-4.4) % Baso % (Auto) 0.4 (0.2-1.2) % Lymph # (Auto) 1.68 (0.9-3.2) K/mm3 [facility] # (Auto) 0.6 (0.1-0.6) K/mm3 Eos # (Auto) 0.0 (0-0.3) K/mm3 Baso # (Auto) 0.0 (0.0-0.1) K/mm3 Abs Immat Gran (auto) 0.01 (0.00-0.031) K/mm3 Absolute Neuts (auto) 2.3 (1.3-6.7) K/mm3 Absolute Nucleated RBC 0.000 (0.0-0.012) K/mm3 Nucleated RBC % 0.0 (0.0-0.2) % Sodium 140 (137-145) mmol/L Potassium 4.2 (3.4-5.0) mmol/L Chloride 105 (98-107) mmol/L Carbon Dioxide 30 (22-30) mmol/L Anion Gap 5 (4-12) mmol/L BUN 20 H (7-17) mg/dL Creatinine 1.39 H (0.7-1.0) mg/dL Estim Creat Clear Calc Not Reportable Estimated GFR 37 L (59 - ) Glucose 99 (65-110) mg/dL Calcium 9.9 (8.4-10.2) mg/dL Total Bilirubin 0.6 (0.2-1.3) mg/dL AST 84 H (14-36) U/L ALT 123 H (6-35) U/L Alkaline Phosphatase 87 (38-126) U/L Total Protein 7.2 (6.3-8.2) g/dL Albumin 4.0 (3.5-5.1) g/dL Lipase 109 (23-300) U/L Urine Color Yellow (Yellow) Urine Appearance Clear (Clear) Urine pH 7.0 (5.0-9.0) Ur Specific [place] 1.019 (1.001-1.035) Urine Protein Negative (Negative) mg/dL Urine Glucose (UA) Negative (Negative) mg/dL Urine Ketones Negative (Negative) mg/dL Ur Blood (Man) Negative (Negative) Urine Nitrate Negative (Negative) Urine Bilirubin Negative (Negative) Urine Urobilinogen 1.0 (<2.0) mg/dL Leukocyte Esterase Rfl Negative (Negative) NIGEL/UL <Rosario Atwood PA-C - Last Filed: 05/25/25 09:17> Lab Results 05/23/25 05/23/25 Range/Units 18:36 20:00 WBC 4.7 (4.5-10.0) K/mm3 RBC 4.60 (4.2-5.4) M/mm3 Hgb 14.4 (12.0-15.0) g/dL Hct 44.2 (37.0-47.0) % MCV 96.1 (80-100) fl MCH 31.3 (26-34) pg MCHC 32.6 (32-36) g/dl RDW 12.4 (11.5-14.5) % Plt Count 249 (150-375) k/mm3 MPV 9.5 (7.4-10.4) fl Immature Gran % (Auto) 0.2 (0-0.5) % Neut % (Auto) 49.4 (45.5-73.1) % Lymph % (Auto) 35.7 (18.3-44.2) % [facility] % (Auto) 13.4 H (2.6-8.5) % Eos % (Auto) 0.9 (0-4.4) % Baso % (Auto) 0.4 (0.2-1.2) % Lymph # (Auto) 1.68 (0.9-3.2) K/mm3 [facility] # (Auto) 0.6 (0.1-0.6) K/mm3 Eos # (Auto) 0.0 (0-0.3) K/mm3 Baso # (Auto) 0.0 (0.0-0.1) K/mm3 Abs Immat Gran (auto) 0.01 (0.00-0.031) K/mm3 Absolute Neuts (auto) 2.3 (1.3-6.7) K/mm3 Absolute Nucleated RBC 0.000 (0.0-0.012) K/mm3 Nucleated RBC % 0.0 (0.0-0.2) % Sodium 140 (137-145) mmol/L Potassium 4.2 (3.4-5.0) mmol/L Chloride 105 (98-107) mmol/L Carbon Dioxide 30 (22-30) mmol/L Anion Gap 5 (4-12) mmol/L BUN 20 H (7-17) mg/dL Creatinine 1.39 H (0.7-1.0) mg/dL Estim Creat Clear Calc Not Reportable Estimated GFR 37 L (59 - ) Glucose 99 (65-110) mg/dL Calcium 9.9 (8.4-10.2) mg/dL Total Bilirubin 0.6 (0.2-1.3) mg/dL AST 84 H (14-36) U/L ALT 123 H (6-35) U/L Alkaline Phosphatase 87 (38-126) U/L Total Protein 7.2 (6.3-8.2) g/dL Albumin 4.0 (3.5-5.1) g/dL Lipase 109 (23-300) U/L Urine Color Yellow (Yellow) Urine Appearance Clear (Clear) Urine pH 7.0 (5.0-9.0) Ur Specific [place] 1.019 (1.001-1.035) Urine Protein Negative (Negative) mg/dL Urine Glucose (UA) Negative (Negative) mg/dL Urine Ketones Negative (Negative) mg/dL Ur Blood (Man) Negative (Negative) Urine Nitrate Negative (Negative) Urine Bilirubin Negative (Negative) Urine Urobilinogen 1.0 (<2.0) mg/dL Leukocyte Esterase Rfl Negative (Negative) NIGEL/UL <ELSIE Walker - Last Filed: 05/24/25 02:50> Imaging Data Attestation: I personally reviewed and interpreted this imaging study as follows: <ELSIE Walker - Last Filed: 05/24/25 02:50> Radiologist's impression: ITS Impressions Abdomen X-Ray 05/23/25 17:18 Impression: 1. No acute abnormality. Abdomen/Pelvis CT 05/23/25 20:02 IMPRESSION: No acute abnormality is noted in the abdomen and pelvis. Constipation. All CT scans at this facility are performed using low dose modulation techniques as appropriate to perform exam including the following: automated exposure control; use of iterative reconstruction technique; adjustment of the mA and/or kV according to patient size (this includes techniques or standardized protocols for targeted exams where dose is matched to indication/reason for exam). <Rosario Atwood PA-C - Last Filed: 05/25/25 09:17> ITS Impressions Abdomen X-Ray 05/23/25 17:18 Impression: 1. No acute abnormality. Abdomen/Pelvis CT 05/23/25 20:02 IMPRESSION: No acute abnormality is noted in the abdomen and pelvis. Constipation. All CT scans at this facility are performed using low dose modulation techniques as appropriate to perform exam including the following: automated exposure control; use of iterative reconstruction technique; adjustment of the mA and/or kV according to patient size (this includes techniques or standardized protocols for targeted exams where dose is matched to indication/reason for exam). <ELSIE Walker Last Filed: 05/24/25 02:50> Critical Care Time Critical Care Time Critical Care Time: No <Rosario Atwood PA-C - Last Filed: 05/25/25 09:17> Discharge Plan Discharge Clinical Impression: Constipation Qualifiers: Constipation type: unspecified constipation type Qualified Code(s): K59.00 - Constipation, unspecified <Rosario Atwood PA-C - Last Filed: 05/25/25 09:17> Patient Disposition: Home <JOSEFINA Gant Last Filed: 05/25/25 09:17> Condition: Stable <JOSEFINA Gant Last Filed: 05/25/25 09:17> Instructions: Constipation (ED) <JOSEFINA Gant Last Filed: 05/25/25 09:17> Additional Instructions: Return to the emergency department if you experience fever, abdominal pain with nausea and vomiting, you are unable to have a bowel movement, blood in the stool, or any other symptoms that are concerning to you Take Colace daily. Miralax once daily. Increase water intake. Follow up with your primary care doctor. <JOSEFINA Gant Last Filed: 05/25/25 09:17> Patient Language: Portuguese <JOSEFINA Gant Last Filed: 05/25/25 09:17> Prescriptions: No Action trazodone 50 mg tablet PO DAILY aripiprazole 15 mg tablet 15 mg PO DAILY Qty: 30 3RF pantoprazole 40 mg tablet,delayed release (DR/EC) 40 mg PO DAILY Qty: 90 0RF primidone 250 mg tablet 250 mg PO QHS Qty: 30 2RF docusate sodium 100 mg capsule 100 mg PO DAILY Qty: 30 1RF clonazepam 0.5 mg tablet 0.5 mg PO BID PRN (Reason: anxiety) Qty: 30 0RF acetaminophen [Tylenol] 325 mg tablet 650 mg PO Q6H PRN (Reason: pain) Qty: 60 0RF polyethylene glycol 3350 [Miralax] 17 gram/dose powder 17 g PO DAILY MDD 17 grams Qty: 510 0RF <Rosario Atwood PA-C - Last Filed: 05/25/25 09:17> Follow-up/Referrals: Jose Yen MD [Primary Care Provider, Family Practice] <Rosario Atwood PA-C - Last Filed: 05/25/25 09:17>
[2025-05-23 17:35] VITALS: BP 130/73; PULSE 85; RESP 16; TEMP 36.5; O2SAT 99
--- OUTSIDE RECORDS SUMMARY | 2025-05-23 17:50 | XMS_ITS | Clinical Summary ---
Author Organization [facility] Address [address] [place] [id number] Care Team Providers Care Assistant To The President Name Role Phone Jose Yen MD Primary Care Provider [phone] Allergies Active Allergy Reactions Criticality Noted Date Comments Lamotrigine Other (See comments) 11/06/2024 Muscle spasms Sulfa (Sulfonamide Antibiotics) Rash,Unknown High 08/28/2021 Medications acetaminophen (TYLENOL) 500 mg tabletIndicati ons:Pain Take 1 tablet (500 mg total) by mouth every 6 (six) hours as needed for pain Active polyethylene glycol (MIRALAX) 17 gram/dose bulk powderIndicati ons:constipati on Take 17 g by mouth daily 510 g 5 Active senna-docusate (PERICOLACE) 8.6-50 mgIndications: constipation Take 1 tablet by mouth daily as needed for constipation 30 tablet 5 Active ARIPiprazole (ABILIFY) 15 mg tabletIndicati ons:Depression Treatment Adjunct [The details of the medication are not available because there are pending changes by a home health clinician.] 15 tablet 5 Active Additional Information Patient taking differently: 15 mgoralDaily, Indications: Depression Treatment Adjunct, Reported on 04/08/2025 propranoloL (INDERAL) 10 mg tabletIndicati ons:Essential Tremor [The details of the medication are not available because there are pending changes by a home health clinician.] 60 tablet 5 Active Additional Information Patient not taking.Reported on 05/20/2025 clonazePAM (KlonoPIN) 0.5 mg tabletIndicati ons:Panic Disorder Take 0.5 mg by mouth 2 (two) times a day as needed for anxiety. Indications: panic disorder Active pantoprazole DR (PROTONIX) 40 mg EC tabletIndicati ons:Treatment of Non-Bleeding Gastric Disorder Take 40 mg by mouth daily. Indications: Treatment of Non-Bleeding Gastric Disorder 5 Active meclizine (ANTIVERT) 12.5 mg tabletIndicati ons:Vertigo Take 12.5 mg by mouth 3 (three) times a day as needed for dizziness. Indications: sensation of spinning or whirling Active primidone (MYSOLINE) 250 mg tabletIndicati ons:Essential Tremor Take 250 mg by mouth nightly. Indications: essential tremor Active ARIPiprazole (ABILIFY) 15 mg tabletIndicati ons:adjunct therapy for obsessive compulsive disorder Take 15 mg by mouth daily. Indications: adjunct therapy for obsessive compulsive disorder Active traZODone (DESYREL) 50 mg tabletIndicati ons:insomnia associated with depression Take 50 mg by mouth nightly as needed for depression or sleep. Indications: insomnia associated with depression Active Farxiga 10 mg tabletIndicati ons:Chronic Kidney Disease Take 1 tablet (10 mg total) by mouth daily 0 025 Discontin ued(Thera py completed ) pravastatin (PRAVACHOL) 20 mg tabletIndicati ons:arterioscl erotic vascular disease Take 1 tablet (20 mg total) by mouth daily 5 025 Discontin ued(Thera py completed ) cefuroxime (CEFTIN) 500 mg tabletIndicati ons:Urinary Tract/Genitour inary Infection Take 500 mg by mouth 2 (two) times a day. Indications: Urinary Tract/Genitourin gelacio Infection 025 Discontin ued(Thera py completed ) traZODone (DESYREL) 50 mg tabletIndicati ons:major depressive disorder Take 25 mg by mouth 3 (three) times a day as needed for depression. Indications: major depressive disorder 025 Discontin ued(Thera py completed ) erythromycin (ILOTYCIN) ophthalmic ointmentIndica tions:Ocular Infection Apply 1 Application to both eyes 2 (two) times a day. Indications: an eye infection 025 Discontin ued(Thera py completed ) Active Problems Problem Noted Date Diagnosed Date [...] son is very unhygienic). Was stable on [place] for 30 years until her OP psych decreased the dose due to concerns it was causing CKD. She then completely d/c'ed it. Since then, she's been hospitalized many times with different med titrations. In [facility] in October, ECT caused hypomania. She felt great and back to baseline after discharge on trazodone, fluvoxamine, and haldol. She was discharged from [facility] on 01.26 on just home klonopin and [...] PT now recommending long-term care, OT recommending penitentiary facility - In case of agitation: - [...] of 37. Per 02/24/2022 note from her gang saw operator Dr. Landers, she most likely she has ckd from [place] use. He has educated her that continued [...] have worsened since she was hospitalized at [facility] in early January 2025, unclear if caused by worsening anxiety, med side-effects, etc. She now has difficulty even drinking a glass of water because she shakes so much. She has a minimal tremor at rest when hands are in her lap. The tremor worsens when her hands are outstretched and with a [id number] test. This appears consistent with essential tremor. [...] pain. Will continue coordinating with SW about shelter placement. No medication changes for now. Update: [...] (11/08/2024 9:34 AM CDT): Large bowel movement 6/2. - Sched daily miralax - Senna daily [...] Encounters Date Type Department Care Team Description 05/23/2025 3:00 PM MAJOR CASE DETECTIVE Home Care Visit [address] [place] [address] Marie Villa, RN SN HOME VISIT 05/22/2025 10:30 AM MAJOR CASE DETECTIVE Home Care Visit [address] [place] [address] Irene Rick, OT OT HOME VISIT 05/18/2025 2:00 PM MAJOR CASE DETECTIVE Home Care Visit [address] [place] [address] Marie Villa, JOSELINE SN INITIAL EVALUATION 05/18/2025 10:00 AM MAJOR CASE DETECTIVE Home Care Visit [address] [place] [address] Bo Rodarte LCSW CORPORATE GENERAL MANAGER HOME VISIT 05/17/2025 3:00 PM MAJOR CASE DETECTIVE Home Care Visit [address] [place] [address] Irene Rick, OT OT HOME VISIT 05/17/2025 2:00 PM MAJOR CASE DETECTIVE Home Care Visit [address] [place] [address] Soila Reese, PT PT HOME VISIT 05/16/2025 2:30 PM MAJOR CASE DETECTIVE Home Care Visit [address] [place] [address] Irene Rick, OT OT HOME VISIT 05/15/2025 Home Care Visit [address] [place] [address] Bo Rodarte, COST ESTIMATOR CASE COMMUNICATION 05/12/2025 12:00 PM MAJOR CASE DETECTIVE Home Care Visit [address] [place] [address] Soila Reese, PT PT REASSESSMENT 05/11/2025 3:30 PM MAJOR CASE DETECTIVE Home Care Visit [address] [place] [address] Irene Rick, OT CASE COMMUNICATION 05/11/2025 Home Care Visit [address] [place] [address] Irene Rick, OT TELEPHONE ENCOUNTER 05/09/2025 1:30 PM MAJOR CASE DETECTIVE Home Care Visit [address] [place] [address] Alicia Pruitt, ACCOUNT SOLUTIONS ANALYST PT HOME VISIT 05/08/2025 9:15 AM MAJOR CASE DETECTIVE Home Care Visit [address] [place] [address] Irene Rick, OT OT REASSESSMENT 05/03/2025 9:00 AM MAJOR CASE DETECTIVE Home Care Visit [address] [place] [address] Janel Barlow, PT PT REASSESSMENT 05/03/2025 Home Care Visit [address] [place] [address] Janel Barlow, PT TELEPHONE ENCOUNTER 05/02/2025 1:30 PM MAJOR CASE DETECTIVE Home Care Visit [address] [place] [address] Alicia Pruitt, ACCOUNT SOLUTIONS ANALYST PT HOME VISIT 05/01/2025 9:00 AM MAJOR CASE DETECTIVE Home Care Visit [address] [place] [address] Irene Rick, OT OT HOME VISIT 04/28/2025 1:00 PM MAJOR CASE DETECTIVE Home Care Visit [address] [place] [address] Alicia Pruitt, ACCOUNT SOLUTIONS ANALYST PT HOME VISIT 04/27/2025 9:00 AM MAJOR CASE DETECTIVE Home Care Visit [address] [place] [address] Irene Rick, OT OT HOME VISIT 04/27/2025 Home Care Visit [address] [place] [address] Irene Rick, OT CASE COMMUNICATION 04/25/2025 3:00 PM MAJOR CASE DETECTIVE Home Care Visit [address] [place] [address] Irene Rick, OT AIDE HOME VISIT 04/25/2025 2:00 PM MAJOR CASE DETECTIVE Home Care Visit [address] [place] [address] Irene Rick, OT OT HOME VISIT 04/25/2025 Home Care Visit [address] [place] [address] Bo Rodarte, COST ESTIMATOR CASE COMMUNICATION 04/24/2025 1:00 PM MAJOR CASE DETECTIVE Home Care Visit [address] [place] [address] Alicia Pruitt, ACCOUNT SOLUTIONS ANALYST PT HOME VISIT 04/20/2025 1:00 PM MAJOR CASE DETECTIVE Home Care Visit [address] [place] [address] Greeling, Eusebia, PT PT OASIS RECERTIFICATION 04/20/2025 1:00 PM MAJOR CASE DETECTIVE Home Care Visit [address] [place] [address] Marie Villa, RN SN DISCIPLINE DISCHARGE 04/20/2025 Plan of Care Documentation [address] [place] [address] 04/19/2025 Home Care Visit [address] [place] [address] Bo Rodarte [facility] CORPORATE GENERAL MANAGER COMPLEX CARE FOLLOW UP 04/18/2025 2:00 PM MAJOR CASE DETECTIVE Home Care Visit [address] [place] [address] Irene Rick, OT OT HOME VISIT 04/18/2025 10:00 AM MAJOR CASE DETECTIVE Home Care Visit [address] [place] [address] Alicia Pruitt, ACCOUNT SOLUTIONS ANALYST PT HOME VISIT 04/18/2025 Home Care Visit [address] [place] [address] Bo Rodarte [facility] CASE COMMUNICATION 04/17/2025 11:00 AM MAJOR CASE DETECTIVE Home Care Visit [address] [place] [address] Irene Rick, OT OT REASSESSMENT 04/17/2025 Home Care Visit [address] [place] [address] Alisson Young RN SN TRIAGE ENCOUNTER 04/13/2025 2:00 PM MAJOR CASE DETECTIVE Home Care Visit [address] [place] [address] Marie Villa, RN SN HOME VISIT 04/13/2025 10:00 AM MAJOR CASE DETECTIVE Home Care Visit [address] [place] [address] Alicia Pruitt, ACCOUNT SOLUTIONS ANALYST PT HOME VISIT 04/12/2025 11:30 AM MAJOR CASE DETECTIVE Home Care Visit [address] [place] [address] Irene Rick, OT OT HOME VISIT 04/12/2025 Home Care Visit [address] [place] [address] Bo Rodarte, [facility] CASE COMMUNICATION 04/11/2025 1:30 PM MAJOR CASE DETECTIVE Home Care Visit [address] [place] [address] Alicia Pruitt, ACCOUNT SOLUTIONS ANALYST PT HOME VISIT 04/10/2025 3:00 PM MAJOR CASE DETECTIVE Home Care Visit [address] [place] [address] Irene Rick, OT OT HOME VISIT 04/10/2025 10:00 AM MAJOR CASE DETECTIVE Home Care Visit [address] [place] [address] Bo Rodarte, [facility] 04/09/2025 Home Care Visit [address] [place] [address] Bo Rodarte, [facility] CASE COMMUNICATION 04/08/2025 11:30 AM CDT Home Care Visit [address] [place] [address] Marie Villa, JOSELINE SN HOME VISIT 04/06/2025 11:00 AM CDT Home Care Visit [address] [place] [address] Alicia Pruitt, ACCOUNT SOLUTIONS ANALYST PT HOME VISIT 04/06/2025 Home Care Visit [address] [place] [address] Bo Rodarte, [facility] CORPORATE GENERAL MANAGER COMPLEX CARE FOLLOW UP 04/06/2025 Home Care Visit [address] [place] [address] Bo Rodarte, [facility] CORPORATE GENERAL MANAGER COMPLEX CARE FOLLOW UP 04/05/2025 11:00 AM CDT Home Care Visit [address] [place] [address] Irene Rick, OT OT HOME VISIT 04/05/2025 Home Care Visit [address] [place] [address] Irene Rick, OT TELEPHONE ENCOUNTER 04/04/2025 11:00 AM CDT Home Care Visit [address] [place] [address] Alicia Pruitt, ACCOUNT SOLUTIONS ANALYST PT HOME VISIT 04/04/2025 Home Care Visit [address] [place] [address] Marie Villa, RN TELEPHONE ENCOUNTER 04/04/2025 Home Care Visit [address] [place] [address] Alicia Pruitt, ACCOUNT SOLUTIONS ANALYST TELEPHONE ENCOUNTER 04/03/2025 12:30 PM CDT Home Care Visit [address] [place] [address] Marie Villa, RN SN HOME VISIT 04/03/2025 9:30 AM CDT Home Care Visit [address] [place] [address] Irene Rick, OT OT HOME VISIT 04/03/2025 Home Care Visit [address] [place] [address] Soila Reese, PT TELEPHONE ENCOUNTER 03/30/2025 11:00 AM CDT Home Care Visit [address] [place] [address] Irene Rick, OT OT HOME VISIT 03/30/2025 9:00 AM CDT Home Care Visit [address] [place] [address] Marie Villa, JOSELINE SN HOME VISIT 03/30/2025 Home Care Visit [address] [place] [address] Soila Reese, PT TELEPHONE ENCOUNTER 03/29/2025 12:00 PM CDT Home Care Visit [address] [place] [address] Soila eRese, PT PT REASSESSMENT 03/29/2025 Home Care Visit [address] [place] [address] Bo Rodarte LCSW CASE COMMUNICATION 03/28/2025 12:30 PM CDT Home Care Visit [address] [place] [address] Bo Rodarte, COST ESTIMATOR CORPORATE GENERAL MANAGER INITIAL EVAL 03/28/2025 10:30 AM CDT Home Care Visit [address] [place] [address] rIene Rick, OT OT REASSESSMENT 03/27/2025 12:30 PM CDT Home Care Visit [address] [place] [address] Fernando Mcdonald, JOSELINE SN OASIS RESUMPTION OF CARE 03/27/2025 Home Care Visit [address] [place] [address] Bo Rodarte COST ESTIMATOR CASE COMMUNICATION 03/27/2025 Plan of Care Documentation [address] [place] [address] 03/22/2025 Home Care Visit [address] [place] [address] Pattie Guerrier, RN TELEPHONE ENCOUNTER 03/21/2025 Home Care Visit [address] [place] [address] Pattie Guerrier, RN TELEPHONE ENCOUNTER 03/15/2025 2:33 PM CDT Anesthesia Event [address] [address] Prasad Pro MD Sillery, Sarah Lynn, EVERT 03/13/2025 9:04 AM CDT Anesthesia Event [address] [address] Naren Lozada MD PhD 03/10/2025 9:24 AM CDT Anesthesia Event [address] [address] Anthony Elizalde III, MD PhD 03/08/2025 11:13 AM CDT Anesthesia Event [address] [address] Frank Virgen MD Brake, Barbara E., NP 03/06/2025 10:08 AM CDT Anesthesia Event [address] [address] Yoli Araya MD 03/03/2025 Home Care Visit [address] [place] [address] Marie Villa, JOSELINE SN OASIS TRANSFER W/OUT DC 03/03/2025 Telephone [facility] [address] [place] [address] [address] [place] [address] [place] [address] Rosario Hsakins 03/01/2025 10:58 AM CDT - 03/18/2025 11:12 AM CDT Hospital Encounter [address] [address] Michael Delgado Jr., MD de Leon, MD Marry Back Tiffany M., MD Holiday, Lisa Chatterjee MD Suicide ideation (Primary Dx); Severe episode of recurrent major depressive disorder, without psychotic features (HCC); Chronic renal impairment, unspecified CKD stage; Bipolar 1 disorder, depressed, severe (HCC) [F31.4]; Major depressive disorder, recurrent severe without psychotic features (HCC) Discharge Disposition: Discharge to home or self care 03/01/2025 9:30 AM CDT Home Care Visit [address] [place] [address] Antionette Avila OT OT INITIAL EVALUATION 02/28/2025 Home Care Visit [address] [place] [address] Marie Villa, RN CARE CONFERENCE 02/27/2025 2:58 PM CDT - 02/28/2025 1:59 AM CDT Emergency [facility] Emergency Department [address] [place] [phone] Oscar Vela MD Depression, unspecified depression type (Primary Dx); Anxiety; Suicidal ideation Discharge Disposition: Discharge to home or self care 02/27/2025 1:30 PM CDT Home Care Visit [address] [place] [address] Zan Hester, PT PT HOME VISIT 02/27/2025 Telephone Psychiatry Roger Schmitz MD 02/24/2025 1:00 PM CDT Home Care Visit [address] [place] [address] Fernando Dowling, PT PT INITIAL EVALUATION 02/23/2025 9:30 AM CDT Home Care Visit [address] [place] [address] Marie Villa RN SN OASIS START OF CARE 02/23/2025 Plan of Care Documentation [address] [place] [address] 02/22/2025 10:48 AM CDT Anesthesia Event [facility] [address] [place] [phone] Atul Suh MD 01/31/2025 11:44 AM CDT - 02/22/2025 1:30 PM CDT Hospital Encounter [address] [address] Ambrocio Mabry MD Trillo Alvarez, Ludwig, MD Richardson, Bj Khan MD Severe episode of recurrent major depressive [...] any time in the past 12 m [facility], were you homeless or living in a penitentiary (including now)? No 11/02/2024 Humiliation, Afraid, Rape, [...] How often do you attend chur or christian services? More than 4 times per year 03/02/2025 Do you belong to any clubs o r organizations such as taoism groups, unions, fraternal or athletic groups, or [...] and heating? Not hard at all 03/02/2025 [facility] Occupat ional Health - Occupational Stress [...] any time in the past 12 m [facility], were you homeless or living in a penitentiary (including now)? No 03/02/2025 [facility] Utilities Answer Date Recorded In the [...] on file Legal Sex Female 12:09 AM MAJOR CASE DETECTIVE Gender Identity Not on file Sexual Orientation Not on file Last Filed Vital Signs Vital Sign Reading Time Taken Comments Blood Pressure 142/76 05/22/2025 11:10 AM MAJOR CASE DETECTIVE Pulse 86 05/22/2025 11:10 AM MAJOR CASE DETECTIVE Temperature 35.9 C (96.7 F) 05/22/2025 11:10 AM MAJOR CASE DETECTIVE Respiratory Rate 16 05/22/2025 11:10 AM MAJOR CASE DETECTIVE Oxygen Saturation 96% 05/22/2025 11:10 AM MAJOR CASE DETECTIVE Inhaled Oxygen Concentration - - Weight 68.9 [...] 03/14/2025 9:26 PM CDT ELECTROCONVULSIVE THERAPY Routine 2024 6:53 AM CDT Major depressive disorder, recurrent severe without psychotic features (HCC) TROPONIN I HIGH-SENSITIVITY SERIES (BASELINE, 2HR, 4HR, 6HR) Routine 03/11/2025 3:05 PM CDT ELECTROCONVULSIVE THERAPY Routine 2024 7:06 AM CDT Major depressive disorder, recurrent severe without psychotic features (HCC) ELECTROCONVULSIVE THERAPY Routine 2024 8:05 AM CDT Major depressive disorder, recurrent severe without psychotic features (HCC) EGFR Timed 03/07/2025 9:00 PM CDT LITHIUM LEVEL Timed 03/07/2025 9:00 PM CDT BASIC METABOLIC PANEL Timed 03/07/2025 9:00 PM CDT ELECTROCONVULSIVE THERAPY Routine 2024 7:21 AM CDT Major depressive disorder, recurrent [...] 03/03/2025 11:41 AM CDT ELECTROCONVULSIVE THERAPY Routine 2024 7:08 AM CDT Major depressive disorder, recurrent [...] AUTO DIFFERENTIAL STAT 03/01/2025 11:16 AM CDT NM CRITICAL CARE ILL/INJURED PATIENT INIT 30-74 MIN [...] 02/27/2025 3:16 PM CDT ELECTROCONVULSIVE THERAPY Routine 2024 8:42 AM CDT Major depressive disorder, recurrent severe without psychotic features (HCC) HEPATITIS C ANTIBODY Routine 11/01/2024 10:53 PM [...] or charge. 5 sessions of ECT during [facility] hospitalization in November 2024, RUL 100%, which induced hypomania (shown in table below) Previous Treatment Summary: Treatment # Date Laterality Charge Frequency 11/04/24 RUL 5 -> 10 -> 15 -> 100%, seized at 100% 3x/wk 11/07/24 RUL 100% 3x/wk 11/09/24 RUL 100% 3x/wk 11/11/24 RUL 100% 3x/wk 11/14/24 RUL 100% 3x/wk Did not pursue ECT in outpatient setting after discharge Re-hospitalized at [facility] 02/02/25 Prior # of ECTs this [...] (ABNORMAL) eGFR (03/14/2025 9:26 PM CDT) Pathologist [facility] eGFR 28(L) >=60 mL/min/1. 73 m2 Comment: [...] MD LAB BLOOD ORDERABLES Fin al Result [facility] Department [place] [address] * (ABNORMAL) Basic metabolic panel (03/14/2025 9:26 PM CDT) [facility] Sodium 144 135 - 145 mmol/L Potassium, pl 4.1 3.3 - 4.9 mmol/L [facility] Chloride 110 97 - 110 mmol/L [facility] CO2 24 22 - 32 mmol/L [facility] Anion gap 10 2 - 15 mmol/L [facility] BUN 41(H) 6 - 25 mg/dL [facility] Creatinine 1.82(H) 0.60 - 1.10 mg/dL [facility] Glucose 138 70 - 199 mg/dL [facility] Comment: Interpretive Data Fasting glucose >/= 126 [...] 2022. Calcium 9.4 8.5 - 10.3 mg/dL [facility] Blood 03/14/2025 9:26 PM CDT 03/14/2025 10:35 PM CDT us Lisa Todd MD LAB BLOOD ORDERABLES Fin al Result [facility] Department [place] [address] * Electroconvulsive therapy (03/13/2025 6:53 AM CDT) [...] or charge. 5 sessions of ECT during [facility] hospitalization in November 2024, RUL 100%, which induced hypomania (shown in table below) Previous Treatment Summary: Treatment # Date Laterality Charge Frequency 11/04/24 RUL 5 -> 10 -> 15 -> 100%, seized at 100% 3x/wk 11/07/24 RUL 100% 3x/wk 11/09/24 RUL 100% 3x/wk 11/11/24 RUL 100% 3x/wk 11/14/24 RUL 100% 3x/wk Did not pursue ECT in outpatient setting after discharge Re-hospitalized at [facility] 02/02/25 Prior # of ECTs this course: 9 This Treatment is unilateral Unilateral # 10 Bilateral # 0 Bifrontal # 0 Current Treatment Summary: Treatment # Date Laterality Charge Frequency 1. 02/10/25 RUL 100% 3x/wk 2. 9 RUL 100% 3x/wk 3. 02/15/25 RUL 100% [...] because her family lives far away in [place]. 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 No records for laterality or charge. 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 No records for laterality or charge. 5 sessions of ECT during [facility] hospitalization in November 2024, RUL 100%, which induced hypomania (shown in table below) Treatment # Date Laterality Charge Frequency 11/04/24 RUL 5 -> 10 -> 15 -> 100%, seized at 100% 3x/wk 11/07/24 RUL 100% 3x/wk 11/09/24 RUL 100% 3x/wk 11/11/24 RUL 100% 3x/wk 11/14/24 RUL 100% 3x/wk Did not pursue ECT in outpatient setting after discharge Re-hospitalized at [facility] 02/02/25 Prior # of ECTs this course: 7 This Treatment is RUL Unilateral # 8 Bilateral # 0 Bifrontal # 0 Treatment # Date Laterality Charge Frequency 1. 02/10/25 RUL 100% 3x/wk 2. 9 RUL 100% 3x/wk 3. 02/15/25 RUL 100% [...] mg/dL Calcium 10.1 8.5 - 10.3 mg/dL [place] level Collection Time: 03/07/25 9:00 PM Result Value Ref Range [place] 0.2 (L) 0.6 - 1.2 mmol/L eGFR [...] MD LAB BLOOD ORDERABLES Fin al Result [facility] Department [place] [address] * (ABNORMAL) [place] level (03/07/2025 9:00 PM CDT) Pathologist [facility] [place] 0.2(L) 0.6 - 1.2 mmol/L Blood 03/07/2025 9:00 PM CDT 03/07/2025 10:01 PM CDT Narrative [facility] - 03/07/2025 10:31 PM CDT To be drawn at 2000 for trough level us Lisa Todd MD LAB BLOOD ORDERABLES Fin al Result [facility] Department [place] [address] * (ABNORMAL) Basic metabolic panel (03/07/2025 9:00 PM CDT) Pathologist [facility] Sodium 140 135 - 145 mmol/L Potassium, pl 4.6 3.3 - 4.9 mmol/L [facility] Chloride 105 97 - 110 mmol/L [facility] CO2 28 22 - 32 mmol/L [facility] Anion gap 7 2 - 15 mmol/L [facility] BUN 31(H) 6 - 25 mg/dL [facility] Creatinine 1.90(H) 0.60 - 1.10 mg/dL [facility] Glucose 88 70 - 199 mg/dL [facility] Comment: Interpretive Data Fasting glucose >/= 126 [...] 2022. 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 No records for laterality or charge. 5 sessions of ECT during [facility] hospitalization in November 2024, RUL 100%, which induced hypomania (shown in table below) Treatment # Date Laterality Charge Frequency 11/04/24 RUL 5 -> 10 -> 15 -> 100%, seized at 100% 3x/wk 11/07/24 RUL 100% 3x/wk 11/09/24 RUL 100% 3x/wk 11/11/24 RUL 100% 3x/wk 11/14/24 RUL 100% 3x/wk Did not pursue ECT in outpatient setting after discharge Re-hospitalized at [facility] 02/02/25 Prior # of ECTs this [...] and about her anticipated move into a shelter. She endorsed having passive SI without plan [...] AM CDT Narrative 03/04/2025 9:24 AM CDT [facility] [place] [address] Transthoracic Echocardiographic Report Patient Name: LAURIE SAEZ L : 1945 (79y 4m) Sex: F Study Date: 03/04/2025 07:52:42 AM Ht(Inch): 66 Wt(Lb): 151.9 BSA: 1.78 Study Director: Peyton Marie [facility] Location: [id number] Order Provider: LISA TODD Heart Rate: 61 [...] Procedure Note Leonor Ryan MD - 03/04/2025 [facility] [place] [address] Transthoracic Echocardiographic Report Patient Name: LAURIE SAEZ L : 1945 (79y 4m) Sex: F Study Date: 03/04/2025 07:52:42 AM Ht(Inch): 66 Wt(Lb): 151.9 BSA: 1.78 Study Director: Peyton Marie [facility] Location: [id number] OrderProvider: LISA TODD Heart Rate: 61 BMI: [...] LA Length 4C 3.92 cm MV Decel Yehm294.93 msec [ 104.00 - 258.00 ] LA [...] Leonor Ryan MD 03/04/2025 9:23:23 AM CDT Result [facility] Lisa Todd MD CV ECHO PROCEDURES Final Result * Troponin I high-sensitivity 6-hour (03/03/2025 6:02 PM CDT) Trop I hs 7 <=17 ng/L Comment: Interpretive Data For further hscTnI resources including the diagnostic algorithm and an aid in interpretation, copy and paste this link: [email or web address]/[email or web address] Current Interpretive Data last revised 2019. Trop I hs delta 1 ng/L [facility] Trop I hs interp Insignificant [facility] Blood 03/03/2025 6:02 PM CDT 03/03/2025 6:49 PM CDT Result [facility] Lisa Todd MD LAB BLOOD ORDERABLES Fin al Result Performing Organization Address [facility] de Phone Number [facility] Department [place] [address] * Troponin I high-sensitivity 4-hour (03/03/2025 4:09 PM CDT) Trop I hs 7 <=17 ng/L Comment: Interpretive Data For further hscTnI resources including the diagnostic algorithm and an aid in interpretation, copy and paste this link: [email or web address] Current Interpretive Data last revised 2019. Trop I hs delta 1 ng/L [facility] Trop I hs interp Insignificant [facility] Blood 03/03/2025 4:09 PM CDT 03/03/2025 4:49 PM CDT Lisa Todd MD LAB BLOOD ORDERABLES Fin al Result [facility] [place] [address] * Troponin I high-sensitivity 2-hour (03/03/2025 1:36 PM CDT) Trop I hs 6 <=17 ng/L Comment: Interpretive Data For further hscTnI resources including the diagnostic algorithm and an aid in interpretation, copy and paste this link: [email or web address]/show/[email or web address] Current Interpretive Data last revised 2019. Trop I hs delta 0 ng/L [facility] Trop I hs interp Insignificant [facility] Blood 03/03/2025 1:36 PM CDT 03/03/2025 2:29 PM CDT us Lisa Todd MD LAB BLOOD ORDERABLES Fin al Result Performing Organization Address [facility] de Phone Number [facility] [place] [address] * Troponin I high-sensitivity series (baseline, 2hr, 4hr, 6hr) (03/03/2025 11:49 AM CDT) Trop I hs 6 <=17 ng/L Comment: Interpretive Data For further hscTnI resources including the diagnostic algorithm and an aid in interpretation, copy and paste this link: [email or web address]/[email or web address] Current Interpretive Data last revised 2019. Blood 03/03/2025 11:4 9 AM CDT 03/03/2025 12:51 PM CDT Lisa Todd MD LAB BLOOD ORDERABLES Fin al Result Performing Organization Address [facility] Co de Phone Number [facility] [place] [address] * ECG 12 lead (03/03/2025 11:41 AM CDT) Ventricular Rate EKG/Min 79 BPM [facility] Atrial Rate 79 BPM [facility] NM-Interval (MSEC) 180 ms [facility] QRS-Interval (MSEC) 124 ms [facility] QT-Interval (MSEC) 404 ms [facility] QTc 463 ms [facility] P Broseley 63 degrees [facility] R Broseley -11 degrees [facility] T Broseley 45 degrees [facility] Diagnosis Normal sinus rhythm Right bundle branch block Abnormal ECG When compared with ECG of 06-FEB-2025 11:41, T wave inversion now evident in Anterior leads Confirmed by KAIA DIAZ M.D ([id number]) on 03/03/2025 2:18:36 PM [facility] 03/03/2025 11:4 1 AM CDT 03/03/2025 2:18 PM CDT us Lisa Todd MD ECG ORDERABLES Final Re sult [facility] * Electroconvulsive therapy (03/03/2025 7:08 AM CDT) Narrative Roger Schmitz MD - 03/03/2025 7:08 AM CDT Roger Schmitz MD 03/03/2025 11:14 AM Canceled due to chest pain Pre-Procedure Procedure: ECT inpatient Court Ordered : No Preprocedure Diagnosis: Associated Problems P Problem Selected Diagnosis Major depressive disorder, 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 No records for laterality or charge. 5 sessions of ECT during [facility] hospitalization in November 2024, RUL 100%, which induced hypomania (shown in table below) Treatment # Date Laterality Charge Frequency 11/04/24 RUL 5 -> 10 -> 15 -> 100%, seized at 100% 3x/wk 11/07/24 RUL 100% 3x/wk 11/09/24 RUL 100% 3x/wk 11/11/24 RUL 100% 3x/wk 11/14/24 RUL 100% 3x/wk Did not pursue ECT in outpatient setting after discharge Re-hospitalized at [facility] 02/02/25 Prior # of ECTs this [...] her. Endorses willingness to discharge to a shelter after this admission. Endorsed continuing passive SI [...] Procedure: Attending Psychiatrist: Keena Monk MD Assistants: Roegr Schmitz MD Post Procedure Diagnosis: Same Name of Procedure: Electroconvulsive Therapy (ECT) Description of the Procedure Findings: N/A, procedure canceled 2/2 chest pain Estimated Blood Loss: N/A, procedure canceled 2/2 chest pain Specimens Removed: N/A, procedure canceled 2/2 chest pain Complications: N/A, procedure canceled 2/2 chest pain Comments: Condition on leaving ECT recovery: N/A, procedure canceled 2/2 chest pain us Anselmo Turner MD BEHAVIORAL HEALTH ORDERABLE S Final Result * (ABNORMAL) Urinalysis reflex to microscopic (03/01/2025 11:29 AM CDT) Color, ur Straw Yellow Clarity, ur Clear Clear [facility] Specific gravity, ur 1.009 1.003 - 1.030 [facility] pH, urine 6.0 [facility] Comment: Interpretive Data U rine pH is affected by diet, medications, systemic acid-base disturbances, and renal tubular function. pH may affect urinary stone formation. For example, urine pH below 6.0 may help reduce the tendency for calcium phosphate stones and pH greater than 6.0 may reduce the tendency for uric acid stone formation. Source: [place] [employer] Current Interpretive Data was last revised on 2017 Protein, ur ql Negative Negative [facility] Glucose, ur ql Negative Negative [facility] Ketones, ur Negative Negative [facility] Bilirubin, ur Negative Negative [facility] Blood, ur Negative Negative [facility] Urobilinogen, ur <2.0 <2.0 mg/dL [facility] Nitrite, ur Negative Negative [facility] Leukocyte esterase, ur 1+(A) Negative [facility] UA reflex comment Reflex to microscopic UA will be performed. [facility] Urine 03/01/2025 11:2 9 AM CDT 03/01/2025 11:38 AM CDT Michael Delgado Jr., MD LAB URINE ORDERABLES F inal Result [facility] Department [place] [address] * Drugs of Abuse Screen, Urine without [...] 2023. Barbiturates, ur Not Detected CutOff 200ng/mL [facility] Comment: Interpretive Data - Barbiturates: Samples containing greater than 200 ng/mL secobarbital or other cross-reacting barbiturate compounds are reported as positive. False positive and false negative results are possible. Confirmatory testing required for definitive results. Current Interpretive Data was last reviewed 2023. Benzodiazepines, ur Not Detected CutOff 100ng/mL [facility] Comment: Interpretive Data - Benzodiazepines: Samples containing greater than 100 ng/mL nordiazepam or other cross-reacting compounds are reported as positive. False positive and false negative results are possible. Confirmatory testing required for definitive results. Current Interpretive Data was last reviewed 2023. Cannabinoids, ur Not Detected CutOff 50 ng/mL [facility] Comment: Interpretive Data - Cannabinoids: Samples containing greater than 50 ng/mL delta-9 THC -COOH or other cross- reacting compounds are reported as positive. False positive and false negative results are possible. Confirmatory testing required for definitive results. Current Interpretive Data was last reviewed 2023. Cocaine, ur Not Detected CutOff 150ng/mL [facility] Comment: Interpretive Data - Cocaine: Samples containing greater than 150 ng/mL benzoylecgonine or other cross- reacting compounds are reported as positive. False positive and false negative results are possible. Confirmatory testing required for definitive results. Current Interpretive Data was last reviewed 2023. Fentanyl, Ur Not Detected CutOff 5 ng/mL [facility] Comment: Interpretive Data - Fentanyl: Samples containing greater than 5 ng/mL norfentanyl, fentanyl, or other cross-reacting fentanyl compounds are reported as positive. False positive and false negative results are possible. Confirmatory testing required for definitive results. Current Interpretive Data was last reviewed 2023. Methadone, ur Not Detected CutOff 300ng/mL [facility] Comment: Interpretive Data - Methadone: Samples containing greater than 300 ng/mL d,l-methadone or other cross-reacting compounds are reported as positive. False positive and false negative results are possible. Confirmatory testing required for definitive results. Current Interpretive Data was last reviewed 2023. Opiates, ur Not Detected CutOff 300ng/mL [facility] Comment: Interpretive Data - Opiates: Samples containing greater than 300 ng/mL morphine or other cross-reacting compounds are reported as positive. False positive and false negative results are possible. Confirmatory testing required for definitive results. Current Interpretive Data was last reviewed 2023. Oxycodone, ur Not Detected CutOff 100ng/mL [facility] Comment: Interpretive Data - Oxycodone: Samples containing greater than 100 ng/mL oxycodone or other cross-reacting compounds are reported as positive. False positive and false negative results are possible. Confirmatory testing required for definitive results. Current Interpretive Data was last reviewed 2023. Phencyclidine, ur Not Detected CutOff 25 ng/mL [facility] Comment: Interpretive Data - Phencyclidine: Samples containing greater than 25 ng/mL phencyclidine or other cross-reacting compounds are reported as positive. False positive and false negative results are possible. Confirmatory testing required for definitive results. Current Interpretive Data was last reviewed 2023. Urine Creatinine 48 mg/dL [facility] Comment: Interpretive Data Urine Creatinine: < 10 mg/dL is extremely dilute = or > 10 but < 20 mg/dL is dilute = or > 20 mg/dL is normal Current Interpretive Data was last revised on 2017. Urine 03/01/2025 11:2 9 AM CDT 03/01/2025 11:38 AM CDT Narrative [facility] - 03/01/2025 12:15 PM CDT Drug of Abuse screening is performed by immunoassay for medical purposes only. This is not to be used for Pain Management purposes. Michael Delgado Jr., MD LAB URINE ORDERABLES F inal Result Performing Organization Address [facility] de Phone Number [facility] Department [place] [address] * (ABNORMAL) Urinalysis, microscopic only (03/01/2025 11:29 AM CDT) WBC, ur 0-5 0 - 5 /HPF RBC, ur 0-2 0 - 2 /HPF [facility] Epithelial cells, squamous, ur 1-5 0 - 5 /HPF [facility] Bacteria, ur 1+(A) [facility] Urine 03/01/2025 11:2 9 AM CDT 03/01/2025 11:38 AM CDT Michael Delgado Jr., MD LAB URINE ORDERABLES F inal Result Performing Organization Address [facility] de Phone Number [facility] Department [place] [address] * (ABNORMAL) eGFR (03/01/2025 11:16 AM CDT) [...] MD LAB BLOOD ORDERABLES F inal Result [facility] Department [place] [address] * Differential, auto (03/01/2025 11:16 AM CDT) Neutrophil abs 3.41 1.50 - 6.50 K/cumm Imm gran abs 0.01 0.00 - 0.10 K/cumm [facility] Lymphocyte abs 1.08 0.80 - 3.30 K/cumm [facility] Monocyte abs 0.48 0.20 - 0.80 K/cumm [facility] Eosinophil abs 0.04 0.00 - 0.50 K/cumm [facility] Basophil abs 0.02 0.00 - 0.10 K/cumm [facility] Neutrophil pct 67.7 % [facility] Comment: Interpretive Data Percent cell count reference ranges are not reported, since discordance with absolute values may lead to misinterpretation of CBC data. Current Interpretive Data was last revised on 2017. Imm gran pct 0.2 % [facility] Comment: Interpretive Data Percent cell count reference ranges are not reported, since discordance with absolute values may lead to misinterpretation of CBC data. Current Interpretive Data was last revised on 2017. Lymphocyte pct 21.4 % [facility] Comment: Interpretive Data Percent cell count reference ranges are not reported, since discordance with absolute values may lead to misinterpretation of CBC data. Current Interpretive Data was last revised on 2017. Monocyte pct 9.5 % [facility] Comment: Interpretive Data Percent cell count reference ranges are not reported, since discordance with absolute values may lead to misinterpretation of CBC data. Current Interpretive Data was last revised on 2017. Eosinophil pct 0.8 % [facility] Comment: Interpretive Data Percent cell count reference ranges are not reported, since discordance with absolute values may lead to misinterpretation of CBC data. Current Interpretive Data was last revised on 2017. Basophil pct 0.4 % [facility] Comment: Interpretive Data Percent cell count reference ranges are not reported, since discordance with absolute values may lead to misinterpretation of CBC data. Current Interpretive Data was last revised on 2017. Blood 03/01/2025 11:1 6 AM CDT 03/01/2025 11:24 AM CDT Michael Delgado Jr., MD LAB BLOOD ORDERABLES F inal Result Performing Organization Address [facility] Co de Phone Number [facility] Department [place] [address] * Thyroid Function [place] (03/01/2025 11:16 AM CDT) Pathologist [facility] TSH 0.45 0.30 - 4.20 mcIUnit/mL Blood 03/01/2025 11:1 6 AM CDT 03/01/2025 11:24 AM CDT Michael Delgado Jr., MD LAB BLOOD ORDERABLES F inal Result Performing Organization Address [facility] Co de Phone Number [facility] [place] [address] * (ABNORMAL) CBC with auto differential (03/01/2025 11:16 AM CDT) Pathologist [facility] WBC 5.04 3.80 - 9.90 K/cumm Hgb 12.6 11.9 - 15.5 g/dL [facility] Hct 39.2 35.6 - 45.5 % [facility] Plt 233 150 - 400 K/cumm [facility] MPV 10.1 9.1 - 12.3 fL [facility] RBC 4.05 3.90 - 5.20 M/cumm [facility] MCV 96.8(H) 81.3 - 96.4 fL [facility] MCH 31.1 27.1 - 33.3 pg [facility] MCHC 32.1(L) 32.3 - 35.7 g/dL [facility] RDW CV 13.2 11.1 - 14.9 % [facility] RDW SD 46.6 35.7 - 48.1 fL [facility] NRBC abs 0.00 0.00 - 0.01 K/cumm [facility] Blood Venous blood specimen / Unknown 03/01/2025 11:16 AM CDT 03/01/2025 11:24 AM CDT us Michael Delgado Jr., MD LAB BLOOD ORDERABLES F inal Result Performing Organization Address [facility]/ZIP Co de Phone Number [facility] [place] [address] * Ethanol (03/01/2025 11:16 AM CDT) Ethanol <10 <=10 mg/dL Comment: Interpretive Data Legal limit of intoxication > or = 80 mg/dL Levels > or = 400 mg/dL are potentially TOXIC. Current interpretive data was last revised on 2018. Blood 03/01/2025 11:1 6 AM CDT 03/01/2025 11:24 AM CDT us Michael Delgado Jr., MD LAB BLOOD ORDERABLES F inal Result [facility] [place] [address] * (ABNORMAL) Comprehensive metabolic panel (03/01/2025 11:16 AM CDT) Sodium 143 135 - 145 mmol/L Potassium, pl 4.5 3.3 - 4.9 mmol/L [facility] Chloride 110 97 - 110 mmol/L [facility] CO2 26 22 - 32 mmol/L [facility] Anion gap 7 2 - 15 mmol/L [facility] BUN 22 6 - 25 mg/dL [facility] Creatinine 1.55(H) 0.60 - 1.10 mg/dL [facility] Glucose 94 70 - 199 mg/dL [facility] Comment: Interpretive Data Fasting glucose >/= 126 [...] 2022. Calcium 9.9 8.5 - 10.3 mg/dL [facility] Bilirubin, total 0.5 0.1 - 1.2 mg/dL [facility] Protein, pl 7.0 6.5 - 8.5 g/dL [facility] Albumin 3.9 3.5 - 5.0 g/dL [facility] Alk phos 77 40 - 130 Units/L [facility] ALT 10 7 - 45 Units/L [facility] AST 20 10 - 45 Units/L [facility] Blood 03/01/2025 11:1 6 AM CDT 03/01/2025 11:24 AM CDT us Michael Delgado Jr., MD LAB BLOOD ORDERABLES F inal Result [facility] Department [place] [address] * NM CRITICAL CARE ILL/INJURED PATIENT INIT 30-74 MIN [...] Straw Yellow Clarity, ur Clear Clear [facility] Specific gravity, ur 1.010 1.003 - 1.030 [facility] pH, urine 6.0 [facility] Comment: Interpretive Data U rine pH is affected by diet, medications, systemic acid-base disturbances, and renal tubular function. pH may affect urinary stone formation. For example, urine pH below 6.0 may help reduce the tendency for calcium phosphate stones and pH greater than 6.0 may reduce the tendency for uric acid stone formation. Source: [place] [employer] Current Interpretive Data was last revised on 2017 Protein, ur ql Negative Negative [facility] Glucose, ur ql Negative Negative [facility] Ketones, ur Negative Negative [facility] Bilirubin, ur Negative Negative [facility] Blood, ur Negative Negative [facility] Urobilinogen, ur <2.0 <2.0 mg/dL [facility] Nitrite, ur Negative Negative [facility] Leukocyte esterase, ur 2+(A) Negative [facility] UA reflex comment Reflex to microscopic UA will be performed. [facility] Urine 02/27/2025 3:48 PM CDT 02/27/2025 3:53 PM CDT Oscar Vela MD LAB URINE ORDERABLES Final Resul t [facility] Department [place] [address] * Drugs of Abuse Screen, Urine without [...] 2023. Barbiturates, ur Not Detected CutOff 200ng/mL [facility] Comment: Interpretive Data - Barbiturates: Samples containing greater than 200 ng/mL secobarbital or other cross-reacting barbiturate compounds are reported as positive. False positive and false negative results are possible. Confirmatory testing required for definitive results. Current Interpretive Data was last reviewed 2023. Benzodiazepines, ur Not Detected CutOff 100ng/mL [facility] Comment: Interpretive Data - Benzodiazepines: Samples containing greater than 100 ng/mL nordiazepam or other cross-reacting compounds are reported as positive. False positive and false negative results are possible. Confirmatory testing required for definitive results. Current Interpretive Data was last reviewed 2023. Cannabinoids, ur Not Detected CutOff 50 ng/mL [facility] Comment: Interpretive Data - Cannabinoids: Samples containing greater than 50 ng/mL delta-9 THC -COOH or other cross- reacting compounds are reported as positive. False positive and false negative results are possible. Confirmatory testing required for definitive results. Current Interpretive Data was last reviewed 2023. Cocaine, ur Not Detected CutOff 150ng/mL [facility] Comment: Interpretive Data - Cocaine: Samples containing greater than 150 ng/mL benzoylecgonine or other cross- reacting compounds are reported as positive. False positive and false negative results are possible. Confirmatory testing required for definitive results. Current Interpretive Data was last reviewed 2023. Fentanyl, Ur Not Detected CutOff 5 ng/mL [facility] Comment: Interpretive Data - Fentanyl: Samples containing greater than 5 ng/mL norfentanyl, fentanyl, or other cross-reacting fentanyl compounds are reported as positive. False positive and false negative results are possible. Confirmatory testing required for definitive results. Current Interpretive Data was last reviewed 2023. Methadone, ur Not Detected CutOff 300ng/mL [facility] Comment: Interpretive Data - Methadone: Samples containing greater than 300 ng/mL d,l-methadone or other cross-reacting compounds are reported as positive. False positive and false negative results are possible. Confirmatory testing required for definitive results. Current Interpretive Data was last reviewed 2023. Opiates, ur Not Detected CutOff 300ng/mL [facility] Comment: Interpretive Data - Opiates: Samples containing greater than 300 ng/mL morphine or other cross-reacting compounds are reported as positive. False positive and false negative results are possible. Confirmatory testing required for definitive results. Current Interpretive Data was last reviewed 2023. Oxycodone, ur Not Detected CutOff 100ng/mL [facility] Comment: Interpretive Data - Oxycodone: Samples containing greater than 100 ng/mL oxycodone or other cross-reacting compounds are reported as positive. False positive and false negative results are possible. Confirmatory testing required for definitive results. Current Interpretive Data was last reviewed 2023. Phencyclidine, ur Not Detected CutOff 25 ng/mL [facility] Comment: Interpretive Data - Phencyclidine: Samples containing greater than 25 ng/mL phencyclidine or other cross-reacting compounds are reported as positive. False positive and false negative results are possible. Confirmatory testing required for definitive results. Current Interpretive Data was last reviewed 2023. Urine Creatinine 54 mg/dL [facility] Comment: Interpretive Data Urine Creatinine: < 10 mg/dL is extremely dilute = or > 10 but < 20 mg/dL is dilute = or > 20 mg/dL is normal Current Interpretive Data was last revised on 2017. Urine 02/27/2025 3:48 PM CDT 02/27/2025 3:53 PM CDT Narrative [facility] - 02/27/2025 4:30 PM CDT Drug of Abuse screening is performed by immunoassay for medical purposes only. This is not to be used for Pain Management purposes. Oscar Vela MD LAB URINE ORDERABLES Final Resul t Performing Organization Address [facility] de Phone Number [facility] [place] [address] * (ABNORMAL) Urinalysis, microscopic only (02/27/2025 3:48 PM CDT) WBC, ur 0-5 0 - 5 /HPF RBC, ur 0-2 0 - 2 /HPF [facility] Epithelial cells, squamous, ur 11-20(A) 0 - 5 /HPF [facility] Comment:Suggestive of contam ination. Consider recollection by clean catch. Epithelial cells, renal, ur 1-5(A) 0 - 0 /HPF [facility] Bacteria, ur 2+(A) [facility] Mucous, ur Present(A ) [facility] Urine 02/27/2025 3:48 PM CDT 02/27/2025 3:53 PM CDT Oscar Vela MD LAB URINE ORDERABLES Final Resul t Performing Organization Address [facility] Co de Phone Number [facility] [place] [address] * (ABNORMAL) eGFR (02/27/2025 3:16 PM CDT) [...] MD LAB BLOOD ORDERABLES Final Resul t [facility] Department [place] [address] * Differential, auto (02/27/2025 3:16 PM CDT) Neutrophil abs 2.86 1.50 - 6.50 K/cumm Imm gran abs 0.02 0.00 - 0.10 K/cumm [facility] Lymphocyte abs 1.14 0.80 - 3.30 K/cumm [facility] Monocyte abs 0.59 0.20 - 0.80 K/cumm [facility] Eosinophil abs 0.08 0.00 - 0.50 K/cumm [facility] Basophil abs 0.02 0.00 - 0.10 K/cumm [facility] Neutrophil pct 60.8 % [facility] Comment: Interpretive Data Percent cell count reference ranges are not reported, since discordance with absolute values may lead to misinterpretation of CBC data. Current Interpretive Data was last revised on 2017. Imm gran pct 0.4 % [facility] Comment: Interpretive Data Percent cell count reference ranges are not reported, since discordance with absolute values may lead to misinterpretation of CBC data. Current Interpretive Data was last revised on 2017. Lymphocyte pct 24.2 % [facility] Comment: Interpretive Data Percent cell count reference ranges are not reported, since discordance with absolute values may lead to misinterpretation of CBC data. Current Interpretive Data was last revised on 2017. Monocyte pct 12.5 % [facility] Comment: Interpretive Data Percent cell count reference ranges are not reported, since discordance with absolute values may lead to misinterpretation of CBC data. Current Interpretive Data was last revised on 2017. Eosinophil pct 1.7 % [facility] Comment: Interpretive Data Percent cell count reference ranges are not reported, since discordance with absolute values may lead to misinterpretation of CBC data. Current Interpretive Data was last revised on 2017. Basophil pct 0.4 % [facility] Comment: Interpretive Data Percent cell count reference ranges are not reported, since discordance with absolute values may lead to misinterpretation of CBC data. Current Interpretive Data was last revised on 2017. Blood 02/27/2025 3:16 PM CDT 02/27/2025 3:32 PM CDT Oscar Vela MD LAB BLOOD ORDERABLES Final Resul t Performing Organization Address City/[facility]/ZIP Co de Phone Number [facility] Department [place] [address] * Thyroid Function [place] (02/27/2025 3:16 PM CDT) TSH 0.40 0.30 - 4.20 mcIUnit/mL Blood 02/27/2025 3:16 PM CDT 02/27/2025 3:32 PM CDT Oscar Vela MD LAB BLOOD ORDERABLES Final Resul t Performing Organization Address City/[facility]/ZIP Co de Phone Number [facility] Department [place] [address] * (ABNORMAL) CBC with auto differential (02/27/2025 3:16 PM CDT) [facility] WBC 4.71 3.80 - 9.90 K/cumm Hgb 12.2 11.9 - 15.5 g/dL [facility] Hct 38.5 35.6 - 45.5 % [facility] Plt 231 150 - 400 K/cumm [facility] MPV 10.3 9.1 - 12.3 fL [facility] RBC 3.98 3.90 - 5.20 M/cumm [facility] MCV 96.7(H) 81.3 - 96.4 fL [facility] MCH 30.7 27.1 - 33.3 pg [facility] MCHC 31.7(L) 32.3 - 35.7 g/dL [facility] RDW CV 12.9 11.1 - 14.9 % [facility] RDW SD 46.0 35.7 - 48.1 fL [facility] NRBC abs 0.00 0.00 - 0.01 K/cumm [facility] Blood Venous blood specimen / Unknown 02/27/2025 3:16 PM CDT 02/27/2025 3:32 PM CDT Oscar Vela MD LAB BLOOD ORDERABLES Final Resul t Performing Organization Address [facility] Co de Phone Number [facility] [place] [address] * Ethanol (02/27/2025 3:16 PM CDT) [facility] Ethanol <10 <=10 mg/dL Comment: Interpretive Data Legal limit of intoxication > or = 80 mg/dL Levels > or = 400 mg/dL are potentially TOXIC. Current interpretive data was last revised on 2018. Blood 02/27/2025 3:16 PM CDT 02/27/2025 3:32 PM CDT Oscar Vela MD LAB BLOOD ORDERABLES Final Resul t Performing Organization Address City/[facility]/ZIP Co de Phone Number [facility] Department [place] [address] * (ABNORMAL) Comprehensive metabolic panel (02/27/2025 3:16 PM CDT) Sodium 144 135 - 145 mmol/L Potassium, pl 4.1 3.3 - 4.9 mmol/L [facility] Chloride 110 97 - 110 mmol/L [facility] CO2 27 22 - 32 mmol/L [facility] Anion gap 7 2 - 15 mmol/L [facility] BUN 22 6 - 25 mg/dL [facility] Creatinine 1.40(H) 0.60 - 1.10 mg/dL [facility] Glucose 102 70 - 199 mg/dL [facility] Comment: Interpretive Data Fasting glucose >/= 126 [...] 2022. Calcium 9.2 8.5 - 10.3 mg/dL [facility] Bilirubin, total 0.3 0.1 - 1.2 mg/dL [facility] Protein, pl 6.6 6.5 - 8.5 g/dL [facility] Albumin 3.6 3.5 - 5.0 g/dL [facility] Alk phos 77 40 - 130 Units/L [facility] ALT 13 7 - 45 Units/L [facility] AST 19 10 - 45 Units/L [facility] Blood 02/27/2025 3:16 PM CDT 02/27/2025 3:32 PM CDT us Oscar Vela MD LAB BLOOD ORDERABLES Final Resul t [facility] Department [place] [address] * Electroconvulsive therapy (02/22/2025 8:42 AM CDT) Narrative Roger Schmitz MD - 02/22/2025 8:42 AM CDT Roger Schmitz MD 02/22/2025 12:16 PM ECT Treatment Note Pre-Procedure Procedure: ECT inpatient Court Ordered : No Preprocedure Diagnosis: Associated Problems P Problem Selected Diagnosis Major depressive disorder, 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 No records for laterality or charge. 5 sessions of ECT during [facility] hospitalization in November 2024, RUL 100%, which induced hypomania (shown in table below) Treatment # Date Laterality Charge Frequency 11/04/24 RUL 5 -> 10 -> 15 -> 100%, seized at 100% 3x/wk 11/07/24 RUL 100% 3x/wk 11/09/24 RUL 100% 3x/wk 11/11/24 RUL 100% 3x/wk 11/14/24 RUL 100% 3x/wk Did not pursue ECT in outpatient setting after discharge Re-hospitalized at [facility] 02/02/25 Prior # of ECTs this [...] BEHAVIORAL HEALTH ORDERABLE S Final Result * Hepatitis C antibody Blood (11/01/2024 10:53 PM CDT) Hep C Ab Nonreactive Nonreactive Comment:Antibodies to HCV no t detected. Does NOT exclude the possibility of recent exposure to HCV. Current interpretive data was last revised on 22 Blood 11/01/2024 10:5 3 PM CDT 11/01/2024 11:30 PM CDT us Lisa Todd MD LAB MICROBIOLOGY - GENER AL ORDERABLES Final Result [facility] Department [place] [address] from Last 3 Months or Most Recently Relevant to Health Maintenance Insurance [employer] [place] [address] [place] [address] [place] [address] T MEDICARE [facility] IDPA Advance Directives For more information, please contact: [phone] * Full Code (Latest Code Status on [...] 6:44 AM 03/08/2025 6:37 AM Care Teams Assistant To The President Relationship Specialty Start Date End Date Jose Yen MD PCP - General Family Medicine 10/15/21
--- OUTSIDE RECORDS SUMMARY | 2025-05-23 17:50 | XMS_ITS | Patient Health Record ---
Author Organization [facility] As [facility] Address [address] [place] [address] Care Team Providers Care Clockmaker Name Role Phone Farshad JOSEPH, Jose Primary Care Provider Randal Cruz Unavailable [phone] Reason For Referral No Information Medications Medication SIG (Take, Route, Frequency, Duration) Notes Start Date End Date Status Propranolol HCl 20 MG Tablet Oral 03/29/2021 Active Nystatin 101646 UNIT/GM Powder External 03/29/2021 Active Amoxicillin-Pot Clavulanate [...] clonazePAM 0.5 MG Tablet Oral 03/29/2021 Active [place] Carbonate 150 MG Capsule Oral 03/29/2021 Active Immunizations Vaccine Route Administration Date Status Comme nts Zoster Unknown 08/02/2017 Administered Zoster Unknown 10/29/2017 Administered Zoster Unknown 11/12/2017 Administered Moderna Covid-19 Vaccine 1st dose Unknown 08/01/2020 Ad ministered Moderna Covid-19 Vaccine 1st dose Unknown 08/29/2020 Ad ministered Influenza, unspecified formulation Unknown 03/27/2012 A dministered Influenza, unspecified formulation Unknown 01/18/2014 A dministered Social History Sex Assigned At : Social [...] Coverage End Date [employer] o [address] [place] [address] [id number] JEN SAEZ Self - patient is the insured [facility] Plan [facility] - On Or After 2020 [address] [place] [address] [id number] JEN SAEZ Self - patient is the insured Medical (General) History Surgical History Surgery Date(Month/Year) Tonsillectomy ([id number]) delivery (40994) twice Hysterectomy/revise vagina (09012)
--- OUTSIDE RECORDS SUMMARY | 2025-05-23 17:50 | XMS_ITS | Patient Health Record ---
Author Organization [facility] Address [address] [place] [address] Phone [phone] Care Team Providers Care Process Supervisor Name Role Phone Michelle Cadet Primary Care Provider Kathei Ruiz MD Unavailable [phone] Solo Bolanos Unavailable [phone] Oleg Erwin Unavailable [phone] Allergies Allergen (clinical drug ingredient) Drug/Non Drug Allergy documented on EMR Reaction Allergy Type Onset Date Status lamotrigine Lamotrigine Muscle Spasms Drug Allergy Active Substance with sulfonamide structure and antibacterial mechanism of action (substance) Sulfa Antibiotics Unknown Drug Allergy Active Results Component Value Reference Range Flag Notes CMP 14 Comprehensive Metabol ic Panel* Order date: 07/20/2024 Reviewed date:07/29/2024 03:10:07 PM Interpretation: Performing Lab:[facility], [address] [facility], Phone - [phone], Director - [facility] Notes/Report: Glucose 82 70-99 mg/dL BUN 24 8-27 mg/dL Creatinine 1.31 0.57-1.00 mg/dL H eGFR 42 >59 mL/min/1.73 L BUN/Creatinine Ratio 18 12-28 Sodium 142 134-144 mmol/L Potassium 4.5 3.5-5.2 mmol/L Chloride 108 96-106 mmol/L H Carbon Dioxide, Total 21 20-29 mmol/L Calcium 10.2 8.7-10.3 mg/dL Protein, Total 6.9 6.0-8.5 g/dL Albumin 4.2 3.8-4.8 g/dL Globulin, Total 2.7 1.5-4.5 g/dL Bilirubin, Total 0.3 0.0-1.2 mg/dL Alkaline Phosphatase 75 44-121 IU/L AST (SGOT) 20 0-40 IU/L ALT (SGPT) 10 0-32 IU/L [place] (Eskalith(R)), Serum Order date: 07/20/2024 Reviewed date:07/29/2024 03:09:39 PM Interpretation: Performing Lab:[facility] [place], [address] [facility], Phone - [phone], Director - [facility] Notes/Report: [place] (Eskalith(R)), Serum 0.2 0.5-1.2 mmol/L L A concentration of 0.5-0.8 mmol/L is advised for long-term use; concentrations of up to 1.2 mmol/L may be necessary during acute treatment. Detection Limit = 0.1 <0.1 indicates None Detected CBC With Differential/Platel et* Order date: 07/20/2024 Reviewed date:07/29/2024 03:10:28 PM Interpretation: Performing Lab:[facility] [place], [address] [facility], [place], Phone - [phone], Director - [facility] Notes/Report: WBC 3.8 3.4-10.8 x10E3/uL RBC 4.22 [...] % Immature Grans (Abs) 0.2 0.0-0.1 x10E3/uL H (An elevated percentage of Immature Granulocytes has not been found to be clinically significant as a sole clinical predictor of disease. Does NOT include bands or blast cells. associated physiological leukocytosis may also show increased immature granulocytes without clinical significance.) Reason For Referral No Information Medications Medication SIG (Take, Route, Frequency, Duration) Notes Start Date End Date Diagnosis (ICD Code) Status Rexulti 0.5 MG Tablet 1 tablet Orally Once a day; Duration: 30 day(s) 03/27/2025 Insomnia (ICD_10 - G47.00) Active Propranolol HCl 60 MG Tablet TAKE 1/2(ONE-HALF) TABLET BY MOUTH 2 TIMES DAILY; Duration: 90 MARILYN (generalized anxiety disorder) (ICD_10 - F41.1) Active Pantoprazole Sodium 40 MG Tablet Delayed Release 1 tablet twice a day Active Escitalopram Oxalate 5 MG Tablet 1 tablet Orally Once a day; Duration: 30 day(s) 04/05/2024 Not-Taking traZODone HCl 50 MG Tablet TAKE 1 TABLET BY MOUTH AT BEDTIME; Duration: 90 days As needed Insomnia (ICD_10 - G47.00) Active busPIRone HCl 5 MG Tablet TAKE 1 TABLET BY MOUTH TWICE A DAY FOR 30 DAYS; Duration: 90 MARILYN (generalized anxiety disorder) (ICD_10 - F41.1) Not-Taking Lexapro 10 MG Tablet 1 tablet Orally Once a day Bipolar 1 disorder (ICD_10 - F31.9) Not-Taking LaMICtal 25 MG Tablet 2 tablet Orally twice a day; Duration: 30 days Bipolar 1 disorder (ICD_10 - F31.9) Not-Taking Primidone 50 MG Tablet 1.5 tablet Orally twice a day; Duration: 30 days Tremor of both hands (ICD_10 - R25.1) Not-Taking Farxiga Not-Taking clonazePAM 0.5 MG Tablet 1 tablet daily; Duration: 30 days 05/03/2025 MARILYN (generalized anxiety disorder) (ICD_10 - F41.1) Active Abilify 15 MG Tablet 0.5 tablet Orally Once a day; Duration: 30 days Bipolar 1 disorder (ICD_10 - F31.9) Active Sertraline HCl 25 MG Tablet 1 tablet Orally Once a day Not-Taking Meloxicam 7.5 MG Tablet 1 tablet Orally Once a day Not-Taking Social History Tobacco Use: Social History Observation Description Date Details (start date - stop date) Never Smoker NA - NA Sex Observation Social History Observation Description Sex Observation Female Sexual Orientation Social History Observation Description Sexual Orientation Straight or heterose xual Gender Identity Social History Observation Description Gender Identity Female Social History Miscellaneous Social Info Question Answer Notes Method of learning: Preferred method of learning: Reading,Discussion,Demonstrat ion,Hearing Primary Social History Social Info Question Answer Notes Living Arrangement Living Arrangement: Independent Kirsten ing Is this a supportive environment? Yes Single Question Alcohol Screening How many times in the past year have you had (4 for women, or 5 for men) or more drinks in a day? 0 Employment Status Employment Status: On Disability RET IRED, On Social Security Illicit Substance Usage Illicit Substance Usage: No Alcohol Use Alcohol Use Frequency: Never Tobacco Use: Social Info Question Answer Notes Dont use, Tobacco Use/Smoking Are you a nonsmoker Tobacco Control (Standard) Tobacco use: Nonsmoker Problems Problem Type SNOMED Code ICD Code Dates Problem Status W/U Status Risk Notes Problem Insomnia (558288489) Insomnia (G47.00) Added On: 025 Active confirmed Problem Bipolar 1 disorder (792604050) Bipolar 1 disorder (F31.9) Added On: 022 Active confirmed Problem Generalized anxiety disorder (91579943) MARILYN (generalized anxiety disorder) (F41.1) Added On: 025 Active confirmed Vital Signs Vital Sign Value Notes Appt Date Heart Rate 67 /min 03/27/2025 Temperature 97.8 degrees Fahrenheit 03/09 Respiratory Rate 16 /min 03/27/2025 Oximetry 98 % 03/27/2025 Blood pressure diastolic 70 mm Hg Height 5ft 8in in 03/27/2025 Blood pressure systolic 118 mm Hg 03/09 Weight 159lb 8oz lbs 03/27/2025 BMI 24.25 kg/m2 03/27/2025 Encounters Date Time Type Facility Location Provider Diagnosis 5 02:00 PM Telehealth Office Visit, Est Pt., Level 3 (21082) [address] [address] Ari Habvelma Bipolar 1 disorder F31.9 5 09:20 AM Office Visit [address] [address] Arif Habib 5 01:00 PM CLIN DEPRESSION SCREEN DOC (G8431) [address] [address] Michelle Cadet Bipolar 1 disorder F31.9 ; MARILYN (generalized anxiety disorder) F41.1 and Tremor of both hands R25.1 5 09:20 AM Telehealth Office Visit, Est Pt., Level 4 (48804) [address] [address] Michelle Cadet MARILYN (generalized anxiety disorder) F41.1 ; Bipolar 1 disorder F31.9 and Tremor of both hands R25.1 5 03:00 PM Telehealth Office Visit, Est Pt., Level 4 (18690) [address] [address] Michelle Cadet Bipolar 1 disorder F31.9 5 09:20 AM Telehealth Office Visit, Est Pt., Level 4 (32547) [address] [address] Michelle Cadet Bipolar 1 disorder F31.9 ; Insomnia G47.00 and MARILYN (generalized anxiety disorder) F41.1 5 02:20 PM Office Visit, Est Pt., Level 4 (11426) [address] [address] Mcihelle Cadet Insomnia G47.00 ; MDD (major depressive disorder), recurrent episode, severe F33.2 ; Bipolar 1 disorder F31.9 and MARILYN (generalized anxiety disorder) F41.1 5 04:24 PM Telephone Encounter [facility] [address] [address] Michelle Cadet 5 10:34 AM Telephone Encounter [address] [address] Arif Habib 5 01:25 PM Telephone Encounter [address] [address] Arif Habib 5 01:55 PM Telephone Encounter [address] [address] Solo Bolanos Encounter for screening mammogram for breast cancer Z12.31 5 01:01 PM Telephone Encounter [address] [address] Arif Habib Bipolar 1 disorder F31.9 5 10:18 AM Telephone Encounter [address] [address] Arif Habib 5 02:20 PM Telephone Encounter [facility] [address] [place] [address] Michelle Cadet 5 09:58 AM Telephone Encounter [address] [address] Michelle Cadet 5 09:55 AM Telephone Encounter [address] [address] Michelle Cadet 5 03:47 PM Telephone Encounter [address] [address] Michelle Cadet 5 02:25 PM Telephone Encounter [address] [address] Michelle Cadet 5 09:07 AM Telephone Encounter [address] [address] Michelle Cadet 5 01:32 PM Telephone Encounter [address] [address] Michelle Helio MARILYN (generalized anxiety disorder) F41.1 5 10:27 AM Telephone Encounter [address] [address] Michelle Cadet 5 09:31 AM Telephone Encounter [address] [address] Michelle Cadet MARILYN (generalized anxiety disorder) F41.1 and Bipolar 1 disorder F31.9 5 03:18 PM Telephone Encounter [address] [address] Michelle Cadet Bipolar 1 disorder F31.9 5 02:39 PM Telephone Encounter [address] [address] Michelle Cadet MARILYN (generalized anxiety disorder) F41.1 5 03:22 PM Telephone Encounter [address] [address] Michelle Cadet MARILYN (generalized anxiety disorder) F41.1 5 04:09 PM Telephone Encounter [address] [address] Michelle Cadet MARILYN (generalized anxiety disorder) F41.1 5 03:08 PM Telephone Encounter [address] [address] Michelle Cadet Assessments Encounter Date Diagnosis (ICD Code) Assessment Notes Treat ment Notes Section Notes 12/26/2024 Bipolar 1 disorder (ICD-10 - F31.9) 02/23/2025 Bipolar 1 disorder (ICD-10 - F31.9) 04/03/2025 Bipolar 1 disorder (ICD-10 - F31.9) 06/17/2024 Bipolar 1 disorder (ICD-10 - F31.9) risk & benefits discussed. She already stopped Lexapro due to shakes. Continue Klonopin 0.5 mg twice daily and [place] 150 mg daily. Side effects discussed. pt wants to continue [place] because this is the only medicine which helped. . 07/20/2024 Bipolar 1 disorder (ICD-10 - F31.9) 09/20/2024 Bipolar 1 disorder (ICD-10 - F31.9) risk & benefits discussed. Continue Klonopin 0.5 mg at bedtime and [place] 150 mg daily. Side effects discussed. pt wants to continue [place] because this is the only medicine which helped. Discussed starting BuSpar and Propranolol, patient agreeable. Discussed side effects and action. 2024 Bipolar 1 disorder (ICD-10 - F31.9) Discussed side effects and action. 09/20/2024 MARILYN (generalized anxiety disorder) (ICD-10 - F41.1) 2024 MARILYN (generalized anxiety disorder) (ICD-10 - F41.1) 01/06/2025 MARILYN (generalized anxiety disorder) (ICD-10 - F41.1) 03/30/2025 MARILYN (generalized anxiety disorder) (ICD-10 - F41.1) 05/03/2025 MARILYN (generalized anxiety disorder) (ICD-10 - F41.1) 05/03/2025 MARILYN (generalized anxiety disorder) (ICD-10 - F41.1) 05/03/2025 MARILYN (generalized anxiety disorder) (ICD-10 - F41.1) 03/27/2025 MDD (major depressive disorder), recurrent episode, severe (ICD-10 - F33.2) 06/17/2024 Encounter for screening mammogram for breast cancer (ICD-10 - Z12.31) Patient Educated with: Mammogram - About this test.pdf (Mammogram - About this test.pdf) 02/23/2025 Insomnia (ICD-10 - G47.00) 03/27/2025 Insomnia (ICD-10 - G47.00) 09/20/2024 Tremor of both hands (ICD-10 - R25.1) 2024 Tremor of both hands (ICD-10 - R25.1) 02/23/2025 MARILYN (generalized anxiety disorder) (ICD-10 - F41.1) 03/27/2025 Bipolar 1 disorder (ICD-10 - F31.9) 03/30/2025 Bipolar 1 disorder (ICD-10 - F31.9) 03/27/2025 MARILYN (generalized anxiety disorder) (ICD-10 - F41.1) Plan Of Treatment Future Test Test Name Order Date Mammogram Breast - Bilateral Screening with ABUS, diagnostic mammogram/ultrasound, and/or biopsy as clinically indicated 06/24/2024 Insurance Providers Payer Name Payer Address Payer Phone Subscriber Number Group Number Insured Name Patient Relationship to Insured Coverage Start Date Coverage End Date [employer] Medicare [address] [place] [phone] [id number] Laurie Nava Self - patient is the insured 2 2 [facility] Claims Department [address] [place] [address] [phone] [id number] Laurie Nava Self - patient is the insured 3 3 MEDICAID [address] [place] [address] [id number] Laurie Nava Self - patient is the insured 4 Medical (General) History Medical History History ICD Code Kidney disease Bipolar disorder Surgical History Surgery Date(Month/Year) Bilateral hand surgeries for arthritis Ankle surgery Hysterectomy Caesarean section cataracts 12/2023 Hospitalization History Reason Date(Month/Year)
--- OUTSIDE RECORDS SUMMARY | 2025-05-23 17:50 | XMS_ITS | Clinical Summary ---
Author Organization [facility] [employer] [facility] Address [address] [place] [address] Care Team Providers Care Allocations Clerk Name Role Phone No, Pcp EQUITY RESEARCH ANALYST Primary Care Provider Unavailabl e Social History Tobacco Use Types Packs/Day Years Used Date Smoking Tobacco: Never Assessed Comments Unknown Sex and Gender Information Value Date Recorded Sex Assigned at Not on file Legal Sex Female 7:50 PM EST Gender Identity Not on file Sexual Orientation Not on file Plan of Treatment Not on file Medical Devices Not on file Care Teams Allocations Clerk Relationship Specialty Start Date End Date No, Pcp, EQUITY RESEARCH ANALYST N/A Do not use PCP - General Family Medicine 05/12/20
--- OUTSIDE RECORDS SUMMARY | 2025-05-23 17:51 | XMS_ITS | Clinical Summary ---
Author Organization [facility] Address [address] [place] [address] Phone Care Team Providers Care Cloud Subject Matter Expert Name Role Phone Jose Yen MD Primary Care Provider [phone] Allergies Active Allergy Reactions Criticality Noted Date [...] 07/09/2021 Insurance [employer] MED[employer]ARE ADVANTAGE Care Teams Cloud Subject Matter Expert Relationship Specialty Start Date End Date Jose Yen MD [address] [place] [address] PCP - General Family Medicine 07/23/21
--- OUTSIDE RECORDS SUMMARY | 2025-05-23 17:51 | XMS_ITS | Encounter Summary ---
Author Organization [facility] Healthcare Address [address] [place] [address] Care Team Providers Care Tile Inspector Name Role Phone Jose Yen MD Primary Care Provider [phone] Encounter Details Date Type Department Care Team (Late st Contact Info) Description 05/09/2024 Home Care Visit [facility] [address] [address] [address] [place] [address] Irene Rick, OT AIDE DISCIPLINE DISCHARGE Social History Tobacco Use Types Packs/Day Years Used Date Smoking Tobacco: Never OASIS D0700: Social Isolation Answer Da te [...] any time in the past 12 m ont, were you homeless or living in a [...] often do you attend chur ch or orthodox services? More than 4 times per year [...] and heating? Not hard at all 03/02/2025 [facility] [place] of Occupat ional Health - Occupational Stress [...] any time in the past 12 m onths, were you homeless or living in a custodial (including now)? No 03/02/2025 [facility] Utilities Answer Date Recorded In the past 12 months has th e [employer], gas, oil, or water company threatened to shut off services in your home? No 03/02/2025 Personal Safety Answer Date Recorded Have you ever been in or are you currently in a harmful physical or emotional relationship or is someone making you feel afraid or unsafe? Denies 03/01/2025 Comments Unknown Sex and Gender Information Value Date Recorded Sex Assigned at Not on file Legal Sex Female 12:09 AM FREIGHT BOOKER Gender Identity Not on file Sexual Orientation Not on file documented as of this encounter Functional Status * C.A.G.E. Question Answer Date of Assessment Author Have you ever felt the need to Cut down on your drinking? 0 03/01/2025 9:56 PM CDT Luisana Morejon RN Have people ever Annoyed yo u by criticizing your drinking? 0 03/01/2025 9:56 PM CDT Luisana Masters RN Have you ever felt bad or Guilty about your drinking? 0 03/01/2025 9:56 PM CDT Luisana Duggan RN Have you ever had a drink first thing in the morning to steady your nerves or get rid of a hangover? Eye combat information center officer? 0 03/01/2025 9:56 PM CHENGT Luisana Morejon RN CAGE SCORE: 2 or Greater = Positive 0 03/01/2025 9:56 PM CHENGT Zainab Szymanski RN * Difference in Last Two Robbi Scores Answer Date of Assessment Author 0 03/18/2025 9:00 AM CHENGT Kristen Chowdhury RN * Aparicio Fall Risk Question Answer Date of Assessment Author History of Falling 0 03/18/2025 9:00 AM CHENGT Sury Chowdhury RN Secondary Diagnosis 15 03/18/2025 9:00 AM CD T Sury Chowdhury RN Ambulatory Aids 15 03/18/2025 9:00 AM CDT Sury Berkowitz RN Intravenous Therapy/Heparin/Saline Lock 0 03/18/2025 9:00 AM Kristen Louise RN Gait/Transferring 0 03/18/2025 9:00 AM CHENGT Sury Chowdhury RN Mental Status 0 03/18/2025 9:00 AM Sury Morales RN Aparicio Fall Risk Score (Score >= 45 places fall precaution order) 30 03/18/2025 9:00 AM Sury Louise RN Prior Fall Event (Autopopulated from EMR) None found 03/18/2025 9:00 AM Valente Louise RN * Robbi Scale Question Answer Date of Assessment Author Sensory Perceptions 4 03/18/2025 9:00 AM CD Sury Gordon RN Moisture 4 03/18/2025 9:00 AM Sury Matos RN Activity 4 03/18/2025 9:00 AM Sury Matos RN Mobility 4 03/18/2025 9:00 AM Sury Matos RN Nutrition 3 03/18/2025 9:00 AM Sury Matos RN Friction and Shear 3 03/18/2025 9:00 AM Sury Louise RN Robbi Scale Score 22 03/18/2025 9:00 AM Sury Louise RN * BP Location Answer Date of Assessment Author Left arm 05/22/2025 11:10 AM FREIGHT BOOKER Irene Rick, OT * BP Method Answer Date of Assessment Author Automatic 03/18/2025 8:15 AM Mica Avery * MAP (mmHg) Answer Date of Assessment Author 87 03/18/2025 8:15 AM Mica Avery * Fall Risk Interventions Question Answer Date of Assessment Author All Low Fall Interventions Applied No 03/18/2025 9:00 AM Sury Louise RN All Low Fall Interventions EXCEPT: Call light in reach 03/18/2025 9:00 AM Sury Louise RN All Moderate Fall Interventions Applied No 03/18/2025 9:00 AM Sury Louise RN All Moderate Fall Risk Interventions EXCEPT: Gait belt at bedside 03/18/2025 9:00 AM Sury Louise RN All High Fall Risk Interventions Applied No 03/18/2025 9:00 AM Sury Louise RN All High Risk Interventions EXCEPT: Chair alarm;Bed alarm 03/18/2025 9:00 AM Sury Louise RN Additional Interventions Applied Exit bed on strong/preferred side 03/18/2025 9:00 AM Sury Louise RN Reason For Exception(s) psych 03/18/2025 9:00 A M Sury Louise RN Reason For Exception(s) psych 03/18/2025 9:00 A M Sury Louise RN Reason For Exception(s) psych 03/18/2025 9:00 A M Sury Louise RN * Question Answer Date of Assessment Author PT Functional Mobility education and treatment toward goals provided 03/07/2025 3:21 PM CDT Renu Ann, PT * B.M.A.T. - Bedside Mobility Assessment Tool for Nurses Question Answer Date of Assessment Author Is patient able to participate in the BMAT? Yes 03/18/2025 9:00 AM Sury Louise RN BMAT Level Level 3 - Yellow 03/18/2025 9:00 AM Sury Moreau RN Level 3 Equipment Use assistive device such as cane/walker 03/18/2025 9:00 AM Sury Louise RN * Question Answer Date of Assessment Author 1. Has the patient self-reported, presented with clinical signs of, or have a documented history of any of the following within the past 30 days? No 03/01/2025 11:03 AM Rica Anand RN * Question Answer Date of Assessment Author Is the patient being treated today because it is known or suspected that they prepared, started, or tried to end their life? Yes 03/01/2025 11:03 AM Rica Anand RN * Question Answer Date of Assessment Author 1. In the past month, have y ou wished you were or that you could go to sleep and not wake up? Yes 03/01/2025 11:03 AM Rica Anand RN 2. In the past month, have y ou actually had any thoughts of killing yourself? Yes 03/01/2025 11:03 AM CHENGT Rica Jacobs RN 6. Have you ever done anything, started to do anything, or prepared to do anything to end your life? No 03/01/2025 11:03 AM Rica Anand RN * Suicide Risk Level Answer Date of Assessment Author High 03/01/2025 11:03 AM Rica Anand RN * Self-Injurious Risk Level Answer Date of Assessment Author No risk level 03/01/2025 11:03 AM Rica Anand RN * Pressure Injury Prevention Question Answer Date of Assessment Author Pressure Ulcer Prevention Interventions Keep skin clean and dry (Sensory Perception/Moistur e) 03/18/2025 9:00 AM CHENGT Sury Chowdhury RN 2 Nurse Skin Assessment Luisana TREVIZO, Love chairez T 03/01/2025 9:56 PM CDT Luisana Szymanski RN Special Mattress Low air loss 02/15/2025 8:00 PM CHENGT Marie Jonas RN * Transdermal Patch Admission Assessment Question Answer Date of Assessment Author Transdermal Patch Assessment on Admission Not Present 03/01/2025 9:56 PM CHENGT Zainab Szymanski RN * AUDIT-C Score Answer Date of Assessment Author 0 02/01/2025 1:39 PM CDT Savanna Corbin MSW * Alcohol Use Question Answer Date of Assessment Author Q1: How often do you have a drink containing alcohol? Never 02/01/2025 1:39 PM Serena Snow MSW Q2: How many drinks containing alcohol do you have on a typical day when you are drinking? Patient does not drink 02/01/2025 1:39 PM Serena Snow MSW Q3: How often do you have six or more drinks on one occasion? Never 02/01/2025 1:39 PM CDT Serena Corbin MSW * Integumentary Question Answer Date of Assessment Author Integumentary (WDL) WDL 03/01/2025 11:09 AM Rica Maher RN Skin Pertinent Negatives Intact;Dry;Warm 03/01/2025 11 :09 AM CHENGT Rica Jacobs RN * Fall Risk Assessment Tool - MEDFRAT Question Answer Date of Assessment Author Prior Fall Event (Autopopulated from EMR) None found 03/01/2025 11:08 AM Rica Anand RN Pt needs supervision/assistance with ambulation? (makes patient High risk) Yes 02/27/2025 3:06 PM CHENGT Ruth Kovacs RN History of falling in last 3 months, including since admission 0 03/01/2025 11:08 AM Rica Anand RN Confusion or disorientation 0 02/07 11:08 AM Rica Anand RN Intoxicated or sedated 0 11:08 AM Rica Anand RN Impaired gait 0 03/01/2025 11:08 AM Rica Anand RN Mobility assist device used 1 02/07 11:08 AM Rica Anand RN Altered elimination 0 03/01/2025 1 1:08 AM Rica Anand RN Fall risk score: (1-2 low risk), (3-4 moderate risk), (5 or more high risk) 1 03/01/2025 11:08 AM Rica Anand RN Interventions - GENERAL USE as needed patient/family education;bed low/locked;gripper socks 01/31/2025 11:55 AM CHENGT Tawanna Mcgowan RN * Fall Interventions Question Answer Date of Assessment Author Interventions HIGH RISK patient/family education;bed low/locked 02/27/2025 3:06 PM CDT Ruth Kovacs RN * Integumentary Question Answer Date of Assessment Author Skin Color Appropriate for ethnicity 03/18/2025 9:00 AM CHENGT Sury Chowdhury RN Skin Condition/Temp Warm;Dry 03/18/2025 9 :00 AM CHENGT uSry Chowdhury RN Skin Integrity Intact 03/18/2025 9:00 AM CDT Sury Chowdhury RN Skin Turgor Non-tenting 03/15/2025 8:00 PM CDT Luisana Szymanski RN Integumentary Additional Assessments Yes-Robbi 03/18/2025 9:00 AM CDT Sury Chowdhury RN Integumentary (WDL) X 03/07/2025 8 :00 PM CDT Sarahi Montana RN Skin Location L forearm 03/07/2025 8:00 PM CDT Sarahi Montana RN Integumentary (WDL) WDL 03/18/2025 9 :00 AM CDT Sury Chowdhury RN * Question Answer Date of Assessment Author RLE Edema +1 03/10/2025 8:00 PM CDT Marie Horowitz RN LLE Edema +1 03/10/2025 8:00 PM CDT Marie Horowitz RN Edema Right lower extremity 03/10/2025 8:00 PM CDT Marie Perez RN * Question Answer Date of Assessment Author Percent Meal Eaten (%) 100 03/18/2025 9:24 AM CDT Clara Back Feeding Level of Assistance Able to feed self 03/18/2025 9:24 AM CDT Clara Back Appetite Good 03/18/2025 9:24 AM CDT Clara Agustin Percent Snack Eaten (%) 0 03/17/2025 8:00 P M CDT Michelle Avila * BP Location Answer Date of Assessment Author Left arm 05/22/2025 11:10 AM FREIGHT BOOKER Irene Rick, OT * BP Method Answer Date of Assessment Author Automatic 03/18/2025 8:15 AM CDT Miac Backdakarlie * Fall Risk Interventions Question Answer Date of Assessment Author All Low Fall Interventions Applied No 03/18/2025 9:00 AM Sury Louise RN All Low Fall Interventions EXCEPT: Call light in reach 03/18/2025 9:00 AM Sury Louise RN All Moderate Fall Interventions Applied No 03/18/2025 9:00 AM Sury Louise RN All Moderate Fall Risk Interventions EXCEPT: Gait belt at bedside 03/18/2025 9:00 AM Sury Louise RN All High Fall Risk Interventions Applied No 03/18/2025 9:00 AM Sury Louise RN All High Risk Interventions EXCEPT: Chair alarm;Bed alarm 03/18/2025 9:00 AM Sury Louise RN Additional Interventions Applied Exit bed on strong/preferred side 03/18/2025 9:00 AM Sury Louise RN Reason For Exception(s) psych 03/18/2025 9:00 A M Sury Louise RN Reason For Exception(s) psych 03/18/2025 9:00 A M Sury Louise RN Reason For Exception(s) psych 03/18/2025 9:00 A M Sury Louise RN * ADL Screening Question Answer Date of Assessment Author Patient's Vision Adequate to Safely Complete Daily Activities Yes 03/01/2025 9:56 PM Zainab Espinal RN Patient's Judgement Adequate to Safely Complete Daily Activities Yes 03/01/2025 9:56 PM Zainab Espinal RN Patient's Memory Adequate to Safely Complete Daily Activities Yes 03/01/2025 9:56 PM Zainab Espinal RN Patient Able to Express Needs/Desires Yes 03/01/2025 9:56 PM Zainab Espinal RN Dressing Needs assistance 03/01/2025 9:56 PM Luisana Greenwood RN Grooming Needs assistance 03/01/2025 9:56 PM Luisana Greenwood RN Feeding Independent 03/01/2025 9:56 PM CDLuisana Holguin RN Bathing Independent 03/01/2025 9:56 PM Luisana Wallace RN Toileting Independent 03/01/2025 9:56 PM CDT Luisana Ann RN In/Out Bed Independent 03/01/2025 9:56 PM CDT Luisana Butler RN Walks in Home Independent 03/01/2025 9:56 PM CDT Luisana Butler RN Weakness of Legs None 03/01/2025 9:56 PM CDT Luisana Finley RN Weakness of Arms/Hands None 03/01/2025 9:56 PM Luisana Espinal RN Hearing - Right Ear Hard of hearing 03/01/2025 9:56 PM Luisana Espinal RN Hearing - Left Ear Functional 03/01/2025 9:56 PM CHENGT Luisana Szymanski RN Dominant hand? Either/ambidextrous 03/01/2025 9:56 PM Luisana Espinal RN Decline in ADLs in last 2 weeks? No 03/01/2025 9:56 PM Zainab Espinal RN * Therapy Consults Question Answer Date of Assessment Author PT Evaluation Needed 2 03/01/2025 10:00 PM Luisana Espinal RN OT Evaluation Needed 2 03/01/2025 10:00 PM Luisana Espinal RN SENIOR INTERNET SALES CONSULTANT Evaluation Needed 2 03/01/2025 10:00 PM Luisana Espinal RN * Assistive Devices Question Answer Date of Assessment Author Assistive Devices/DME Walker 03/01/2025 9:56 PM Luisana Espinal RN * Currently, does patient have difficulty swallowing; coughing/choking while swallowing, or feels like food is sticking Answer Date of Assessment Author No 01/31/2025 7:43 PM CDT Simona Palmer RN * Patient Reported Depression and Anxiety Question Answer Date of Assessment Author Patient reported anxiety 0-10 4 03/18/2025 9:00 AM Sury Louise RN Patient reported depression 0-10 3 03/18/2025 9:00 AM CDT Sury Chowdhury RN * Question Answer Date of Assessment Author Memory Good 03/18/2025 9:00 AM CHENGT Sury Tapia RN Level of Consciousness Alert;Quiet/awake 03/18/2025 9: 00 AM CDT Sury Chowdhury RN * Question Answer Date of Assessment Author Self Harm/Suicidal Ideation Plan No 03/02/2025 9:32 AM CDT Marc Stubbs LCSW Current Plans to Harm Another No 03/02/2025 9:32 AM Marc Hernandez LCSW Previous Plans to Harm Another N/A 03/02/2025 9:32 AM Marc Hernandez LCSW * Question Answer Date of Assessment Author Previous Self Harm/Suicidal Attempts No 03/02/2025 1:10 PM Marc Hernandez LCSW * In the past two weeks has the patient had changes in speaking or ability to comprehend conversation Answer Date of Assessment Author No 01/31/2025 7:43 PM CHENGT Simona Palmer RN * Currently, does patient require thickened liquids or dysphagia diet Answer Date of Assessment Author No 01/31/2025 7:43 PM CDT Simona Palmer RN * Patient is in need of SENIOR INTERNET SALES CONSULTANT Order: Answer Date of Assessment Author No SENIOR INTERNET SALES CONSULTANT order needed from [facility] s assessment 01/31/2025 7:43 PM CDT Simona Palmer RN * Question Answer Date of Assessment Author Exhibited Behaviors/Symptoms Appropriate, relaxed;Calm 03/17/2025 6:30 PM CDT Sarah Bellamy * Question Answer Date of Assessment Author Is Patient High Elopement Risk? No 03/01/2025 8:33 PM CDT Zainab Szymanski RN * Thought Content Question Answer Date of Assessment Author Delusions No delusions 03/18/2025 9:00 AM Sury Matos RN Hallucinations None 03/18/2025 9:00 AM Sury Blood RN Ambivalence No (Comment) 03/18/2025 9:00 AM Sury Matos RN * Behavior Question Answer Date of Assessment Author Eye Contact Fair 03/02/2025 1:10 PM CDT Marc Otero LCSW * Language and Speech Question Answer Date of Assessment Author Speech Appropriate 03/18/2025 9:00 AM CDSury Cheung RN * Safety Question Answer Date of Assessment Author Bed In Lowest Position Yes 03/18/2025 9:00 AM Sury Louise RN Bed Wheels Locked Yes 03/18/2025 9:00 AM Sury Louise RN Medical Bed In Use Yes 03/18/2025 9:00 AM Sury Louise RN Password (When Applicable) none 03/18/2025 9:00 AM Sury Louise RN Side Rails Up (Number) 1 03/18/2025 9:00 AM Sury Louise RN Isolation Precautions Not applicable 03/18/2025 9:00 A M Sury Louise RN Precautions Behavioral Health Monitoring 03/18/2025 9:00 AM CHENGT Sury Chowdhury RN * RN Oversight of Sitter Question Answer Date of Assessment Author Sitter Continued 03/01/2025 8:00 PM CDT Dk Alvarez RN Sitter Type Suicide 03/01/2025 8:00 PM CDT Dk Alvarez RN * Question Answer Date of Assessment Author Affect Anxious/Worried 03/18/2025 9:00 AM CHENGT Sury Berkowitz RN Mood Content 03/18/2025 9:00 AM CHENGT Sury Tapia RN * Question Answer Date of Assessment Author RN Safety Check No unsafe behaviors observed, safe environment maintained 03/12/2025 9:00 AM CDT Gay Gandhi RN * Hygiene Question Answer Date of Assessment Author Hygiene Hair washed;Skin cleanser 03/10/2025 5:00 PM CDT Radha Woodward RN Oral Care Teeth brushed 03/04/2025 4:00 PM CDT Virginia Marie RN Hygiene Level of Assistance Independent 03/18/2025 9:00 AM CHENGT Sury Chowdhury RN Toileting: Assistance with Up to bathroom toilet 03/06/2025 7:00 PM CDT Prateek Galvan RN Reason not bathed/showered with chlorhexidine gluconate (CHG) Patient refused bath/shower with chlorhexidine gluconate (CHG) 03/18/2025 9:00 AM CHENGT Sury Chowdhury RN Toileting: Level of assistance Independent 03/18/2025 9:00 AM CHENGT Sury Chowdhury RN Reason not bathed/showered Patient/family refused bath/shower 03/18/2025 9:00 AM CHENGT Sury Chowdhury RN Perineal Care Ely Care 03/07/2025 5:00 PM CDT Radha Woodward RN Linens Draw sheet changed 03/06/2025 5: 14 PM CDT Kassandra Stewart RN Bath Not bathed/showered 03/18/2025 9 :00 AM CHENGT Sury Chowdhury RN documented as of this encounter Mental Status * Question Answer Entry Date Author Neuro (WDL) WDL 02/16/2025 9:00 AM CDT Maurisio Chauhan RN * Orientation Question Answer Entry Date Author Person Yes 03/17/2025 6:00 AM CDT Darshana Penn RN Place Yes 03/17/2025 6:00 AM CHENGT Darshana Penn RN Time Yes 03/17/2025 6:00 AM CDT Darshana Penn RN Situation Yes 03/17/2025 6:00 AM CDT Darshana Penn RN * Question Answer Entry Date Author Level of Consciousness Alert;Awake 8:10 PM CDT Jimmy Gallo Orientation Oriented X4 (person, place, time, situation) 03/17/2025 8:10 PM CDT Jimmy Gallo Other Neuro Symptoms Forgetful;Fatigue 11:20 AM CDT Kvng Clarke RN Neuro (WD) WDL 03/18/2025 9:00 AM CDT Sury Chowdhury RN * Holden Cognitive Assessment-Blind (MOCA-Blind) Question Answer Entry Date Author Abstraction-Blind 2 11/08/2024 10:40 AM CDT Rosario Witt, OT MOCA-Blind Version Version 3 11/08/2024 10:40 AM CD T Rosario Witt, OT Memory-Blind Memory not scored 11/08/2024 10:40 AM CDT Rosario Witt, OT Attention-Blind 3 11/08/2024 10:40 AM CDT Rosario Looney, OT Language-Blind 2 11/08/2024 10:40 AM CDT Rosario Stewart, OT Orientation-Blind 5 11/08/2024 10:40 AM CDT Rosario Witt, OT Education Level-Blind 0 11/08/2024 10:40 AM CDT Rosario Witt, OT Delayed Recall-Blind 1 11/08/2024 10:40 AM CDT Rosario Witt, OT Score Evaluation-Blind 0-17 Impaired 11/08/2024 10:40 AM CDT Rosario Witt, OT MOCA Total Score-Blind 13 11/08/2024 10:40 A M CDT Rosario Witt, OT * Short Blessed Test Question Answer Entry Date Author What year is it now? 0 02/08/2025 3:13 PM CDT Rosario Witt OT What month is it now? 0 02/08/2025 3:13 PM CDT Rosario Witt OT Without looking at the clock, tell me what time it is 3 02/08/2025 3:13 PM CDT Rosario Witt OT Count aloud backwards from 20-1 2 02/08/2025 3:13 PM CDT Rosario Witt OT Say the months of the year backwards in reverse order 4 02/08/2025 3:13 PM Rosario Sy OT Repeat the name and address I asked you to remember 4 02/08/2025 3:13 PM Rosario Sy OT Repeat this name and address after me Wei Nino [address] [place] [address] 02/08/2025 3:13 PM Rosario Sy OT Short Blessed Total Score 13 02/08/2025 3:13 PM Rosario Sy OT Short Blessed Comments impaired 3:13 PM Rosario Sy OT documented in this encounter Plan of Treatment Not on file documented as of this encounter Visit Diagnoses Not on filedocumented in this encounter Care Teams Tile Inspector Relationship Specialty Start Date End Date Jose Yen MD PCP - General Family Medicine 10/15/21 documented as of this encounter
--- OUTSIDE RECORDS SUMMARY | 2025-05-23 18:33 | XMS_ITS | Clinical Summary ---
Author Organization [facility] Address [address] [place] [address] Phone Care Team Providers Care Central Supply Tech Name Role Phone Jose Yen MD Primary Care Provider [phone] Allergies Active Allergy Reactions Criticality Noted Date [...] 07/09/2021 Insurance [employer] MEDICARE ADVANTAGE Care Teams Central Supply Tech Relationship Specialty Start Date End Date Jose Yen MD [address] [place] [address] PCP - General Family Medicine 07/23/21
--- OUTSIDE RECORDS SUMMARY | 2025-05-23 18:33 | XMS_ITS | Encounter Summary ---
Author Organization [facility] Healthcare Address [address] [place] [address] Care Team Providers Care Carbon Coating Machine Operator Name Role Phone Jose Yen MD Primary Care Provider [phone] Encounter Details Date Type Department Care Team (Late st Contact Info) Description 05/09/2024 Home Care Visit [facility] [address] [address] [address] [place] [address] Irene Rick, OT AIDE DISCIPLINE [...] were you homeless or living in a halfway (including now)? No 11/02/2024 Humiliation, Afraid, Rape, [...] often do you attend chur ch or pentecostal services? More than 4 times per year 03/02/2025 Do you belong to any clubs o r organizations such as protestant groups, unions, fraternal or athletic groups, or [...] and heating? Not hard at all 03/02/2025 [facility] [place] of Occupat ional Health - Occupational Stress [...] were you homeless or living in a halfway (including now)? No 03/02/[address] [facility] Utilities Answer Date Recorded In the past 12 months has th e [employer], gas, oil, or water company threatened to [...] on file Legal Sex Female 12:09 AM SCIENTIFIC HELPER Gender Identity Not on file Sexual Orientation [...] or get rid of a hangover? 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 0 03/01/2025 9:56 PM CHENGT Luisana Morejon [...] Assessment Author Left arm 05/22/2025 11:10 AM SCIENTIFIC HELPER Irene Rick, OT * BP Method Answer [...] education;bed low/locked 02/27/2025 3:06 PM CDT Ruth oKvacs RN * Integumentary Question Answer Date of Assessment Author Skin Color Appropriate for ethnicity 03/18/2025 9:00 AM CHENGT Sury Chowdhury RN Skin Condition/Temp Warm;Dry 03/18/2025 9 :00 AM CHENGT Sury Chowdhury RN Skin Integrity Intact 03/18/2025 9:00 [...] Assessment Author Left arm 05/22/2025 11:10 AM SCIENTIFIC HELPER Irene Rick, OT * BP Method Answer Date of Assessment Author Automatic 03/18/2025 8:15 AM CDT Mica Backdakarile * Fall Risk Interventions Question Answer Date [...] Risk Interventions Applied No 03/18/2025 9:00 AM Sruy Louise RN All High Risk Interventions EXCEPT: [...] 2 03/01/2025 10:00 PM Luisana Espinal RN FLIGHT OPERATIONS COORDINATOR Evaluation Needed 2 03/01/2025 10:00 PM Luisana [...] RN * Patient is in need of FLIGHT OPERATIONS COORDINATOR Order: Answer Date of Assessment Author No FLIGHT OPERATIONS COORDINATOR order needed from [facility] s assessment 01/31/2025 7:43 PM CDT Simona [...] washed;Skin cleanser 03/10/2025 5:00 PM CDT Radha Woodawrd RN Oral Care Teeth brushed 03/04/2025 4:00 [...] name and address after me Wei Nino [address] [place] [address] 02/08/2025 3:13 PM Rosario Sy OT Short Blessed Total Score 13 02/08/2025 3:13 PM Rosario Sy OT Short Blessed Comments impaired 3:13 PM Rosario Sy OT documented in this encounter Plan of Treatment Not on file documented as of this encounter Visit Diagnoses Not on filedocumented in this encounter Care Teams Carbon Coating Machine Operator Relationship Specialty Start Date End Date Jose Yen MD PCP - General Family Medicine 10/15/21 documented as of this encounter
--- OUTSIDE RECORDS SUMMARY | 2025-05-23 18:33 | XMS_ITS | Clinical Summary ---
Author Organization [facility] Address [address] [place] [address] Care Team Providers Care Radial Saw Operator Name Role Phone No, Pcp BILINGUAL INTERPRETER Primary Care Provider Unavailabl e Social History Tobacco Use Types Packs/Day Years Used Date Smoking Tobacco: Never Assessed Comments Unknown Sex and Gender Information Value Date Recorded Sex Assigned at Not on file Legal Sex Female 7:50 PM EST Gender Identity Not on file Sexual Orientation Not on file Plan of Treatment Not on file Medical Devices Not on file Care Teams Radial Saw Operator Relationship Specialty Start Date End Date No, Pcp, BILINGUAL INTERPRETER N/A Do not use PCP - General Family Medicine 05/12/20
--- OUTSIDE RECORDS SUMMARY | 2025-05-23 18:33 | XMS_ITS | Clinical Summary ---
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 containing greater than 100 ng/mL nordiazepam or other cross-reacting compounds are reported as positive. False positive and false negative results are possible. Confirmatory testing required for definitive results. Current Interpretive Data was last reviewed 2023. Cannabinoids, ur Not Detected CutOff 50 ng/mL [facility] Comment: Interpretive Data - Cannabinoids: Samples containing greater than 50 ng/mL delta-9 THC -COOH or other cross- reacting compounds are reported as positive. False positive and false negative results are possible. Confirmatory testing required for definitive results. Current Interpretive Data was last reviewed 2023. Cocaine, ur Not Detected CutOff 150ng/mL [facility] Comment: Interpretive Data - Cocaine: Samples containing greater than 150 ng/mL benzoylecgonine or other cross- reacting compounds are reported as positive. False positive and false negative results are possible. Confirmatory testing required for definitive results. Current Interpretive Data was last reviewed 2023. Fentanyl, Ur Not Detected CutOff 5 ng/mL [facility] Comment: Interpretive Data - Fentanyl: Samples containing greater than 5 ng/mL norfentanyl, fentanyl, or other cross-reacting fentanyl compounds are reported as positive. False positive and false negative results are possible. Confirmatory testing required for definitive results. Current Interpretive Data was last reviewed 2023. Methadone, ur Not Detected CutOff 300ng/mL [facility] Comment: Interpretive Data - Methadone: Samples containing greater than 300 ng/mL d,l-methadone or other cross-reacting compounds are reported as positive. False positive and false negative results are possible. Confirmatory testing required for definitive results. Current Interpretive Data was last reviewed 2023. Opiates, ur Not Detected CutOff 300ng/mL [facility] Comment: Interpretive Data - Opiates: Samples containing greater than 300 ng/mL morphine or other cross-reacting compounds are reported as positive. False positive and false negative results are possible. Confirmatory testing required for definitive results. Current Interpretive Data was last reviewed 2023. Oxycodone, ur Not Detected CutOff 100ng/mL [facility] Comment: Interpretive Data - Oxycodone: Samples containing greater than 100 ng/mL oxycodone or other cross-reacting compounds are reported as positive. False positive and false negative results are possible. Confirmatory testing required for definitive results. Current Interpretive Data was last reviewed 2023. Phencyclidine, ur Not Detected CutOff 25 ng/mL [facility] Comment: Interpretive Data - Phencyclidine: Samples containing greater than 25 ng/mL phencyclidine or other cross-reacting compounds are reported as positive. False positive and false negative results are possible. Confirmatory testing required for definitive results. Current Interpretive Data was last reviewed 2023. Urine Creatinine 48 mg/dL [facility] Comment: Interpretive Data Urine Creatinine: < 10 mg/dL is extremely dilute = or > 10 but < 20 mg/dL is dilute = or > 20 mg/dL is normal Current Interpretive Data was last revised on 2017. Urine 03/01/2025 11:2 9 AM CDT 03/01/2025 11:38 AM CDT Narrative [facility] - 03/01/2025 12:15 PM CDT Drug of Abuse screening is performed by immunoassay for medical purposes only. This is not to be used for Pain Management purposes. Michael Delgado Jr., MD LAB URINE ORDERABLES F inal Result Performing Organization Address [facility] de Phone Number [facility] Department [place] [address] * (ABNORMAL) Urinalysis, microscopic only (03/01/2025 11:29 AM CDT) WBC, ur 0-5 0 - 5 /HPF RBC, ur 0-2 0 - 2 /HPF [facility] Epithelial cells, squamous, ur 1-5 0 - 5 /HPF [facility] Bacteria, ur 1+(A) [facility] Urine 03/01/2025 11:2 9 AM CDT 03/01/2025 11:38 AM CDT Michael Delgado Jr., MD LAB URINE ORDERABLES F inal Result Performing Organization Address [facility] de Phone Number [facility] Department [place] [address] * (ABNORMAL) eGFR (03/01/2025 11:16 AM CDT) [...] MD LAB BLOOD ORDERABLES F inal Result [facility] [place] [address] * Differential, auto (03/01/2025 11:16 AM CDT) Neutrophil abs 3.41 1.50 - 6.50 K/cumm Imm gran abs 0.01 0.00 - 0.10 K/cumm [facility] Lymphocyte abs 1.08 0.80 - 3.30 K/cumm [facility] Monocyte abs 0.48 0.20 - 0.80 K/cumm [facility] Eosinophil abs 0.04 0.00 - 0.50 [facility] Basophil abs 0.02 0.00 - 0.10 K/cumm [facility] Neutrophil pct 67.7 % [facility] Comment: Interpretive Data Percent cell count reference ranges are not reported, since discordance with absolute values may lead to misinterpretation of CBC data. Current Interpretive Data was last revised on 2017. Imm gran pct 0.2 % [facility] Comment: Interpretive Data Percent cell count reference ranges are not reported, since discordance with absolute values may lead to misinterpretation of CBC data. Current Interpretive Data was last revised on 2017. Lymphocyte pct 21.4 % [facility] Comment: Interpretive Data Percent cell count reference ranges are not reported, since discordance with absolute values may lead to misinterpretation of CBC data. Current Interpretive Data was last revised on 2017. Monocyte pct 9.5 % [facility] Comment: Interpretive Data Percent cell count reference ranges are not reported, since discordance with absolute values may lead to misinterpretation of CBC data. Current Interpretive Data was last revised on 2017. Eosinophil pct 0.8 % [facility] Comment: Interpretive Data Percent cell count reference ranges are not reported, since discordance with absolute values may lead to misinterpretation of CBC data. Current Interpretive Data was last revised on 2017. Basophil pct 0.4 % [facility] Comment: Interpretive Data Percent cell count reference ranges are not reported, since discordance with absolute values may lead to misinterpretation of CBC data. Current Interpretive Data was last revised on 2017. Blood 03/01/2025 11:1 6 AM CDT 03/01/2025 11:24 AM CDT Michael Delgado Jr., MD LAB BLOOD ORDERABLES F inal Result Performing Organization Address [facility] Co de Phone Number [facility] Department [place] [address] * Thyroid Function Martin (03/01/2025 11:16 AM CDT) Pathologist [facility] TSH 0.45 0.30 - 4.20 mcIUnit/mL Blood 03/01/2025 11:1 6 AM CDT 03/01/2025 11:24 AM CDT Michael Delgado Jr., MD LAB BLOOD ORDERABLES F inal Result Performing Organization Address City/[facility] Co de Phone Number [facility] [place] [address] * (ABNORMAL) CBC with auto differential (03/01/2025 11:16 AM CDT) Pathologist [facility] WBC 5.04 3.80 - 9.90 K/cumm Hgb 12.6 11.9 - 15.5 g/dL [facility] Hct 39.2 35.6 - 45.5 % [facility] Plt 233 150 - 400 K/cumm [facility] MPV 10.1 9.1 - 12.3 fL [facility] RBC 4.05 3.90 - 5.20 M/cumm [facility] MCV 96.8(H) 81.3 - 96.4 fL [facility] MCH 31.1 27.1 - 33.3 pg [facility] MCHC 32.1(L) 32.3 - 35.7 g/dL [facility] RDW CV 13.2 11.1 - 14.9 % [facility] RDW SD 46.6 35.7 - 48.1 fL [facility] NRBC abs 0.00 0.00 - 0.01 K/cumm [facility] Blood Venous blood specimen / Unknown 03/01/2025 11:16 AM CDT 03/01/2025 11:24 AM CDT us Michael Delgado Jr., MD LAB BLOOD ORDERABLES F inal Result Performing Organization Address City/[facility]/ZIP Co de Phone Number [facility] [place] [address] * Ethanol (03/01/2025 11:16 AM CDT) Ethanol <10 <=10 mg/dL Comment: Interpretive Data Legal limit of intoxication > or = 80 mg/dL Levels > or = 400 mg/dL are potentially TOXIC. Current interpretive data was last revised on 2018. Blood 03/01/2025 11:1 6 AM CDT 03/01/2025 11:24 AM CDT us Michael Delgado Jr., MD LAB BLOOD ORDERABLES F inal Result [facility] [place] [address] * (ABNORMAL) Comprehensive metabolic panel (03/01/2025 11:16 AM CDT) Sodium 143 135 - 145 mmol/L Potassium, pl 4.5 3.3 - 4.9 mmol/L [facility] Chloride 110 97 - 110 mmol/L [facility] CO2 26 22 - 32 mmol/L [facility] Anion gap 7 2 - 15 mmol/L [facility] BUN 22 6 - 25 mg/dL [facility] Creatinine 1.55(H) 0.60 - 1.10 mg/dL [facility] Glucose 94 70 - 199 mg/dL [facility] Comment: Interpretive Data Fasting glucose >/= 126 [...] 2022. Calcium 9.9 8.5 - 10.3 mg/dL [facility] Bilirubin, total 0.5 0.1 - 1.2 mg/dL [facility] Protein, pl 7.0 6.5 - 8.5 g/dL [facility] Albumin 3.9 3.5 - 5.0 g/dL [facility] Alk phos 77 40 - 130 Units/L [facility] ALT 10 7 - 45 Units/L [facility] AST 20 10 - 45 Units/L [facility] Blood 03/01/2025 11:1 6 AM CDT 03/01/2025 11:24 AM CDT us Michael Delgado Jr., MD LAB BLOOD ORDERABLES F inal Result [facility] [place] [address] * ID CRITICAL CARE ILL/INJURED PATIENT INIT 30-74 MIN [...] - 1.030 [facility] pH, urine 6.0 [facility] Comment: Interpretive Data U rine pH is affected by diet, medications, systemic acid-base disturbances, and renal tubular function. pH may affect urinary stone formation. For example, urine pH below 6.0 may help reduce the tendency for calcium phosphate stones and pH greater than 6.0 may reduce the tendency for uric acid stone formation. Source: [place] Current Interpretive Data was last revised on 2017 Protein, ur ql Negative Negative [facility] Glucose, ur ql Negative Negative [facility] Ketones, ur Negative Negative [facility] Bilirubin, ur Negative Negative [facility] Blood, ur Negative Negative [facility] Urobilinogen, ur <2.0 <2.0 mg/dL [facility] Nitrite, ur Negative Negative [facility] Leukocyte esterase, ur 2+(A) Negative [facility] UA reflex comment Reflex to microscopic UA will be performed. [facility] Urine 02/27/2025 3:48 PM CDT 02/27/2025 3:53 PM CDT Oscar Vela MD LAB URINE ORDERABLES Final Resul t [facility] [place] [address] * Drugs of Abuse Screen, Urine without [...] 2023. Barbiturates, ur Not Detected CutOff 200ng/mL [facility] Comment: Interpretive Data - Barbiturates: Samples containing greater than 200 ng/mL secobarbital or other cross-reacting barbiturate compounds are reported as positive. False positive and false negative results are possible. Confirmatory testing required for definitive results. Current Interpretive Data was last reviewed 2023. Benzodiazepines, ur Not Detected CutOff 100ng/mL [facility] Comment: Interpretive Data - Benzodiazepines: Samples containing greater than 100 ng/mL nordiazepam or other cross-reacting compounds are reported as positive. False positive and false negative results are possible. Confirmatory testing required for definitive results. Current Interpretive Data was last reviewed 2023. Cannabinoids, ur Not Detected CutOff 50 ng/mL [facility] Comment: Interpretive Data - Cannabinoids: Samples containing greater than 50 ng/mL delta-9 THC -COOH or other cross- reacting compounds are reported as positive. False positive and false negative results are possible. Confirmatory testing required for definitive results. Current Interpretive Data was last reviewed 2023. Cocaine, ur Not Detected CutOff 150ng/mL [facility] Comment: Interpretive Data - Cocaine: Samples containing greater than 150 ng/mL benzoylecgonine or other cross- reacting compounds are reported as positive. False positive and false negative results are possible. Confirmatory testing required for definitive results. Current Interpretive Data was last reviewed 2023. Fentanyl, Ur Not Detected CutOff 5 ng/mL [facility] Comment: Interpretive Data - Fentanyl: Samples containing greater than 5 ng/mL norfentanyl, fentanyl, or other cross-reacting fentanyl compounds are reported as positive. False positive and false negative results are possible. Confirmatory testing required for definitive results. Current Interpretive Data was last reviewed 2023. Methadone, ur Not Detected CutOff 300ng/mL [facility] Comment: Interpretive Data - Methadone: Samples containing greater than 300 ng/mL d,l-methadone or other cross-reacting compounds are reported as positive. False positive and false negative results are possible. Confirmatory testing required for definitive results. Current Interpretive Data was last reviewed 2023. Opiates, ur Not Detected CutOff 300ng/mL [facility] Comment: Interpretive Data - Opiates: Samples containing greater than 300 ng/mL morphine or other cross-reacting compounds are reported as positive. False positive and false negative results are possible. Confirmatory testing required for definitive results. Current Interpretive Data was last reviewed 2023. Oxycodone, ur Not Detected CutOff 100ng/mL [facility] Comment: Interpretive Data - Oxycodone: Samples containing greater than 100 ng/mL oxycodone or other cross-reacting compounds are reported as positive. False positive and false negative results are possible. Confirmatory testing required for definitive results. Current Interpretive Data was last reviewed 2023. Phencyclidine, ur Not Detected CutOff 25 ng/mL [facility] Comment: Interpretive Data - Phencyclidine: Samples containing greater than 25 ng/mL phencyclidine or other cross-reacting compounds are reported as positive. False positive and false negative results are possible. Confirmatory testing required for definitive results. Current Interpretive Data was last reviewed 2023. Urine Creatinine 54 mg/dL [facility] Comment: Interpretive Data Urine Creatinine: < 10 mg/dL is extremely dilute = or > 10 but < 20 mg/dL is dilute = or > 20 mg/dL is normal Current Interpretive Data was last revised on 2017. Urine 02/27/2025 3:48 PM CDT 02/27/2025 3:53 PM CDT Narrative [facility] - 02/27/2025 4:30 PM CDT Drug of Abuse screening is performed by immunoassay for medical purposes only. This is not to be used for Pain Management purposes. Oscar Vela MD LAB URINE ORDERABLES Final Resul t Performing Organization Address [facility] de Phone Number [facility] [place] [address] * (ABNORMAL) Urinalysis, microscopic only (02/27/2025 3:48 PM CDT) WBC, ur 0-5 0 - 5 /HPF RBC, ur 0-2 0 - 2 /HPF [facility] Epithelial cells, squamous, ur 11-20(A) 0 - 5 /HPF [facility] Comment:Suggestive of contam ination. Consider recollection by clean catch. Epithelial cells, renal, ur 1-5(A) 0 - 0 /HPF [facility] Bacteria, ur 2+(A) [facility] Mucous, ur Present(A ) [facility] Urine 02/27/2025 3:48 PM CDT 02/27/2025 3:53 PM CDT Oscar Vela MD LAB URINE ORDERABLES Final Resul t Performing Organization Address [facility] Co de Phone Number [facility] [place] [address] * (ABNORMAL) eGFR (02/27/2025 3:16 PM CDT) [...] MD LAB BLOOD ORDERABLES Final Resul t [facility] [place] [address] * Differential, auto (02/27/2025 3:16 PM CDT) Neutrophil abs 2.86 1.50 - 6.50 K/cumm Imm gran abs 0.02 0.00 - 0.10 K/cumm [facility] Lymphocyte abs 1.14 0.80 - 3.30 K/cumm [facility] Monocyte abs 0.59 0.20 - 0.80 K/cumm [facility] Eosinophil abs 0.08 0.00 - 0.50 K/cumm [facility] Basophil abs 0.02 0.00 - 0.10 K/cumm [facility] Neutrophil pct 60.8 % [facility] Comment: Interpretive Data Percent cell count reference ranges are not reported, since discordance with absolute values may lead to misinterpretation of CBC data. Current Interpretive Data was last revised on 2017. Imm gran pct 0.4 % [facility] Comment: Interpretive Data Percent cell count reference ranges are not reported, since discordance with absolute values may lead to misinterpretation of CBC data. Current Interpretive Data was last revised on 2017. Lymphocyte pct 24.2 % [facility] Comment: Interpretive Data Percent cell count reference ranges are not reported, since discordance with absolute values may lead to misinterpretation of CBC data. Current Interpretive Data was last revised on 2017. Monocyte pct 12.5 % [facility] Comment: Interpretive Data Percent cell count reference ranges are not reported, since discordance with absolute values may lead to misinterpretation of CBC data. Current Interpretive Data was last revised on 2017. Eosinophil pct 1.7 % [facility] Comment: Interpretive Data Percent cell count reference ranges are not reported, since discordance with absolute values may lead to misinterpretation of CBC data. Current Interpretive Data was last revised on 2017. Basophil pct 0.4 % [facility] Comment: Interpretive Data Percent cell count reference ranges are not reported, since discordance with absolute values may lead to misinterpretation of CBC data. Current Interpretive Data was last revised on 2017. Blood 02/27/2025 3:16 PM CDT 02/27/2025 3:32 PM CDT Oscar Vela MD LAB BLOOD ORDERABLES Final Resul t Performing Organization Address City/[facility]/ZIP Co de Phone Number [facility] [place] [address] * Thyroid Function Martin (02/27/2025 3:16 PM CDT) TSH 0.40 0.30 - 4.20 mcIUnit/mL Blood 02/27/2025 3:16 PM CDT 02/27/2025 3:32 PM CDT Oscar Vela MD LAB BLOOD ORDERABLES Final Resul t Performing Organization Address City/[facility]/ZIP Co de Phone Number [facility] [place] [address] * (ABNORMAL) CBC with auto differential (02/27/2025 3:16 PM CDT) [facility] WBC 4.71 3.80 - 9.90 K/cumm Hgb 12.2 11.9 - 15.5 g/dL [facility] Hct 38.5 35.6 - 45.5 % [facility] Plt 231 150 - 400 K/cumm [facility] MPV 10.3 9.1 - 12.3 fL [facility] RBC 3.98 3.90 - 5.20 M/cumm [facility] MCV 96.7(H) 81.3 - 96.4 fL [facility] MCH 30.7 27.1 - 33.3 pg [facility] MCHC 31.7(L) 32.3 - 35.7 g/dL [facility] RDW CV 12.9 11.1 - 14.9 % [facility] RDW SD 46.0 35.7 - 48.1 fL [facility] NRBC abs 0.00 0.00 - 0.01 K/cumm [facility] Blood Venous blood specimen / Unknown 02/27/2025 3:16 PM CDT 02/27/2025 3:32 PM CDT Oscar Vela MD LAB BLOOD ORDERABLES Final Resul t Performing Organization Address [facility] Co de Phone Number [facility] [place] [address] * Ethanol (02/27/2025 3:16 PM CDT) [facility] Ethanol <10 <=10 mg/dL Comment: Interpretive Data Legal limit of intoxication > or = 80 mg/dL Levels > or = 400 mg/dL are potentially TOXIC. Current interpretive data was last revised on 2018. Blood 02/27/2025 3:16 PM CDT 02/27/2025 3:32 PM CDT Oscar Vela MD LAB BLOOD ORDERABLES Final Resul t Performing Organization Address City/[facility]/ZIP Co de Phone Number [facility] Department [place] [address] * (ABNORMAL) Comprehensive metabolic panel (02/27/2025 3:16 PM CDT) Sodium 144 135 - 145 mmol/L Potassium, pl 4.1 3.3 - 4.9 mmol/L [facility] Chloride 110 97 - 110 mmol/L [facility] CO2 27 22 - 32 mmol/L [facility] Anion gap 7 2 - 15 mmol/L [facility] BUN 22 6 - 25 mg/dL [facility] Creatinine 1.40(H) 0.60 - 1.10 mg/dL [facility] Glucose 102 70 - 199 mg/dL [facility] Comment: Interpretive Data Fasting glucose >/= 126 [...] 2022. Calcium 9.2 8.5 - 10.3 mg/dL [facility] Bilirubin, total 0.3 0.1 - 1.2 mg/dL [facility] Protein, pl 6.6 6.5 - 8.5 g/dL [facility] Albumin 3.6 3.5 - 5.0 g/dL [facility] Alk phos 77 40 - 130 Units/L [facility] ALT 13 7 - 45 Units/L [facility] AST 19 10 - 45 Units/L [facility] Blood 02/27/2025 3:16 PM CDT 02/27/2025 3:32 PM CDT us Oscar Vela MD LAB BLOOD ORDERABLES Final Resul t [facility] [place] [address] * Electroconvulsive therapy (02/22/2025 8:42 AM CDT) Narrative Roger Schmitz MD - 02/22/2025 8:42 AM CDT Roger Schmitz MD 02/22/2025 12:16 PM ECT Treatment Note Pre-Procedure Procedure: ECT inpatient Court Ordered : No Preprocedure Diagnosis: Associated Problems P Problem Selected Diagnosis Major depressive disorder, 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 No records for laterality or charge. 5 sessions of ECT during [facility] hospitalization in November 2024, RUL 100%, which induced hypomania (shown in table below) Treatment # Date Laterality Charge Frequency 11/04/24 RUL 5 -> 10 -> 15 -> 100%, seized at 100% 3x/wk 11/07/24 RUL 100% 3x/wk 11/09/24 RUL 100% 3x/wk 11/11/24 RUL 100% 3x/wk 11/14/24 RUL 100% 3x/wk Did not pursue ECT in outpatient setting after discharge Re-hospitalized at [facility] 02/02/25 Prior # of ECTs this [...] AL ORDERABLES Final Result [facility] [place] [address] from Last 3 Months or Most Recently Relevant to Health Maintenance Insurance [employer] [place] [address] [address] [place] [address] [place] [address] T MEDICARE [facility] IDPA Advance Directives For more information, please contact: [phone] * Full Code (Latest Code Status on [...] 6:44 AM 03/08/2025 6:37 AM Care Teams Egg Candler Relationship Specialty Start Date End Date Jose Yen MD PCP - General Family Medicine 10/15/21
[2025-05-23 18:42] LABS: Hematocrit 44.2 % (37.0-47.0); Hemoglobin 14.4 g/dL (12.0-15.0); Immature Granulocyte Percent A 0.2 % (0-0.5); Lymphocytes Absolute Auto 1.68 K/mm3 (0.9-3.2); Mean Corpuscular HGB Conc 32.6 g/dl (32-36); Mean Corpuscular Hemoglobin 31.3 pg (26-34); Mean Corpuscular Volume 96.1 fl (80-100); Nucleated Red Blood Cells Absolute Auto 0.000 K/mm3 (0.0-0.012); Nucleated Red Blood Cells Perc 0.0 % (0.0-0.2); Platelet Count Result 249 k/mm3 (150-375); Red Blood Count 4.60 M/mm3 (4.2-5.4); White Blood Count 4.7 K/mm3 (4.5-10.0)
[2025-05-23 18:53] LABS: Alanine Aminotransferase 123 U/L (6-35); Albumin Level 4.0 g/dL (3.5-5.1); Alkaline Phosphatase 87 U/L (38-126); Anion Gap 5 mmol/L (4-12); Aspartate Amino Transferase 84 U/L (14-36); Bilirubin,Total 0.6 mg/dL (0.2-1.3); Blood Urea Nitrogen 20 mg/dL (7-17); Calcium 9.9 mg/dL (8.4-10.2); Carbon Dioxide 30 mmol/L (22-30); Chloride 105 mmol/L (98-107); Estimated Glomerular Filt Rate 37; Glucose 99 mg/dL (65-110); Lipase 109 U/L (23-300); Potassium 4.2 mmol/L (3.4-5.0); Sodium 140 mmol/L (137-145); Total Protein 7.2 g/dL (6.3-8.2)
[2025-05-23] MEDS: SODIUM CHLORIDE 0.9% IV 500 ML 999 ML IV CONT (19:10)
[2025-05-23 20:07] LABS: Add Urine Microscopic? NO; Appearance Urine Clear (Clear); Glucose Urine UA Negative (Negative); Leukocyte Esterase Ur Negative LEU/UL (Negative); Nitrate Urine Negative (Negative); Specific Grav Ur 1.019 (1.001-1.035)
== END 2025-05-23 23:12 | disposition home or self-care (01) ==
PROVIDERS: Physician Assistant; PCP Family Medicine
DX: K59.00 Constipation, unspecified (principal); I12.9 Hypertensive chronic kidney disease with stage 1 through stage 4 chronic kidney disease, or unspecified chronic kidney disease; N18.30 Chronic kidney disease, stage 3 unspecified; E78.2 Mixed hyperlipidemia; N32.81 Overactive bladder; K21.9 Gastro-esophageal reflux disease without esophagitis; M17.12 Unilateral primary osteoarthritis, left knee; F31.9 Bipolar disorder, unspecified; Z79.899 Other long term (current) drug therapy
CPT/HCPCS: 36415; 74018; 74177; 80053; 81003; 83690; 85025; 96360; 99284; J7040; Q9967